=== PATIENT | female | born 1965 | race African-American/Black ===

== ENCOUNTER → 2022-10-17 10:11 | Outpatient (BNVA) | payer OTHER, SELFPAY | PROVIDERS: Visit Provider Physician Assistant Surgical ==

== ENCOUNTER 2022-11-15 08:10 | Outpatient (AMB) | payer OTHER, SELFPAY ==
--- NOTE | 2022-11-15 08:14 | A.OFFVIS_ITS ---
Intake VS Expanded 11/15/22 08:29 Height 5 ft 6 in Weight 223 lb 6.4 oz BMI 36.1 BP 192/81 H Blood Pressure Location Lt radial Blood Pressure Position Sitting Pulse 68 Pulse Source Pulse Oximeter Temp 96.3 F L Temperature Source Tympanic Pulse Oximetry 99 Oxygen Delivery Method Room Air Body Fat 93.6 Body Fat Percentage 42.0 Free Fat Mass 129.6 Muscle Mass 123.0 Visceral Mass 12.0 Water Mass 92.2 BMR 1,791 Intake Visit Reasons: (ov) SWL County Agent Required: No Allergies No Known Allergies Allergy (Verified 11/15/22 08:22) Medication List - Last Reconciled 11/15/22 by YOVANNY Cox amlodipine 5 mg PO DAILY insulin detemir U-100 (Levemir FlexPen) units subcut levothyroxine 88 mcg PO DAILY [propanolol 20 mg PO BID] HPI HPI Comments History of Present Illness Details Pt is here to start the [facility] Weight Management surgical weight loss program. She heard about our program from her PCP. Her goal is to lose weight and achieve a healthy lifestyle as well as to improve, if not resolve, obesity related medical conditions, including DM, ERNIE, HTN. She reports first being concerned about her weight about 5 years ago, highest weight to date was 270. Current weight is 223.4 pounds with a BMI of 36.1. She has tried multiple methods of weight loss including previous LSG without permanent results. She lives with her son. She does not work. She has a history of LSG by Dr Montoya at [facility] in 2020. No required weight loss prior to surgery and lost a total of 42 pounds since surgery from 268 pounds to 224 pounds. She is dissatisfied with her current weight and is concerned may need a revision She wakes at:?530 am, and goes to bed at?930pm. Dinner is at 6 pm. Breakfast: skip AM snack: breakfast bar or slimfast bar Lunch: sandwich, lunchable PM snack: fruit Dinner: meat, veg, potato After dinner: skip or cookies, crackers Other snacks: chips Liquids: 32 oz water, 4 coke zero/gingerale zero daily, no juice Alcohol/marijuana/tobacco intake: none Exercise: gym, Esporta 3 x per week, cardio, bike/treadmill, 300-330 calories per session GERD score: 0 LATRELL score: 0 ESS score: 6 QOL score: 84 Review of Systems Const All systems reviewed & are unremarkable except as noted in HPI and below Physical Exam Vital Signs: Last Vital Signs Temp 96.3 F L 11/15/22 08:29 Pulse 68 11/15/22 08:29 BP 192/81 H 11/15/22 08:29 Pulse Ox 99 11/15/22 08:29 Oxygen Delivery Method Room Air 11/15/22 08:29 BMI result Body Mass Index 36.1 Const General: cooperative, healthy appearing and no acute distress Orientation/consciousness: patient oriented x3 HEENT Head: Yes normal to inspection Ears: hearing grossly normal bilaterally General nose exam: Normal external nose present Face and sinus: Yes normal facial exam Eyes Other: opacified left pupil, blind left decr vis acuity right Resp Effort & Inspection: normal respiratory effort Auscultation: clear to auscultation bilaterally Cardio Rate: regular rate Rhythm: regular rhythm Heart sounds: S1 normal heart sound present and S2 normal heart sound present GI Inspection: Yes normal to inspection, No distended, Yes incision (midline laparotomy incision, mult laparoscopy scars) and Yes obesity Palpation (GI): Soft to palpation, nontender and no guarding Auscultation: normal bowel sounds Skin General skin exam: no rashes or lesions noted Neuro General: patient oriented x3 Extrem General: No edema Psych Appearance: grossly normal Mental Status: mental status grossly normal Speech and movement: Normal speech and movement present Affect: normal affect Attitude: cooperative Assessment & Plan Assessment & Plan (1) Obesity (BMI 30-39.9): Code(s): E66.9 - Obesity, unspecified Plan: This is a?57 yo female who will start our SWL program to prepare for bariatric surgery.? Blood work, h pylori , CXR, ECG, Abd US and UGI have been ordered. She is being scheduled for RD and BH initial consultations. She will start SWL classes and watch the first three videos before her next appointment. ? Adequate sleep of 7-8 hours per night discussed, awakening at 530 am and going to bed at 930 pm ? Purchase body composition analyzer scale (Iban garcía or Madan recommended) and check weight weekly. The best time to do this is first thing in the morning after going to the bathroom. 1. Nutritional counseling: Be sure to careful read the number of scoops per shake Start with 3 Orgain shakes ([employer], [employer], [facility]), First shake, (1 and 1/2 scoop in 8 oz low fat unsweetened almond milk or water) at 630am-830am, Second shake ( 1 scoop in 8 oz unsweetened almond milk or water) at 1030am- 1230pm 1 protein bar (Fit crunch bars at [employer], [facility], or [employer]) at 230pm-430pm. Dinner at 6pm (8 forks of protein and 8 forks of salad/vegetables). Meal to include lean meat (beef, fish, pork, turkey, chicken), cooked vegetables or a salad with olive oil and/or fruits (berries, pears, apples, kiwi). Avoid salt, breads, potatoes, rice, pasta, desserts. Another shake with 1 scoop in 8 oz unsweetened almond milk at 730pm-930pm. Try to drink 64 oz of water daily and avoid soda and juices. ?2. Each shake would be drunk slowly, like coffee in a period of 2 hours. ?3. Cut each bar in 4 pieces and eat each piece in 30 min ?to make each bar last 2 hours. ?4. I emphasized the importance of measuring accurately the food portion and measure it carefully when serving the food on the plate ?5. The meal portions include 8 full-size forks of meat and 8 full-size forks of salad. You always eat the meat portion but you can replace up to half of the forks of salad/vegetables with rice, potatoes or pasta, or a fruit ?if you like. The less you do it the better weight loss will be. ?6. One full-size fork is what can be scooped on the fork without falling aside and not what can be bit with the fork. Use regular forks like those you find in a typical restaurant. ?7.? Please send me weight measurements as soon as possible and then once a week. Always include your diet and exercise plan. Alternatively come weekly at the office for weight checks and send me the measurements. ?8. Exercise counseling: Begin by watching a stretching for beginners video. Start slowly and begin to stretch your muscles. You should do this before and after each exercise session to prevent injury. Please continue to go to [facility] near your home. Ask the research laboratory manager or one of the trainers how to use the machines if you are unfamiliar with them. Start elliptical with a resistance of 2. Increase resistance by 1 every 3 min to your most comfortable resistance with a max resistance of 8. Reduce the resistance by 1 every 3 minutes back down to 2 and repeat cycles for 300 calories. Alternatively, start treadmill with a speed of 3.0 and incline of 0, increasing incline by 1 every 3 minutes to the highest comfortable level (max 6 for now) then decrease in the same fashion. Repeat process to a goal of 300 calories. Goal of 2000 calories burned or more weekly. You may also consider use of the stationary bike. The easiest would be to chose the fat-burn or interval training program on the machine and do this until you reach the 300 calorie goal. Alternatively, you can manually adjust the resistance in a similar fashion as mentioned above, (resistance of 2-8 with a goal speed of 12 mph). Tracking calories is essential. 9. Alternatively start walking outside daily, tracking calories with a goal of 300 calories per day, daily. You can download the ana [employer] which can track your time, distance and calories while walking outside. You press start in the ana when you start and then stop when you are finished. 10.? It is important to communicate by text with me weekly 11. Please get labs, EKG and chest X-Ray within 1 week. 12. Discussed and answered all questions regarding?obtained consent to participate in the [facility]?Registry. 13. Please follow the diet plan exactly, without any change. If you do not like something about the plan or you feel hungry, you need to communicate with me so I can help you revise the plan. You should not change the plan yourself. Text me at [phone] 14. Goal is to lose at least 12 pounds in the first month 15. Goal is to lose 10% of your weight before surgery, which is about 22 lbs. Ultimate weight goal: 201 lbs before surgery Patient is morbidly obese and is not considered stable at this time.?I spent a total of 70 minutes reviewing/updating records, examining the patient and counseling the patient on weight management as detailed above. Orders: Orders Vitamin B12 and Folate Today E11.9 - Type 2 diabetes mellitus without complications, E66.9 - Obesity, unspecified, I10 - Essential (primary) hyperten julien Comprehensive Met. Panel Today E11.9 - Type 2 diabetes mellitus without complications, E66.9 - Obesity, unspecified, I10 - Essential (primary) hypertension C Reactive Protein Today E11.9 - Type 2 diabetes mellitus without complications, E66.9 - Obesity, unspecified, I10 - Essential (primary) hypertension Ferritin Today E11.9 - Type 2 diabetes mellitus without complications, E66.9 - Obesity, unspecified, I10 - Essential (primary) hypertension Hemoglobin A1c Today E11.9 - Type 2 diabetes mellitus without complications, E66.9 - Obesity, unspecified, I10 - Essential (primary) hypertension Insulin Today E11.9 - Type 2 diabetes mellitus without complications, E66.9 - Obesity, unspecified, I10 - Essential (primary) hypertension IRON PROFILE Today E11.9 - Type 2 diabetes mellitus without complications, E66.9 - Obesity, unspecified, I10 - Essential (primary) hypertension Lipid Panel Today E11.9 - Type 2 diabetes mellitus without complications, E66.9 - Obesity, unspecified, I10 - Essential (primary) hypertension PTHI Today E11.9 - Type 2 diabetes mellitus without complications, E66.9 - Obesity, unspecified, I10 - Essential (primary) hypertension TSH reflex Free T4 Today E11.9 - Type 2 diabetes mellitus without complications, E66.9 - Obesity, unspecified, I10 - Essential (primary) hypertension Vitamin A Today E11.9 - Type 2 diabetes mellitus without complications, E66.9 - Obesity, unspecified, I10 - Essential (primary) hypertension Vitamin B1 Today E11.9 - Type 2 diabetes mellitus without complications, E66.9 - Obesity, unspecified, I10 - Essential (primary) hypertension Vitamin D 25-OH Total Today E11.9 - Type 2 diabetes mellitus without complications, E66.9 - Obesity, unspecified, I10 - Essential (primary) hypertension Zinc Today E11.9 - Type 2 diabetes mellitus without complications, E66.9 - Obesity, unspecified, I10 - Essential (primary) hypertension ECG 12 lead EKG Today E11.9 - Type 2 diabetes mellitus without complications, E66.9 - Obesity, unspecified, I10 - Essential (primary) hypertension FL upper GI w air Today E11.9 - Type 2 diabetes mellitus without complications, E66.9 - Obesity, unspecified, I10 - Essential (primary) hypertension Complete Blood Count Auto Diff Today E11.9 - Type 2 diabetes mellitus without complications, E66.9 - Obesity, unspecified, I10 - Essential (primary) hypertension H Pylori Breath Test Today E11.9 - Type 2 diabetes mellitus without complications, E66.9 - Obesity, unspecified, I10 - Essential (primary) hypertension US abdomen comp w elastography Today E11.9 - Type 2 diabetes mellitus without complications, E66.9 - Obesity, unspecified, I10 - Essential (primary) hypertension XR chest 2V Today E11.9 - Type 2 diabetes mellitus without complications, E66.9 - Obesity, unspecified, I10 - Essential (primary) hypertension Referrals Behavioral Health Referral E11.9 - Type 2 diabetes mellitus without complications, E66.9 - Obesity, unspecified, I10 - Essential (primary) hypertension Nutrition/Dietitian Referral E11.9 - Type 2 diabetes mellitus without complications, E66.9 - Obesity, unspecified, I10 - Essential (primary) hypertension Coding Level of Care Code New Pt Level 5 (86456) Diagnoses Obesity (BMI 30-39.9) E66.9 Time Spent (min) 70
[2022-11-15 08:29] VITALS: BP 192/81; PULSE 68; TEMP 35.7; O2SAT 99; BMI 36.1
[2022-12-14 14:27] LABS: H Pylori Breath Test Negative (Negative)
== END 2022-11-15 09:33 | disposition home or self-care (01) ==
PROVIDERS: Visit Provider Physician Assistant Surgical
DX: E66.9 Obesity, unspecified (principal); Z68.36 Body mass index [BMI] 36.0-36.9, adult
CPT/HCPCS: 99205

== ENCOUNTER → 2022-11-15 08:10 | Outpatient (BNVA) | payer OTHER, SELFPAY | PROVIDERS: Visit Provider Physician Assistant Surgical | DX: E66.9 Obesity, unspecified (principal); Z68.36 Body mass index [BMI] 36.0-36.9, adult | CPT/HCPCS: 83013; 99202 ==

== ENCOUNTER 2022-11-20 09:19 | Outpatient (REF) | payer OTHER, SELFPAY ==
--- NOTE | ~2022-11-20 | XR_ITS ---
EXAMINATION: XR CHEST CLINICAL INFORMATION: Obesity COMPARISON: None available. TECHNIQUE: 2 views of the chest were obtained. FINDINGS: No significant abnormality is noted involving the heart, lungs, mediastinum, bony thorax or soft tissues. XR/XR chest 2V IMPRESSION: Unremarkable chest examination.
--- NOTE | 2022-11-20 09:36 | ECG_ITS ---
Test Reason : e66.9 Blood Pressure : / mmHG Vent. Rate : 068 BPM Atrial Rate : 068 BPM P-R Int : 144 ms QRS Dur : 082 ms QT Int : 404 ms P-R-T Axes : 016 004 000 degrees QTc Int : 429 ms Normal sinus rhythm Normal ECG No previous ECGs available Referred By: Aakash Esposito Electronically Signed By:TIAN RODRIGUEZ
[2022-11-20 09:43] LABS: MANUAL DIFF FLAG NO
[2022-11-20 10:07] LABS: Basophils Percent Auto 0.4 % (0-2); Eosinophils Absolute Auto 0.1 X10*3/uL (0.0-0.4); Hematocrit 36.9 % (37.0-47.0); Hemoglobin 12.1 g/dl (12.0-16.0); Imm Gran Abs Auto 0.03 X10*3/uL (0.00-0.03); Imm Gran Pct Auto 0.4 % (0.0-0.4); Lymphocytes Absolute Auto 1.9 X10*3/uL (1.2-4.9); Lymphocytes Percent Auto 23.9 % (20-40); Mean Corpuscular HGB Conc 32.8 g/dl (31.0-35.0); Mean Corpuscular Hemoglobin 27.8 pg (27.0-33.0); Mean Corpuscular Volume 84.6 fL (80.0-98.0); Monocytes Absolute Auto 0.5 X10*3/uL (0.1-1.2); Monocytes Percent Auto 5.8 % (2-11); Neutrophils Absolute Auto 5.4 x10*3/uL (2.0-8.3); Neutrophils Percent Auto 68.5 % (45-73); Platelet Count 245 X10*3/uL (160-400); Red Blood Count 4.36 X10*6/uL (4.20-5.50); Red Cell Distribution Width 14.3 % (11.0-16.0); White Blood Count 7.9 X10*3/uL (4.8-10.8)
[2022-11-20 10:44] LABS: Estimated Average Glucose 163 mg/dL; Hemoglobin A1c % 7.3 % (<6.0)
[2022-11-20 10:46] LABS: Alanine Aminotransferase 14 U/L (0-31); Albumin Level 4.1 g/dL (3.5-5.0); Alkaline Phosphatase 84 U/L (39-117); Anion Gap 14 (12-20); Aspartate Amino Transferase 19 U/L (5-31); Bilirubin Total 0.3 mg/dL (0.0-1.0); Blood Urea Nitrogen 35 mg/dL (9-16); C Reactive Protein 0.98 mg/dL (< or = 0.50); Calcium 10.1 mg/dL (8.4-10.2); Carbon Dioxide 23 mmol/L (22-29); Chloride 108 mmol/L (96-108); Cholesterol 257 mg/dL (<200); Estimated Glomerular Filt Rate 23; Glucose Random 175 mg/dL (60-115); HDL Cholesterol 59 mg/dL (>40); Iron 71 mcg/dL (30-160); LDL Cholesterol Calculated 175 mg/dL (<100); Percent Iron Saturation 31 % (15-50); Potassium 3.7 mmol/L (3.3-5.1); Sodium 141 mmol/L (135-145); Total Iron Binding Capacity 228 mcg/dL (228-428); Total Protein 7.6 g/dL (6.5-8.0); Triglycerides 119 mg/dL (<150); Unsaturated Iron Binding 157 ug/dL
[2022-11-20 11:10] LABS: Ferritin 208 ng/mL (10-250); Insulin 16 uU/mL (2-29); TSH reflex Free T4 2.67 uIU/mL (0.32-4.0); Vitamin D 25-OH Total 60.2 ng/mL (>30)
[2022-11-20 11:17] LABS: Folate > 20.0 ng/mL (> or = 4.0); Vitamin B12 > 2000 pg/mL (200-900)
[2022-11-22 15:54] LABS: Calcium (PTHI) 9.4 mg/dL (8.6-10.4); PTHI 40 pg/mL (16-77)
[2022-11-23 15:27] LABS: Zinc 83 mcg/dL (60-130)
[2022-11-25 16:33] LABS: Vitamin A 102 mcg/dL (38-98)
[2022-11-26 00:28] LABS: Vitamin B1 75 nmol/L (8-30)
== END 2022-11-20 09:20 | disposition home or self-care (01) ==
LOC: HO.XRAY 09:19
PROVIDERS: Visit Provider Physician Assistant Surgical
DX: E11.9 Type 2 diabetes mellitus without complications (principal); E66.9 Obesity, unspecified; I10 Essential (primary) hypertension
CPT/HCPCS: 36415; 71046; 80053; 80061; 82306; 82607; 82728; 82746; 83036; 83525; 83540; 83970; 84425; 84443; 84590; 84630; 85025; 86140; 93005

== ENCOUNTER 2022-12-05 07:59 | Outpatient (AMB) | payer OTHER, SELFPAY ==
--- NOTE | 2022-12-05 08:21 | A.OFFVIS_ITS ---
Intake Intake Visit Reasons: (OV) Initial Nutrition SWL Allergies No Known Allergies Allergy (Verified 11/15/22 08:22) HPI Nutrition Presentation Details Pt is legally blind [employer] weight 224# current weight 220# Reason for consult elevated BMI Diet Assmnt Details wakes up at 4-5:30am - wants to move her first protein shake to before the gym 6:30am first shake 7am likes to go to the gym 10:30am-12:30pm She has a talking food scale and she weighs all her food herself. her brother does the cooking and shopping , she makes her own shakes She likes to go to the gym SWL online classes: is taking them on her computer , she has a program that allows her to recieve written information via audio . Also has a program that translates written papers into audio for her. Previous weight loss methods attempted She has a history of LSG by Dr Montoya at [facility] in 2019. No required weight loss prior to surgery and lost a total of 42 pounds since surgery from 268 pounds to 224 pounds. She is dissatisfied with her current weight and is concerned may need a revision. she feels that she didn't have enough support Dietary counseling reduction Lifestyle Family support Yes Exercise Yes Diagnosis Nutrition problem #1 overweight/obesity As related to (etiology) #1 excess energy intake and physical inactivity As evidenced by (sign/symptom) #1 high BMI Monitoring/Goals Nutrition problem monitoring total energy intake, level of knowledge/skill, total PRO intake, total CHO intake and weight Outcome progress progressing Learning/Education Readiness to learn excellent Stages of change action Educational materials provided Yes Most Recent Diabetes Results: Cholesterol 257 mg/dL (<200) H 11/20/22 HDL Cholesterol 59 mg/dL (>40) 11/20/22 Triglycerides 119 mg/dL (<150) 11/20/22 Creatinine 2.23 mg/dL (0.5-1.4) H 11/20/22 Blood Urea Nitrogen 35 mg/dL (9-16) H 11/20/22 Sodium 141 mmol/L (135-145) 11/20/22 Potassium 3.7 mmol/L (3.3-5.1) 11/20/22 Chloride 108 mmol/L (96-108) 11/20/22 Carbon Dioxide 23 mmol/L (22-29) 11/20/22 Calcium 10.1 mg/dL (8.4-10.2) 11/20/22 AST 19 U/L (5-31) 11/20/22 ALT 14 U/L (0-31) 11/20/22 Total Protein 7.6 g/dL (6.5-8.0) 11/20/22 Albumin 4.1 g/dL (3.5-5.0) 11/20/22 Assessment & Plan Assessment & Plan (1) Obesity (BMI 30-39.9): Code(s): E66.9 - Obesity, unspecified Patient Instructions: Patient is cleared from a nutrition standpoint for bariatric surgery. She would like another follow-up appointment however for additional support and guidance as needed. Will follow-up 01/09 at 9am via telephone Coding Level of Care Code Nutr Indiv Intake (20977) Diagnoses Obesity (BMI 30-39.9) E66.9 Time Spent (min) 45
== END 2022-12-05 09:33 | disposition home or self-care (01) ==
PROVIDERS: Visit Provider Dietitian, Registered
DX: E66.9 Obesity, unspecified (principal)

== ENCOUNTER → 2022-12-05 07:59 | Outpatient (BNVA) | payer OTHER, SELFPAY | PROVIDERS: Visit Provider Dietitian, Registered | DX: E66.9 Obesity, unspecified (principal); Z71.3 Dietary counseling and surveillance | CPT/HCPCS: 97802 ==

== ENCOUNTER 2022-12-12 08:32 | Outpatient (AMB) | payer OTHER, SELFPAY ==
[2022-12-12 08:35] VITALS: BP 136/82; PULSE 102; TEMP 35.8; O2SAT 98; BMI 35.0
--- NOTE | 2022-12-12 08:35 | MHC.OFFVISWM ---
Intake VS Expanded 12/12/22 08:35 Height 5 ft 6 in Weight 216 lb 9.6 oz BMI 35.0 BP 136/82 Blood Pressure Location Rt brachial Blood Pressure Position Sitting Pulse 102 H Pulse Source Pulse Oximeter Temp 96.4 F L Temperature Source Tympanic Pulse Oximetry 98 Oxygen Delivery Method Room Air Body Fat 94.0 Body Fat Percentage 43.4 Free Fat Mass 122.6 Muscle Mass 116.4 Visceral Mass 12.0 Water Mass 87.0 BMR 1,702 Intake Visit Reasons: (OV) F/U SWL + H.Pylori Assembler 1St Shift Required: No Allergies No Known Allergies Allergy (Verified 11/15/22 08:22) Medication List - Last Reconciled 12/12/22 by YOVANNY Cox amlodipine 5 mg PO DAILY blood-glucose transmitter (Dexcom G6 Transmitter device) As directed levothyroxine 88 mcg PO DAILY [propanolol 20 mg PO BID] HPI HPI Comments History of Present Illness Details The patient is a pleasant 57 year old female who returns to the clinic for pre-operative surgical weight loss management. They were last seen in the office on 11/15/22, recorded weight at that time was 223.4 pounds, with a BMI of 36.1. Today's weight is 216.6 pounds and BMI is 35. There has been a weight loss of 6.8 pounds since initiating the surgical weight loss program on 11/15/22 with a total body weight loss of 3 %. Pre op work up completed as follows: SWL classes:? 10/22 BH appts: 12/26/22 ? ? RD appts: cleared-12/05/22 Labs: 11/20/22-SCr 2.23, A1c:7.3 H. pylori: 12/12/22 CXR: 11/20/22-nad EK11/20/22-normal ABD U/S: 12/13/22 UGI: 01/09/23 The patient reports she is doing well overall, she thinks we are great. She states she does not need the third shake. she also has stopped insulin, also would prefer a cambodian yogurt in the morning Current meal plan includes: 3 Orgain shakes ([employer], [employer], [facility]), First shake, (1 and 1/2 scoop in 8 oz low fat unsweetened almond milk or water) at 630am-830am, Second shake ( 1 scoop in 8 oz unsweetened almond milk or water) at 1030am-1230pm 1 protein bar (Fit crunch bars at [employer], [facility], or [employer]) at 230pm-430pm. Dinner at 6pm (8 forks of protein and 8 forks of salad/vegetables). Another shake with 1 scoop in 8 oz unsweetened almond milk at 730pm-930pm. Drinking 64 oz of water Current exercise plan includes: esporta, elliptical, treadmill, bike, 4 days per week, about 400-500 calories per day Physical Exam Const General: healthy appearing and no acute distress Resp Effort & Inspection: normal respiratory effort Auscultation: clear to auscultation bilaterally Cardio Rate: regular rate Rhythm: regular rhythm GI Auscultation: normal bowel sounds Extrem General: Yes normal to inspection Assessment & Plan Assessment & Plan (1) Obesity (BMI 30-39.9): Code(s): E66.9 - Obesity, unspecified Plan: change meal plan to: cambodian yogurt 6 am Orgain shake 2 scoops [id number] fit crunch bar 230-430 meal 6 pm 8 forks/8 forks reminded of upcoming appts rtc 3-4 weeks Coding Level of Care Code Est Pt Level 3 (72271) Diagnoses Obesity (BMI 30-39.9) E66.9
== END 2022-12-12 09:18 | disposition home or self-care (01) ==
PROVIDERS: Visit Provider Physician Assistant Surgical
DX: E66.9 Obesity, unspecified (principal)
CPT/HCPCS: 99213

== ENCOUNTER → 2022-12-12 08:32 | Outpatient (BNVA) | payer OTHER, SELFPAY | PROVIDERS: Visit Provider Physician Assistant Surgical | DX: E66.9 Obesity, unspecified (principal); Z68.35 Body mass index [BMI] 35.0-35.9, adult; Z11.0 Encounter for screening for intestinal infectious diseases | CPT/HCPCS: 99211; 99212 ==

== ENCOUNTER → 2022-12-26 09:42 | Outpatient (BNVA) | payer OTHER, SELFPAY | PROVIDERS: Visit Provider Counselor Mental Health ==

== ENCOUNTER 2023-01-06 11:05 | Outpatient (REF) | payer OTHER, SELFPAY ==
--- NOTE | ~2023-01-06 | US_ITS ---
EXAMINATION: US COMPLETE ABDOMEN WITH LIVER ELASTOGRAPHY CLINICAL INFORMATION: Obesity COMPARISON: None available. TECHNIQUE: Real-time imaging of the abdominal viscera. Noninvasive ultrasound liver fibrosis assessment is performed using Jr ElastPQ point quantification shear wave elastography (2D-SWE) with a C5-2 MHz transducer. Multiple elastography samples are obtained. FINDINGS: PANCREAS: Limited. The visualized pancreatic head and body are normal in appearance. The remainder of the pancreas is obscured from visualization by the overlying bowel gas. ABDOMINAL AORTA: The proximal, middle, and distal aortic segments are normal in caliber. Evaluation of the proximal segment is limited by overlapping bowel gas. INFERIOR VENA CAVA: Visualized portions are normal. LIVER: The liver demonstrates normal size, contour and increased echogenicity. No intrahepatic biliary duct dilatation. Within the right hepatic lobe, a 1.9 x 2.4 x 1.8 cm hyperechoic, circumscribed mass is seen. The right lobe measures 16.0 cm in length. The left lobe measures 7.0 cm in length. Portal flow is towards the liver (hepatopetal). Shear wave liver elastography median stiffness is 1.62 m/s (reference: normal median stiffness is 1.3 m/s or less). IQR/median stiffness to assess sampling precision is 0.14 (reference: good quality data set is IQR/median stiffness of 0.15 or less). GALLBLADDER: Surgically absent. COMMON BILE DUCT: Normal in caliber measuring 0.3 cm in diameter. RIGHT KIDNEY: There is pelviectasis, without jose elias hydronephrosis. No renal calculi or focal parenchymal lesions. The kidney measures 10.6 cm in maximum dimension. LEFT KIDNEY: Normal. No hydronephrosis. No renal calculi or focal parenchymal lesions. The kidney measures 9.2 cm in maximum dimension. SPLEEN: Normal. The spleen measures 7.5 cm in maximum dimension. FREE FLUID: None. US/US abdomen comp w elastography IMPRESSION: 1. There is generalized increase in hepatic echotexture, consistent with fatty infiltration or hepatocellular disease. Please correlate clinically. No biliary dilatation is seen. 2. Within the right hepatic lobe, a 2.4 cm hyperechoic, circumscribed mass is seen, with ultrasound features characteristic for a benign hemangioma. This is of doubtful clinical significance. If of clinical concern (i.e., history of hepatocellular disease or known malignancy), this can be further evaluated with ultrasound or MRI. 3. Liver elastography: In the absence of other known clinical signs, measurements rule out compensated advanced chronic liver disease. If there are known clinical signs, further testing may be needed for confirmation. 4. The gallbladder is surgically absent. 5. Technically limited ultrasound examination of the pancreatic tail and abdominal great vessels. REFERENCE: Society of Radiologists in Ultrasound Liver Stiffness Thresholds (2020): LIVER STIFFNESS THRESHOLDS: *Liver Stiffness equal or less than 1.3 m/s: High probability of being normal. *Liver Stiffness less than 1.7 m/s: In the absence of other known clinical signs, rules out compensated advanced chronic liver disease. *Liver Stiffness 1.7-2.1 m/s: Suggestive of compensated advanced chronic liver disease but need further test for confirmation. *Liver Stiffness over 2.1 m/s: Rules in compensated advanced chronic liver disease. *Liver Stiffness over 2.4 m/s: Suggestive of clinically significant portal hypertension. QUALITY OF DATA SET: *IQR/Median value equal or less than 0.15 implies a quality data set. *IQR/Median value over 0.15 implies a poor quality data set. SIGNIFICANT CHANGE FROM PRIOR EXAM: Significant change if liver stiffness measurement is 10% or greater from prior exam. OTHER CONSIDERATIONS: The stage of liver fibrosis may be overestimated in the setting of acute hepatitis, liver inflammation, elevated liver function tests, hepatic vascular congestion, obstructive cholestasis, non-fasting state, and infiltrative diseases such as amyloidosis and lymphoma. In some patients with NAFLD, the liver stiffness thresholds for compensated advanced chronic liver disease may be lower. In causes other than viral hepatitis and NAFLD, liver stiffness thresholds are not well established.
== END 2023-01-06 11:06 | disposition home or self-care (01) ==
LOC: HO.US 11:05
PROVIDERS: Visit Provider Physician Assistant Surgical
DX: E66.9 Obesity, unspecified (principal); E11.9 Type 2 diabetes mellitus without complications; I10 Essential (primary) hypertension
CPT/HCPCS: 76705; 76981

== ENCOUNTER 2023-01-08 12:44 | Outpatient (AMB) | payer OTHER, SELFPAY ==
--- NOTE | 2023-01-08 10:40 | MHC.OFFVISWM ---
Intake VS Expanded 01/08/23 10:41 Height 5 ft 6 in Weight 213 lb 12.8 oz BMI 34.5 Intake Visit Reasons: (tv) F/U SWL Conveyor Maintenance Mechanic Required: No Allergies No Known Allergies Allergy (Verified 11/15/22 08:22) Medication List - Last Reconciled 01/08/23 by YOVANNY Cox amlodipine 5 mg PO DAILY blood-glucose transmitter (Dexcom G6 Transmitter device) As directed levothyroxine 88 mcg PO DAILY [propanolol 20 mg PO BID] HPI HPI Comments History of Present Illness Details The patient is a pleasant 57 year old female who returns to the clinic for pre-operative surgical weight loss management. They were last seen in the office on 12/12/22, recorded weight at that time was 216.6 pounds, with a BMI of 35. Today's weight is 213.8 pounds and BMI is 34.5. There has been a weight loss of 9.6 pounds since initiating the surgical weight loss program on 11/15/22 with a total body weight loss of 4.2 %. Pre op work up completed as follows: SWL classes:? 10/22 BH appts: cleared-12/26/22 ? f/u 01/27/23? RD appts: cleared-12/05/22 Labs: 11/20/22-SCr 2.23, A1c:7.3, Sees nephrology-Dr Tompkins H. pylori: 12/12/22-neg CXR: 11/20/22-nad EK11/20/22-normal ABD U/S: 01/06/23-fatty liver w 2.4 cm right hepatic lobe mass suggestive of hemangioma UGI: 01/09/23 The patient reports she is doing well overall, she is doing well with the plans. she also has stopped insulin, and she is not having any low BS. BS running 113-1140. Also prefered a lithuanian yogurt in the morning Current meal plan includes: lithuanian yogurt 6 am Orgain shake 2 scoops 4426-0527 fit crunch bar 230-430 meal 6 pm 8 forks/8 forks Drinking 64 oz of water Current exercise plan includes: She hurt her knee using stationary bike 2 weeks ago and has been doing only 2 days a week at the gym since. 400 calories per session previously esporta, elliptical, treadmill, 4 days per week, about 400-500 calories per day [facility] Surgical History (Updated 01/08/23 @ 11:36 by YOVANNY Cox) S/P laparoscopic sleeve gastrectomy Assessment & Plan Assessment & Plan (1) Obesity (BMI 30-39.9): Code(s): E66.9 - Obesity, unspecified Plan: change meal plan back to one meal Orgain shake 1 scoop 7a-9a Orgain shake 2 scoops 11a-1p fit crunch bar 230p-430p meal 6 p 8 forks/8 forks resume gym as able with goal of 5 days per week rtc in person prior to thanksgiving planned travel and she will bring in operative report from previous sleeve gastrectomy performed in Jan [address] Montoya at [facility] Telehealth Telehealth Location of provider rendering services: practice address Location of patient: address on file Patient Identification confirmed using: Name, : Yes Telehealth method: voice only Patient verbally consented to treatment: Yes Patient verbally consented to billing insurance company: Yes Patient informed of any privacy concerns related to visit: Yes Minutes spent on Phone/Video with Pt.: 15 Coding Level of Care Code Tele Est Pt Level 3 (95797) Diagnoses Obesity (BMI 30-39.9) E66.9 Time Spent (min) 20
[2023-01-08 10:41] VITALS: BMI 34.5
== END 2023-01-08 12:55 | disposition home or self-care (01) ==
LOC: HO.HBS 12:44
PROVIDERS: Visit Provider Physician Assistant Surgical
DX: E66.9 Obesity, unspecified (principal); Z68.34 Body mass index [BMI] 34.0-34.9, adult
CPT/HCPCS: 99442

== ENCOUNTER → 2023-01-08 12:44 | Outpatient (BNVA) | payer OTHER, SELFPAY | PROVIDERS: Visit Provider Physician Assistant Surgical ==

== ENCOUNTER 2023-01-09 | Outpatient (REF) | payer OTHER, SELFPAY | END 2023-01-09 00:01 | disposition home or self-care (01) | LOC: CF | PROVIDERS: Visit Provider Dietitian, Registered | DX: E66.9 Obesity, unspecified (principal); E11.9 Type 2 diabetes mellitus without complications; I10 Essential (primary) hypertension; H54.8 Legal blindness, as defined in USA; Z71.3 Dietary counseling and surveillance; Z98.84 Bariatric surgery status | CPT/HCPCS: 97803 ==

== ENCOUNTER 2023-01-09 09:29 | Outpatient (AMB) | payer OTHER, SELFPAY ==
--- NOTE | 2023-01-09 09:23 | A.OFFVIS_ITS ---
Intake Intake Visit Reasons: (TV) F/U SWL Allergies No Known Allergies Allergy (Verified 11/15/22 08:22) HPI Nutrition Presentation Details Pt is legally blind [employer] weight 224# current weight 213# Reason for consult elevated BMI Diet Assmnt Details Patient reports she is following her nutrition plan but is getting bored with eating just protein and vegetable. She is asking for recipe resources. I provided her the recipe book last appointment. Also gave her some ideas today. her brother does the cooking and shopping , she makes her own shakes She likes to go to the gym SWL online classes: completed is taking them on her computer , she has a program that allows her to recieve written information via audio . Also has a program that translates written papers into audio for her. Previous weight loss methods attempted She has a history of LSG by Dr Montoya at [facility] in 2019. No required weight loss prior to surgery and lost a total of 42 pounds since surgery from 268 pounds to 224 pounds. She is dissatisfied with her current weight and is concerned may need a revision. she feels that she didn't have enough support Dietary counseling reduction Lifestyle Family support Yes Exercise Yes Diagnosis Nutrition problem #1 overweight/obesity As related to (etiology) #1 excess energy intake and physical inactivity As evidenced by (sign/symptom) #1 high BMI Monitoring/Goals Nutrition problem monitoring total energy intake, level of knowledge/skill, total PRO intake, total CHO intake and weight Outcome progress progressing Learning/Education Readiness to learn excellent Stages of change action Educational materials provided Yes Most Recent Diabetes Results: Cholesterol 257 mg/dL (<200) H 11/20/22 HDL Cholesterol 59 mg/dL (>40) 11/20/22 Triglycerides 119 mg/dL (<150) 11/20/22 Creatinine 2.23 mg/dL (0.5-1.4) H 11/20/22 Blood Urea Nitrogen 35 mg/dL (9-16) H 11/20/22 Sodium 141 mmol/L (135-145) 11/20/22 Potassium 3.7 mmol/L (3.3-5.1) 11/20/22 Chloride 108 mmol/L (96-108) 11/20/22 Carbon Dioxide 23 mmol/L (22-29) 11/20/22 Calcium 10.1 mg/dL (8.4-10.2) 11/20/22 AST 19 U/L (5-31) 11/20/22 ALT 14 U/L (0-31) 11/20/22 Total Protein 7.6 g/dL (6.5-8.0) 11/20/22 Albumin 4.1 g/dL (3.5-5.0) 11/20/22 [facility] Surgical History (Updated 01/08/23 @ 11:36 by YOVANNY Cox) S/P laparoscopic sleeve gastrectomy Assessment & Plan Assessment & Plan (1) Obesity (BMI 30-39.9): Code(s): E66.9 - Obesity, unspecified Patient Instructions: Patient is cleared from a nutrition standpoint for bariatric surgery. Educational requirements have been completed. Encouraged communication with office as needed Telehealth Telehealth Location of provider rendering services: practice address Location of patient: other ([facility] ) Patient Identification confirmed using: Name, : Yes Telehealth method: voice only Patient verbally consented to treatment: Yes Patient verbally consented to billing insurance company: Yes Patient informed of any privacy concerns related to visit: Yes Minutes spent on Phone/Video with Pt.: 10 Coding Level of Care Code Nutr Indiv Subseq (13806) Diagnoses Obesity (BMI 30-39.9) E66.9 Time Spent (min) 10
== END 2023-01-09 09:31 | disposition home or self-care (01) ==
LOC: HO.HBS 09:29
PROVIDERS: Visit Provider Dietitian, Registered
DX: E66.9 Obesity, unspecified (principal)

== ENCOUNTER 2023-01-23 13:30 | Outpatient (AMB) | payer OTHER, SELFPAY ==
--- NOTE | 2023-01-23 13:39 | A.OFFWM_ITS ---
Intake Intake Visit Reasons: VIDEO BH F/U Allergies No Known Allergies Allergy (Verified 11/15/22 08:22) [facility] Surgical History (Updated 01/29/23 @ 08:48 by YOVANNY Cox) S/P laparoscopic sleeve gastrectomy Behavioral Health Assessment Weight Management Therapy Therapy Notes Details Pt presents for a follow up for support. INTERVENTIONS: Discussed fucntioning. Processed progress made and strengths showed that benefits her weight-loss journey. Provided strategies for possible challenges she might face. RESPONSE: active, engaged. MSE within normal limits. Assessment & Plan Assessment & Plan (1) Bipolar 2 disorder, major depressive episode: Code(s): F31.81 - Bipolar II disorder (2) Grief: Code(s): F43.21 - Adjustment disorder with depressed mood Plan No follow up required before surgery but patient is aware she can request one if ever need. Advised to f/up post-surgery for support. Clinician has advised client about available resources if ever in need to access additional support and has encourage client to participate in post-op groups, workshops and facebook community. Telehealth Telehealth Location of provider rendering services: other Location of patient: address on file Patient Identification confirmed using: Name, : Yes Telehealth method: video Patient verbally consented to treatment: Yes Patient verbally consented to billing insurance company: Yes Patient informed of any privacy concerns related to visit: No Minutes spent on Phone/Video with Pt.: 45 Coding Level of Care Code Established Pt Tele Psytx 45 mins (25128) Patient Type Established Diagnoses Bipolar 2 disorder, major depressive episode F31.81 Grief F43.21 Time Spent (min) 45
== END 2023-01-23 14:15 | disposition home or self-care (01) ==
LOC: HO.HBST 13:43
PROVIDERS: Visit Provider Counselor Mental Health
DX: F31.81 Bipolar II disorder (principal); F43.21 Adjustment disorder with depressed mood
CPT/HCPCS: 90834

== ENCOUNTER → 2023-01-23 13:30 | Outpatient (BNVA) | payer OTHER, SELFPAY | PROVIDERS: Visit Provider Counselor Mental Health ==

== ENCOUNTER 2023-01-29 08:13 | Outpatient (AMB) | payer OTHER, SELFPAY ==
--- NOTE | 2023-01-29 08:15 | A.OFFVIS_ITS ---
Intake VS Expanded 01/29/23 08:25 BP 128/94 H Blood Pressure Location Rt brachial Blood Pressure Position Sitting Pulse 96 Pulse Source Pulse Oximeter Temp 96.0 F L Temperature Source Tympanic Pulse Oximetry 99 Oxygen Delivery Method Room Air Height 5 ft 6 in Weight 209 lb 3.2 oz BMI 33.8 Body Fat % 43.8 Body Fat Mass 91.4 Fat Free Mass 117.6 Visceral Fat Rating 11.0 Body Water % 40.0 Body Water Mass 83.6 Muscle Mass/Score 111.6 Basal Metabolic Rate/Score 1,635 Intake Visit Reasons: (ov) F/U SWL Allergies No Known Allergies Allergy (Verified 11/15/22 08:22) Medication List - Last Reconciled 01/29/23 by YOVANNY Cox amlodipine 5 mg PO DAILY blood-glucose transmitter (Dexcom G6 Transmitter device) As directed levothyroxine 88 mcg PO DAILY [propanolol 20 mg PO BID] HPI HPI Comments History of Present Illness Details The patient is a pleasant 57 year old female who returns to the clinic for pre-operative surgical weight loss management. They were last seen in the office on 01/08/2023, recorded weight at that time was 213.8 pounds, with a BMI of 34.5. Today's weight is 209.2 pounds and BMI is 33.7. There has been a weight loss of 14.2 pounds since initiating the surgical weight loss program on 11/15/2022 with a total body weight loss of 6.35 %. Hx LSG w HH repair Dr Montoya-01/2020 Pre op work up completed as follows: SWL classes:? 10/22 BH appts: cleared-12/26/[address] ? [address] appts: cleared-12/05/22 Labs: 11/20/22-SCr 2.23, A1c:7.3, Sees nephrology-Dr Tompkins H. pylori: 12/12/22-neg CXR: 11/20/22-nad EK11/20/22-normal ABD U/S: 01/06/23-fatty liver w 2.4 cm right hepatic lobe mass suggestive of hemangioma UGI: 01/09/23 The patient reports she is doing well overall, she had her upper GI scheduled although on the day of her appointment, it was canceled by Radiology due to problems with the room. Her blood pressure was noted to be elevated this morning at 128/94, however she forgot to take her medication this morning. She denies any headache or chest pain. Of note, her blood sugars remain under excellent control off of all medications. Blood sugars running 90-120. Current meal plan includes: Orgain shake 1 scoop 7a-9a Orgain shake 2 scoops 11a-1p fit crunch bar 230p-430p meal 6 p 8 forks/8 forks Drinking 64 oz of water Current exercise plan includes: esporta, elliptical, treadmill, 4 days per week, about 400 calories per day [facility] Surgical History (Updated 01/29/23 @ 08:48 by YOVANNY Cox) S/P laparoscopic sleeve gastrectomy Review of Systems Const All systems reviewed & are unremarkable except as noted in HPI and below Physical Exam Const General: healthy appearing and no acute distress Resp Effort & Inspection: normal respiratory effort Auscultation: clear to auscultation bilaterally Cardio Rate: regular rate Rhythm: regular rhythm GI Auscultation: normal bowel sounds Extrem General: Yes normal to inspection Assessment & Plan Assessment & Plan (1) Obesity (BMI 30-39.9): Code(s): E66.9 - Obesity, unspecified Plan: Overall doing well. making slow but steady progress. We will continue her current meal plan. She was encouraged to increase days at the gym by 1 and or increase calories burned to 500. Return to clinic 3 weeks. She will need a rescheduling of her upper GI given the fact that it was canceled by Radiology. Encouraged to continue to text weekly. Coding Level of Care Code Est Pt Level 3 (45048) Diagnoses Obesity (BMI 30-39.9) E66.9
[2023-01-29 08:25] VITALS: BP 128/94; PULSE 96; TEMP 35.6; O2SAT 99; BMI 33.8
== END 2023-01-29 08:53 | disposition home or self-care (01) ==
PROVIDERS: Visit Provider Physician Assistant Surgical
DX: E66.9 Obesity, unspecified (principal)
CPT/HCPCS: 99213

== ENCOUNTER → 2023-01-29 08:13 | Outpatient (BNVA) | payer OTHER, SELFPAY | PROVIDERS: Visit Provider Physician Assistant Surgical | DX: E66.9 Obesity, unspecified (principal); Z68.33 Body mass index [BMI] 33.0-33.9, adult | CPT/HCPCS: 99212 ==

== ENCOUNTER 2023-02-19 13:51 | Outpatient (AMB) | payer OTHER, SELFPAY ==
--- NOTE | 2023-02-19 12:43 | MHC.OFFVISWM ---
Intake VS Expanded 02/19/23 12:45 Height 5 ft 6 in Weight 208 lb 6 oz BMI 33.6 Intake Visit Reasons: (tv) F/U SWL Technology Assistant Required: No Allergies No Known Allergies Allergy (Verified 11/15/22 08:22) Medication List - Last Reconciled 02/19/23 by YOVANNY Cox amlodipine 5 mg PO DAILY blood-glucose transmitter (Dexcom G6 Transmitter device) As directed levothyroxine 88 mcg PO DAILY [propanolol 20 mg PO BID] HPI HPI Comments History of Present Illness Details The patient is a pleasant 57 year old female who returns to the clinic for pre-operative surgical weight loss management. They were last seen in the office on 01/29/2023, recorded weight at that time was 209.2 pounds, with a BMI of 33.7. Today's weight is 208.6 pounds and BMI is 33.6. There has been a weight loss of 14.8 pounds since initiating the surgical weight loss program on 11/15/2022 with a total body weight loss of 6.6 %. Hx LSG w HH repair Dr Montoya-01/2020 Pre op work up completed as follows: SWL classes:? 10/22 BH appts: cleared-12/26/22 ? [address] appts: cleared-12/05/22 Labs: 11/20/22-SCr 2.23, A1c:7.3, Sees nephrology-Dr Tompkins H. pylori: 12/12/22-neg CXR: 11/20/22-nad EK11/20/22-normal ABD U/S: 01/06/23-fatty liver w 2.4 cm right hepatic lobe mass suggestive of hemangioma UGI: 03/04/23 The patient reports she is doing well overall, she is following the meal plan and was able to recount it exactly. Of note, her blood sugars remain under excellent control off of all medications. Blood sugars running 90-120. She saw her in flight technician yesterday and was told of stable kidneys with no plans for HD. Current meal plan includes: Orgain shake 1 scoop 7a-9a Orgain shake 2 scoops 11a-1p fit crunch bar 230p-430p meal 6 p 8 forks/8 forks Drinking 64 oz of water Current exercise plan includes: esporta, elliptical, treadmill, 3-5 days per week, about 400 calories per day [facility] Surgical History Status post ventriculo-peritoneal shunt placement S/P cholecystectomy S/P laparoscopic sleeve gastrectomy Assessment & Plan Assessment & Plan (1) Obesity (BMI 30-39.9): Code(s): E66.9 - Obesity, unspecified Plan: Patient was encouraged to increase days at the gym to 5 consistently and possibly 6 as she does not go to the gym or do exercises on Friday. She has been encouraged to maintain consistency with her meal plan which she has been able to do. She was reminded of her upcoming upper GI appointment on 03/04/2023. She will return to the office in 1 month. She was encouraged to text with any questions or concerns as well as sending her weight weekly. Telehealth Telehealth Location of provider rendering services: practice address Location of patient: address on file Patient Identification confirmed using: Name, : Yes Telehealth method: voice only Patient verbally consented to treatment: Yes Patient verbally consented to billing insurance company: Yes Patient informed of any privacy concerns related to visit: Yes Minutes spent on Phone/Video with Pt.: 15 Coding Level of Care Code Tele Est Pt Level 3 (91697) Diagnoses Obesity (BMI 30-39.9) E66.9 Time Spent (min) 20
[2023-02-19 12:45] VITALS: BMI 33.6
== END 2023-02-19 13:55 | disposition home or self-care (01) ==
LOC: HO.HBS 13:51
PROVIDERS: Visit Provider Physician Assistant Surgical
DX: E66.9 Obesity, unspecified (principal); Z68.33 Body mass index [BMI] 33.0-33.9, adult
CPT/HCPCS: 99442

== ENCOUNTER → 2023-02-19 13:51 | Outpatient (BNVA) | payer OTHER, SELFPAY | PROVIDERS: Visit Provider Physician Assistant Surgical | DX: E66.9 Obesity, unspecified (principal) ==

== ENCOUNTER 2023-03-04 07:43 | Outpatient (REF) | payer OTHER, SELFPAY ==
--- NOTE | ~2023-03-04 | FL_ITS ---
EXAMINATION: XR FLUOROSCOPY UPPER GI WITH AIR CLINICAL INFORMATION: History of sleeve gastrectomy. Preop evaluation prior to sleeve revision COMPARISON: None TECHNIQUE: Fluoroscopic air contrast upper GI examination was performed utilizing standard techniques with thin and thick barium and effervescent granules. Numerous spot images were obtained. FINDINGS: Dual and single contrast images of the esophagus demonstrate a patulous esophagus. No evidence of stricture, mass, or ulcerations identified. Nonpropulsive tertiary contractions are noted throughout the esophagus, consistent with esophageal dysmotility. A small type I hiatal hernia is present. Gastroesophageal reflux is seen up to the thoracic inlet. Dual contrast and single contrast images of the stomach demonstrated a contour consistent with prior history of a sleeve gastrectomy. Mucosal pattern is normal, without evidence of mass, ulceration, or other abnormality. Contrast freely passed into the gastric antrum and duodenal bulb without delay. Single and air-contrast images of the duodenal bulb demonstrate no abnormality. The duodenal sweep has a normal appearance, course, and mucosal fold appearance. The imaged proximal jejunum has a normal fold pattern and caliber. FLUOROSCOPY TIME: 4 minutes 49 seconds Number of Spot Images: 13 Number of Cine: 9 DOSE AREA PRODUCT: 2787 uGy-m2 (microgray-meter squared) FL/FL upper GI w air IMPRESSION: 1. Presbyesophagus 2. Small type I hiatal hernia 3. Significant gastroesophageal reflux 4. Status post gastric sleeve procedure without complication seen. This procedure was performed by Brennan Chavira PA-C, and supervised by Dr. Talbot
== END 2023-03-04 07:44 | disposition home or self-care (01) ==
LOC: HO.XRAY 07:43
PROVIDERS: Visit Provider Physician Assistant Surgical
DX: E66.9 Obesity, unspecified (principal); E11.9 Type 2 diabetes mellitus without complications; I10 Essential (primary) hypertension
CPT/HCPCS: 74246

== ENCOUNTER → 2023-03-04 07:45 | Outpatient (BNV) | payer OTHER, SELFPAY | PROVIDERS: Visit Provider Radiology Diagnostic Radiology | DX: Z01.818 Encounter for other preprocedural examination (principal) | CPT/HCPCS: 74246 ==

== ENCOUNTER 2023-03-31 13:20 | Outpatient (AMB) | payer OTHER, SELFPAY ==
[2023-03-31 09:35] VITALS: BMI 32.8
--- NOTE | 2023-03-31 09:35 | A.OFFVIS_ITS ---
Intake VS Expanded 03/31/23 09:35 Height 5 ft 6 in Weight 203 lb 6.4 oz BMI 32.8 Body Fat % 41.3 Intake Visit Reasons: (tv) F/U SWL Certified Nursing Attendant Required: No Allergies No Known Allergies Allergy (Verified 11/15/22 08:22) Medication List - Last Reconciled 03/31/23 by YOVANNY Cox amlodipine 5 mg PO DAILY blood-glucose transmitter (Dexcom G6 Transmitter device) As directed levothyroxine 88 mcg PO DAILY [propanolol 20 mg PO BID] HPI HPI Comments History of Present Illness Details The patient is a pleasant 57 year old female who returns to the clinic for pre-operative surgical weight loss management. They were last seen in the office on 02/19/2023, recorded weight at that time was 208.6 pounds, with a BMI of 33.6. Today's weight is 203.4 pounds and BMI is 32.8. There has been a weight loss of 20 pounds since initiating the surgical weight loss program on 11/15/2022 with a total body weight loss of 8.9 %. Hx LSG w HH repair Dr Montoya-01/2020 Pre op work up completed as follows: SWL classes:? 10/22 BH appts: cleared-12/26/[address] ? [address] appts: cleared-12/05/22 Labs: 11/20/22-SCr 2.23, A1c:7.3, Sees nephrology-Dr Leda Farris. pylori: 12/12/22-neg CXR: 11/20/22-nad EK11/20/22-normal ABD U/S: 01/06/23-fatty liver w 2.4 cm right hepatic lobe mass suggestive of hemangioma UGI: 03/04/23- HH The patient reports she is doing well overall, she is following the meal plan and was able to recount it exactly. Of note, her blood sugars remain under excellent control off of all medications. Blood sugars running 90-120. She saw her aeronautical research engineer and was told of stable kidneys with no plans for HD. Current meal plan includes: Orgain shake 1 scoop 7a-9a Orgain shake 2 scoops 11a-1p fit crunch bar 230p-430p meal 6 pm 8 forks/8 forks Drinking 48-64 oz of water Current exercise plan includes: with the snowy weather and her decreased vision she has decreased her days at the gym to 2-3 d per week. When she does not go to the gym she walks her stairs at home (up/down =1) and she does that 10 times and does that 3 x per day esporta, elliptical, treadmill, 2-3 days per week, about 500 calories per day [facility] Surgical History Status post ventriculo-peritoneal shunt placement S/P cholecystectomy S/P laparoscopic sleeve gastrectomy Assessment & Plan Assessment & Plan (1) Obesity (BMI 30-39.9): Code(s): E66.9 - Obesity, unspecified Plan: No longer requiring insulin. She is making excellent progress and will transfer her care to Dr. Pack for continued preoperative care. Change meal plan: Orgain shake 1 scoop 7a-9a Orgain shake 2 scoops 11a-1p fit crunch bar 230p-430p meal 6 pm 7 forks/7 forks She states that due to her visual impairment she is very nervous to go to the gym when the weather is snowy as she can not clearly see black ice. She states that when she does not go to the gym she goes up and down her stairs 10 times, 3 times per day. She will begin to take the stairs 2 at a time if she is able. On the days that she does go to the gym she zelaya 500 calories. She will do her stair routine the days she does not go to the gym to equal activity 7 days per week. Refer to Dr. Pack for continued care. Telehealth Telehealth Location of provider rendering services: practice address Location of patient: address on file Patient Identification confirmed using: Name, : Yes Telehealth method: voice only Patient verbally consented to treatment: Yes Patient verbally consented to billing insurance company: Yes Patient informed of any privacy concerns related to visit: Yes Minutes spent on Phone/Video with Pt.: 20 Coding Level of Care Code Tele Est Pt Level 3 (79267) Diagnoses Obesity (BMI 30-39.9) E66.9 Time Spent (min) 25
== END 2023-03-31 13:28 | disposition home or self-care (01) ==
LOC: HO.HBS 13:20
PROVIDERS: Visit Provider Physician Assistant Surgical
DX: E66.9 Obesity, unspecified (principal); Z68.32 Body mass index [BMI] 32.0-32.9, adult
CPT/HCPCS: 99442

== ENCOUNTER → 2023-03-31 13:20 | Outpatient (BNVA) | payer OTHER, SELFPAY | PROVIDERS: Visit Provider Physician Assistant Surgical | DX: E66.9 Obesity, unspecified (principal) ==

== ENCOUNTER 2023-04-21 08:09 | Outpatient (AMB) | payer OTHER, SELFPAY ==
--- OUTSIDE RECORDS SUMMARY | 2023-04-21 08:11 | XMS_ITS | Continuity of Care Document ---
Author Name Unknown Organization [facility] Address [address] [place] [address]- Care Team Providers Care Electric Installer Name Role Phone Bonifacio Pacheco MD Primary Care Physician [phone] [place] [facility] [place]/21 [facility] [address] [place] [id number]- Allergies, Adverse Reactions, Alerts No Known Medication Allergies Immunizations Given and Recorded Vaccine Date Status Refusal Reason influenza virus vaccine, inactivated 01/26/21 Give n influenza virus vaccine, inactivated 03/25/19 Give n SARS-CoV-2 (COVID-19) mRNA BNT-162b2 vac 01/16/21 Given SARS-CoV-2 (COVID-19) mRNA BNT-162b2 vac 07/12/20 Recorded SARS-CoV-2 (COVID-19) mRNA BNT-162b2 vac 06/20/20 Recorded tetanus/diphtheria/pertussis, acel(Tdap) 10/10/20 Given pneumococcal 23-valent vaccine 10/10/20 Given Medications amLODIPine 5 mg oral tablet 5 mg, 1, tablet, By Mouth, Daily, # 90 tablet, Refills 3, Tot. Refills 3, Maintenance, 03/23/20 13:59:00 EST, Route to Pharmacy Electronically, [facility]-, Partial fill upon patient request if the prescription is for a schedul... Start Date: 03/23/20 Status: Ordered atorvastatin 80 mg oral tablet 1 tablet = 80 mg, By Mouth, Daily, # 90 tablet, 1 Refills, Maintenance, 08/10/20 16:44:00 EDT, Tablet, [facility], 168, cm, 07/25/20 8:40:00 EDT, Height, 120, kg, 11/03/19 7:16:00 EDT, Dry Weight Start Date: 08/10/20 Status: Ordered betamethasone topical dipropionate 0.05% cream 1 application, Topically, 2 times a day, to affected area, # 50 Gm, 0 Refills, Maintenance, 04/05/20 8:25:00 EST, Cream, [facility], 1 application Topically 2 times a day,Instr:to affected area, 168, cm, 12/21/19 8:36:00 EDT,... Start Date: 04/05/20 Status: Ordered diclofenac 1% topical gel 1 application, Topically, 4 times a day, not to exceed 32 grams/day, # 100 Gm, 1 Refills, Maintenance, 01/26/21 8:25:00 EST, [id number], Partial fill upon patient request if theprescription is for a schedule II opioid drug., 168... Start Date: 01/26/21 Status: Ordered Ensure max protein 11 oz bottle, packages, due to gastric sleeve Ensure max protein 11 oz bottle, packages, due to gastric sleeve, See Instructions, # 99 each, Refills 0, Tot. Refills 0, Maintenance, Ensure max protein 11 oz bottle, packages, due to gastric sleeve, 04/11/20 17:22:00 EST, Supply Start Date: 04/11/20 Status: Ordered Flovent Diskus 100 mcg/inh inhalation powder 1 puffs, Inhalation, 2 times a day, use daily for the season, when using albuterol as needed 2-3 times/week; rinse mouth and throat after use, # 60 each, 11 Refills, Maintenance, 10/10/20 10:00:00 EDT, Powder, [facility] #[id number], Partial fill... Start Date: 10/10/20 Stop Date: 10/05/21 Status: Ordered freestyle LibreTest Strips freestyle LibreTest Strips, See Instructions, # 30 each, Refills 11, Tot. Refills 11, Maintenance, DX DM, ICD E11.9, On QID insulin and BS monitoring, 06/22/19 10:04:00 EDT, Compound, 168, cm, 05/19/19 11:05:00 EST, Height, 108.9, kg, 01/13/19 14:10:... Start Date: 06/22/19 Status: Ordered Freestyle Ravinder 2 14 Day Sensor Freestyle Ravinder 2 14 Day Sensor, See Instructions, # 2 each, Refills 11, Tot. Refills 11, Maintenance, Use to monitor blood glucose continously, E11.9, 12/27/20 15:53:00 EDT, duplicate script from 05/11/20. Original sent to wrong pharmacy., Compound Start Date: 12/27/20 Status: Ordered Freestyle Ravinder 2 Monitor Freestyle Ravinder 2 Monitor, See Instructions, # 1 each, Refills 0, Tot. Refills 0, Maintenance, Use to monitor blood glucose continuously, E11.9, 12/27/20 15:53:00 EDT, Compound Start Date: 12/27/20 Status: Ordered Glucose Gel, Insta Glucose 40% See Instructions, # 6 each, Refills 2, Tot. Refills 2, Maintenance, use as directed for Type 1 Diabetes Mellitus, 04/11/20 17:24:00 EST, Supply, 168, cm, 12/21/19 8:36:00 EDT, Height, 120, kg, 11/03/19 7:16:00 EDT, Dry Weight Start Date: 04/11/20 Stop Date: 01/06/21 Status: Ordered lamotrigine 50 mg oral tablet, disintegrating 1 tablet = 50 mg, By Mouth, Daily at bedtime, # 90 tablet, 3 Refills, Maintenance, 06/10/19 16:08:00 EDT, DIS Tablet, [facility]- [id number], 168, cm, 05/19/19 11:05:00 EST, Height, 108.9, kg, 01/13/19 14:10:00 EDT, Dry Weight Start Date: 06/10/19 Stop Date: 06/04/20 Status: Ordered left toe off AFO left toe off AFO, See Instructions, # 1 each, Refills 0, Tot. Refills 0, Maintenance, Left toe off AFO DX left foot drop ICD M21.372, 07/15/19 11:39:00 EDT, Supply Start Date: 07/15/19 Status: Ordered Levemir FlexTouch 100 units/mL subcutaneous solution = 12 units, Subcutaneous Infusion, 2 times a day, # 15 mL, 3 Refills, Maintenance, 12/19/20 7:29:00EDT, [facility], 168, cm, 10/10/20 9:30:00 EDT, Height, 120, kg, 11/03/19 7:16:00 EDT, Dry Weight Start Date: 12/19/20 Status: Ordered levothyroxine 0.088 mg oral tablet 1 tablet = 88 mcg, By Mouth, Daily, dose increased, # 30 tablet, 5 Refills, Maintenance, 12/15/20 15:34:00 EDT, Tablet, [facility], Partial fill upon patient request if the prescription is for a schedule II opioid drug., 168,... Start Date: 12/15/20 Status: Ordered lidocaine 5% topical ointment 1 application, Topically, 3 times a day, prn pain, wash hands thoroughly after application, # 50 Gm, 2 Refills, Maintenance, 06/28/20 12:45:00 EDT, Ointment, [facility], Partial fill upon patient request if the prescription... Start Date: 06/28/20 Status: Ordered losartan 100 mg oral tablet 1 tablet = 100 mg, By Mouth, Daily, # 90 tablet, 0 Refills, Maintenance, 11/03/20 10:42:00 EDT, Tablet, [facility], 168, cm, 10/10/20 9:30:00 EDT, Height, 120, kg, 11/03/19 7:16:00 EDT, Dry Weight Start Date: 11/03/20 Status: Ordered Multiple Vitamins with Iron, Minerals and Docusate oral capsule 1 capsule, By Mouth, Daily, # 30 capsule, 0 Refills, Maintenance, 04/11/20 17:23:00 EST, Capsule, [facility], Partial fill upon patient request if the prescription is for a schedule II opioid drug., 1 capsule By Mouth Daily, 1... Start Date: 04/11/20 Status: Ordered NovoLOG FlexPen 100 units/mL injectable solution See Instructions, INJECT 4 UNITS SUBCUTANEOUSLY THREE TIMES A DAY BEFORE MEALS, # 15 mL, 0 Refills,Maintenance, [id number], 168, cm, 08/29/20 10:15:00 EDT, Height, 120, kg, 11/03/19 7:16:00 EDT, Dry Weight Start Date: 09/07/20 Status: Ordered NuLYTELY with Flavor Packs oral powder for reconstitution 240 mL, By Mouth, Every 10 minutes, Split prep method CAN SUBSTITUTE WITH ANY PEG 3350 SOLUTION AVAILABLE, # 1 each, 0 Refills, Acute 04/18/21 5:30:00 EST, 04/17/21 17:00:00 EST, REC Powder, [facility] #[id number], test date 04/18/21, 240 mL By Mo... Start Date: 04/17/21 Stop Date: 04/18/21 Status: Ordered Pen [place], 31 G x 5 mm BD Ultra Fine III See Instructions, # 200 each, Refills 3, Tot. Refills 3, Maintenance, use bid with insulin dx E11.9, 10/28/19 11:10:00 EDT, Compound, 168, cm, 10/14/19 9:08:00 EDT, Height, 108.9, kg, 01/13/19 14:10:00 EDT, Dry Weight Start Date: 10/28/19 Status: Ordered TENS unit TENS unit, See Instructions, # 1 each, Refills 0, Tot. Refills 0, Maintenance, Use daily as needed for pain secondary to chronic neck pain M54.2 M79.18 Duration: lifetime, 12/21/20 16:52:00 EDT, Supply Start Date: 12/21/20 Status: Ordered to check blood pressure once daily to check blood pressure once daily, See Instructions, # 1 each, Refills 0, Tot. Refills 0, Maintenance, automatic arm blood pressure cuff I10, 12/30/19 12:23:00 EDT, Supply Start Date: 12/30/19 Status: Ordered Ventolin HFA 108 mcg/inh inhalation aerosol with adapter 2 puffs, Inhalation, Every 4 hours, PRN NEEDED FOR WHEEZING, SHORTNESS OF BREATH, # 18 Gm, 5 Refills, Maintenance, 10/24/20 5:02:00 EDT, [facility] #[id number], 168, cm, 10/10/20 9:30:00 EDT,Height, 120, kg, 11/03/19 7:16:00 EDT, Dry Weight Start Date: 10/24/20 Status: Ordered Problem List Condition Effective Dates Status Health Status Inform ant Pseudotumor cerebri; s/p POLICY WRITER TYPIST shunt(Confirmed) Active Bipolar disorder(Confirmed) Active Cerebral palsy(Confirmed) Active CKD (chronic kidney disease)(Confirmed) Active Depression(Confirmed) Active Oxygen desaturation during sleep(Confirmed) 1 Active Diabetic neuropathy(Confirmed) Active Diabetic retinopathy(Confirmed) Active GERD (gastroesophageal reflu x disease)(Confirmed) Active Bariatric surgery status(Confirmed) Active HLD (hyperlipidemia)(Confirmed) Active HTN (hypertension)(Confirmed) Active Hypothyroidism(Confirmed) Active Asthma, mild(Confirmed) Active Obese class I(Confirmed) Active Obesity(Confirmed) Active Obstructive sleep apnea(Confirmed) Active [facility]/[id number] [id number]-[phone]/Health halfway, active care coordination(Confirmed) Active Diabetes mellitus type 2 in obese(Confirmed) Active 1to 75% in Social History Social History Type Response Smoking Status Never (less than 100 in lifetime); Tobacco user in household: No entered on: 10/28/19 Sex Female
--- OUTSIDE RECORDS SUMMARY | 2023-04-21 08:11 | XMS_ITS | Continuity of Care Document ---
Author Name Unknown Organization [facility] Address [address] [place] [address]- Care Team Providers Care Personalized Living Manager Name Role Phone Valarie CHÁVEZ, Levar Farris Primary Care Physician ( [phone] [place] [facility] [id number] Date(s): 12/22/19 - 06/07/[address] [address]- Attending Physician: Pop Juan MD Admitting Physician: Pop Juan MD Referring Physician: Laila Guardado NP Allergies, Adverse Reactions, Alerts No Known Medication Allergies Immunizations Given and Recorded Vaccine Date Status Refusal Reason influenza virus vaccine, inactivated 03/25/19 Give n Medications Admelog SoloStar 100 units/mL injectable solution = 4 units, Subcutaneous Infusion, 3 times a day before meals, to replace Humalog, # 3 mL, 5 Refills, Maintenance, 06/22/19 9:59:00 EDT, [facility], 168, cm, 05/19/19 11:05:00EST, Height, 108.9, kg, 01/13/19 14:10:00 EDT, Dry... Start Date: 06/22/19 Status: Ordered albuterol CFC free 90 mcg/inh inhalation aerosol 2, puffs, Inhalation, Every 4 hours, PRN, # 1 each, Refills 2, Tot. Refills 2, Maintenance, 04/04/20 17:08:00 EST, Route to Pharmacy Electronically, [facility]- [id number], [facility], 168, cm, 12/21/19 8:36:00 EDT, Height, 120, kg,... Start Date: 04/04/20 Status: Ordered amLODIPine 5 mg oral tablet 5 mg, 1, tablet, By Mouth, Daily, # 90 tablet, Refills 3, Tot. Refills 3, Maintenance, 03/23/20 13:59:00 EST, Route to Pharmacy Electronically, [facility]-, Partial fill upon patient request if the prescription is for a schedul... Start Date: 03/23/20 Status: Ordered atorvastatin 80 mg oral tablet 1 tablet = 80 mg, By Mouth, Daily, # 90 tablet, 1 Refills, Maintenance, 02/22/20 15:57:00 EST, Tablet, [facility]-, 168, cm, 12/21/19 8:36:00 EDT, Height, 120, kg, 11/03/19 7:16:00 EDT, Dry Weight Start Date: 02/22/20 Status: Ordered betamethasone topical dipropionate 0.05% cream 1 application, Topically, 2 times a day, to affected area, # 50 Gm, 0 Refills, Maintenance, 04/05/20 8:25:00 EST, Cream, [facility]-, 1 application Topically 2 times a day,Instr:to affected area, 168, cm, 12/21/19 8:36:00 EDT,... Start Date: 04/05/20 Status: Ordered Ensure max protein 11 oz bottle, packages, due to gastric sleeve Ensure max protein 11 oz bottle, packages, due to gastric sleeve, See Instructions, # 99 each, Refills 0, Tot. Refills 0, Maintenance, Ensure max protein 11 oz bottle, packages, due to gastric sleeve, 04/11/20 17:22:00 EST, Supply Start Date: 04/11/20 Status: Ordered freestyle LibreTest Strips freestyle LibreTest Strips, See Instructions, # 30 each, Refills 11, Tot. Refills 11, Maintenance, DX DM, ICD E11.9, On QID insulin and BS monitoring, 06/22/19 10:04:00 EDT, Compound, 168, cm, 05/19/19 11:05:00 EST, Height, 108.9, kg, 01/13/19 14:10:... Start Date: 06/22/19 Status: Ordered Freestyle Ravinder 14 Day Sensor Freestyle Ravinder 14 Day Sensor, See Instructions, # 2 each, Refills 11, Tot. Refills 11, Maintenance, Use to scan for BG at least 4 times daily. E11.65, 05/11/20 9:31:00 EST, Compound, 168, cm, 12/21/19 8:36:00 EDT, Height, 120, kg, 11/03/19 7:16:00 ED... Start Date: 05/11/20 Status: Ordered Freestyle Ravinder Monitor Freestyle Ravinder Monitor, See Instructions, # 1 each, Refills 0, Tot. Refills 0, Maintenance, DX DM,ICD E11.9, On QID insulin and BS monitoring, 05/31/19 11:48:00 EDT, Compound, 168, cm, 05/19/19 11:05:00 EST, Height, 108.9, kg, 01/13/19 14:10:00 EDT,... Start Date: 05/31/19 Status: Ordered Glucose Gel, Insta Glucose 40% [...] Refills, Maintenance, 06/10/19 16:08:00 EDT, DIS Tablet, [facility]- [id number], 168, cm, 05/19/19 11:05:00 EST, Height, 108.9, [...] 2 times a day, # 15 mL, 4 Refills, Maintenance, 03/23/20 13:54:00 EST, [facility]-, 168, cm, 12/21/19 8:36:00 EDT, Height, 120, kg, 207:16:00 EDT, Dry Weight Start Date: 03/23/20 Stop Date: 06/16/21 Status: Ordered losartan 100 mg oral tablet 1 tablet = 100 mg, By Mouth, Daily, # 90 tablet, 1 Refills, Maintenance, 05/15/20 15:41:00 EST, Tablet, [facility]-, 168, cm, 12/21/19 8:36:00 EDT, Height, 120, kg, 11/03/19 7:16:00 EDT, Dry Weight Start Date: 05/15/20 Status: Ordered Multiple Vitamins with Iron, Minerals and Docusate oral capsule 1 capsule, By Mouth, Daily, # 30 capsule, 0 Refills, Maintenance, 04/11/20 17:23:00 EST, Capsule, [facility]-, Partial fill upon patient request if the prescription is for a schedule II opioid drug., 1 capsule By Mouth Daily, 1... Start Date: 04/11/20 Status: Ordered OneTouch Verio Glucose Meter See Instructions, # 1 each, Maintenance, use to check bs three times daily dx E11.9, 02/22/19 17:58:26 EST, Compound, 168, cm, 02/08/19 22:06:30 EST, Height, 108.9, kg, 01/13/19 14:10:14 EDT, Dry Weight Start Date: 02/22/19 Status: Ordered OneTouch Verio Lancets See Instructions, # 270 each, Refills 4, Tot. Refills 4, Maintenance, use to check bs tid dx e11.9,02/22/19 17:59:42 EST, Compound, 168, cm, 02/08/19 22:06:30 EST, Height, 108.9, kg, 01/13/19 14:10:14 EDT, Dry Weight Start Date: 02/22/19 Status: Ordered OneTouch Verio Test Strips See Instructions, # 270 each, Refills 4, Tot. Refills 4, Maintenance, use to check bs tid dx E11.9,02/22/19 17:59:13 EST, Compound, 168, cm, 02/08/19 22:06:30 EST, Height, 108.9, kg, 01/13/19 14:10:14 EDT, Dry Weight Start Date: 02/22/19 Status: Ordered Pen [place], 31 G x 5 mm BD Ultra Fine III See Instructions, # 200 each, Refills 3, Tot. Refills 3, Maintenance, use bid with insulin dx E11.9, 10/28/19 11:10:00 EDT, Compound, 168, cm, 10/14/19 9:08:00 EDT, Height, 108.9, kg, 01/13/19 14:10:00 EDT, Dry Weight Start Date: 10/28/19 Status: Ordered to check blood pressure once daily to check blood pressure once daily, See Instructions, # 1 each, Refills 0, Tot. Refills 0, Maintenance, automatic arm blood pressure cuff I10, 12/30/19 12:23:00 EDT, Supply Start Date: 12/30/19 Status: Ordered Problem List Condition Effective Dates Status Health Status Inform ant Pseudotumor cerebri; s/p [employer] shunt(Confirmed) Active Bipolar disorder(Confirmed) Active Cerebral palsy(Confirmed) Active CKD (chronic kidney disease)(Confirmed) Active Depression(Confirmed) Active Diabetic neuropathy(Confirmed) Active Diabetic retinopathy(Confirmed) Active GERD (gastroesophageal reflu x disease)(Confirmed) Active Bariatric surgery status(Confirmed) Active HLD (hyperlipidemia)(Confirmed) Active HTN (hypertension)(Confirmed) Active Hypothyroidism(Confirmed) Active [facility]/[id number] Avery-[phone]/Health custodial, active care coordination(Confirmed) Active Diabetes mellitus type 2 in obese(Confirmed) Active Social History Social History Type Response Smoking Status Never (less than 100 in lifetime); Tobacco user in household: No entered on: 10/28/19 Sex Female
--- OUTSIDE RECORDS SUMMARY | 2023-04-21 08:11 | XMS_ITS | Continuity of Care Document ---
Author Name Unknown Organization [facility] Address [address] [place] [id number]- Care Team Providers Care Health Counselor Name Role Phone Valarie CHÁVEZ, Levar Farris Primary Care Physician ( [phone] Encounter [facility] Date(s): 02/04/20 - 03/05/20 [facility] [address] [place] [id number] Allergies, Adverse Reactions, Alerts No Known Medication Allergies Immunizations Given and Recorded Vaccine Date Status Refusal Reason influenza virus vaccine, inactivated 03/25/19 Give n Medications Admelog SoloStar 100 units/mL injectable solution = 4 units, Subcutaneous Infusion, 3 times a day before meals, to replace Humalog, # 3 mL, 5 Refills, Maintenance, 06/22/19 9:59:00 EDT, [facility]-, 168, cm, 05/19/19 11:05:00EST, Height, 108.9, kg, 01/13/19 14:10:00 EDT, Dry... Start Date: 06/22/19 Status: Ordered albuterol CFC free 90 mcg/inh inhalation aerosol 2, puffs, Inhalation, Every 4 hours, PRN, # 1 each, Refills 2, Tot. Refills 2, Maintenance, 10/28/19 11:06:00 EDT, Route to Pharmacy Electronically, NCPDP_ID- [id number], [facility]-, 168, cm, 10/14/19 9:08:00 EDT, Height, 108.9, k... Start Date: 10/28/19 Status: Ordered amLODIPine 10 mg oral tablet 10 mg, 1, tablet, By Mouth, Daily, for HTN, dose increased, # 90 tablet, Refills 4, Tot. Refills 4,Maintenance, 11/16/19 13:22:00 EDT, Route to Pharmacy Electronically, [facility], 168, cm, 11/16/19 13:19:00 EDT, Height, 120,... Start Date: 11/16/19 Status: Ordered atorvastatin 80 mg oral tablet 1 tablet = 80 mg, By Mouth, Daily, # 90 tablet, 1 Refills, Maintenance, 02/22/20 15:57:00 EST, Tablet, [facility], 168, cm, 12/21/19 8:36:00 EDT, Height, 120, kg, 11/03/19 7:16:00 EDT, Dry Weight Start Date: 02/22/20 Status: Ordered betamethasone topical dipropionate 0.05% cream 1 application, Topically, 2 times a day, to affected area, # 50 Gm, 0 Refills, Maintenance, 10/14/19 9:16:00 EDT, Cream, [facility], 1 application Topically 2 times a day,Instr:to affected area, 168, cm, 10/14/19 9:08:00 EDT,... Start Date: 10/14/19 Status: Ordered dulaglutide 1.5 mg/0.5 mL subcutaneous solution = 1.5 mg, Subcutaneous Injection, Every Friday, # 15 mL, 4 Refills, Maintenance, 10/28/19 11:08:00 EDT, Solution, [facility], 168, cm, 10/14/19 9:08:00 EDT, Height, 108.9, kg, 01/13/19 14:10:00 EDT, Dry Weight Start Date: 10/28/19 Stop Date: 01/20/21 Status: Ordered freestyle LibreTest Strips freestyle LibreTest [...] 05/19/19 11:05:00 EST, Height, 108.9, kg, 01/13/19 14:10... Start Date: 06/22/19 Status: Ordered Freestyle Ravinder Monitor Freestyle Ravinder Monitor, See Instructions, # 1 each, Refills 0, Tot. Refills 0, Maintenance, DX DM,ICD E11.9, On QID insulin and BS monitoring, 05/31/19 11:48:00 EDT, Compound, 168, cm, 05/19/19 11:05:00 EST, Height, 108.9, kg, 01/13/19 14:10:00 EDT,... Start Date: 05/31/19 Status: Ordered gabapentin 300 mg oral capsule 300 mg, 1, capsule, By Mouth, Daily, for 90 days, to total 700 mg QD, # 90 capsule, Refills 3, Tot.Refills 3, Hard Stop 06/16/20 10:03:00 EDT, 06/22/19 10:03:00 EDT, Route to Pharmacy Electronically, [facility]- [id number], 168, cm, 03/0... Start Date: 06/22/19 Stop Date: 06/16/20 Status: Ordered lamotrigine 50 mg oral tablet, disintegrating 1 tablet = 50 mg, By Mouth, Daily at bedtime, # 90 tablet, 3 Refills, Maintenance, 06/10/19 16:08:00 EDT, DIS Tablet, [facility]- , 168, cm, 05/19/19 11:05:00 EST, Height, 108.9, [...] Levemir FlexTouch 100 units/mL subcutaneous solution = 25 units, Subcutaneous Infusion, 2 times a day, # 15 mL, 4 Refills, Maintenance, 10/28/19 11:09:00 EDT, [facility]-[id number], 168, cm, 10/14/19 9:08:00 EDT, Height, 108.9, kg, 01/13/19 14:10:00 EDT, Dry Weight Start Date: 10/28/19 Stop Date: 01/20/21 Status: Ordered losartan 100 mg oral tablet 1 tablet = 100 mg, By Mouth, Daily, # 90 tablet, 0 Refills, Maintenance, 02/22/20 15:57:00 EST, Tablet, [facility]-, 168, cm, 12/21/19 8:36:00 EDT, Height, 120, kg, 11/03/19 7:16:00 EDT, Dry Weight Start Date: 02/22/20 Status: Ordered OneTouch Verio Glucose Meter See [...] Weight Start Date: 02/22/19 Status: Ordered Pen [place], 31 G x 5 mm BD Ultra [...] EDT, Supply Start Date: 12/30/19 Status: Ordered traZODone 50 mg oral tablet 50 mg, 1, tablet, By Mouth, Daily at bedtime, # 90 tablet, Refills 1, Tot. Refills 1, Maintenance, 11/29/19 14:06:00 EDT, Route to Pharmacy Electronically, [id number], 168, cm, 11/16/19 13:19:00 EDT, Height, 120, kg, 11/03/19... 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; s/p WATER TAXI BOAT MATE shunt(Confirmed) Active Bipolar disorder(Confirmed) Active Cerebral palsy(Confirmed) Active CKD (chronic kidney disease)(Confirmed) Active Depression(Confirmed) Active Diabetic neuropathy(Confirmed) Active Diabetic retinopathy(Confirmed) Active GERD (gastroesophageal reflu x disease)(Confirmed) Active HLD (hyperlipidemia)(Confirmed) Active HTN (hypertension)(Confirmed) Active Hypothyroidism(Confirmed) Active [facility]/[id number] Avery-[phone]/Health snf, active care coordination(Confirmed) Active Diabetes mellitus type 2 in obese(Confirmed) Active Social History Social History Type Response Smoking Status Never (less than 100 in lifetime); Tobacco user in household: No entered on: 10/28/19 Sex Female
--- OUTSIDE RECORDS SUMMARY | 2023-04-21 08:11 | XMS_ITS | Continuity of Care Document ---
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 Role Phone Valarie CHÁVEZ, Levar Farris Primary Care Physician Encounter [facility] Date(s): 12/20/19 - 01/19/20 [facility] [address] [place] [address]- [facility] Allergies, Adverse Reactions, Alerts No Known Medication Allergies Immunizations Given and Recorded Vaccine Date Status Refusal Reason influenza virus vaccine, inactivated 03/25/19 Give n Medications Admelog SoloStar 100 units/mL injectable solution = 4 units, Subcutaneous Infusion, 3 times a day before meals, to replace Humalog, # 3 mL, 5 Refills, Maintenance, 06/22/19 9:59:00 EDT, [facility]-, 168, cm, 05/19/19 11:05:00EST, Height, 108.9, kg, 01/13/19 14:10:00 EDT, Dry... Start Date: 06/22/19 Status: Ordered albuterol CFC free 90 mcg/inh inhalation aerosol 2, puffs, Inhalation, Every 4 hours, PRN, # 1 each, Refills 2, Tot. Refills 2, Maintenance, 10/28/19 11:06:00 EDT, Route to Pharmacy Electronically, NCPDP_ID- [id number], [facility]-, 168, cm, 10/14/19 9:08:00 EDT, Height, 108.9, k... Start Date: 10/28/19 Status: Ordered amLODIPine 10 mg oral tablet 10 mg, 1, tablet, By Mouth, Daily, for HTN, dose increased, # 90 tablet, Refills 4, Tot. Refills 4,Maintenance, 11/16/19 13:22:00 EDT, Route to Pharmacy Electronically, [facility]-, 168, cm, 11/16/19 13:19:00 EDT, Height, 120,... Start Date: 11/16/19 Status: Ordered atorvastatin 80 mg oral tablet 1 tablet = 80 mg, By Mouth, Daily, # 90 tablet, 3 Refills, Maintenance, 03/25/19 15:39:00 EST, Tablet, [facility] #[id number], 168, cm, 03/25/19 14:33:00 EST, Height, 108.9, kg, 01/13/19 14:10:00 EDT, Dry Weight Start Date: 03/25/19 Status: Ordered betamethasone topical dipropionate 0.05% cream 1 application, Topically, 2 times a day, to affected area, # 50 Gm, 0 Refills, Maintenance, 10/14/19 9:16:00 EDT, Cream, [facility], 1 application Topically 2 times a day,Instr:to affected area, 168, cm, 10/14/19 9:08:00 EDT,... Start Date: 10/14/19 Status: Ordered dulaglutide 1.5 mg/0.5 mL subcutaneous solution = 1.5 mg, Subcutaneous Injection, Every Friday, # 15 mL, 4 Refills, Maintenance, 10/28/19 11:08:00 EDT, Solution, [facility]-, 168, cm, 10/14/19 9:08:00 EDT, Height, 108.9, [...] 300 mg, 1, capsule, By Mouth, Daily, to total 700 mg QD, # 90 capsule, Refills 3, Tot. Refills 3, Maintenance, 06/22/19 10:03:00 EDT, Route to Pharmacy Electronically, [facility]-[id number], 168, cm, 05/19/19 11:05:00 EST, Height, 108.9,... Start Date: 06/22/19 Stop Date: 06/16/20 Status: Ordered gabapentin 400 mg oral capsule 400 mg, 1, capsule, By Mouth, Daily, # 90 capsule, Refills 3, Tot. Refills 3, Maintenance, 02/08/1914:35:49 EST, Route to Pharmacy Electronically, [id number], [facility] #[id number] Start Date: 02/08/19 Stop Date: 02/03/20 Status: Ordered lamotrigine 50 mg oral tablet, disintegrating 1 tablet = 50 mg, By Mouth, Daily at bedtime, # 90 tablet, 3 Refills, Maintenance, 06/10/19 16:08:00 EDT, DIS Tablet, [facility]- , 168, cm, 05/19/19 11:05:00 EST, Height, [...] mL, 4 Refills, Maintenance, 10/28/19 11:09:00 EDT, [facility]-[id number], 168, cm, 10/14/19 9:08:00 EDT, Height, 108.9, kg, 01/13/19 14:10:00 EDT, Dry Weight Start Date: 10/28/19 Stop Date: 01/20/21 Status: Ordered levothyroxine 75 mcg (0.075 mg) oral tablet 1 tablet = 75 mcg, By Mouth, Daily, # 90 tablet, 1 Refills, Maintenance, 07/23/19 14:11:00 EDT, Tablet, [facility]-, 168, cm, 05/19/19 11:05:00 EST, Height, 108.9, kg, 01/13/19 14:10:00 EDT, Dry Weight Start Date: 07/23/19 Status: Ordered losartan 100 mg oral tablet 1 tablet = 100 mg, By Mouth, Daily, # 90 tablet, 3 Refills, Maintenance, 03/25/19 16:12:00 EST, Tablet, [facility] #[id number], 168, cm, 03/25/19 14:33:00 EST, Height, 108.9, kg, 01/13/19 14:10:00 EDT, Dry Weight Start Date: 03/25/19 Status: Ordered omeprazole 40 mg oral enteric coated capsule 1 capsule = 40 mg, By Mouth, Daily, # 90 capsule, 3 Refills, Maintenance, 02/08/19 14:42:28 EST, Suspension Start Date: 02/08/19 Stop Date: 02/03/20 Status: Ordered OneTouch Verio Glucose Meter See [...] Weight Start Date: 02/22/19 Status: Ordered Pen [place], 31 G x 5 mm BD Ultra [...] 11/29/19 14:06:00 EDT, Route to Pharmacy Electronically, [facility], 168, cm, 11/16/19 13:19:00 EDT, Height, 120, kg, 11/03/19... 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; s/p SENIOR ACTUARIAL ANALYST shunt(Confirmed) Active Bipolar disorder(Confirmed) Active Cerebral palsy(Confirmed) Active CKD (chronic kidney disease)(Confirmed) Active Depression(Confirmed) Active Diabetic neuropathy(Confirmed) Active Diabetic retinopathy(Confirmed) Active GERD (gastroesophageal reflu x disease)(Confirmed) Active HLD (hyperlipidemia)(Confirmed) Active HTN (hypertension)(Confirmed) Active Hypothyroidism(Confirmed) Active [facility]/[id number]-[id number] Avery-[phone]/Health long term, active care coordination(Confirmed) Active Diabetes mellitus type 2 in obese(Confirmed) Active Social History Social History Type Response Smoking Status Never (less than 100 in lifetime); Tobacco user in household: No entered on: 10/28/19 Sex Female
--- OUTSIDE RECORDS SUMMARY | 2023-04-21 08:11 | XMS_ITS | Continuity of Care Document ---
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 Name Role Phone Bonifacio Pacheco MD Primary Care Physician [phone] Encounter [facility] [place] Date(s): 02/07/21 - 03/16/21 [facility] Diabetes [address] [place] [id number]- Attending Physician: Sonya Mejía MD Admitting Physician: Sonya Mejía MD Allergies, Adverse Reactions, Alerts No Known Medication [...] Given Medications amLODIPine 5 mg oral tablet 1 tablet, By Mouth, Daily, # 30 tablet, 5 Refills, Maintenance, 02/24/21 16:01:00 EST, [facility]-, 168, cm, 01/26/21 7:47:00 EST, Height, 120, kg, 11/03/19 7:16:00 EDT, Dry Weight Start Date: 02/24/21 Status: Ordered atorvastatin 80 mg oral tablet 1 tablet, By Mouth, Daily, # 28 tablet, 5 Refills, Maintenance, 02/02/21 8:31:00 EST, [facility]-, 168, cm, 01/26/21 7:47:00 EST, Height, 120, kg, 11/03/19 7:16:00 EDT, Dry Weight Start Date: 02/02/21 Status: Ordered betamethasone topical dipropionate 0.05% cream 1 application, Topically, 2 times a day, to affected area, # 50 Gm, 0 Refills, Maintenance, 04/05/20 8:25:00 EST, Cream, [facility]-, 1 application Topically 2 times a day,Instr:to affected area, 168, cm, 12/21/19 8:36:00 EDT,... Start Date: 04/05/20 Status: Ordered diclofenac 1% topical gel 1 application, Topically, 4 times a day, not to exceed 32 grams/day, # 100 Gm, 1 Refills, Maintenance, 01/26/21 8:25:00 EST, [facility] #[id number], Partial fill upon patient request if theprescription [...] 11 Refills, Maintenance, 10/10/20 10:00:00 EDT, Powder, [facility] #[id number], Partial fill... Start Date: 10/10/20 Stop Date: [...] duplicate script from 05/11/20. Original sent to [facility] pharmacy., Compound Start Date: 12/27/20 Status: Ordered [...] Refills, Maintenance, 06/10/19 16:08:00 EDT, DIS Tablet, [facility]- 132[facility], 168, cm, 05/19/19 11:05:00 EST, Height, 108.9, [...] 15 mL, 3 Refills, Maintenance, 12/19/20 7:29:00EDT, [facility]-, 168, cm, 10/10/20 9:30:00 EDT, Height, 120, kg, 11/03/19 7:16:00 EDT, Dry Weight Start Date: 12/19/20 Status: Ordered levothyroxine 0.088 mg oral tablet 1 tablet = 88 mcg, By Mouth, Daily, dose increased, # 30 tablet, 5 Refills, Maintenance, 12/15/20 15:34:00 EDT, Tablet, [facility], Partial fill upon patient request if the prescription is for a schedule II opioid drug., 168,... Start Date: 12/15/20 Status: Ordered lidocaine 5% topical ointment 1 application, Topically, 3 times a day, prn pain, wash hands thoroughly after application, # 50 Gm, 2 Refills, Maintenance, 06/28/20 12:45:00 EDT, Ointment, [facility]-, Partial fill upon patient request if the prescription... Start Date: 06/28/20 Status: Ordered losartan 100 mg oral tablet 1 tablet, By Mouth, Daily, # 28 tablet, 0 Refills, [facility], 168, cm, 01/26/21 7:47:00 EST, Height, 120, kg, 11/03/19 7:16:00 EDT, Dry Weight Start Date: 02/05/21 Status: Ordered Multiple Vitamins with Iron, Minerals and Docusate oral capsule 1 capsule, By Mouth, Daily, # 30 capsule, 0 Refills, Maintenance, 04/11/20 17:23:00 EST, Capsule, [facility], Partial fill upon patient request if the prescription is for a schedule II opioid drug., 1 capsule By Mouth Daily, 1... Start Date: 04/11/20 Status: Ordered NovoLOG FlexPen 100 units/mL injectable solution See Instructions, Please follow sliding scale TID with meals between 2-8 units. max daily dose: 24 units E11.9, # 15 mL, 11 Refills, 03/06/21 9:51:00 EST, [facility] #[id number], 168, cm, 03/06/21 9:27:00 EST, Height, 120, kg, 11/03/19 7:16:0... Start Date: 03/06/21 Status: Ordered NuLYTELY with Flavor Packs oral powder for reconstitution 240 mL, By Mouth, Every 10 minutes, Split prep method CAN SUBSTITUTE WITH ANY PEG 3350 SOLUTION AVAILABLE, # 1 each, 0 Refills, Acute 04/18/21 5:30:00 EST, 04/17/21 17:00:00 EST, REC Powder, [facility] #[id number], test date 04/18/21, 240 mL By Mo... 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 shunt(Confirmed) Active Bipolar disorder(Confirmed) Active Cerebral palsy(Confirmed) Active CKD (chronic kidney disease)(Confirmed) Active Depression(Confirmed) Active Oxygen desaturation during sleep(Confirmed) 1 Active Diabetic neuropathy(Confirmed) Active Diabetic retinopathy(Confirmed) Active GERD (gastroesophageal reflu x disease)(Confirmed) Active Bariatric surgery status(Confirmed) Active HLD (hyperlipidemia)(Confirmed) Active HTN (hypertension)(Confirmed) Active Hypothyroidism(Confirmed) Active Asthma, mild(Confirmed) Active Obese class I(Confirmed) Active Obesity(Confirmed) Active Obstructive sleep apnea(Confirmed) Active [facility]/[id number]-[id number] Avery-[phone]/Health [facility], active care coordination(Confirmed) Active Diabetes mellitus type 2 in obese(Confirmed) Active 1to 75% in Social History Social History Type Response Smoking Status Never (less than 100 in lifetime); Tobacco user in household: No entered on: 10/28/19 Sex Female
--- OUTSIDE RECORDS SUMMARY | 2023-04-21 08:11 | XMS_ITS | Continuity of Care Document ---
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 Role Phone Valarie CHÁVEZ, Levar Farris Primary Care Physician ( [phone] Encounter [facility] Date(s): 10/20/19 - 11/19/19 [facility] [address] [place] [address]- [facility] Allergies, Adverse Reactions, Alerts No Known Medication Allergies Immunizations Given and Recorded Vaccine Date Status Refusal Reason influenza virus vaccine, inactivated 03/25/19 Give n Medications Admelog SoloStar 100 units/mL injectable solution = 4 units, Subcutaneous Infusion, 3 times a day before meals, to replace Humalog, # 3 mL, 5 Refills, Maintenance, 06/22/19 9:59:00 EDT, [facility]-, 168, cm, 05/19/19 11:05:00EST, Height, 108.9, kg, 01/13/19 14:10:00 EDT, Dry... Start Date: 06/22/19 Status: Ordered albuterol CFC free 90 mcg/inh inhalation aerosol 2, puffs, Inhalation, Every 4 hours, PRN, # 1 each, Refills 2, Tot. Refills 2, Maintenance, 10/28/19 11:06:00 EDT, Route to Pharmacy Electronically, NCPDP_ID- [id number], [facility]-, 168, cm, 10/14/19 9:08:00 EDT, Height, 108.9, k... Start Date: 10/28/19 Status: Ordered amLODIPine 10 mg oral tablet 10 mg, 1, tablet, By Mouth, Daily, for HTN, dose increased, # 90 tablet, Refills 4, Tot. Refills 4,Maintenance, 11/16/19 13:22:00 EDT, Route to Pharmacy Electronically, [facility]-, 168, cm, 11/16/19 13:19:00 EDT, Height, 120,... Start Date: 11/16/19 Status: Ordered atorvastatin 80 mg oral tablet 1 tablet = 80 mg, By Mouth, Daily, # 90 tablet, 3 Refills, Maintenance, 03/25/19 15:39:00 EST, Tablet, [facility] #[id number], 168, cm, 03/25/19 14:33:00 EST, Height, 108.9, kg, 01/13/19 14:10:00 EDT, Dry Weight Start Date: 03/25/19 Status: Ordered betamethasone topical dipropionate 0.05% cream 1 application, Topically, 2 times a day, to affected area, # 50 Gm, 0 Refills, Maintenance, 10/14/19 9:16:00 EDT, Cream, [facility], 1 application Topically 2 times a day,Instr:to affected area, 168, cm, 10/14/19 9:08:00 EDT,... Start Date: 10/14/19 Status: Ordered dulaglutide 1.5 mg/0.5 mL subcutaneous solution = 1.5 mg, Subcutaneous Injection, Every Friday, # 15 mL, 4 Refills, Maintenance, 10/28/19 11:08:00 EDT, Solution, [facility]-, 168, cm, 10/14/19 9:08:00 EDT, Height, [...] 06/22/19 10:03:00 EDT, Route to Pharmacy Electronically, [facility]-[id number], 168, cm, 05/19/19 11:05:00 EST, Height, 108.9,... Start Date: 06/22/19 Stop Date: 06/16/20 Status: Ordered gabapentin 400 mg oral capsule 400 mg, 1, capsule, By Mouth, Daily, # 90 capsule, Refills 3, Tot. Refills 3, Maintenance, 02/08/1914:35:49 EST, Route to Pharmacy Electronically, [id number], [facility] #[id number] Start Date: 02/08/19 Stop Date: 02/03/20 Status: Ordered lamotrigine 50 mg oral tablet, disintegrating 1 tablet = 50 mg, By Mouth, Daily at bedtime, # 90 tablet, 3 Refills, Maintenance, 06/10/19 16:08:00 EDT, DIS Tablet, [facility]- , 168, cm, 05/19/19 11:05:00 EST, [...] mL, 4 Refills, Maintenance, 10/28/19 11:09:00 EDT, [facility]-[id number], 168, cm, 10/14/19 9:08:00 EDT, Height, 108.9, kg, 01/13/19 14:10:00 EDT, Dry Weight Start Date: 10/28/19 Stop Date: 01/20/21 Status: Ordered levothyroxine 75 mcg (0.075 mg) oral tablet 1 tablet = 75 mcg, By Mouth, Daily, # 90 tablet, 1 Refills, Maintenance, 07/23/19 14:11:00 EDT, Tablet, [facility]-, 168, cm, 05/19/19 11:05:00 EST, Height, 108.9, kg, 01/13/19 14:10:00 EDT, Dry Weight Start Date: 07/23/19 Status: Ordered losartan 100 mg oral tablet 1 tablet = 100 mg, By Mouth, Daily, # 90 tablet, 3 Refills, Maintenance, 03/25/19 16:12:00 EST, Tablet, [facility] #[id number], 168, cm, 03/25/19 14:33:00 EST, Height, 108.9, [...] Weight Start Date: 02/22/19 Status: Ordered Pen [place], 31 G x 5 mm BD Ultra Fine III See Instructions, # 200 each, Refills 3, Tot. Refills 3, Maintenance, use bid with insulin dx E11.9, 10/28/19 11:10:00 EDT, Compound, 168, cm, 10/14/19 9:08:00 EDT, Height, 108.9, kg, 01/13/19 14:10:00 EDT, Dry Weight Start Date: 10/28/19 Status: Ordered traZODone 50 mg oral tablet 50 mg, 1, tablet, By Mouth, Daily at bedtime, # 30 tablet, Refills 0, Tot. Refills 0, Maintenance, 10/28/19 11:20:00 EDT, Route to Pharmacy Electronically, [facility], 168, cm, 10/14/19 9:08:00 EDT, Height, 108.9, kg, 01/13/19... 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 Bipolar disorder(Confirmed) Active Cerebral palsy(Confirmed) Active CKD (chronic kidney disease)(Confirmed) Active Depression(Confirmed) Active Diabetic neuropathy(Confirmed) Active Diabetic retinopathy(Confirmed) Active GERD (gastroesophageal reflu x disease)(Confirmed) Active HLD (hyperlipidemia)(Confirmed) Active HTN (hypertension)(Confirmed) Active Hypothyroidism(Confirmed) Active [facility]/[id number] Avery-[phone]/Health nursing home, active care coordination(Confirmed) Active Diabetes mellitus type 2 in obese(Confirmed) Active Social History Social History Type Response Smoking Status Never (less than 100 in lifetime); Tobacco user in household: No entered on: 10/28/19 Sex Female
--- OUTSIDE RECORDS SUMMARY | 2023-04-21 08:11 | XMS_ITS | Continuity of Care Document ---
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 Start Date: 03/23/20 Status: Ordered atorvastatin 80 mg oral tablet 1 tablet = 80 mg, By Mouth, Daily, # 90 tablet, 1 Refills, Maintenance, 08/10/20 16:44:00 EDT, Tablet, [facility]-, 168, cm, 07/25/20 8:40:00 EDT, Height, 120, kg, 11/03/19 7:16:00 EDT, Dry Weight Start Date: 08/10/20 Status: Ordered betamethasone topical dipropionate 0.05% cream 1 application, Topically, 2 times a day, to affected area, # 50 Gm, 0 Refills, Maintenance, 04/05/20 8:25:00 EST, Cream, [facility]-[id number], 1 application Topically 2 times a day,Instr:to affected area, 168, cm, 12/21/19 8:36:00 EDT,... Start Date: 04/05/20 Status: Ordered diclofenac 1% topical gel 1 application, Topically, 4 times a day, not to exceed 32 grams/day, # 100 Gm, 1 Refills, Maintenance, 01/26/21 8:25:00 EST, [facility] #[id number], Partial fill upon patient request if theprescription [...] 11 Refills, Maintenance, 10/10/20 10:00:00 EDT, Powder, [facility] #[id number], Partial fill... Start Date: 10/10/20 Stop Date: [...] duplicate script from 05/11/20. Original sent to [facility]., Compound Start Date: 12/27/20 Status: Ordered [...] Refills, Maintenance, 06/10/19 16:08:00 EDT, DIS Tablet, [facility] [address], 168, cm, 05/19/19 11:05:00 EST, Height, 108.9, [...] 15 mL, 3 Refills, Maintenance, 12/19/20 7:29:00EDT, [facility], 168, cm, 10/10/20 9:30:00 EDT, Height, 120, kg, 11/03/19 7:16:00 EDT, Dry Weight Start Date: 12/19/20 Status: Ordered levothyroxine 0.088 mg oral tablet 1 tablet = 88 mcg, By Mouth, Daily, dose increased, # 30 tablet, 5 Refills, Maintenance, 12/15/20 15:34:00 EDT, Tablet, [facility], Partial fill upon patient request if the prescription is for a schedule II opioid drug., 168,... Start Date: 12/15/20 Status: Ordered lidocaine 5% topical ointment 1 application, Topically, 3 times a day, prn pain, wash hands thoroughly after application, # 50 Gm, 2 Refills, Maintenance, 06/28/20 12:45:00 EDT, Ointment, [facility], Partial fill upon patient request if the prescription... Start Date: 06/28/20 Status: Ordered losartan 100 mg oral tablet 1 tablet = 100 mg, By Mouth, Daily, # 90 tablet, 0 Refills, Maintenance, 11/03/20 10:42:00 EDT, Tablet, [facility], 168, cm, 10/10/20 9:30:00 EDT, Height, 120, kg, 11/03/19 7:16:00 EDT, Dry Weight Start Date: 11/03/20 Status: Ordered Multiple Vitamins with Iron, Minerals and Docusate oral capsule 1 capsule, By Mouth, Daily, # 30 capsule, 0 Refills, Maintenance, 04/11/20 17:23:00 EST, Capsule, [facility], Partial fill upon patient request if the prescription is for a schedule II opioid drug., 1 capsule By Mouth Daily, 1... Start Date: 04/11/20 Status: Ordered NovoLOG FlexPen 100 units/mL injectable solution See Instructions, INJECT 4 UNITS SUBCUTANEOUSLY THREE TIMES A DAY BEFORE MEALS, # 15 mL, 0 Refills,Maintenance, [facility]-[id number], 168, cm, 08/29/20 10:15:00 EDT, Height, 120, kg, 11/03/19 7:16:00 EDT, Dry Weight Start Date: 09/07/20 Status: Ordered NuLYTELY with Flavor Packs oral powder for reconstitution 240 mL, By Mouth, Every 10 minutes, Split prep method CAN SUBSTITUTE WITH ANY PEG 3350 SOLUTION AVAILABLE, # 1 each, 0 Refills, Acute 04/18/21 5:30:00 EST, 04/17/21 17:00:00 EST, REC Powder, [facility] #[id number], test date 04/18/21, 240 mL By Mo... 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) Active Bipolar disorder(Confirmed) Active Cerebral palsy(Confirmed) Active CKD (chronic kidney disease)(Confirmed) Active Depression(Confirmed) Active Oxygen desaturation during sleep(Confirmed) 1 Active Diabetic neuropathy(Confirmed) Active Diabetic retinopathy(Confirmed) Active GERD (gastroesophageal reflu x disease)(Confirmed) Active Bariatric surgery status(Confirmed) Active HLD (hyperlipidemia)(Confirmed) Active HTN (hypertension)(Confirmed) Active Hypothyroidism(Confirmed) Active Asthma, mild(Confirmed) Active Obese class I(Confirmed) Active Obesity(Confirmed) Active Obstructive sleep apnea(Confirmed) Active [facility]/LKD-PL-AgqeiuwBea Avery-[phone]/Health retirement, active care coordination(Confirmed) Active Diabetes mellitus type 2 in obese(Confirmed) Active 1to 75% in Social History Social History Type Response Smoking Status Never (less than 100 in lifetime); Tobacco user in household: No entered on: 10/28/19 Sex Female
--- OUTSIDE RECORDS SUMMARY | 2023-04-21 08:11 | XMS_ITS | Continuity of Care Document ---
Author Name Unknown Organization [facility] Address [address] [place] [address]- Care Team Providers Care Laboratory Director Name Role Phone Bonifacio Pacheco MD Primary Care Physician Encounter [facility] [place] Date(s): 02/21/21 - 03/23/21 [facility] [address] [place] [id number]- Allergies, Adverse Reactions, Alerts No Known Medication [...] tablet, 5 Refills, Maintenance, 02/24/21 16:01:00 EST, [facility]-, 168, cm, 01/26/21 7:47:00 EST, Height, 120, kg, 11/03/19 7:16:00 EDT, Dry Weight Start Date: 02/24/21 Status: Ordered atorvastatin 80 mg oral tablet 1 tablet, By Mouth, Daily, # 28 tablet, 5 Refills, Maintenance, 02/02/21 8:31:00 EST, [facility]-, 168, cm, 01/26/21 7:47:00 EST, Height, 120, kg, 11/03/19 7:16:00 EDT, Dry Weight Start Date: 02/02/21 Status: Ordered betamethasone topical dipropionate 0.05% cream 1 application, Topically, 2 times a day, to affected area, # 50 Gm, 0 Refills, Maintenance, 04/05/20 8:25:00 EST, Cream, [facility]-, 1 application Topically 2 times a day,Instr:to affected area, 168, cm, 12/21/19 8:36:00 EDT,... Start Date: 04/05/20 Status: Ordered diclofenac 1% topical gel 1 application, Topically, 4 times a day, not to exceed 32 grams/day, # 100 Gm, 1 Refills, Maintenance, 01/26/21 8:25:00 EST, [facility] #[id number], Partial fill upon patient request if theprescription [...] 11 Refills, Maintenance, 10/10/20 10:00:00 EDT, Powder, [facility] #[id number], Partial fill... Start Date: 10/10/20 Stop Date: [...] Refills, Maintenance, 06/10/19 16:08:00 EDT, DIS Tablet, [facility]- [id number], 168, cm, 05/19/19 11:05:00 EST, Height, 108.9, [...] 15 mL, 3 Refills, Maintenance, 12/19/20 7:29:00EDT, [facility], 168, cm, 10/10/20 9:30:00 EDT, Height, 120, kg, 11/03/19 7:16:00 EDT, Dry Weight Start Date: 12/19/20 Status: Ordered levothyroxine 0.088 mg oral tablet 1 tablet = 88 mcg, By Mouth, Daily, dose increased, # 30 tablet, 5 Refills, Maintenance, 12/15/20 15:34:00 EDT, Tablet, [facility], Partial fill upon patient request if the prescription is for a schedule II opioid drug., 168,... Start Date: 12/15/20 Status: Ordered lidocaine 5% topical ointment 1 application, Topically, 3 times a day, prn pain, wash hands thoroughly after application, # 50 Gm, 2 Refills, Maintenance, 06/28/20 12:45:00 EDT, Ointment, [facility], Partial fill upon patient request if the prescription... Start Date: 06/28/20 Status: Ordered losartan 100 mg oral tablet 1 tablet, By Mouth, Daily, # 28 tablet, 0 Refills, [facility], 168, cm, 01/26/21 7:47:00 EST, Height, 120, kg, 11/03/19 7:16:00 EDT, Dry Weight Start Date: 02/05/21 Status: Ordered Multiple Vitamins with Iron, Minerals and Docusate oral capsule 1 capsule, By Mouth, Daily, # 30 capsule, 0 Refills, Maintenance, 04/11/20 17:23:00 EST, Capsule, [facility], Partial fill upon patient request if the prescription is for a schedule II opioid drug., 1 capsule By Mouth Daily, 1... Start Date: 04/11/20 Status: Ordered NovoLOG FlexPen 100 units/mL injectable solution See Instructions, Please follow sliding scale TID with meals between 2-8 units. max daily dose: 24 units E11.9, # 15 mL, 11 Refills, 03/06/21 9:51:00 EST, [facility] #[id number], 168, cm, 03/06/21 9:27:00 EST, Height, 120, kg, 11/03/19 7:16:0... Start Date: 03/06/21 Status: Ordered NuLYTELY with Flavor Packs oral powder for reconstitution 240 mL, By Mouth, Every 10 minutes, Split prep method CAN SUBSTITUTE WITH ANY PEG 3350 SOLUTION AVAILABLE, # 1 each, 0 Refills, Acute 04/18/21 5:30:00 EST, 04/17/21 17:00:00 EST, REC Powder, [facility] #[id number], test date 04/18/21, 240 mL By Mo... Start Date: 04/17/21 Stop Date: 04/18/21 Status: Ordered Pen [place], 31 G x 5 mm BD Ultra [...] Gm, 5 Refills, Maintenance, 10/24/20 5:02:00 EDT, [facility] #[id number], 168, cm, 10/10/20 9:30:00 EDT,Height, 120, kg, 11/03/19 7:16:00 EDT, Dry Weight Start Date: 10/24/20 Status: Ordered Problem List Condition Effective Dates Status Health Status Inform ant Pseudotumor cerebri; s/p AGRICULTURAL ECONOMICS PROFESSOR shunt(Confirmed) Active Bipolar disorder(Confirmed) Active Cerebral palsy(Confirmed) Active CKD (chronic kidney disease)(Confirmed) Active Depression(Confirmed) Active Oxygen desaturation during sleep(Confirmed) 1 Active Diabetic neuropathy(Confirmed) Active Diabetic retinopathy(Confirmed) Active GERD (gastroesophageal reflu x disease)(Confirmed) Active Bariatric surgery status(Confirmed) Active HLD (hyperlipidemia)(Confirmed) Active HTN (hypertension)(Confirmed) Active Hypothyroidism(Confirmed) Active Asthma, mild(Confirmed) Active Obese class I(Confirmed) Active Obesity(Confirmed) Active Obstructive sleep apnea(Confirmed) Active [facility]-OqphnvgBea Avery-[phone]/Health senior living, active care coordination(Confirmed) Active Diabetes mellitus type 2 in obese(Confirmed) Active 1to 75% in Social History Social History Type Response Smoking Status Never (less than 100 in lifetime); Tobacco user in household: No entered on: 10/28/19 Sex Female
--- OUTSIDE RECORDS SUMMARY | 2023-04-21 08:11 | XMS_ITS | Continuity of Care Document ---
Author Name Unknown Organization [facility] Address [address] [place] [address]- Care Team Providers Care Program Arranger Name Role Phone Valarie CHÁVEZ, Levar Farris Primary Care Physician En[place] [facility] Date(s): 01/15/19 - 02/27/19 [facility] [address] [place] [address]- [facility] Attending Physician: Terry Jimenez MD Admitting Physician: Terry Jimenez MD Allergies, Adverse Reactions, Alerts No Known Medication Allergies Medications atorvastatin 40 mg oral tablet 1 tablet = 40 mg, By Mouth, Daily at bedtime, # 90 tablet, 3 Refills, Maintenance, 02/08/19 14:42:52 EST, Tablet Start Date: 02/08/19 Stop Date: 02/03/20 Status: Ordered dulaglutide 1.5 mg/0.5 mL subcutaneous solution 0.5 mL = 1.5 mg, Subcutaneous Injection, Every Friday, # 2 mL, 11 Refills, Maintenance, 02/08/19 14:35:25 EST, Solution Start Date: 02/08/19 Stop Date: 01/10/20 Status: Ordered gabapentin 300 mg oral capsule 300 mg, 1, capsule, By Mouth, Daily, # 90 capsule, Refills 3, Tot. Refills 3, Maintenance, 02/08/1914:36:39 EST, Route to Pharmacy Electronically, [id number], [facility] #[id number] Start Date: 02/08/19 Stop Date: 02/03/20 Status: Ordered gabapentin 400 mg oral capsule 400 mg, 1, capsule, By Mouth, Daily, # 90 capsule, Refills 3, Tot. Refills 3, Maintenance, 02/08/1914:35:49 EST, Route to Pharmacy Electronically, [id number], [facility] #[id number] Start Date: 02/08/19 Stop Date: 02/03/20 Status: Ordered glipiZIDE 10 mg oral tablet 1 tablet = 10 mg, By Mouth, 2 times a day, # 180 tablet, 3 Refills, Maintenance, 02/08/19 14:37:03 EST, Tablet Start Date: 02/08/19 Stop Date: 02/03/20 Status: Ordered lamotrigine 50 mg oral tablet, disintegrating 1 tablet = 50 mg, By Mouth, Daily at bedtime, # 90 tablet, 3 Refills, Maintenance, 02/08/19 14:39:40 EST, DIS Tablet Start Date: 02/08/19 Stop Date: 02/03/20 Status: Ordered Levemir 100 units/mL subcutaneous solution = 30 units, Subcutaneous Injection, 2 times a day, # 60 mL, 3 Refills, Maintenance, 02/08/19 14:37:21 EST, Injection Start Date: 02/08/19 Stop Date: 02/03/20 Status: Ordered levothyroxine 0.05 mg oral tablet 1 tablet = 50 mcg, By Mouth, Daily, # 90 tablet, 3 Refills, Maintenance, 02/08/19 14:42:12 EST, Tablet Start Date: 02/08/19 Stop Date: 02/03/20 Status: Ordered losartan 50 mg oral tablet 1 tablet = 50 mg, By Mouth, Daily, # 90 tablet, 3 Refills, Maintenance, 02/23/19 14:40:09 EST, Tablet, 168, cm, 02/08/19 22:06:30 EST, Height, 108.9, kg, 01/13/19 14:10:14 EDT, Dry Weight Start Date: 02/23/19 Status: Ordered NuLYTELY with Flavor Packs oral powder for reconstitution 240 mL, By Mouth, Every 10 minutes, # 1 each, 0 Refills, Maintenance, 02/15/19 11:22:11 EST, REC Powder, test date 06/15/19, 240 mL By Mouth Every 10 minutes Start Date: 02/15/19 Status: Ordered omeprazole 40 mg oral enteric [...] Dry Weight Start Date: 02/22/19 Status: Ordered Problem List Condition Effective Dates Status Health Status Inform ant Pseudotumor cerebri; 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
--- OUTSIDE RECORDS SUMMARY | 2023-04-21 08:11 | XMS_ITS | Continuity of Care Document ---
Author Name Unknown Organization [facility] Address [address] [place] [address]- Care Team Providers Care Strap Machine Operator Automatic Name Role Phone Valarie CHÁVEZ, Levar Farris Primary Care Physician Encounter [facility] Date(s): 11/29/19 - 12/29/19 [facility] [address] [place] [address]- [facility] Allergies, Adverse Reactions, Alerts No Known Medication Allergies Immunizations Given and Recorded Vaccine Date Status Refusal Reason influenza virus vaccine, inactivated 03/25/19 Give n Medications Admelog SoloStar 100 units/mL injectable solution = 4 units, Subcutaneous Infusion, 3 times a day before meals, to replace Humalog, # 3 mL, 5 Refills, Maintenance, 06/22/19 9:59:00 EDT, [facility]-, 168, cm, 05/19/19 11:05:00EST, Height, 108.9, kg, 01/13/19 14:10:00 EDT, Dry... Start Date: 06/22/19 Status: Ordered albuterol CFC free 90 mcg/inh inhalation aerosol 2, puffs, Inhalation, Every 4 hours, PRN, # 1 each, Refills 2, Tot. Refills 2, Maintenance, 10/28/19 11:06:00 EDT, Route to Pharmacy Electronically, NCPDP_ID- [id number], [facility]-, 168, cm, 10/14/19 9:08:00 EDT, Height, 108.9, k... Start Date: 10/28/19 Status: Ordered amLODIPine 10 mg oral tablet 10 mg, 1, tablet, By Mouth, Daily, for HTN, dose increased, # 90 tablet, Refills 4, Tot. Refills 4,Maintenance, 11/16/19 13:22:00 EDT, Route to Pharmacy Electronically, [facility]-, 168, cm, 11/16/19 13:19:00 EDT, Height, 120,... Start Date: 11/16/19 Status: Ordered atorvastatin 80 mg oral tablet 1 tablet = 80 mg, By Mouth, Daily, # 90 tablet, 3 Refills, Maintenance, 03/25/19 15:39:00 EST, Tablet, [facility] #[id number], 168, cm, 03/25/19 14:33:00 EST, Height, 108.9, kg, 01/13/19 14:10:00 EDT, Dry Weight Start Date: 03/25/19 Status: Ordered betamethasone topical dipropionate 0.05% cream 1 application, Topically, 2 times a day, to affected area, # 50 Gm, 0 Refills, Maintenance, 10/14/19 9:16:00 EDT, Cream, [facility], 1 application Topically 2 times a day,Instr:to affected area, 168, cm, 10/14/19 9:08:00 EDT,... Start Date: 10/14/19 Status: Ordered dulaglutide 1.5 mg/0.5 mL subcutaneous solution = 1.5 mg, Subcutaneous Injection, Every Friday, # 15 mL, 4 Refills, Maintenance, 10/28/19 11:08:00 EDT, Solution, [facility], 168, cm, 10/14/19 9:08:00 EDT, Height, 108.9, [...] 06/22/19 10:03:00 EDT, Route to Pharmacy Electronically, [facility], 168, cm, 05/19/19 11:05:00 EST, Height, 108.9,... Start Date: 06/22/19 Stop Date: 06/16/20 Status: Ordered gabapentin 400 mg oral capsule 400 mg, 1, capsule, By Mouth, Daily, # 90 capsule, Refills 3, Tot. Refills 3, Maintenance, 02/08/1914:35:49 EST, Route to Pharmacy Electronically, [id number], [id number] Start Date: 02/08/19 Stop Date: 02/03/20 Status: Ordered lamotrigine 50 mg oral tablet, disintegrating 1 tablet = 50 mg, By Mouth, Daily at bedtime, # 90 tablet, 3 Refills, Maintenance, 06/10/19 16:08:00 EDT, DIS Tablet, [facility]- , 168, cm, 05/19/19 11:05:00 EST, [...] mL, 4 Refills, Maintenance, 10/28/19 11:09:00 EDT, [facility]-, 168, cm, 10/14/19 9:08:00 EDT, Height, 108.9, kg, 01/13/19 14:10:00 EDT, Dry Weight Start Date: 10/28/19 Stop Date: 01/20/21 Status: Ordered levothyroxine 75 mcg (0.075 mg) oral tablet 1 tablet = 75 mcg, By Mouth, Daily, # 90 tablet, 1 Refills, Maintenance, 07/23/19 14:11:00 EDT, Tablet, [id number], 168, cm, 05/19/19 11:05:00 EST, Height, 108.9, kg, 01/13/19 14:10:00 EDT, Dry Weight Start Date: 07/23/19 Status: Ordered losartan 100 mg oral tablet 1 tablet = 100 mg, By Mouth, Daily, # 90 tablet, 3 Refills, Maintenance, 03/25/19 16:12:00 EST, Tablet, [facility] #[id number], 168, cm, 03/25/19 14:33:00 EST, Height, 108.9, [...] Weight Start Date: 02/22/19 Status: Ordered Pen [place], 31 G x 5 mm BD Ultra [...] 11/29/19 14:06:00 EDT, Route to Pharmacy Electronically, [facility]-, 168, cm, 11/16/19 13:19:00 EDT, Height, 120, kg, 11/03/19... 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; s/p HEAD CHARRER shunt(Confirmed) Active Bipolar disorder(Confirmed) Active Cerebral palsy(Confirmed) Active CKD (chronic kidney disease)(Confirmed) Active Depression(Confirmed) Active Diabetic neuropathy(Confirmed) Active Diabetic retinopathy(Confirmed) Active GERD (gastroesophageal reflu x disease)(Confirmed) Active HLD (hyperlipidemia)(Confirmed) Active HTN (hypertension)(Confirmed) Active Hypothyroidism(Confirmed) Active [facility]-FryqvyhChristi Avery-[phone]/Health assisted, active care coordination(Confirmed) Active Diabetes mellitus type 2 in obese(Confirmed) Active Social History Social History Type Response Smoking Status Never (less than 100 in lifetime); Tobacco user in household: No entered on: 10/28/19 Sex Female
--- OUTSIDE RECORDS SUMMARY | 2023-04-21 08:11 | XMS_ITS | Continuity of Care Document ---
Author Name Unknown Organization [facility] Address [address] [place] [address]- Care Team Providers Care Loader Helper Sorting Yard Name Role Phone Bonifacio Pacheco MD Primary Care Physician Encounter [facility] [place] Date(s): 01/04/21 - 02/10/21 [facility] [address] [place] [address]- Attending Physician: Not on Staff, Attending MD Allergies, Adverse Reactions, Alerts No Known [...] 03/23/20 13:59:00 EST, Route to Pharmacy Electronically, [facility]-, Partial fill upon patient request if the prescription is for a schedul... Start Date: 03/23/20 Status: Ordered atorvastatin 80 mg oral tablet 1 tablet, By Mouth, Daily, # 28 tablet, 5 Refills, Maintenance, 02/02/21 8:31:00 EST, [facility]-, 168, cm, 01/26/21 7:47:00 EST, Height, 120, kg, 11/03/19 7:16:00 EDT, Dry Weight Start Date: 02/02/21 Status: Ordered betamethasone topical dipropionate 0.05% cream 1 application, Topically, 2 times a day, to affected area, # 50 Gm, 0 Refills, Maintenance, 04/05/20 8:25:00 EST, Cream, [facility]-[id number], 1 application Topically 2 times a day,Instr:to affected area, 168, cm, 12/21/19 8:36:00 EDT,... Start Date: 04/05/20 Status: Ordered diclofenac 1% topical gel 1 application, Topically, 4 times a day, not to exceed 32 grams/day, # 100 Gm, 1 Refills, Maintenance, 01/26/21 8:25:00 EST, Gel, [facility] #[id number], Partial fill upon patient request if theprescription [...] 11 Refills, Maintenance, 10/10/20 10:00:00 EDT, Powder, [facility] #[id number], Partial fill... Start Date: 10/10/20 Stop Date: [...] from 05/11/20. Original sent to [facility]., Compound Start Date: 12/27/20 Status: [...] Refills, Maintenance, 06/10/19 16:08:00 EDT, DIS Tablet, [facility] [id number], 168, cm, 05/19/19 11:05:00 EST, Height, 108.9, [...] 15 mL, 3 Refills, Maintenance, 12/19/20 7:29:00EDT, [facility], 168, cm, 10/10/20 9:30:00 EDT, Height, 120, kg, 11/03/19 7:16:00 EDT, Dry Weight Start Date: 12/19/20 Status: Ordered levothyroxine 0.088 mg oral tablet 1 tablet = 88 mcg, By Mouth, Daily, dose increased, # 30 tablet, 5 Refills, Maintenance, 12/15/20 15:34:00 EDT, Tablet, [facility], Partial fill upon patient request if the prescription is for a schedule II opioid drug., 168,... Start Date: 12/15/20 Status: Ordered lidocaine 5% topical ointment 1 application, Topically, 3 times a day, prn pain, wash hands thoroughly after application, # 50 Gm, 2 Refills, Maintenance, 06/28/20 12:45:00 EDT, Ointment, [facility], Partial fill upon patient request if the prescription... Start Date: 06/28/20 Status: Ordered losartan 100 mg oral tablet 1 tablet, By Mouth, Daily, # 28 tablet, 0 Refills, [facility], 168, cm, 01/26/21 7:47:00 EST, Height, 120, kg, 11/03/19 7:16:00 EDT, Dry Weight Start Date: 02/05/21 Status: Ordered Multiple Vitamins with Iron, Minerals and Docusate oral capsule 1 capsule, By Mouth, Daily, # 30 capsule, 0 Refills, Maintenance, 04/11/20 17:23:00 EST, Capsule, [facility], Partial fill upon patient request if the prescription is for a schedule II opioid drug., 1 capsule By Mouth Daily, 1... Start Date: 04/11/20 Status: Ordered NovoLOG FlexPen 100 units/mL injectable solution See Instructions, INJECT 4 UNITS SUBCUTANEOUSLY THREE TIMES A DAY BEFORE MEALS, # 15 mL, 0 Refills,Maintenance, [facility], 168, cm, 08/29/20 10:15:00 EDT, Height, 120, kg, 11/03/19 7:16:00 EDT, Dry Weight Start Date: 09/07/20 Status: Ordered NuLYTELY with Flavor Packs oral powder for reconstitution 240 mL, By Mouth, Every 10 minutes, Split prep method CAN SUBSTITUTE WITH ANY PEG 3350 SOLUTION AVAILABLE, # 1 each, 0 Refills, Acute 04/18/21 5:30:00 EST, 04/17/21 17:00:00 EST, REC Powder, [facility] #[id number], test date 04/18/21, 240 mL By Mo... Start Date: 04/17/21 Stop Date: 04/18/21 Status: Ordered Pen [place], 31 G x 5 mm BD Ultra [...] Gm, 5 Refills, Maintenance, 10/24/20 5:02:00 EDT, [facility] #[id number], 168, cm, 10/10/20 9:30:00 EDT,Height, 120, kg, 11/03/19 7:16:00 EDT, Dry Weight Start Date: 10/24/20 Status: Ordered Problem List Condition Effective Dates Status Health Status Inform ant Pseudotumor cerebri; s/p WEIGHER PACKING shunt(Confirmed) Active Bipolar disorder(Confirmed) Active Cerebral palsy(Confirmed) Active CKD (chronic kidney disease)(Confirmed) Active Depression(Confirmed) Active Oxygen desaturation during sleep(Confirmed) 1 Active Diabetic neuropathy(Confirmed) Active Diabetic retinopathy(Confirmed) Active GERD (gastroesophageal reflu x disease)(Confirmed) Active Bariatric surgery status(Confirmed) Active HLD (hyperlipidemia)(Confirmed) Active HTN (hypertension)(Confirmed) Active Hypothyroidism(Confirmed) Active Asthma, mild(Confirmed) Active Obese class I(Confirmed) Active Obesity(Confirmed) Active Obstructive sleep apnea(Confirmed) Active [facility]-NvjqhevSilvia Avery-[phone]/Health long term, active care coordination(Confirmed) Active Diabetes mellitus type 2 in obese(Confirmed) Active 1to 75% in Social History Social History Type Response Smoking Status Never (less than 100 in lifetime); Tobacco user in household: No entered on: 10/28/19 Sex Female
--- OUTSIDE RECORDS SUMMARY | 2023-04-21 08:11 | XMS_ITS | Continuity of Care Document ---
Author Name Unknown Organization [facility] Address [address] [place] [address]- Care Team Providers Care Assistant District Attorney Name Role Phone Bonifacio Pacheco MD Primary Care Physician [phone] Encounter [facility] Date(s): 10/11/20 - 11/17/20 [facility] [address] [place] [id number]- Attending Physician: Not on Staff, Attending MD Allergies, Adverse Reactions, Alerts No Known Medication Allergies Immunizations Given and Recorded Vaccine Date Status Refusal Reason tetanus/diphtheria/pertussis, acel(Tdap) 10/10/20 Given pneumococcal 23-valent vaccine 10/10/20 Given SARS-CoV-2 (COVID-19) mRNA BNT-162b2 vac 07/12/20 Recorded SARS-CoV-2 (COVID-19) mRNA BNT-162b2 vac 06/20/20 Recorded influenza virus vaccine, inactivated 03/25/19 Give n Medications amLODIPine 5 mg oral tablet 5 mg, 1, tablet, By Mouth, Daily, # 90 tablet, Refills 3, Tot. Refills 3, Maintenance, 03/23/20 13:59:00 EST, Route to Pharmacy Electronically, [facility]-, Partial fill upon patient request if the prescription is for a schedul... Start Date: 03/23/20 Status: Ordered atorvastatin 80 mg oral tablet 1 tablet = 80 mg, By Mouth, Daily, # 90 tablet, 1 Refills, Maintenance, 08/10/20 16:44:00 EDT, Tablet, [facility]-, 168, cm, 07/25/20 8:40:00 EDT, Height, 120, kg, 11/03/19 7:16:00 EDT, Dry Weight Start Date: 08/10/20 Status: Ordered betamethasone topical dipropionate 0.05% cream 1 application, Topically, 2 times a day, to affected area, # 50 Gm, 0 Refills, Maintenance, 04/05/20 8:25:00 EST, Cream, [facility]-[id number], 1 application Topically 2 times a day,Instr:to [...] 11 Refills, Maintenance, 10/10/20 10:00:00 EDT, Powder, [facility] #[id number], Partial fill... Start Date: 10/10/20 Stop Date: [...] BG at least 4 times daily. E11.65, 07/17/20 14:20:00 EDT, duplicate script from 05/11/20. Original sent to wrong pharmacy., Compound, 1... Start Date: 07/17/20 Status: Ordered Freestyle Ravinder Monitor Freestyle Ravinder [...] Refills, Maintenance, 06/10/19 16:08:00 EDT, DIS Tablet, [facility]- 22222, 168, cm, 05/19/19 11:05:00 EST, Height, 108.9, [...] mL, 4 Refills, Maintenance, 03/23/20 13:54:00 EST, [facility]-[id number], 168, cm, 12/21/19 8:36:00 EDT, Height, 120, kg, :16:00 EDT, Dry Weight Start Date: 03/23/20 Stop Date: 06/16/21 Status: Ordered levothyroxine 0.088 mg oral tablet 1 tablet = 88 mcg, By Mouth, Daily, dose increased, # 30 tablet, 5 Refills, Maintenance, 06/15/20 9:09:00 EDT, Tablet, [facility], Partial fill upon patient request if the prescription is for a schedule II opioid drug., 168, c... Start Date: 06/15/20 Status: Ordered lidocaine 5% topical ointment 1 application, Topically, 3 times a day, prn pain, wash hands thoroughly after application, # 50 Gm, 2 Refills, Maintenance, 06/28/20 12:45:00 EDT, Ointment, [facility], Partial fill upon patient request if the prescription... Start Date: 06/28/20 Status: Ordered losartan 100 mg oral tablet 1 tablet = 100 mg, By Mouth, Daily, # 90 tablet, 0 Refills, Maintenance, 11/03/20 10:42:00 EDT, Tablet, [facility], 168, cm, 10/10/20 9:30:00 EDT, Height, 120, kg, 11/03/19 7:16:00 EDT, Dry Weight Start Date: 11/03/20 Status: Ordered Multiple Vitamins with Iron, Minerals and Docusate oral capsule 1 capsule, By Mouth, Daily, # 30 capsule, 0 Refills, Maintenance, 04/11/20 17:23:00 EST, Capsule, [facility], Partial fill upon patient request if the prescription is for a schedule II opioid drug., 1 capsule By Mouth Daily, 1... Start Date: 04/11/20 Status: Ordered NovoLOG FlexPen 100 units/mL injectable solution See Instructions, INJECT 4 UNITS SUBCUTANEOUSLY THREE TIMES A DAY BEFORE MEALS, # 15 mL, 0 Refills,Maintenance, [facility], 168, cm, 08/29/20 10:15:00 EDT, Height, 120, kg, 11/03/19 7:16:00 EDT, Dry Weight Start Date: 09/07/20 Status: Ordered Pen [place], 31 G x 5 mm BD Ultra [...] Gm, 5 Refills, Maintenance, 10/24/20 5:02:00 EDT, [facility] #[id number], 168, cm, 10/10/20 9:30:00 EDT,Height, 120, kg, 11/03/19 7:16:00 EDT, Dry Weight Start Date: 10/24/20 Status: Ordered Problem List Condition Effective Dates Status Health Status Inform ant Pseudotumor cerebri; s/p ASSISTANT TO THE PRESIDENT shunt(Confirmed) Active Bipolar disorder(Confirmed) Active Cerebral palsy(Confirmed) Active CKD (chronic kidney disease)(Confirmed) Active Depression(Confirmed) Active Diabetic neuropathy(Confirmed) Active Diabetic retinopathy(Confirmed) Active GERD (gastroesophageal reflu x disease)(Confirmed) Active Bariatric surgery status(Confirmed) Active HLD (hyperlipidemia)(Confirmed) Active HTN (hypertension)(Confirmed) Active Hypothyroidism(Confirmed) Active Asthma, mild(Confirmed) Active [facility]/ECN-IV-SfpmwpcChristi Avery-[phone]/Health long term, active care coordination(Confirmed) Active Diabetes mellitus type 2 in obese(Confirmed) Active Social History Social History Type Response Smoking Status Never (less than 100 in lifetime); Tobacco user in household: No entered on: 10/28/19 Sex Female
--- OUTSIDE RECORDS SUMMARY | 2023-04-21 08:11 | XMS_ITS | Continuity of Care Document ---
Author Name Unknown Organization [facility] Address [address] [place] [address]- Care Team Providers Care Fruit Grader Name Role Phone Valarie CHÁVEZ, Levar Farris Primary Care Physician ( [phone] [place] [facility] [place] 11/18/19 - 12/18/19 [facility] [address] [place] [address]- [facility] Allergies, Adverse Reactions, Alerts No Known Medication Allergies Immunizations Given and Recorded Vaccine Date Status Refusal Reason influenza virus vaccine, inactivated 03/25/19 Give n Medications Admelog SoloStar 100 units/mL injectable solution = 4 units, Subcutaneous Infusion, 3 times a day before meals, to replace Humalog, # 3 mL, 5 Refills, Maintenance, 06/22/19 9:59:00 EDT, [facility]-, 168, cm, 05/19/19 11:05:00EST, Height, 108.9, kg, 01/13/19 14:10:00 EDT, Dry... Start Date: 06/22/19 Status: Ordered albuterol CFC free 90 mcg/inh inhalation aerosol 2, puffs, Inhalation, Every 4 hours, PRN, # 1 each, Refills 2, Tot. Refills 2, Maintenance, 10/28/19 11:06:00 EDT, Route to Pharmacy Electronically, NCPDP_ID- [id number], [facility]-, 168, cm, 10/14/19 9:08:00 EDT, Height, 108.9, k... Start Date: 10/28/19 Status: Ordered amLODIPine 10 mg oral tablet 10 mg, 1, tablet, By Mouth, Daily, for HTN, dose increased, # 90 tablet, Refills 4, Tot. Refills 4,Maintenance, 11/16/19 13:22:00 EDT, Route to Pharmacy Electronically, [facility]-, 168, cm, 11/16/19 13:19:00 EDT, Height, 120,... Start Date: 11/16/19 Status: Ordered atorvastatin 80 mg oral tablet 1 tablet = 80 mg, By Mouth, Daily, # 90 tablet, 3 Refills, Maintenance, 03/25/19 15:39:00 EST, Tablet, [facility] #[id number], 168, cm, 03/25/19 14:33:00 EST, Height, 108.9, kg, 01/13/19 14:10:00 EDT, Dry Weight Start Date: 03/25/19 Status: Ordered betamethasone topical dipropionate 0.05% cream 1 application, Topically, 2 times a day, to affected area, # 50 Gm, 0 Refills, Maintenance, 10/14/19 9:16:00 EDT, Cream, [facility], 1 application Topically 2 times a day,Instr:to affected area, 168, cm, 10/14/19 9:08:00 EDT,... Start Date: 10/14/19 Status: Ordered dulaglutide 1.5 mg/0.5 mL subcutaneous solution = 1.5 mg, Subcutaneous Injection, Every Friday, # 15 mL, 4 Refills, Maintenance, 10/28/19 11:08:00 EDT, Solution, [facility]-, 168, cm, 10/14/19 9:08:00 EDT, Height, [...] 06/22/19 10:03:00 EDT, Route to Pharmacy Electronically, [facility]-[id number], 168, cm, 05/19/19 11:05:00 EST, Height, 108.9,... Start Date: 06/22/19 Stop Date: 06/16/20 Status: Ordered gabapentin 400 mg oral capsule 400 mg, 1, capsule, By Mouth, Daily, # 90 capsule, Refills 3, Tot. Refills 3, Maintenance, 02/08/1914:35:49 EST, Route to Pharmacy Electronically, [id number], [facility] #[id number] Start Date: 02/08/19 Stop Date: 02/03/20 Status: Ordered lamotrigine 50 mg oral tablet, disintegrating 1 tablet = 50 mg, By Mouth, Daily at bedtime, # 90 tablet, 3 Refills, Maintenance, 06/10/19 16:08:00 EDT, DIS Tablet, [facility]- , 168, cm, 05/19/19 11:05:00 EST, [...] mL, 4 Refills, Maintenance, 10/28/19 11:09:00 EDT, [facility]-[id number], 168, cm, 10/14/19 9:08:00 EDT, Height, 108.9, kg, 01/13/19 14:10:00 EDT, Dry Weight Start Date: 10/28/19 Stop Date: 01/20/21 Status: Ordered levothyroxine 75 mcg (0.075 mg) oral tablet 1 tablet = 75 mcg, By Mouth, Daily, # 90 tablet, 1 Refills, Maintenance, 07/23/19 14:11:00 EDT, Tablet, [facility]-, 168, cm, 05/19/19 11:05:00 EST, Height, 108.9, kg, 01/13/19 14:10:00 EDT, Dry Weight Start Date: 07/23/19 Status: Ordered losartan 100 mg oral tablet 1 tablet = 100 mg, By Mouth, Daily, # 90 tablet, 3 Refills, Maintenance, 03/25/19 16:12:00 EST, Tablet, [facility] #[id number], 168, cm, 03/25/19 14:33:00 EST, Height, 108.9, [...] Weight Start Date: 02/22/19 Status: Ordered Pen [place], 31 G x 5 mm BD Ultra [...] 11/29/19 14:06:00 EDT, Route to Pharmacy Electronically, [facility], 168, cm, 11/16/19 13:19:00 EDT, Height, 120, kg, 11/03/19... 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) Active Bipolar disorder(Confirmed) Active Cerebral palsy(Confirmed) Active CKD (chronic kidney disease)(Confirmed) Active Depression(Confirmed) Active Diabetic neuropathy(Confirmed) Active Diabetic retinopathy(Confirmed) Active GERD (gastroesophageal reflu x disease)(Confirmed) Active HLD (hyperlipidemia)(Confirmed) Active HTN (hypertension)(Confirmed) Active Hypothyroidism(Confirmed) Active [facility]/SCG-UW-NajrqzkBea Avery-[phone]/Health [place] [facility], active care coordination(Confirmed) Active Diabetes mellitus type 2 in obese(Confirmed) Active Social History Social History Type Response Smoking Status Never (less than 100 in lifetime); Tobacco user in household: No entered on: 10/28/19 Sex Female
--- OUTSIDE RECORDS SUMMARY | 2023-04-21 08:11 | XMS_ITS | Continuity of Care Document ---
Author Name Unknown Organization [facility] Address [address] [place] [address]- Care Team Providers Care Millwright Helper Name Role Phone Valarie CHÁVEZ, Levar Farris Primary Care Physician ( [phone] [place] [facility] [place] 12/08[place]19 - 01/07/20 [facility] [address] [place] [address]- [facility] Allergies, Adverse Reactions, Alerts No Known Medication Allergies Immunizations Given and Recorded Vaccine Date Status Refusal Reason influenza virus vaccine, inactivated 03/25/19 Give n Medications Admelog SoloStar 100 units/mL injectable solution = 4 units, Subcutaneous Infusion, 3 times a day before meals, to replace Humalog, # 3 mL, 5 Refills, Maintenance, 06/22/19 9:59:00 EDT, [facility]-, 168, cm, 05/19/19 11:05:00EST, Height, 108.9, kg, 01/13/19 14:10:00 EDT, Dry... Start Date: 06/22/19 Status: Ordered albuterol CFC free 90 mcg/inh inhalation aerosol 2, puffs, Inhalation, Every 4 hours, PRN, # 1 each, Refills 2, Tot. Refills 2, Maintenance, 10/28/19 11:06:00 EDT, Route to Pharmacy Electronically, NCPDP_ID- [id number], [facility]-, 168, cm, 10/14/19 9:08:00 EDT, Height, 108.9, k... Start Date: 10/28/19 Status: Ordered amLODIPine 10 mg oral tablet 10 mg, 1, tablet, By Mouth, Daily, for HTN, dose increased, # 90 tablet, Refills 4, Tot. Refills 4,Maintenance, 11/16/19 13:22:00 EDT, Route to Pharmacy Electronically, [facility]-, 168, cm, 11/16/19 13:19:00 EDT, Height, 120,... Start Date: 11/16/19 Status: Ordered atorvastatin 80 mg oral tablet 1 tablet = 80 mg, By Mouth, Daily, # 90 tablet, 3 Refills, Maintenance, 03/25/19 15:39:00 EST, Tablet, [facility] #[id number], 168, cm, 03/25/19 14:33:00 EST, Height, 108.9, kg, 01/13/19 14:10:00 EDT, Dry Weight Start Date: 03/25/19 Status: Ordered betamethasone topical dipropionate 0.05% cream 1 application, Topically, 2 times a day, to affected area, # 50 Gm, 0 Refills, Maintenance, 10/14/19 9:16:00 EDT, Cream, [facility], 1 application Topically 2 times a day,Instr:to affected area, 168, cm, 10/14/19 9:08:00 EDT,... Start Date: 10/14/19 Status: Ordered dulaglutide 1.5 mg/0.5 mL subcutaneous solution = 1.5 mg, Subcutaneous Injection, Every Friday, # 15 mL, 4 Refills, Maintenance, 10/28/19 11:08:00 EDT, Solution, [facility]-, 168, cm, 10/14/19 9:08:00 EDT, Height, 108.9, [...] 06/22/19 10:03:00 EDT, Route to Pharmacy Electronically, [facility]-[id number], 168, cm, 05/19/19 11:05:00 EST, Height, 108.9,... Start Date: 06/22/19 Stop Date: 06/16/20 Status: Ordered gabapentin 400 mg oral capsule 400 mg, 1, capsule, By Mouth, Daily, # 90 capsule, Refills 3, Tot. Refills 3, Maintenance, 02/08/1914:35:49 EST, Route to Pharmacy Electronically, [id number], [facility] #[id number] Start Date: 02/08/19 Stop Date: 02/03/20 Status: Ordered lamotrigine 50 mg oral tablet, disintegrating 1 tablet = 50 mg, By Mouth, Daily at bedtime, # 90 tablet, 3 Refills, Maintenance, 06/10/19 16:08:00 EDT, DIS Tablet, [facility]- , 168, cm, 05/19/19 11:05:00 EST, Height, [...] mL, 4 Refills, Maintenance, 10/28/19 11:09:00 EDT, [facility]-22756, 168, cm, 10/14/19 9:08:00 EDT, Height, 108.9, kg, 01/13/19 14:10:00 EDT, Dry Weight Start Date: 10/28/19 Stop Date: 01/20/21 Status: Ordered levothyroxine 75 mcg (0.075 mg) oral tablet 1 tablet = 75 mcg, By Mouth, Daily, # 90 tablet, 1 Refills, Maintenance, 07/23/19 14:11:00 EDT, Tablet, [facility]-, 168, cm, 05/19/19 11:05:00 EST, Height, 108.9, kg, 01/13/19 14:10:00 EDT, Dry Weight Start Date: 07/23/19 Status: Ordered losartan 100 mg oral tablet 1 tablet = 100 mg, By Mouth, Daily, # 90 tablet, 3 Refills, Maintenance, 03/25/19 16:12:00 EST, Tablet, [facility] #[id number], 168, cm, 03/25/19 14:33:00 EST, Height, 108.9, [...] Weight Start Date: 02/22/19 Status: Ordered Pen [place], 31 G x 5 mm BD Ultra [...] 11/29/19 14:06:00 EDT, Route to Pharmacy Electronically, [facility]87[facility], 168, cm, 11/16/19 13:19:00 EDT, Height, 120, kg, 11/03/19... 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) Active Bipolar disorder(Confirmed) Active Cerebral palsy(Confirmed) Active CKD (chronic kidney disease)(Confirmed) Active Depression(Confirmed) Active Diabetic neuropathy(Confirmed) Active Diabetic retinopathy(Confirmed) Active GERD (gastroesophageal reflu x disease)(Confirmed) Active HLD (hyperlipidemia)(Confirmed) Active HTN (hypertension)(Confirmed) Active Hypothyroidism(Confirmed) Active [facility]/EXZ-YC-XkzjpnhBea Avery-[phone]/Health [facility], active care coordination(Confirmed) Active Diabetes mellitus type 2 in obese(Confirmed) Active Social History Social History Type Response Smoking Status Never (less than 100 in lifetime); Tobacco user in household: No entered on: 10/28/19 Sex Female
--- OUTSIDE RECORDS SUMMARY | 2023-04-21 08:11 | XMS_ITS | Continuity of Care Document ---
Author Name Unknown Organization [facility] Address [address] [place] [address]- Care Team Providers Care Gate Manager Name Role Phone Valarie CHÁVEZ, Levar Farris Primary Care Physician Encounter [facility] Date(s): 11/16/19 - 12/16/19 [facility] [address] [place] [address]- [facility] Attending Physician: Homero Stanton Admitting Physician: AdmtrHomero Referring Physician: Admtr, Ar8 Allergies, Adverse Reactions, Alerts No Known Medication Allergies Immunizations Given and Recorded Vaccine Date Status Refusal Reason influenza virus vaccine, inactivated 03/25/19 Give n Medications Admelog SoloStar 100 units/mL injectable solution = 4 units, Subcutaneous Infusion, 3 times a day before meals, to replace Humalog, # 3 mL, 5 Refills, Maintenance, 06/22/19 9:59:00 EDT, [facility]-, 168, cm, 05/19/19 11:05:00EST, Height, 108.9, kg, 01/13/19 14:10:00 EDT, Dry... Start Date: 06/22/19 Status: Ordered albuterol CFC free 90 mcg/inh inhalation aerosol 2, puffs, Inhalation, Every 4 hours, PRN, # 1 each, Refills 2, Tot. Refills 2, Maintenance, 10/28/19 11:06:00 EDT, Route to Pharmacy Electronically, NCPDP_ID- [id number], [facility]-, 168, cm, 10/14/19 9:08:00 EDT, Height, 108.9, k... Start Date: 10/28/19 Status: Ordered amLODIPine 10 mg oral tablet 10 mg, 1, tablet, By Mouth, Daily, for HTN, dose increased, # 90 tablet, Refills 4, Tot. Refills 4,Maintenance, 11/16/19 13:22:00 EDT, Route to Pharmacy Electronically, [facility]-, 168, cm, 11/16/19 13:19:00 EDT, Height, 120,... Start Date: 11/16/19 Status: Ordered atorvastatin 80 mg oral tablet 1 tablet = 80 mg, By Mouth, Daily, # 90 tablet, 3 Refills, Maintenance, 03/25/19 15:39:00 EST, Tablet, [facility] #[id number], 168, cm, 03/25/19 14:33:00 EST, Height, 108.9, kg, 01/13/19 14:10:00 EDT, Dry Weight Start Date: 03/25/19 Status: Ordered betamethasone topical dipropionate 0.05% cream 1 application, Topically, 2 times a day, to affected area, # 50 Gm, 0 Refills, Maintenance, 10/14/19 9:16:00 EDT, Cream, [facility]-, 1 application Topically 2 times a day,Instr:to affected area, 168, cm, 10/14/19 9:08:00 EDT,... Start Date: 10/14/19 Status: Ordered dulaglutide 1.5 mg/0.5 mL subcutaneous solution = 1.5 mg, Subcutaneous Injection, Every Friday, # 15 mL, 4 Refills, Maintenance, 10/28/19 11:08:00 EDT, Solution, [facility]-, 168, cm, 10/14/19 9:08:00 EDT, Height, 108.9, [...] 06/22/19 10:03:00 EDT, Route to Pharmacy Electronically, [facility], 168, cm, 05/19/19 11:05:00 EST, Height, 108.9,... Start Date: 06/22/19 Stop Date: 06/16/20 Status: Ordered gabapentin 400 mg oral capsule 400 mg, 1, capsule, By Mouth, Daily, # 90 capsule, Refills 3, Tot. Refills 3, Maintenance, 02/08/1914:35:49 EST, Route to Pharmacy Electronically, [id number], [id number] Start Date: 02/08/19 Stop Date: 02/03/20 Status: Ordered lamotrigine 50 mg oral tablet, disintegrating 1 tablet = 50 mg, By Mouth, Daily at bedtime, # 90 tablet, 3 Refills, Maintenance, 06/10/19 16:08:00 EDT, DIS Tablet, [facility]- 61270, 168, cm, 05/19/19 11:05:00 EST, Height, 108.9, [...] mL, 4 Refills, Maintenance, 10/28/19 11:09:00 EDT, [facility]-04766, 168, cm, 10/14/19 9:08:00 EDT, Height, 108.9, kg, 01/13/19 14:10:00 EDT, Dry Weight Start Date: 10/28/19 Stop Date: 01/20/21 Status: Ordered levothyroxine 75 mcg (0.075 mg) oral tablet 1 tablet = 75 mcg, By Mouth, Daily, # 90 tablet, 1 Refills, Maintenance, 07/23/19 14:11:00 EDT, Tablet, [facility]-56127, 168, cm, 05/19/19 11:05:00 EST, Height, 108.9, kg, 01/13/19 14:10:00 EDT, Dry Weight Start Date: 07/23/19 Status: Ordered losartan 100 mg oral tablet 1 tablet = 100 mg, By Mouth, Daily, # 90 tablet, 3 Refills, Maintenance, 03/25/19 16:12:00 EST, [id number], 168, cm, 03/25/19 14:33:00 EST, Height, 108.9, [...] Weight Start Date: 02/22/19 Status: Ordered Pen [place], 31 G x 5 mm BD Ultra [...] 14:06:00 EDT, Route to Pharmacy Electronically, [facility]63[facility], 168, cm, 11/16/19 13:19:00 EDT, Height, 120, kg, 11/03/19... 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) Active Bipolar disorder(Confirmed) Active Cerebral palsy(Confirmed) Active CKD (chronic kidney disease)(Confirmed) Active Depression(Confirmed) Active Diabetic neuropathy(Confirmed) Active Diabetic retinopathy(Confirmed) Active GERD (gastroesophageal reflu x disease)(Confirmed) Active HLD (hyperlipidemia)(Confirmed) Active HTN (hypertension)(Confirmed) Active Hypothyroidism(Confirmed) Active [facility]/FMN-LQ-DyecymoBea Avery-[phone]/Health shelter, active care coordination(Confirmed) Active Diabetes mellitus type 2 in obese(Confirmed) Active Social History Social History Type Response Smoking Status Never (less than 100 in lifetime); Tobacco user in household: No entered on: 10/28/19 Sex Female
--- OUTSIDE RECORDS SUMMARY | 2023-04-21 08:11 | XMS_ITS | Continuity of Care Document ---
Author Name Unknown Organization [facility] Address [address] [place] [id number]- Care Team Providers Care Cell Tower Climber Name Role Phone Bonifacio Pacheco MD Primary Care Physician Encounter [facility] [id number] Date(s): 05/08/20 - 10/04/[address] [address]- Discharge Disposition: A-D/C Home Attending Physician: Not on Staff, Attending MD Admitting Physician: Not on Staff, Admitting MD Referring Physician: Valarie CHÁVEZ [facility] Allergies, Adverse Reactions, Alerts No Known Medication Allergies Immunizations Given and Recorded Vaccine Date Status Refusal Reason SARS-CoV-2 (COVID-19) mRNA BNT-162b2 vac 07/12/20 Recorded SARS-CoV-2 (COVID-19) mRNA BNT-162b2 vac 06/20/20 Recorded influenza virus vaccine, inactivated 03/25/19 Give n Medications albuterol CFC free 90 mcg/inh inhalation aerosol 2, puffs, Inhalation, Every 4 hours, PRN, # 1 each, Refills 2, Tot. Refills 2, Maintenance, 04/04/20 17:08:00 EST, Route to Pharmacy Electronically, NCPDP_ID- [id number], [facility]-, 168, cm, 12/21/19 8:36:00 EDT, Height, 120, kg,... Start Date: 04/04/20 Status: Ordered amLODIPine 5 mg oral tablet 5 mg, 1, tablet, By Mouth, Daily, # 90 tablet, Refills 3, Tot. Refills 3, Maintenance, 03/23/20 13:59:00 EST, Route to Pharmacy Electronically, [facility], Partial fill upon patient request if the prescription is for a schedul... Start Date: 03/23/20 Status: Ordered atorvastatin 80 mg oral tablet 1 tablet = 80 mg, By Mouth, Daily, # 90 tablet, 1 Refills, Maintenance, 08/10/20 16:44:00 EDT, Tablet, [facility]-[id number], 168, cm, 07/25/20 8:40:00 EDT, Height, 120, kg, 11/03/19 7:16:00 EDT, Dry Weight Start Date: 08/10/20 Status: Ordered betamethasone topical dipropionate 0.05% cream 1 application, Topically, 2 times a day, to affected area, # 50 Gm, 0 Refills, Maintenance, 04/05/20 8:25:00 EST, Cream, [facility]-, 1 application Topically 2 times a day,Instr:to [...] Refills, Maintenance, 06/10/19 16:08:00 EDT, DIS Tablet, [facility]- 12736, 168, cm, 05/19/19 11:05:00 EST, Height, 108.9, [...] mL, 4 Refills, Maintenance, 03/23/20 13:54:00 EST, [facility]-, 168, cm, 12/21/19 8:36:00 EDT, Height, 120, kg, 207:16:00 EDT, Dry Weight Start Date: 03/23/20 Stop Date: 06/16/21 Status: Ordered levothyroxine 0.088 mg oral tablet 1 tablet = 88 mcg, By Mouth, Daily, dose increased, # 30 tablet, 5 Refills, Maintenance, 06/15/20 9:09:00 EDT, Tablet, [facility], Partial fill upon patient request if the prescription is for a schedule II opioid drug., 168, c... Start Date: 06/15/20 Status: Ordered lidocaine 5% topical ointment 1 application, Topically, 3 times a day, prn pain, wash hands thoroughly after application, # 50 Gm, 2 Refills, Maintenance, 06/28/20 12:45:00 EDT, Ointment, [facility], Partial fill upon patient request if the prescription... Start Date: 06/28/20 Status: Ordered losartan 100 mg oral tablet 1 tablet = 100 mg, By Mouth, Daily, # 90 tablet, 1 Refills, Maintenance, 05/15/20 15:41:00 EST, Tablet, [facility], 168, cm, 12/21/19 8:36:00 EDT, Height, 120, kg, 11/03/19 7:16:00 EDT, Dry Weight Start Date: 05/15/20 Status: Ordered Multiple Vitamins with Iron, Minerals and Docusate oral capsule 1 capsule, By Mouth, Daily, # 30 capsule, 0 Refills, Maintenance, 04/11/20 17:23:00 EST, Capsule, [facility], Partial fill upon patient request if the prescription is for a schedule II opioid drug., 1 capsule By Mouth Daily, 1... Start Date: 04/11/20 Status: Ordered NovoLOG FlexPen 100 units/mL injectable solution See Instructions, INJECT 4 UNITS SUBCUTANEOUSLY THREE TIMES A DAY BEFORE MEALS, # 15 mL, 0 Refills,Maintenance, [facility], 168, cm, 08/29/20 10:15:00 EDT, Height, 120, kg, 11/03/19 7:16:00 EDT, Dry Weight Start Date: 09/07/20 Status: Ordered OneTouch Verio Glucose Meter See Instructions, # 1 each, Maintenance, Use to check blood sugar 4 times daily. E11.65, 02/22/19 17:58:26 EST, Compound, 168, cm, 02/08/19 22:06:30 EST, Height, 108.9, kg, 01/13/19 14:10:14 EDT, DryWeight Start Date: 02/22/19 Status: Ordered OneTouch Verio Lancets See Instructions, # 400 each, Refills 4, Tot. Refills 4, Maintenance, Use to check blood sugar 4 times daily. E1165, 02/22/19 17:59:42 EST, Compound, 168, cm, 02/08/19 22:06:30 EST, Height, 108.9, kg, 01/13/19 14:10:14 EDT, Dry Weight Start Date: 02/22/19 Status: Ordered OneTouch Verio Test Strips See Instructions, # 400 each, Refills 4, Tot. Refills 4, Maintenance, Use to check blood sugar 4 times daily. E11. 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 Bipolar disorder(Confirmed) Active Cerebral palsy(Confirmed) Active CKD (chronic kidney disease)(Confirmed) Active Depression(Confirmed) Active Diabetic neuropathy(Confirmed) Active Diabetic retinopathy(Confirmed) Active GERD (gastroesophageal reflu x disease)(Confirmed) Active Bariatric surgery status(Confirmed) Active HLD (hyperlipidemia)(Confirmed) Active HTN (hypertension)(Confirmed) Active Hypothyroidism(Confirmed) Active [facility]/VKP-EV-ZoijnkxBea Avery-[phone]/Health long-term, active care coordination(Confirmed) Active Diabetes mellitus type 2 in obese(Confirmed) Active Social History Social History Type Response Smoking Status Never (less than 100 in lifetime); Tobacco user in household: No entered on: 10/28/19 Sex Female
--- OUTSIDE RECORDS SUMMARY | 2023-04-21 08:11 | XMS_ITS | Continuity of Care Document ---
Author Name Unknown Organization [facility] Address [address] [place] [id number]- Care Team Providers Care Clinical Reviewer Name Role Phone Bonifacio Pacheco MD Primary Care Physician [phone] Encounter [facility] [place] Date(s): 09/04/20 - 10/04/20 [facility] [address] [place] [address]- Allergies, Adverse Reactions, Alerts No Known Medication [...] 17:08:00 EST, Route to Pharmacy Electronically, NCPDP_ID- [id number], [facility]-, 168, cm, 12/21/19 8:36:00 EDT, Height, 120, kg,... Start Date: 04/04/20 Status: Ordered amLODIPine 5 mg oral tablet 5 mg, 1, tablet, By Mouth, Daily, # 90 tablet, Refills 3, Tot. Refills 3, Maintenance, 03/23/20 13:59:00 EST, Route to Pharmacy Electronically, [facility]-, Partial fill upon patient request if the prescription is for a schedul... Start Date: 03/23/20 Status: Ordered atorvastatin 80 mg oral tablet 1 tablet = 80 mg, By Mouth, Daily, # 90 tablet, 1 Refills, Maintenance, 08/10/20 16:44:00 EDT, Tablet, [facility]-, 168, cm, 07/25/20 8:40:00 EDT, Height, 120, kg, 11/03/19 7:16:00 EDT, Dry Weight Start Date: 08/10/20 Status: Ordered betamethasone topical dipropionate 0.05% cream 1 application, Topically, 2 times a day, to affected area, # 50 Gm, 0 Refills, Maintenance, 04/05/20 8:25:00 EST, Cream, [facility]-, 1 application Topically 2 times a [...] Refills, Maintenance, 06/10/19 16:08:00 EDT, DIS Tablet, [facility]- 28131, 168, cm, 05/19/19 11:05:00 EST, Height, 108.9, [...] mL, 4 Refills, Maintenance, 03/23/20 13:54:00 EST, [facility]-[id number], 168, cm, 12/21/19 8:36:00 EDT, Height, 120, kg, 207:16:00 EDT, Dry Weight Start Date: 03/23/20 Stop Date: 06/16/21 Status: Ordered levothyroxine 0.088 mg oral tablet 1 tablet = 88 mcg, By Mouth, Daily, dose increased, # 30 tablet, 5 Refills, Maintenance, 06/15/20 9:09:00 EDT, Tablet, [facility], Partial fill upon patient request if the prescription is for a schedule II opioid drug., 168, c... Start Date: 06/15/20 Status: Ordered lidocaine 5% topical ointment 1 application, Topically, 3 times a day, prn pain, wash hands thoroughly after application, # 50 Gm, 2 Refills, Maintenance, 06/28/20 12:45:00 EDT, Ointment, [facility], Partial fill upon patient request if the prescription... Start Date: 06/28/20 Status: Ordered losartan 100 mg oral tablet 1 tablet = 100 mg, By Mouth, Daily, # 90 tablet, 1 Refills, Maintenance, 05/15/20 15:41:00 EST, Tablet, [facility], 168, cm, 12/21/19 8:36:00 EDT, Height, 120, kg, 11/03/19 7:16:00 EDT, Dry Weight Start Date: 05/15/20 Status: Ordered Multiple Vitamins with Iron, Minerals and Docusate oral capsule 1 capsule, By Mouth, Daily, # 30 capsule, 0 Refills, Maintenance, 04/11/20 17:23:00 EST, Capsule, [facility], Partial fill upon patient request if the prescription is for a schedule II opioid drug., 1 capsule By Mouth Daily, 1... Start Date: 04/11/20 Status: Ordered NovoLOG FlexPen 100 units/mL injectable solution See Instructions, INJECT 4 UNITS SUBCUTANEOUSLY THREE TIMES A DAY BEFORE MEALS, # 15 mL, 0 Refills,Maintenance, [facility], 168, cm, 08/29/20 10:15:00 EDT, Height, 120, kg, 11/03/19 7:16:00 EDT, Dry Weight Start Date: 09/07/20 Status: Ordered OneStylectuch Verio Glucose Meter See Instructions, # 1 each, Maintenance, Use to check blood sugar 4 times daily. E11.65, 02/22/19 17:58:26 EST, Compound, 168, cm, 02/08/19 22:06:30 EST, Height, 108.9, kg, 01/13/19 14:10:14 EDT, DryWeight Start Date: 02/22/19 Status: Ordered OneTouch Verio Lancets See Instructions, # 400 each, Refills 4, Tot. Refills 4, Maintenance, Use to check blood sugar 4 times daily. E11.65, 02/22/19 17:59:42 EST, Compound, 168, cm, 02/08/19 22:06:30 EST, Height, 108.9, kg, 01/13/19 14:10:14 EDT, Dry Weight Start Date: 02/22/19 Status: Ordered OneTouch Verio Test Strips See Instructions, # 400 each, Refills 4, Tot. Refills 4, Maintenance, Use to check blood sugar 4 times daily. E11.65. 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) Active Bipolar disorder(Confirmed) Active Cerebral palsy(Confirmed) Active CKD (chronic kidney disease)(Confirmed) Active Depression(Confirmed) Active Diabetic neuropathy(Confirmed) Active Diabetic retinopathy(Confirmed) Active GERD (gastroesophageal reflu x disease)(Confirmed) Active Bariatric surgery status(Confirmed) Active HLD (hyperlipidemia)(Confirmed) Active HTN (hypertension)(Confirmed) Active Hypothyroidism(Confirmed) Active [facility]-F[facility]-DcjbiamBea Avery-[phone]/Health nursing home, active care coordination(Confirmed) Active Diabetes mellitus type 2 in obese(Confirmed) Active Social History Social History Type Response Smoking Status Never (less than 100 in lifetime); Tobacco user in household: No entered on: 10/28/19 Sex Female
--- OUTSIDE RECORDS SUMMARY | 2023-04-21 08:11 | XMS_ITS | Continuity of Care Document ---
Author Name Unknown Organization [facility] Address [address] [place] [id number]- Care Team Providers Care Boat Garnisher Name Role Phone Valarie CHÁVEZ, Levar F[place] Primary Care Physician Encounter [facility] [place] Date(s): 05/11/19 - 10/13/19 [place] [address]- [facility] Discharge Disposition: A-D/C Home Attending Physician: Juan José Kelley MD Admitting Physician: Juan José Kelley MD Referring Physician: Laila Guardado NP Allergies, Adverse Reactions, Alerts No Known Medication Allergies Immunizations Given and Recorded Vaccine Date Status Refusal Reason influenza virus vaccine, inactivated 03/25/19 Give n Medications Admelog SoloStar 100 units/mL injectable solution = 4 units, Subcutaneous Infusion, 3 times a day before meals, to replace Humalog, # 3 mL, 5 Refills, Maintenance, 06/22/19 9:59:00 EDT, [facility]-[id number], 168, cm, 05/19/19 11:05:00EST, Height, 108.9, kg, 01/13/19 14:10:00 EDT, Dry... Start Date: 06/22/19 Status: Ordered albuterol CFC free 90 mcg/inh inhalation aerosol 2, puffs, Inhalation, Every 6 hours, PRN, # 1 each, Refills 2, Tot. Refills 2, Maintenance, 04/20/19 10:07:00 EST, Route to Pharmacy Electronically, [id number], [facility] #[id number], 168, cm, 04/20/19 9:42:00 EST, Heig... Start Date: 04/20/19 Status: Ordered amLODIPine 5 mg oral tablet 5 mg, 1, tablet, By Mouth, Daily, take daily for bllod pressure, # 30 tablet, Refills 5, Tot. Refills 5, Maintenance, 05/19/19 11:16:00 EST, Route to Pharmacy Electronically, [facility] #[id number], 168, cm, 05/19/19 11:05:00 EST, Height, 108.9,... Start Date: 05/19/19 Status: Ordered atorvastatin 80 mg oral tablet 1 tablet = 80 mg, By Mouth, Daily, # 90 tablet, 3 Refills, Maintenance, 03/25/19 15:39:00 EST, Tablet, [facility] #[id number], 168, cm, 03/25/19 14:33:00 EST, Height, 108.9, kg, 01/13/19 14:10:00 EDT, Dry Weight Start Date: 03/25/19 Status: Ordered betamethasone topical dipropionate 0.05% cream 1 application, Topically, 2 times a day, # 50 Gm, 0 Refills, Maintenance, 03/25/19 16:16:00 EST, Cream, [facility] #[id number], 1 application Topically 2 times a day, 168, cm, 03/25/19 14:33:00 EST, Height, 108.9, kg, 01/13/19 14:10:00 EDT, Dry W... Start Date: 03/25/19 Status: Ordered CeraVe topical cream 1 application, Topically, 2 times a day, PRN for dry skin, # 360 Gm, 0 Refills, Maintenance, 03/25/19 16:14:00 EST, Cream, [facility] #[id number], 1 application Topically 2 times a day,PRN:for dry skin, 168, cm, 03/25/19 14:33:00 EST, Height, 108... Start Date: 03/25/19 Status: Ordered dulaglutide 1.5 mg/0.5 mL subcutaneous solution = 1.5 mg, Subcutaneous Injection, Every Friday, # 15 mL, 4 Refills, Maintenance, 07/15/19 10:40:00 EDT, Solution, [facility], 168, cm, 05/19/19 11:05:00 EST, Height, 108.9, kg, 01/13/19 14:10:00 EDT, Dry Weight Start Date: 07/15/19 Stop Date: 10/07/20 Status: Ordered Eucerin Unscented topical lotion See Instructions, prn dry skin, disp 1 bottle, # 1 each, 1 Refills, Maintenance, 04/20/19 10:06:00 EST, [facility] #[id number], prn dry skin, disp 1 bottle, 168, cm, 04/20/19 9:42:00 EST, Height, 108.9, kg, 01/13/19 14:10:00 EDT, Dry Weight Start Date: 04/20/19 Status: Ordered freestyle LibreTest Strips freestyle LibreTest [...] 06/22/19 10:03:00 EDT, Route to Pharmacy Electronically, [facility]-85904, 168, cm, 05/19/19 11:05:00 EST, Height, 108.9,... Start Date: 06/22/19 Stop Date: 06/16/20 Status: Ordered gabapentin 400 mg oral capsule 400 mg, 1, capsule, By Mouth, Daily, # 90 capsule, Refills 3, Tot. Refills 3, Maintenance, 02/08/1914:35:49 EST, Route to Pharmacy Electronically, [id number], [facility] #[id number] Start Date: 02/08/19 Stop Date: 02/03/20 Status: Ordered lamotrigine 50 mg oral tablet, disintegrating 1 tablet = 50 mg, By Mouth, Daily at bedtime, # 90 tablet, 3 Refills, Maintenance, 06/10/19 16:08:00 EDT, DIS Tablet, [facility]- , 168, cm, 05/19/19 11:05:00 EST, Height, 108.9, kg, 01/13/19 14:10:00 EDT, Dry Weight Start Date: 06/10/19 Stop Date: 06/04/20 Status: Ordered left toe off AFO left toe off AFO, See Instructions, # 1 each, Refills 0, Tot. Refills 0, Maintenance, Left toe off AFO DX left foot drop ICD M21.372, 07/15/19 11:39:00 EDT, Supply Start Date: 07/15/19 Status: Ordered Levemir 100 units/mL subcutaneous solution = 30 units, Subcutaneous Injection, 2 times a day, # 60 mL, 3 Refills, Maintenance, 02/08/19 14:37:21 EST, Injection Start Date: 02/08/19 Stop Date: 02/03/20 Status: Ordered Levemir FlexTouch 100 units/mL subcutaneous solution = 30 units, Subcutaneous Infusion, 2 times a day, # 15 mL, 4 Refills, Maintenance, 07/15/19 10:42:00 EDT, [facility]-17505, 168, cm, 05/19/19 11:05:00 EST, Height, 108.9, kg, 01/13/19 14:10:00 EDT, Dry Weight Start Date: 07/15/19 Stop Date: 10/07/20 Status: Ordered levothyroxine 75 mcg (0.075 mg) oral tablet 1 tablet = 75 mcg, By Mouth, Daily, # 90 tablet, 1 Refills, Maintenance, 07/23/19 14:11:00 EDT, Tablet, [facility]-[id number], 168, cm, 05/19/19 11:05:00 EST, Height, 108.9, kg, 01/13/19 14:10:00 EDT, Dry Weight Start Date: 07/23/19 Status: Ordered losartan 100 mg oral tablet 1 tablet = 100 mg, By Mouth, Daily, # 90 tablet, 3 Refills, Maintenance, 03/25/19 16:12:00 EST, Tablet, [facility] #[id number], 168, cm, 03/25/19 14:33:00 EST, Height, 108.9, kg, 01/13/19 14:10:00 EDT, Dry Weight Start Date: 03/25/19 Status: Ordered NuLYTELY with Flavor Packs oral [...] Weight Start Date: 02/22/19 Status: Ordered Pen [place], 31 G x 5 mm BD Ultra Fine III See Instructions, # 200 each, Refills 3, Tot. 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) Active Bipolar disorder(Confirmed) Active Cerebral palsy(Confirmed) Active CKD (chronic kidney disease)(Confirmed) Active Depression(Confirmed) Active Diabetic neuropathy(Confirmed) Active Diabetic retinopathy(Confirmed) Active GERD (gastroesophageal reflu x disease)(Confirmed) Active HLD (hyperlipidemia)(Confirmed) Active HTN (hypertension)(Confirmed) Active Hypothyroidism(Confirmed) Active [facility]/DRT-PD-HvwsnufChristi Avery-[phone]/Health senior care, active care coordination(Confirmed) Active Diabetes mellitus type 2 in obese(Confirmed) Active Social History Social History Type Response Smoking Status Never (less than 100 in lifetime) entered on: 02/08/19 Sex Female
--- OUTSIDE RECORDS SUMMARY | 2023-04-21 08:11 | XMS_ITS | Continuity of Care Document ---
Author Name Unknown Organization [facility]3] Adult Medicine Address [address] [place] [address]- Care Team Providers Care Gum Dipper Name Role Phone Valarie CHÁVEZ, Levar Farris Primary Care Physician Encounter [facility] Date(s): 11/02/19 - 12/02/19 [facility] Adult Medicine [address] [place] [address]- [facility] Allergies, Adverse Reactions, Alerts No Known Medication Allergies Immunizations Given and Recorded Vaccine Date Status Refusal Reason influenza virus vaccine, inactivated 03/25/19 Give n Medications Admelog SoloStar 100 units/mL injectable solution = 4 units, Subcutaneous Infusion, 3 times a day before meals, to replace Humalog, # 3 mL, 5 Refills, Maintenance, 06/22/19 9:59:00 EDT, [facility]-, 168, cm, 05/19/19 11:05:00EST, Height, 108.9, kg, 01/13/19 14:10:00 EDT, Dry... Start Date: 06/22/19 Status: Ordered albuterol CFC free 90 mcg/inh inhalation aerosol 2, puffs, Inhalation, Every 4 hours, PRN, # 1 each, Refills 2, Tot. Refills 2, Maintenance, 10/28/19 11:06:00 EDT, Route to Pharmacy Electronically, NCPDP_ID- [id number], [facility]-, 168, cm, 10/14/19 9:08:00 EDT, Height, 108.9, k... Start Date: 10/28/19 Status: Ordered amLODIPine 10 mg oral tablet 10 mg, 1, tablet, By Mouth, Daily, for HTN, dose increased, # 90 tablet, Refills 4, Tot. Refills 4,Maintenance, 11/16/19 13:22:00 EDT, Route to Pharmacy Electronically, [facility]-, 168, cm, 11/16/19 13:19:00 EDT, Height, 120,... Start Date: 11/16/19 Status: Ordered atorvastatin 80 mg oral tablet 1 tablet = 80 mg, By Mouth, Daily, # 90 tablet, 3 Refills, Maintenance, 03/25/19 15:39:00 EST, Tablet, [facility] #[id number], 168, cm, 03/25/19 14:33:00 EST, Height, 108.9, kg, 01/13/19 14:10:00 EDT, Dry Weight Start Date: 03/25/19 Status: Ordered betamethasone topical dipropionate 0.05% cream 1 application, Topically, 2 times a day, to affected area, # 50 Gm, 0 Refills, Maintenance, 10/14/19 9:16:00 EDT, Cream, [facility], 1 application Topically 2 times a day,Instr:to affected area, 168, cm, 10/14/19 9:08:00 EDT,... Start Date: 10/14/19 Status: Ordered dulaglutide 1.5 mg/0.5 mL subcutaneous solution = 1.5 mg, Subcutaneous Injection, Every Friday, # 15 mL, 4 Refills, Maintenance, 10/28/19 11:08:00 EDT, Solution, [facility]-, 168, cm, 10/14/19 9:08:00 EDT, Height, [...] 06/22/19 10:03:00 EDT, Route to Pharmacy Electronically, [facility]-53152, 168, cm, 05/19/19 11:05:00 EST, Height, 108.9,... Start Date: 06/22/19 Stop Date: 06/16/20 Status: Ordered gabapentin 400 mg oral capsule 400 mg, 1, capsule, By Mouth, Daily, # 90 capsule, Refills 3, Tot. Refills 3, Maintenance, 02/08/1914:35:49 EST, Route to Pharmacy Electronically, [id number], [facility] #[id number] Start Date: 02/08/19 Stop Date: 02/03/20 Status: Ordered lamotrigine 50 mg oral tablet, disintegrating 1 tablet = 50 mg, By Mouth, Daily at bedtime, # 90 tablet, 3 Refills, Maintenance, 06/10/19 16:08:00 EDT, DIS Tablet, [facility]- , 168, cm, 05/19/19 11:05:00 EST, [...] mL, 4 Refills, Maintenance, 10/28/19 11:09:00 EDT, [facility]-71056, 168, cm, 10/14/19 9:08:00 EDT, Height, 108.9, kg, 01/13/19 14:10:00 EDT, Dry Weight Start Date: 10/28/19 Stop Date: 01/20/21 Status: Ordered levothyroxine 75 mcg (0.075 mg) oral tablet 1 tablet = 75 mcg, By Mouth, Daily, # 90 tablet, 1 Refills, Maintenance, 07/23/19 14:11:00 EDT, Tablet, [facility]-, 168, cm, 05/19/19 11:05:00 EST, Height, 108.9, kg, 01/13/19 14:10:00 EDT, Dry Weight Start Date: 07/23/19 Status: Ordered losartan 100 mg oral tablet 1 tablet = 100 mg, By Mouth, Daily, # 90 tablet, 3 Refills, Maintenance, 03/25/19 16:12:00 EST, Tablet, [facility] #[id number], 168, cm, 03/25/19 14:33:00 EST, Height, 108.9, [...] Weight Start Date: 02/22/19 Status: Ordered Pen [place], 31 G x 5 mm BD Ultra [...] 11/29/19 14:06:00 EDT, Route to Pharmacy Electronically, [facility]24[facility], 168, cm, 11/16/19 13:19:00 EDT, Height, 120, kg, 11/03/19... 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) Active Bipolar disorder(Confirmed) Active Cerebral palsy(Confirmed) Active CKD (chronic kidney disease)(Confirmed) Active Depression(Confirmed) Active Diabetic neuropathy(Confirmed) Active Diabetic retinopathy(Confirmed) Active GERD (gastroesophageal reflu x disease)(Confirmed) Active HLD (hyperlipidemia)(Confirmed) Active HTN (hypertension)(Confirmed) Active Hypothyroidism(Confirmed) Active [facility]-CS-FwmbzceBea Avery-[phone]/Health usp, active care coordination(Confirmed) Active Diabetes mellitus type 2 in obese(Confirmed) Active Social History Social History Type Response Smoking Status Never (less than 100 in lifetime); Tobacco user in household: No entered on: 10/28/19 Sex Female
--- OUTSIDE RECORDS SUMMARY | 2023-04-21 08:12 | XMS_ITS | Continuity of Care Document ---
Author Name Unknown Organization [facility] Address [address] [place] [address]- Care Team Providers Care District Sales Coordinator Name Role Phone Valarie CHÁVEZ, Levar Farris Primary Care Physician [facility]counter [facility] Date(s): 06/07/20 - 07/07/20 [facility] [address] [place] [address]- Allergies, Adverse Reactions, Alerts No Known Medication Allergies Immunizations Given and Recorded Vaccine Date Status Refusal Reason influenza virus vaccine, inactivated 03/25/19 Give n Medications Admelog SoloStar 100 units/mL injectable solution = 4 units, Subcutaneous Infusion, 3 times a day before meals, to replace Humalog, # 3 mL, 5 Refills, Maintenance, 06/22/19 9:59:00 EDT, [facility]-, 168, cm, 05/19/19 11:05:00EST, Height, 108.9, kg, 01/13/19 14:10:00 EDT, Dry... Start Date: 06/22/19 Status: Ordered albuterol CFC free 90 mcg/inh inhalation aerosol 2, puffs, Inhalation, Every 4 hours, PRN, # 1 each, Refills 2, Tot. Refills 2, Maintenance, 04/04/20 17:08:00 EST, Route to Pharmacy Electronically, NCPDP_ID- [id number], [facility]-, 168, cm, 12/21/19 8:36:00 EDT, Height, 120, kg,... Start Date: 04/04/20 Status: Ordered amLODIPine 5 mg oral tablet 5 mg, 1, tablet, By Mouth, Daily, # 90 tablet, Refills 3, Tot. Refills 3, Maintenance, 03/23/20 13:59:00 EST, Route to Pharmacy Electronically, [facility], Partial fill upon patient request if the prescription is for a schedul... Start Date: 03/23/20 Status: Ordered atorvastatin 80 mg oral tablet 1 tablet = 80 mg, By Mouth, Daily, # 90 tablet, 1 Refills, Maintenance, 02/22/20 15:57:00 EST, Tablet, [facility]-, 168, cm, 12/21/19 8:36:00 EDT, Height, 120, kg, 11/03/19 7:16:00 EDT, Dry Weight Start Date: 02/22/20 Status: Ordered betamethasone topical dipropionate 0.05% cream 1 application, Topically, 2 times a day, to affected area, # 50 Gm, 0 Refills, Maintenance, 04/05/20 8:25:00 EST, Cream, [facility], 1 application Topically 2 times a [...] BG at least 4 times daily. E11.65, 06/15/20 8:40:00 EDT, duplicate script from 05/11/20. Original sent to [facility]., Compound Start Date: 06/15/20 Status: Ordered Freestyle Ravinder Monitor Freestyle Ravinder [...] Refills, Maintenance, 06/10/19 16:08:00 EDT, DIS Tablet, [facility] [id number], 168, cm, 05/19/19 11:05:00 EST, Height, 108.9, [...] Refills, Maintenance, 03/23/20 13:54:00 EST, [facility], 168, cm, 12/21/19 8:36:00 EDT, Height, 120, kg, 207:16:00 EDT, Dry Weight Start Date: 03/23/20 Stop Date: 06/16/21 Status: Ordered levothyroxine 0.088 mg oral tablet 1 tablet = 88 mcg, By Mouth, Daily, dose increased, # 30 tablet, 5 Refills, Maintenance, 06/15/20 9:09:00 EDT, Tablet, [facility], Partial fill upon patient request if the prescription is for a schedule II opioid drug., 168, c... Start Date: 06/15/20 Status: Ordered lidocaine 5% topical ointment 1 application, Topically, 3 times a day, prn pain, wash hands thoroughly after application, # 50 Gm, 2 Refills, Maintenance, 06/28/20 12:45:00 EDT, Ointment, [facility], Partial fill upon patient request if the prescription... Start Date: 06/28/20 Status: Ordered losartan 100 mg oral tablet 1 tablet = 100 mg, By Mouth, Daily, # 90 tablet, 1 Refills, Maintenance, 05/15/20 15:41:00 EST, Tablet, [facility], 168, cm, 12/21/19 8:36:00 EDT, Height, 120, kg, 11/03/19 7:16:00 EDT, Dry Weight Start Date: 05/15/20 Status: Ordered Multiple Vitamins with Iron, Minerals and Docusate oral capsule 1 capsule, By Mouth, Daily, # 30 capsule, 0 Refills, Maintenance, 04/11/20 17:23:00 EST, Capsule, [facility], Partial fill upon patient request if [...] Weight Start Date: 02/22/19 Status: Ordered Pen [place], 31 G x 5 mm BD Ultra [...] Health Status Inform ant Pseudotumor cerebri; s/p RUG SAMPLE BEVELER shunt(Confirmed) Active Bipolar disorder(Confirmed) Active Cerebral palsy(Confirmed) Active CKD (chronic kidney disease)(Confirmed) Active Depression(Confirmed) Active Diabetic neuropathy(Confirmed) Active Diabetic retinopathy(Confirmed) Active GERD (gastroesophageal reflu x disease)(Confirmed) Active Bariatric surgery status(Confirmed) Active HLD (hyperlipidemia)(Confirmed) Active HTN (hypertension)(Confirmed) Active Hypothyroidism(Confirmed) Active [facility]/UVI-JP-CxkuohwBea Avery-[phone]/Health [facility], active care coordination(Confirmed) Active Diabetes mellitus type 2 in obese(Confirmed) Active Social History Social History Type Response Smoking Status Never (less than 100 in lifetime); Tobacco user in household: No entered on: 10/28/19 Sex Female
--- OUTSIDE RECORDS SUMMARY | 2023-04-21 08:12 | XMS_ITS | Continuity of Care Document ---
Author Name Unknown Organization [facility] ter Address [address] [place] [address]- Care Team Providers Care Bond Underwriter Name Role Phone Bonifacio Pacheco MD Primary Care Physician [place] [facility]18/[place] - 05/10/[address] [address]- Attending Physician: Marcin Mckeon MD Admitting Physician: Marcin Mckeon MD Allergies, Adverse Reactions, Alerts No Known [...] tablet, 5 Refills, Maintenance, 02/24/21 16:01:00 EST, [facility]-, 168, cm, 01/26/21 7:47:00 EST, Height, 120, kg, 11/03/19 7:16:00 EDT, Dry Weight Start Date: 02/24/21 Status: Ordered atorvastatin 80 mg oral tablet 1 tablet, By Mouth, Daily, # 28 tablet, 5 Refills, Maintenance, 02/02/21 8:31:00 EST, [facility], 168, cm, 01/26/21 7:47:00 EST, Height, 120, kg, 11/03/19 7:16:00 EDT, Dry Weight Start Date: 02/02/21 Status: Ordered betamethasone topical dipropionate 0.05% cream 1 application, Topically, 2 times a day, to affected area, # 50 Gm, 0 Refills, Maintenance, 04/05/20 8:25:00 EST, Cream, [facility]-, 1 application Topically 2 times a day,Instr:to affected area, 168, cm, 12/21/19 8:36:00 EDT,... Start Date: 04/05/20 Status: Ordered diclofenac 1% topical gel 1 application, Topically, 4 times a day, not to exceed 32 grams/day, # 100 Gm, 1 Refills, Maintenance, 01/26/21 8:25:00 EST, [facility] #[id number], Partial fill upon patient request if theprescription [...] 11 Refills, Maintenance, 10/10/20 10:00:00 EDT, Powder, [facility] #[id number], Partial fill... Start Date: 10/10/20 Stop Date: [...] 04/11/20 Stop Date: 01/06/21 Status: Ordered lamotrigine 150 mg oral tablet TAKE 1 TABLET BY MOUTH EVERY DAY Start Date: 04/03/21 Status: Ordered left toe off AFO left toe off AFO, See Instructions, # 1 each, Refills 0, Tot. Refills 0, Maintenance, Left toe off AFO DX left foot drop ICD M21.372, 07/15/19 11:39:00 EDT, Supply Start Date: 07/15/19 Status: Ordered Levemir FlexTouch 100 units/mL subcutaneous solution = 12 units, Subcutaneous Infusion, 2 times a day, # 15 mL, 3 Refills, Maintenance, 12/19/20 7:29:00EDT, [facility], 168, cm, 10/10/20 9:30:00 EDT, Height, 120, kg, 11/03/19 7:16:00 EDT, Dry Weight Start Date: 12/19/20 Status: Ordered levothyroxine 0.088 mg oral tablet 1 tablet = 88 mcg, By Mouth, Daily, dose increased, # 30 tablet, 5 Refills, Maintenance, 12/15/20 15:34:00 EDT, Tablet, [facility]-, Partial fill upon patient request if the prescription is for a schedule II opioid drug., 168,... Start Date: 12/15/20 Status: Ordered lidocaine 5% topical ointment 1 application, Topically, 3 times a day, prn pain, wash hands thoroughly after application, # 50 Gm, 2 Refills, Maintenance, 06/28/20 12:45:00 EDT, Ointment, [facility]-, Partial fill upon patient request if the prescription... Start Date: 06/28/20 Status: Ordered lidocaine 5% topical ointment 1 application, Topically, 3 times a day, wash hands thoroughly after application, prn pain, # 50 Gm, 2 Refills, Maintenance, 04/03/21 8:36:00 EST, Ointment, [facility] #[id number], Partial fill upon patient request if the prescription is for a sc... Start Date: 04/03/21 Status: Ordered Lidoderm 5% film 3 patch, Topically, Daily, remove patches after 12 hours, # 30 patch, 5 Refills, Maintenance, 04/12/21 11:04:00 EST, [facility] #[id number], Partial fill upon patient request if the prescriptionis for a schedule II opioid drug., 3 patch Topicall... Start Date: 04/12/21 Status: Ordered LORazepam 1 mg oral tablet 0 Refills, Maintenance, 04/03/21 13:12:00 EST, Partial fill upon patient request if the prescription is for a schedule II opioid drug. Start Date: 04/03/21 Status: Ordered losartan 100 mg oral tablet 1 tablet, By Mouth, Daily, # 28 tablet, 5 Refills, 04/23/21 11:41:00 EST, [facility] #[id number], 168, cm, 04/03/21 8:33:00 EST, Height, 120, kg, 11/03/19 7:16:00 EDT, Dry Weight Start Date: 04/23/21 Status: Ordered Multiple Vitamins with Iron, Minerals and Docusate oral capsule 1 capsule, By Mouth, Daily, # 30 capsule, 0 Refills, Maintenance, 04/11/20 17:23:00 EST, Capsule, [facility]-, Partial fill upon patient request if the prescription is for a schedule II opioid drug., 1 capsule By Mouth Daily, 1... Start Date: 04/11/20 Status: Ordered NovoLOG FlexPen 100 units/mL injectable solution See Instructions, Please follow sliding scale TID with meals between 2-8 units. max daily dose: 24 units E11.9, # 15 mL, 11 Refills, 03/06/21 9:51:00 EST, [facility] #[id number], 168, cm, 03/06/21 9:27:00 EST, Height, 120, kg, 11/03/19 7:16:0... 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) Active Bipolar disorder(Confirmed) Active Cerebral palsy(Confirmed) Active CKD (chronic kidney disease)(Confirmed) Active Depression(Confirmed) Active Oxygen desaturation during sleep(Confirmed) 1 Active Diabetic neuropathy(Confirmed) Active Diabetic retinopathy(Confirmed) Active GERD (gastroesophageal reflu x disease)(Confirmed) Active Bariatric surgery status(Confirmed) Active HLD (hyperlipidemia)(Confirmed) Active HTN (hypertension)(Confirmed) Active Hypothyroidism(Confirmed) Active Asthma, mild(Confirmed) Active Obese class I(Confirmed) Active Obesity(Confirmed) Active Obstructive sleep apnea(Confirmed) Active [facility]/JOL-IU-AsbzdjtChristi Avery-[phone]/Health [facility], active care coordination(Confirmed) Active Diabetes mellitus type 2 in obese(Confirmed) Active 1to 75% in Social History Social History Type Response Smoking Status Never (less than 100 in lifetime); Tobacco user in household: No entered on: 10/28/19 Sex Female
--- OUTSIDE RECORDS SUMMARY | 2023-04-21 08:12 | XMS_ITS | Continuity of Care Document ---
Author Name Unknown Organization [facility] Address [address] [place] [address]- Care Team Providers Care Sock Folder Name Role Phone Bonifacio Pacheco MD Primary Care Physician [place] [facility] [place]13[place] 10[place]13/20 [facility] [address] [place] [id number]- Allergies, Adverse Reactions, Alerts No Known Medication [...] 4 hours, PRN, # 1 each, Refills 0, Tot. Refills 0, Maintenance, 10/10/20 9:58:00 EDT, Route to Pharmacy Electronically, [id number], [id number], 419, cm, 10/10/20 9:30:00 EDT, [place] Start Date: 10/10/20 Status: Ordered amLODIPine 5 mg oral tablet 5 mg, 1, tablet, By Mouth, Daily, # 90 tablet, Refills 3, Tot. Refills 3, Maintenance, 03/23/20 13:59:00 EST, Route to Pharmacy Electronically, [facility]-[id number], Partial fill upon patient request if the prescription is for a schedul... Start Date: 03/23/20 Status: Ordered atorvastatin 80 mg oral tablet 1 tablet = 80 mg, By Mouth, Daily, # 90 tablet, 1 Refills, Maintenance, 08/10/20 16:44:00 EDT, Tablet, [facility]-, 168, cm, 07/25/20 8:40:00 EDT, Height, 120, kg, 11/03/19 7:16:00 EDT, Dry Weight Start Date: 08/10/20 Status: Ordered betamethasone topical dipropionate 0.05% cream 1 application, Topically, 2 times a day, to affected area, # 50 Gm, 0 Refills, Maintenance, 04/05/20 8:25:00 EST, Cream, [facility]-, 1 application Topically 2 times a [...] 11 Refills, Maintenance, 10/10/20 10:00:00 EDT, Powder, [facility] #[id number], Partial fill... Start Date: 10/10/20 Stop Date: [...] duplicate script from 05/11/20. Original sent to [facility]., Compound, 1... Start Date: 07/17/20 Status: [...] Refills, Maintenance, 06/10/19 16:08:00 EDT, DIS Tablet, [facility]- [id number], 168, cm, 05/19/19 11:05:00 EST, Height, 108.9, [...] mL, 4 Refills, Maintenance, 03/23/20 13:54:00 EST, [facility]-, 168, cm, 12/21/19 8:36:00 EDT, Height, 120, kg, :16:00 EDT, Dry Weight Start Date: 03/23/20 Stop Date: 06/16/21 Status: Ordered levothyroxine 0.088 mg oral tablet 1 tablet = 88 mcg, By Mouth, Daily, dose increased, # 30 tablet, 5 Refills, Maintenance, 06/15/20 9:09:00 EDT, Tablet, [facility], Partial fill upon patient request if the prescription is for a schedule II opioid drug., 168, c... Start Date: 06/15/20 Status: Ordered lidocaine 5% topical ointment 1 application, Topically, 3 times a day, prn pain, wash hands thoroughly after application, # 50 Gm, 2 Refills, Maintenance, 06/28/20 12:45:00 EDT, Ointment, [facility], Partial fill upon patient request if the prescription... Start Date: 06/28/20 Status: Ordered losartan 100 mg oral tablet 1 tablet = 100 mg, By Mouth, Daily, # 90 tablet, 1 Refills, Maintenance, 05/15/20 15:41:00 EST, Tablet, [facility], 168, cm, 12/21/19 8:36:00 EDT, Height, 120, kg, 11/03/19 7:16:00 EDT, Dry Weight Start Date: 05/15/20 Status: Ordered Multiple Vitamins with Iron, Minerals and Docusate oral capsule 1 capsule, By Mouth, Daily, # 30 capsule, 0 Refills, Maintenance, 04/11/20 17:23:00 EST, Capsule, [facility], Partial fill upon patient request if the prescription is for a schedule II opioid drug., 1 capsule By Mouth Daily, 1... Start Date: 04/11/20 Status: Ordered NovoLOG FlexPen 100 units/mL injectable solution See Instructions, INJECT 4 UNITS SUBCUTANEOUSLY THREE TIMES A DAY BEFORE MEALS, # 15 mL, 0 Refills,Maintenance, [facility]-[id number], 168, cm, 08/29/20 10:15:00 EDT, Height, 120, kg, 11/03/19 7:16:00 EDT, Dry Weight Start Date: 09/07/20 Status: Ordered Pen [place], 31 G x 5 mm BD Ultra [...] Health Status Inform ant Pseudotumor cerebri; s/p SUBSORTER shunt(Confirmed) Active Bipolar disorder(Confirmed) Active Cerebral palsy(Confirmed) Active CKD (chronic kidney disease)(Confirmed) Active Depression(Confirmed) Active Diabetic neuropathy(Confirmed) Active Diabetic retinopathy(Confirmed) Active GERD (gastroesophageal reflu x disease)(Confirmed) Active Bariatric surgery status(Confirmed) Active HLD (hyperlipidemia)(Confirmed) Active HTN (hypertension)(Confirmed) Active Hypothyroidism(Confirmed) Active Asthma, mild(Confirmed) Active [facility]/UKQ-JS-ThgjomsBea Avery-[phone]/Health correction, active care coordination(Confirmed) Active Diabetes mellitus type 2 in obese(Confirmed) Active Social History Social History Type Response Smoking Status Never (less than 100 in lifetime); Tobacco user in household: No entered on: 10/28/19 Sex Female
--- OUTSIDE RECORDS SUMMARY | 2023-04-21 08:12 | XMS_ITS | Continuity of Care Document ---
Author Name Unknown Organization [facility] ter Address [address] [place] [id number]- Care Team Providers Care Client Solutions Specialist Name Role Phone Valarie CHÁVEZ, Levar Farris Primary Care Physician [place] [facility] [place] 02/08/19 - 05/07/[address] [address]- [facility] Attending Physician: Tyron Ospina MD Admitting Physician: Tyron Ospina MD Referring Physician: Tyron Ospina MD Allergies, Adverse Reactions, Alerts No Known Medication Allergies Immunizations Given and Recorded Vaccine Date Status Refusal Reason influenza virus vaccine, inactivated 03/25/19 Give n Medications albuterol CFC free 90 mcg/inh inhalation aerosol 2, puffs, Inhalation, Every 6 hours, PRN, # 1 each, Refills 2, Tot. Refills 2, Maintenance, 04/20/19 10:07:00 EST, Route to Pharmacy Electronically, [id number], [facility] #[id number], 168, cm, 04/20/19 9:42:00 EST, [place]... Start Date: 04/20/19 Status: Ordered atorvastatin 80 mg oral tablet 1 tablet = 80 mg, By Mouth, Daily, # 90 tablet, 3 Refills, Maintenance, 03/25/19 15:39:00 EST, Tablet, [facility] #[id number], 168, cm, 03/25/19 14:33:00 EST, Height, 108.9, kg, 01/13/19 14:10:00 EDT, Dry Weight Start Date: 03/25/19 Status: Ordered betamethasone topical dipropionate 0.05% cream 1 application, Topically, 2 times a day, # 50 Gm, 0 Refills, Maintenance, 03/25/19 16:16:00 EST, Cream, [facility] #[id number], 1 application Topically 2 times a day, 168, cm, 03/25/19 14:33:00 EST, Height, 108.9, kg, 01/13/19 14:10:00 EDT, Dry W... Start Date: 03/25/19 Status: Ordered CeraVe topical cream 1 application, Topically, 2 times a day, PRN for dry skin, # 360 Gm, 0 Refills, Maintenance, 03/25/19 16:14:00 EST, Cream, [facility] #[id number], 1 application Topically 2 times a day,PRN:for dry skin, 168, cm, 03/25/19 14:33:00 EST, Height, 108... Start Date: 03/25/19 Status: Ordered dulaglutide 1.5 mg/0.5 mL subcutaneous solution 0.5 mL = 1.5 mg, Subcutaneous Injection, Every Friday, # 2 mL, 11 Refills, Maintenance, 02/08/19 14:35:25 EST, Solution Start Date: 02/08/19 Stop Date: 01/10/20 Status: Ordered Eucerin Unscented topical lotion See Instructions, prn dry skin, disp 1 bottle, # 1 each, 1 Refills, Maintenance, 04/20/19 10:06:00 EST, [facility] #[id number], prn dry skin, disp 1 bottle, 168, cm, 04/20/19 9:42:00 EST, Height, 108.9, kg, 01/13/19 14:10:00 EDT, Dry Weight Start Date: 04/20/19 Status: Ordered Freestyle Ravinder 14 Day Sensor Freestyle Ravinder 14 Day Sensor, See Instructions, # 2 each, Refills 11, Tot. Refills 11, Maintenance, DX DM, ICD E11.9, On QID insulin and BS monitoring, 04/20/19 10:10:00 EST, Compound Start Date: 04/20/19 Status: Ordered Freestyle Ravinder Monitor Freestyle Ravinder Monitor, See Instructions, # 1 each, Refills 0, Tot. Refills 0, Maintenance, DX DM,ICD E11.9, On QID insulin and BS monitoring, 04/20/19 10:10:00 EST, Compound Start Date: 04/20/19 Status: Ordered Freestyle Ravinder Test Strips Freestyle Ravinder Test Strips, See Instructions, # 150 each, Refills 11, Tot. Refills 11, Maintenance, DX DM, ICD E11.9, On QID insulin and BS monitoring, 04/20/19 10:10:00 EST, Compound Start Date: 04/20/19 Status: Ordered gabapentin 300 mg oral capsule 300 mg, 1, capsule, By Mouth, Daily, # 90 capsule, Refills 3, Tot. Refills 3, Maintenance, 02/08/1914:36:39 EST, Route to Pharmacy Electronically, [id number], [facility] #[id number] Start Date: 02/08/19 Stop Date: 02/03/20 Status: Ordered gabapentin 400 mg oral capsule 400 mg, 1, capsule, By Mouth, Daily, # 90 capsule, Refills 3, Tot. Refills 3, Maintenance, 02/08/1914:35:49 EST, Route to Pharmacy Electronically, [id number], [facility] #[id number] Start Date: 02/08/19 Stop Date: 02/03/20 Status: [...] 02/08/19 Stop Date: 02/03/20 Status: Ordered losartan 100 mg oral tablet 1 tablet = 100 mg, By Mouth, Daily, # 90 tablet, 3 Refills, Maintenance, 03/25/19 16:12:00 EST, Tablet, [facility] #[id number], 168, cm, 03/25/19 14:33:00 EST, Height, 108.9, [...] Weight Start Date: 02/22/19 Status: Ordered Pen [place], 31 G x 5 mm BD Ultra Fine III See Instructions, # 200 each, Refills 3, Tot. Refills 3, Maintenance, use bid with insulin dx E11.9, 04/09/19 10:52:00 EST, Compound, 168, cm, 03/25/19 16:19:00 EST, Height, 108.9, kg, 01/13/19 14:10:00 EDT, Dry Weight Start Date: 04/09/19 Status: Ordered Problem List Condition Effective Dates Status Health Status Inform ant Pseudotumor cerebri; s/p ROLL WRAPPER shunt(Confirmed) Active Bipolar disorder(Confirmed) Active Cerebral palsy(Confirmed) Active CKD (chronic kidney disease)(Confirmed) Active Depression(Confirmed) Active Diabetic neuropathy(Confirmed) Active Diabetic retinopathy(Confirmed) Active GERD (gastroesophageal reflu x disease)(Confirmed) Active HLD (hyperlipidemia)(Confirmed) Active HTN (hypertension)(Confirmed) Active Hypothyroidism(Confirmed) Active Diabetes mellitus type 2 in obese(Confirmed) Active Social History Social History Type Response Smoking Status Never (less than 100 in lifetime) entered on: 02/08/19 Sex Female
--- OUTSIDE RECORDS SUMMARY | 2023-04-21 08:12 | XMS_ITS | Continuity of Care Document ---
Author Name Unknown Organization [facility] Address [address] [place] [id number]- Care Team Providers Care Movie Actor Name Role Phone Tara CHÁVEZ, Bonifacio Primary Care Physician [phone] [facility]counter [facility] Date(s): 11/21/20 - 12/21/20 [facility] [address] [place] [address]- [place] Allergies, Adverse Reactions, Alerts No Known Medication [...] 03/23/20 13:59:00 EST, Route to Pharmacy Electronically, [facility]-, Partial fill upon patient request if the prescription is for a schedul... Start Date: 03/23/20 Status: Ordered atorvastatin 80 mg oral tablet 1 tablet = 80 mg, By Mouth, Daily, # 90 tablet, 1 Refills, Maintenance, 08/10/20 16:44:00 EDT, Tablet, [facility]-, 168, cm, 07/25/20 8:40:00 EDT, Height, 120, kg, 11/03/19 7:16:00 EDT, Dry Weight Start Date: 08/10/20 Status: Ordered Bath mat Bath mat, See Instructions, # 2 each, Refills 0, Tot. Refills 0, Maintenance, dx cerebral palsy High fall risk, 11/21/20 8:52:00 EDT, Supply, 168, cm, 10/10/20 9:30:00 EDT, Height, 120, kg, 11/03/19 7:16:00 EDT, Dry Weight Start Date: 11/21/20 Status: Ordered betamethasone topical dipropionate 0.05% cream 1 application, Topically, 2 times a day, to affected area, # 50 Gm, 0 Refills, Maintenance, 04/05/20 8:25:00 EST, Cream, [facility]-, 1 application Topically 2 times a [...] 11 Refills, Maintenance, 10/10/20 10:00:00 EDT, Powder, [email or web address] #[id number], Partial fill... Start Date: 10/10/20 Stop Date: [...] BG at least 4 times daily. E11.65, 12/21/20 15:29:00 EDT, duplicate script from 05/11/20. Original sent to wrong pharmacy., Compound, 1... Start Date: 12/21/20 Status: Ordered Freestyle Ravinder Monitor Freestyle Ravinder [...] Refills, Maintenance, 06/10/19 16:08:00 EDT, DIS Tablet, [facility]- [address], 168, cm, 05/19/19 11:05:00 EST, Height, 108.9, [...] 15 mL, 3 Refills, Maintenance, 12/19/20 7:29:00EDT, [facility], 168, cm, 10/10/20 9:30:00 EDT, Height, 120, kg, 11/03/19 7:16:00 EDT, Dry Weight Start Date: 12/19/20 Status: Ordered levothyroxine 0.088 mg oral tablet 1 tablet = 88 mcg, By Mouth, Daily, dose increased, # 30 tablet, 5 Refills, Maintenance, 12/15/20 15:34:00 EDT, Tablet, [facility], Partial fill upon patient request if the prescription is for a schedule II opioid drug., 168,... Start Date: 12/15/20 Status: Ordered lidocaine 5% topical ointment 1 application, Topically, 3 times a day, prn pain, wash hands thoroughly after application, # 50 Gm, 2 Refills, Maintenance, 06/28/20 12:45:00 EDT, Ointment, [facility], Partial fill upon patient request if the prescription... Start Date: 06/28/20 Status: Ordered losartan 100 mg oral tablet 1 tablet = 100 mg, By Mouth, Daily, # 90 tablet, 0 Refills, Maintenance, 11/03/20 10:42:00 EDT, Tablet, [facility], 168, cm, 10/10/20 9:30:00 EDT, Height, 120, kg, 11/03/19 7:16:00 EDT, Dry Weight Start Date: 11/03/20 Status: Ordered Multiple Vitamins with Iron, Minerals and Docusate oral capsule 1 capsule, By Mouth, Daily, # 30 capsule, 0 Refills, Maintenance, 04/11/20 17:23:00 EST, Capsule, [facility], Partial fill upon patient request if the prescription is for a schedule II opioid drug., 1 capsule By Mouth Daily, 1... Start Date: 04/11/20 Status: Ordered NovoLOG FlexPen 100 units/mL injectable solution See Instructions, INJECT 4 UNITS SUBCUTANEOUSLY THREE TIMES A DAY BEFORE MEALS, # 15 mL, 0 Refills,Maintenance, [facility]-[id number], 168, cm, 08/29/20 10:15:00 EDT, Height, 120, kg, 11/03/19 7:16:00 EDT, Dry Weight Start Date: 09/07/20 Status: Ordered NuLYTELY with Flavor Packs oral powder for reconstitution 240 mL, By Mouth, Every 10 minutes, Split prep method CAN SUBSTITUTE WITH ANY PEG 3350 SOLUTION AVAILABLE, # 1 each, 0 Refills, Acute 04/18/21 5:30:00 EST, 04/17/21 17:00:00 EST, REC Powder, [facility] #[id number], test date 04/18/21, 240 mL By Mo... Start Date: 04/17/21 Stop Date: 04/18/21 Status: Ordered Pen [place], 31 G x 5 mm BD Ultra [...] Gm, 5 Refills, Maintenance, 10/24/20 5:02:00 EDT, [facility] #[id number], 168, cm, 10/10/20 9:30:00 EDT,Height, 120, kg, 11/03/19 7:16:00 EDT, Dry Weight Start Date: 10/24/20 Status: Ordered Problem List Condition Effective Dates Status Health Status Inform ant Pseudotumor cerebri; s/p SUBSTATION OPERATOR AUTOMATIC shunt(Confirmed) Active Bipolar disorder(Confirmed) Active Cerebral palsy(Confirmed) Active CKD (chronic kidney disease)(Confirmed) Active Depression(Confirmed) Active Diabetic neuropathy(Confirmed) Active Diabetic retinopathy(Confirmed) Active GERD (gastroesophageal reflu x disease)(Confirmed) Active Bariatric surgery status(Confirmed) Active HLD (hyperlipidemia)(Confirmed) Active HTN (hypertension)(Confirmed) Active Hypothyroidism(Confirmed) Active Asthma, mild(Confirmed) Active [facility]/[id number] Avery-[phone]/Health assisted, active care coordination(Confirmed) Active Diabetes mellitus type 2 in obese(Confirmed) Active Social History Social History Type Response Smoking Status Never (less than 100 in lifetime); Tobacco user in household: No entered on: 10/28/19 Sex Female
--- OUTSIDE RECORDS SUMMARY | 2023-04-21 08:12 | XMS_ITS | Continuity of Care Document ---
Author Name Unknown Organization [facility] Address [address] [place] [address]- Care Team Providers Care Sfdc Consultant Name Role Phone Valarie CHÁVEZ, Levar Farris Primary Care Physician [facility] Date[facility]s): 07/14/20 - 08/13/20 [facility] [address] [place] [phone]- Allergies, Adverse Reactions, Alerts No Known Medication Allergies Immunizations Given and Recorded Vaccine Date Status Refusal Reason influenza virus vaccine, inactivated 03/25/19 Give n Medications albuterol CFC free 90 mcg/inh inhalation aerosol 2, puffs, Inhalation, Every 4 hours, PRN, # 1 each, Refills 2, Tot. Refills 2, Maintenance, 04/04/20 17:08:00 EST, Route to Pharmacy Electronically, [facility]- [id number], [facility]-, 168, cm, 12/21/19 8:36:00 EDT, Height, 120, kg,... Start Date: 04/04/20 Status: Ordered amLODIPine 5 mg oral tablet 5 mg, 1, tablet, By Mouth, Daily, # 90 tablet, Refills 3, Tot. Refills 3, Maintenance, 03/23/20 13:59:00 EST, Route to Pharmacy Electronically, [facility]-, Partial fill upon patient request if the prescription is for a schedul... Start Date: 03/23/20 Status: Ordered atorvastatin 80 mg oral tablet 1 tablet = 80 mg, By Mouth, Daily, # 90 tablet, 1 Refills, Maintenance, 08/10/20 16:44:00 EDT, Tablet, [facility]-, 168, cm, 07/25/20 8:40:00 EDT, Height, 120, kg, 11/03/19 7:16:00 EDT, Dry Weight Start Date: 08/10/20 Status: Ordered betamethasone topical dipropionate 0.05% cream 1 application, Topically, 2 times a day, to affected area, # 50 Gm, 0 Refills, Maintenance, 04/05/20 8:25:00 EST, Cream, [facility]-94216, 1 application Topically 2 times a day,Instr:to [...] duplicate script from 05/11/20. Original sent to [facility]., Compound, 1... Start Date: 07/17/20 Status: [...] Refills, Maintenance, 06/10/19 16:08:00 EDT, DIS Tablet, [facility]- 30646, 168, cm, 05/19/19 11:05:00 EST, Height, 108.9, [...] mL, 4 Refills, Maintenance, 03/23/20 13:54:00 EST, [facility]-41982, 168, cm, 12/21/19 8:36:00 EDT, Height, 120, kg, :16:00 EDT, Dry Weight Start Date: 03/23/20 Stop Date: 06/16/21 Status: Ordered levothyroxine 0.088 mg oral tablet 1 tablet = 88 mcg, By Mouth, Daily, dose increased, # 30 tablet, 5 Refills, Maintenance, 06/15/20 9:09:00 EDT, Tablet, [facility]-, Partial fill upon patient request if the prescription is for a schedule II opioid drug., 168, c... Start Date: 06/15/20 Status: Ordered lidocaine 5% topical ointment 1 application, Topically, 3 times a day, prn pain, wash hands thoroughly after application, # 50 Gm, 2 Refills, Maintenance, 06/28/20 12:45:00 EDT, Ointment, [facility]-, Partial fill upon patient request if the prescription... Start Date: 06/28/20 Status: Ordered losartan 100 mg oral tablet 1 tablet = 100 mg, By Mouth, Daily, # 90 tablet, 1 Refills, Maintenance, 05/15/20 15:41:00 EST, Tablet, [facility], 168, cm, 12/21/19 8:36:00 EDT, Height, 120, kg, 11/03/19 7:16:00 EDT, Dry Weight Start Date: 05/15/20 Status: Ordered Multiple Vitamins with Iron, Minerals and Docusate oral capsule 1 capsule, By Mouth, Daily, # 30 capsule, 0 Refills, Maintenance, 04/11/20 17:23:00 EST, Capsule, [facility], Partial fill upon patient request if the prescription is for a schedule II opioid drug., 1 capsule By Mouth Daily, 1... Start Date: 04/11/20 Status: Ordered NovoLOG FlexPen 100 units/mL subcutaneous solution See Instructions, Max daily dose 30 units. E11.65., # 15 mL, 3 Refills, Maintenance, 08/11/20 20:40:00 EDT, Solution, [id number], Partial fill upon patient request if the prescription is for a schedule II opioid drug., 168, cm, ... Start Date: 08/11/20 Status: Ordered OneTouch Verio Glucose Meter See [...] Weight Start Date: 02/22/19 Status: Ordered Pen [place], 31 G x 5 mm BD Ultra [...] Health Status Inform ant Pseudotumor cerebri; s/p WIND UP WORKER shunt(Confirmed) Active Bipolar disorder(Confirmed) Active Cerebral palsy(Confirmed) Active CKD (chronic kidney disease)(Confirmed) Active Depression(Confirmed) Active Diabetic neuropathy(Confirmed) Active Diabetic retinopathy(Confirmed) Active GERD (gastroesophageal reflu x disease)(Confirmed) Active Bariatric surgery status(Confirmed) Active HLD (hyperlipidemia)(Confirmed) Active HTN (hypertension)(Confirmed) Active Hypothyroidism(Confirmed) Active [facility]/[id number] Avery-[phone]/Health fci, active care coordination(Confirmed) Active Diabetes mellitus type 2 in obese(Confirmed) Active Social History Social History Type Response Smoking Status Never (less than 100 in lifetime); Tobacco user in household: No entered on: 10/28/19 Sex Female
--- OUTSIDE RECORDS SUMMARY | 2023-04-21 08:12 | XMS_ITS | Continuity of Care Document ---
Author Name Unknown Organization [facility] Address [address] [place] [address]- Care Team Providers Care Manager Grant Name Role Phone Bonifacio Pacheco MD Primary Care Physician [facility] Date[facility]s): 05/24[facility]21 - 06/23/21 [facility] [address] [place] [address]- Attending Physician: AdmHomero sultana Admitting Physician: AdmtrHomero Referring Physician: Admtr, [id number] [...] tablet, 5 Refills, Maintenance, 02/24/21 16:01:00 EST, [facility]-[id number], 168, cm, 01/26/21 7:47:00 EST, Height, 120, kg, 11/03/19 7:16:00 EDT, Dry Weight Start Date: 02/24/21 Status: Ordered atorvastatin 80 mg oral tablet 1 tablet, By Mouth, Daily, # 28 tablet, 5 Refills, Maintenance, 02/02/21 8:31:00 EST, [facility]-, 168, cm, 01/26/21 7:47:00 EST, Height, 120, kg, 11/03/19 7:16:00 EDT, Dry Weight Start Date: 02/02/21 Status: Ordered betamethasone topical dipropionate 0.05% cream 1 application, Topically, 2 times a day, to affected area, # 50 Gm, 0 Refills, Maintenance, 04/05/20 8:25:00 EST, Cream, [facility]-, 1 application Topically 2 times a day,Instr:to affected area, 168, cm, 12/21/19 8:36:00 EDT,... Start Date: 04/05/20 Status: Ordered diclofenac 1% topical gel 1 application, Topically, 4 times a day, not to exceed 32 grams/day, # 100 Gm, 1 Refills, Maintenance, 01/26/21 8:25:00 EST, [facility] #[id number], Partial fill upon patient request if theprescription [...] each, 11 Refills, Maintenance, 10/10/20 10:00:00 EDT, [facility][id number], Partial fill... Start Date: 10/10/20 Stop Date: [...] 15 mL, 3 Refills, Maintenance, 12/19/20 7:29:00EDT, [facility]-47745, 168, cm, 10/10/20 9:30:00 EDT, Height, 120, kg, 11/03/19 7:16:00 EDT, Dry Weight Start Date: 12/19/20 Status: Ordered levothyroxine 0.088 mg oral tablet 1 tablet, By Mouth, Daily, # 28 tablet, 0 Refills, [facility], 168, cm, 05/24/21 13:15:00 EST, Height, 120, kg, 11/03/19 7:16:00 EDT, Dry Weight Start Date: 06/19/21 Status: Ordered lidocaine 5% topical ointment 1 application, Topically, 3 times a day, prn pain, wash hands thoroughly after application, # 50 Gm, 2 Refills, Maintenance, 06/28/20 12:45:00 EDT, Ointment, [facility]-, Partial fill upon patient request if the prescription... Start Date: 06/28/20 Status: Ordered lidocaine 5% topical ointment 1 application, Topically, 3 times a day, wash hands thoroughly after application, prn pain, # 50 Gm, 2 Refills, Maintenance, 04/03/21 8:36:00 EST, Ointment, [facility] #[id number], Partial fill upon patient request if the prescription is for a sc... Start Date: 04/03/21 Status: Ordered Lidoderm 5% film 3 patch, Topically, Daily, remove patches after 12 hours, # 30 patch, 5 Refills, Maintenance, 04/12/21 11:04:00 EST, [facility] #[id number], Partial fill upon patient request if the [...] 28 tablet, 5 Refills, 04/23/21 11:41:00 EST, [facility] #[id number], 168, cm, 04/03/21 8:33:00 EST, Height, 120, kg, 11/03/19 7:16:00 EDT, Dry Weight Start Date: 04/23/21 Status: Ordered Multiple Vitamins with Iron, Minerals and Docusate oral capsule 1 capsule, By Mouth, Daily, # 30 capsule, 0 Refills, Maintenance, 04/11/20 17:23:00 EST, Capsule, [facility]-, Partial fill upon patient request if the prescription is for a schedule II opioid drug., 1 capsule By Mouth Daily, 1... Start Date: 04/11/20 Status: Ordered NovoLOG FlexPen 100 units/mL injectable solution See Instructions, Please follow sliding scale TID with meals between 2-8 units. max daily dose: 24 units E11.9, # 15 mL, 11 Refills, 03/06/21 9:51:00 EST, [facility] #[id number], 168, cm, 03/06/21 9:27:00 EST, Height, 120, kg, 11/03/19 7:16:0... Start Date: 03/06/21 Status: Ordered Pen [place], 31 G x 5 mm BD Ultra Fine III See Instructions, # 200 each, Refills 3, Tot. Refills 3, Maintenance, use bid with insulin dx E11.9, 10/28/19 11:10:00 EDT, Compound, 168, cm, 10/14/19 9:08:00 EDT, Height, 108.9, kg, 01/13/19 14:10:00 EDT, Dry Weight Start Date: 10/28/19 Status: Ordered Shower Chair See Instructions, # 1 each, Maintenance, to use to enable safety in the shower d/t gait instabilityr/t cerebral palsy Lifetime need, 06/13/21 14:16:00 EDT, Supply Start Date: 06/13/21 Status: Ordered TENS unit TENS unit, See [...] Gm, 5 Refills, Maintenance, 10/24/20 5:02:00 EDT, [facility] #[id number], 168, cm, 10/10/20 9:30:00 EDT,Height, 120, kg, 11/03/19 7:16:00 EDT, Dry Weight Start Date: 10/24/20 Status: Ordered Problem List Condition Effective Dates Status Health Status Inform ant Pseudotumor cerebri; s/p SAS ANALYST shunt(Confirmed) Active Bipolar disorder(Confirmed) Active Cerebral palsy(Confirmed) Active CKD (chronic kidney disease)(Confirmed) Active Depression(Confirmed) Active Oxygen desaturation during sleep(Confirmed) 1 Active Diabetic neuropathy(Confirmed) Active Diabetic retinopathy(Confirmed) Active GERD (gastroesophageal reflu x disease)(Confirmed) Active Bariatric surgery status(Confirmed) Active HLD (hyperlipidemia)(Confirmed) Active HTN (hypertension)(Confirmed) Active Hypothyroidism(Confirmed) Active Asthma, mild(Confirmed) Active Obese class I(Confirmed) Active Obesity(Confirmed) Active Obstructive sleep apnea(Confirmed) Active [facility]/FND-AO-LrygutaBea Avery-[phone]/Health fci, active care coordination(Confirmed) Active Diabetes mellitus type 2 in obese(Confirmed) Active 1to 75% in Social History Social History Type Response Smoking Status Never (less than 100 in lifetime); Tobacco user in household: No entered on: 10/28/19 Sex Female
--- OUTSIDE RECORDS SUMMARY | 2023-04-21 08:12 | XMS_ITS | Continuity of Care Document ---
Author Name Unknown Organization [facility] Address [address] [place] [address]- Care Team Providers Care Sane Rn Name Role Phone Bonifacio Pacheco MD Primary Care Physician [facility]): 01[facility]21 - 02/25/21 [facility] [address] [place] [phone]- Attending Physician: AdmHomero sultana Admitting Physician: AdmtrHomero [...] tablet, 5 Refills, Maintenance, 02/24/21 16:01:00 EST, [facility]-58449, 168, cm, 01/26/21 7:47:00 EST, Height, 120, kg, 11/03/19 7:16:00 EDT, Dry Weight Start Date: 02/24/21 Status: Ordered atorvastatin 80 mg oral tablet 1 tablet, By Mouth, Daily, # 28 tablet, 5 Refills, Maintenance, 02/02/21 8:31:00 EST, [facility]-, 168, cm, 01/26/21 7:47:00 EST, Height, 120, kg, 11/03/19 7:16:00 EDT, Dry Weight Start Date: 02/02/21 Status: Ordered betamethasone topical dipropionate 0.05% cream 1 application, Topically, 2 times a day, to affected area, # 50 Gm, 0 Refills, Maintenance, 04/05/20 8:25:00 EST, Cream, [facility]-, 1 application Topically 2 times a day,Instr:to affected area, 168, cm, 12/21/19 8:36:00 EDT,... Start Date: 04/05/20 Status: Ordered diclofenac 1% topical gel 1 application, Topically, 4 times a day, not to exceed 32 grams/day, # 100 Gm, 1 Refills, Maintenance, 01/26/21 8:25:00 EST, [facility] #[id number], Partial fill upon patient request if theprescription [...] each, 11 Refills, Maintenance, 10/10/20 10:00:00 EDT, [facility] #[id number], Partial fill... Start Date: 10/10/20 Stop Date: [...] Maintenance, 06/10/19 16:08:00 EDT, DIS Tablet, [facility] [address], 168, cm, 05/19/19 11:05:00 EST, Height, 108.9, [...] 15 mL, 3 Refills, Maintenance, 12/19/20 7:29:00EDT, [facility]-, 168, cm, 10/10/20 9:30:00 EDT, Height, 120, kg, 11/03/19 7:16:00 EDT, Dry Weight Start Date: 12/19/20 Status: Ordered levothyroxine 0.088 mg oral tablet 1 tablet = 88 mcg, By Mouth, Daily, dose increased, # 30 tablet, 5 Refills, Maintenance, 12/15/20 15:34:00 EDT, Tablet, [facility], Partial fill upon patient request if the prescription is for a schedule II opioid drug., 168,... Start Date: 12/15/20 Status: Ordered lidocaine 5% topical ointment 1 application, Topically, 3 times a day, prn pain, wash hands thoroughly after application, # 50 Gm, 2 Refills, Maintenance, 06/28/20 12:45:00 EDT, Ointment, [facility], Partial fill upon patient request if the prescription... Start Date: 06/28/20 Status: Ordered losartan 100 mg oral tablet 1 tablet, By Mouth, Daily, # 28 tablet, 0 Refills, [facility], 168, cm, 01/26/21 7:47:00 EST, Height, 120, kg, 11/03/19 7:16:00 EDT, Dry Weight Start Date: 02/05/21 Status: Ordered Multiple Vitamins with Iron, Minerals and Docusate oral capsule 1 capsule, By Mouth, Daily, # 30 capsule, 0 Refills, Maintenance, 04/11/20 17:23:00 EST, Capsule, [facility], Partial fill upon patient request if the prescription is for a schedule II opioid drug., 1 capsule By Mouth Daily, 1... Start Date: 04/11/20 Status: Ordered NovoLOG FlexPen 100 units/mL injectable solution See Instructions, INJECT 4 UNITS SUBCUTANEOUSLY THREE TIMES A DAY BEFORE MEALS, # 15 mL, 0 Refills,Maintenance, [facility]-[id number], 168, cm, 08/29/20 10:15:00 EDT, Height, 120, kg, 11/03/19 7:16:00 EDT, Dry Weight Start Date: 09/07/20 Status: Ordered NuLYTELY with Flavor Packs oral powder for reconstitution 240 mL, By Mouth, Every 10 minutes, Split prep method CAN SUBSTITUTE WITH ANY PEG 3350 SOLUTION AVAILABLE, # 1 each, 0 Refills, Acute 04/18/21 5:30:00 EST, 04/17/21 17:00:00 EST, REC Powder, [facility] #[id number], test date 04/18/21, 240 mL By Mo... Start Date: 04/17/21 Stop Date: 04/18/21 Status: Ordered Pen [place], 31 G x 5 mm BD Ultra [...] Gm, 5 Refills, Maintenance, 10/24/20 5:02:00 EDT, [facility] #[id number], 168, cm, 10/10/20 9:30:00 EDT,Height, 120, kg, 11/03/19 7:16:00 EDT, Dry Weight Start Date: 10/24/20 Status: Ordered Problem List Condition Effective Dates Status Health Status Inform ant Pseudotumor cerebri; s/p NURSE SANE shunt(Confirmed) Active Bipolar disorder(Confirmed) Active Cerebral palsy(Confirmed) Active CKD (chronic kidney disease)(Confirmed) Active Depression(Confirmed) Active Oxygen desaturation during sleep(Confirmed) 1 Active Diabetic neuropathy(Confirmed) Active Diabetic retinopathy(Confirmed) Active GERD (gastroesophageal reflu x disease)(Confirmed) Active Bariatric surgery status(Confirmed) Active HLD (hyperlipidemia)(Confirmed) Active HTN (hypertension)(Confirmed) Active Hypothyroidism(Confirmed) Active Asthma, mild(Confirmed) Active Obese class I(Confirmed) Active Obesity(Confirmed) Active Obstructive sleep apnea(Confirmed) Active [facility]/IKQ-PQ-UfkvkicBea Avery-[phone]/Health longterm, active care coordination(Confirmed) Active Diabetes mellitus type 2 in obese(Confirmed) Active 1to 75% in Social History Social History Type Response Smoking Status Never (less than 100 in lifetime); Tobacco user in household: No entered on: 10/28/19 Sex Female
--- OUTSIDE RECORDS SUMMARY | 2023-04-21 08:12 | XMS_ITS | Continuity of Care Document ---
Author Name Unknown Organization [facility] Address [address] [place] [address]- Care Team Providers Care Drapery Operator Name Role Phone Valarie CHÁVEZ, Levar Farris Primary Care Physician Encounter [facility] Date(s): 02/22/20 - 03/23/20 [facility] [address] [place] [address]- Allergies, Adverse Reactions, Alerts No Known Medication Allergies Immunizations Given and Recorded Vaccine Date Status Refusal Reason influenza virus vaccine, inactivated 03/25/19 Give n Medications Admelog SoloStar 100 units/mL injectable solution = 4 units, Subcutaneous Infusion, 3 times a day before meals, to replace Humalog, # 3 mL, 5 Refills, Maintenance, 06/22/19 9:59:00 EDT, [facility]-, 168, cm, 05/19/19 11:05:00EST, Height, 108.9, kg, 01/13/19 14:10:00 EDT, Dry... Start Date: 06/22/19 Status: Ordered albuterol CFC free 90 mcg/inh inhalation aerosol 2, puffs, Inhalation, Every 4 hours, PRN, # 1 each, Refills 2, Tot. Refills 2, Maintenance, 10/28/19 11:06:00 EDT, Route to Pharmacy Electronically, NCPDP_ID- [id number], [facility]-, 168, cm, 10/14/19 9:08:00 EDT, Height, 108.9, k... Start Date: 10/28/19 Status: Ordered amLODIPine 5 mg oral tablet 5 mg, 1, tablet, By Mouth, Daily, # 90 tablet, Refills 3, Tot. Refills 3, Maintenance, 03/23/20 13:59:00 EST, Route to Pharmacy Electronically, [facility]-, Partial fill upon patient request if the prescription is for a schedul... Start Date: 03/23/20 Status: Ordered atorvastatin 80 mg oral tablet 1 tablet = 80 mg, By Mouth, Daily, # 90 tablet, 1 Refills, Maintenance, 02/22/20 15:57:00 EST, Tablet, [facility], 168, cm, 12/21/19 8:36:00 EDT, Height, 120, kg, 11/03/19 7:16:00 EDT, Dry Weight Start Date: 02/22/20 Status: Ordered betamethasone topical dipropionate 0.05% cream 1 application, Topically, 2 times a day, to affected area, # 50 Gm, 0 Refills, Maintenance, 10/14/19 9:16:00 EDT, Cream, [facility], 1 application Topically 2 times a day,Instr:to affected area, 168, cm, 10/14/19 9:08:00 EDT,... Start Date: 10/14/19 Status: Ordered freestyle LibreTest Strips freestyle LibreTest [...] 06/22/19 10:03:00 EDT, Route to Pharmacy Electronically, [facility]- [id number], 168, cm, 03/0... Start Date: 06/22/19 Stop Date: 06/16/20 Status: Ordered lamotrigine 50 mg oral tablet, disintegrating 1 tablet = 50 mg, By Mouth, Daily at bedtime, # 90 tablet, 3 Refills, Maintenance, 06/10/19 16:08:00 EDT, DIS Tablet, [facility]- , 168, cm, 05/19/19 11:05:00 EST, [...] mL, 4 Refills, Maintenance, 03/23/20 13:54:00 EST, [facility]-23171, 168, cm, 12/21/19 8:36:00 EDT, Height, 120, kg, 08/19/207:16:00 EDT, Dry Weight Start Date: 03/23/20 Stop Date: 06/16/21 Status: Ordered losartan 100 mg oral tablet 1 tablet = 100 mg, By Mouth, Daily, # 90 tablet, 0 Refills, Maintenance, 02/22/20 15:57:00 EST, Tablet, [facility]-11229, 168, cm, 12/21/19 8:36:00 EDT, Height, 120, [...] Weight Start Date: 02/22/19 Status: Ordered Pen [place], 31 G x 5 mm BD Ultra [...] 11/29/19 14:06:00 EDT, Route to Pharmacy Electronically, [facility]75[facility], 168, cm, 11/16/19 13:19:00 EDT, Height, 120, kg, 11/03/19... 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; s/p COMMERCIAL LEASING AGENT shunt(Confirmed) Active Bipolar disorder(Confirmed) Active Cerebral palsy(Confirmed) Active CKD (chronic kidney disease)(Confirmed) Active Depression(Confirmed) Active Diabetic neuropathy(Confirmed) Active Diabetic retinopathy(Confirmed) Active GERD (gastroesophageal reflu x disease)(Confirmed) Active Bariatric surgery status(Confirmed) Active HLD (hyperlipidemia)(Confirmed) Active HTN (hypertension)(Confirmed) Active Hypothyroidism(Confirmed) Active [facility]/OUM-[id number] Avery-[phone]/Health long-term, active care coordination(Confirmed) Active Diabetes mellitus type 2 in obese(Confirmed) Active Social History Social History Type Response Smoking Status Never (less than 100 in lifetime); Tobacco user in household: No entered on: 10/28/19 Sex Female
--- OUTSIDE RECORDS SUMMARY | 2023-04-21 08:12 | XMS_ITS | Continuity of Care Document ---
Author Name Unknown Organization [facility] Address [address] [place] [address]- Care Team Providers Care Cement Rubber Name Role Phone Valarie CHÁVEZ, Levar Farris Primary Care Physician Encounter [facility] Date(s): 08/10/20 - 09/09/20 [facility] [address] [place] [id number]- Allergies, Adverse Reactions, Alerts No Known Medication [...] 17:08:00 EST, Route to Pharmacy Electronically, NCPDP_ID- [id number], [facility]-, 168, cm, 12/21/19 8:36:00 EDT, Height, 120, kg,... Start Date: 04/04/20 Status: Ordered amLODIPine 5 mg oral tablet 5 mg, 1, tablet, By Mouth, Daily, # 90 tablet, Refills 3, Tot. Refills 3, Maintenance, 03/23/20 13:59:00 EST, Route to Pharmacy Electronically, [facility]-, Partial fill upon patient request if the prescription is for a schedul... Start Date: 03/23/20 Status: Ordered atorvastatin 80 mg oral tablet 1 tablet = 80 mg, By Mouth, Daily, # 90 tablet, 1 Refills, Maintenance, 08/10/20 16:44:00 EDT, Tablet, [facility]-, 168, cm, 07/25/20 8:40:00 EDT, Height, 120, kg, 11/03/19 7:16:00 EDT, Dry Weight Start Date: 08/10/20 Status: Ordered betamethasone topical dipropionate 0.05% cream 1 application, Topically, 2 times a day, to affected area, # 50 Gm, 0 Refills, Maintenance, 04/05/20 8:25:00 EST, Cream, [facility]-, 1 application Topically 2 times a [...] duplicate script from 05/11/20. Original sent to [facility]., Compound, 1... Start Date: 07/17/20 Status: [...] 06/10/19 16:08:00 EDT, DIS Tablet, [facility]- [address], 168, cm, 05/19/19 11:05:00 EST, Height, 108.9, [...] mL, 4 Refills, Maintenance, 03/23/20 13:54:00 EST, [facility]-[id number], 168, cm, 12/21/19 8:36:00 EDT, Height, 120, kg, 08/19/207:16:00 EDT, Dry Weight Start Date: 03/23/20 Stop Date: 06/16/21 Status: Ordered levothyroxine 0.088 mg oral tablet 1 tablet = 88 mcg, By Mouth, Daily, dose increased, # 30 tablet, 5 Refills, Maintenance, 06/15/20 9:09:00 EDT, Tablet, [facility], Partial fill upon patient request if the prescription is for a schedule II opioid drug., 168, c... Start Date: 06/15/20 Status: Ordered lidocaine 5% topical ointment 1 application, Topically, 3 times a day, prn pain, wash hands thoroughly after application, # 50 Gm, 2 Refills, Maintenance, 06/28/20 12:45:00 EDT, Ointment, [facility], Partial fill upon patient request if the prescription... Start Date: 06/28/20 Status: Ordered losartan 100 mg oral tablet 1 tablet = 100 mg, By Mouth, Daily, # 90 tablet, 1 Refills, Maintenance, 05/15/20 15:41:00 EST, Tablet, [facility], 168, cm, 12/21/19 8:36:00 EDT, Height, 120, kg, 11/03/19 7:16:00 EDT, Dry Weight Start Date: 05/15/20 Status: Ordered Multiple Vitamins with Iron, Minerals and Docusate oral capsule 1 capsule, By Mouth, Daily, # 30 capsule, 0 Refills, Maintenance, 04/11/20 17:23:00 EST, Capsule, [facility], Partial fill upon patient request if the prescription is for a schedule II opioid drug., 1 capsule By Mouth Daily, 1... Start Date: 04/11/20 Status: Ordered NovoLOG FlexPen 100 units/mL injectable solution See Instructions, INJECT 4 UNITS SUBCUTANEOUSLY THREE TIMES A DAY BEFORE MEALS, # 15 mL, 0 Refills,Maintenance, [facility], 168, cm, 08/29/20 10:15:00 EDT, Height, 120, kg, 11/03/19 7:16:00 EDT, Dry Weight Start Date: 09/07/20 Status: Ordered BlueStacks Verio Glucose Meter See Instructions, # 1 [...] Weight Start Date: 02/22/19 Status: Ordered Pen [place], 31 G x 5 mm BD Ultra Fine III See Instructions, # 200 each, Refills 3, Tot. Refills 3, Maintenance, use bid with insulin dx E11., 10/28/19 11:10:00 EDT, Compound, 168, cm, 10/14/19 [...] Health Status Inform ant Pseudotumor cerebri; s/p PRINTER TECHNICIAN shunt(Confirmed) Active Bipolar disorder(Confirmed) Active Cerebral palsy(Confirmed) Active CKD (chronic kidney disease)(Confirmed) Active Depression(Confirmed) Active Diabetic neuropathy(Confirmed) Active Diabetic retinopathy(Confirmed) Active GERD (gastroesophageal reflu x disease)(Confirmed) Active Bariatric surgery status(Confirmed) Active HLD (hyperlipidemia)(Confirmed) Active HTN (hypertension)(Confirmed) Active Hypothyroidism(Confirmed) Active [facility]/[id number] Avery-[phone]/Health intermediate, active care coordination(Confirmed) Active Diabetes mellitus type 2 in obese(Confirmed) Active Social History Social History Type Response Smoking Status Never (less than 100 in lifetime); Tobacco user in household: No entered on: 10/28/19 Sex Female
--- OUTSIDE RECORDS SUMMARY | 2023-04-21 08:12 | XMS_ITS | Continuity of Care Document ---
Author Name Unknown Organization [facility] Address [address] [place] [address]- Care Team Providers Care Bird Tender Name Role Phone Valarie CHÁVEZ, Levar Farris Primary Care Physician Encounter [facility] Date(s): 02/23/19 - 04/29/19 [facility] [address] [place] [address]- Attending Physician: Slade Tompkins MD Admitting Physician: Slade Tompkins MD Allergies, Adverse Reactions, Alerts No Known Medication Allergies Immunizations Given and Recorded Vaccine Date Status Refusal Reason influenza virus vaccine, inactivated 03/25/19 Give n Medications albuterol CFC free 90 mcg/inh inhalation aerosol 2, puffs, Inhalation, Every 6 hours, PRN, # 1 each, Refills 2, Tot. Refills 2, Maintenance, 04/20/19 10:07:00 EST, Route to Pharmacy Electronically, [id number], [facility] #[id number], 168, cm, 04/20/19 9:42:00 EST, [place]... Start Date: 04/20/19 Status: Ordered atorvastatin 80 mg oral tablet 1 tablet = 80 mg, By Mouth, Daily, # 90 tablet, 3 Refills, Maintenance, 03/25/19 15:39:00 EST, Tablet, [facility] #[id number], 168, cm, 03/25/19 14:33:00 EST, Height, 108.9, kg, 01/13/19 14:10:00 EDT, Dry Weight Start Date: 03/25/19 Status: Ordered betamethasone topical dipropionate 0.05% cream 1 application, Topically, 2 times a day, # 50 Gm, 0 Refills, Maintenance, 03/25/19 16:16:00 EST, Cream, [facility][id number], 1 application Topically 2 times a day, 168, cm, 03/25/19 14:33:00 EST, Height, 108.9, kg, 01/13/19 14:10:00 EDT, Dry W... Start Date: 03/25/19 Status: Ordered CeraVe topical cream 1 application, Topically, 2 times a day, PRN for dry skin, # 360 Gm, 0 Refills, Maintenance, 03/25/19 16:14:00 EST, Cream, [facility] #[id number], 1 application Topically 2 times a day,PRN:for [...] each, 1 Refills, Maintenance, 04/20/19 10:06:00 EST, [facility] #[id number], prn dry skin, disp 1 bottle, 168, [...] Maintenance, 02/08/1914:36:39 EST, Route to Pharmacy Electronically, [id number], [facility] #[id number] Start Date: 02/08/19 Stop Date: 02/03/20 Status: Ordered gabapentin 400 mg oral capsule 400 mg, 1, capsule, By Mouth, Daily, # 90 capsule, Refills 3, Tot. Refills 3, Maintenance, 02/08/1914:35:49 EST, Route to Pharmacy Electronically, [id number], [facility] #[id number] Start Date: 02/08/19 Stop Date: 02/03/20 Status: [...] 3 Refills, Maintenance, 03/25/19 16:12:00 EST, Tablet, [email or web address] #[id number], 168, cm, 03/25/19 14:33:00 EST, Height, 108.9, [...] Weight Start Date: 02/22/19 Status: Ordered Pen [place], 31 G x 5 mm BD Ultra Fine III See Instructions, # 200 each, Refills 3, Tot. Refills 3, Maintenance, use bid with insulin dx E11.9, 04/09/19 10:52:00 EST, Compound, 168, cm, 03/25/19 16:19:00 EST, Height, 108.9, kg, 01/13/19 14:10:00 EDT, Dry Weight Start Date: 04/09/19 Status: Ordered Problem List Condition Effective Dates Status Health Status Inform ant Pseudotumor cerebri; s/p SIGNAL PERSON shunt(Confirmed) Active Bipolar disorder(Confirmed) Active Cerebral palsy(Confirmed) [...]
--- OUTSIDE RECORDS SUMMARY | 2023-04-21 08:12 | XMS_ITS | Continuity of Care Document ---
Author Name Unknown Organization [facility] Address [address] [place] [address]- Care Team Providers Care Svp Operations Name Role Phone Bonifacio Pacheco MD Primary Care Physician Encounter [facility] [id number] Date(s): 01/11/21 - 02/15/21 [facility] [address] [place] [address]- Attending Physician: Not on Staff, Attending MD Referring Physician: Bonifacio Pacheco MD Allergies, Adverse Reactions, Alerts No Known [...] 03/23/20 13:59:00 EST, Route to Pharmacy Electronically, [facility]-, Partial fill upon patient request if the prescription is for a schedul... Start Date: 03/23/20 Status: Ordered atorvastatin 80 mg oral tablet 1 tablet, By Mouth, Daily, # 28 tablet, 5 Refills, Maintenance, 02/02/21 8:31:00 EST, [facility]-, 168, cm, 01/26/21 7:47:00 EST, Height, 120, kg, 11/03/19 7:16:00 EDT, Dry Weight Start Date: 02/02/21 Status: Ordered betamethasone topical dipropionate 0.05% cream 1 application, Topically, 2 times a day, to affected area, # 50 Gm, 0 Refills, Maintenance, 04/05/20 8:25:00 EST, Cream, [facility]-, 1 application Topically 2 times a day,Instr:to affected area, 168, cm, 12/21/19 8:36:00 EDT,... Start Date: 04/05/20 Status: Ordered diclofenac 1% topical gel 1 application, Topically, 4 times a day, not to exceed 32 grams/day, # 100 Gm, 1 Refills, Maintenance, 01/26/21 8:25:00 EST, [facility] #[id number], Partial fill upon patient request if theprescription [...] each, 11 Refills, Maintenance, 10/10/20 10:00:00 EDT, [facility] #[id number], Partial fill... Start Date: 10/10/20 Stop Date: [...] Refills, Maintenance, 06/10/19 16:08:00 EDT, DIS Tablet, [facility] [address], 168, cm, 05/19/19 11:05:00 EST, Height, 108.9, [...] 15 mL, 3 Refills, Maintenance, 12/19/20 7:29:00EDT, [facility]-, 168, cm, 10/10/20 9:30:00 EDT, Height, 120, kg, 11/03/19 7:16:00 EDT, Dry Weight Start Date: 12/19/20 Status: Ordered levothyroxine 0.088 mg oral tablet 1 tablet = 88 mcg, By Mouth, Daily, dose increased, # 30 tablet, 5 Refills, Maintenance, 12/15/20 15:34:00 EDT, Tablet, [facility], Partial fill upon patient request if the prescription is for a schedule II opioid drug., 168,... Start Date: 12/15/20 Status: Ordered lidocaine 5% topical ointment 1 application, Topically, 3 times a day, prn pain, wash hands thoroughly after application, # 50 Gm, 2 Refills, Maintenance, 06/28/20 12:45:00 EDT, Ointment, [facility], Partial fill upon patient request if the prescription... Start Date: 06/28/20 Status: Ordered losartan 100 mg oral tablet 1 tablet, By Mouth, Daily, # 28 tablet, 0 Refills, [facility], 168, cm, 01/26/21 7:47:00 EST, Height, 120, kg, 11/03/19 7:16:00 EDT, Dry Weight Start Date: 02/05/21 Status: Ordered Multiple Vitamins with Iron, Minerals and Docusate oral capsule 1 capsule, By Mouth, Daily, # 30 capsule, 0 Refills, Maintenance, 04/11/20 17:23:00 EST, Capsule, [facility], Partial fill upon patient request if the prescription is for a schedule II opioid drug., 1 capsule By Mouth Daily, 1... Start Date: 04/11/20 Status: Ordered NovoLOG FlexPen 100 units/mL injectable solution See Instructions, INJECT 4 UNITS SUBCUTANEOUSLY THREE TIMES A DAY BEFORE MEALS, # 15 mL, 0 Refills,Maintenance, [facility]-[id number], 168, cm, 08/29/20 10:15:00 EDT, Height, 120, kg, 11/03/19 7:16:00 EDT, Dry Weight Start Date: 09/07/20 Status: Ordered NuLYTELY with Flavor Packs oral powder for reconstitution 240 mL, By Mouth, Every 10 minutes, Split prep method CAN SUBSTITUTE WITH ANY PEG 3350 SOLUTION AVAILABLE, # 1 each, 0 Refills, Acute 04/18/21 5:30:00 EST, 04/17/21 17:00:00 EST, REC Powder, [facility] #[id number], test date 04/18/21, 240 mL By Mo... Start Date: 04/17/21 Stop Date: 04/18/21 Status: Ordered Pen [place], 31 G x 5 mm BD Ultra [...] Gm, 5 Refills, Maintenance, 10/24/20 5:02:00 EDT, [facility] #[id number], 168, cm, 10/10/20 9:30:00 EDT,Height, 120, kg, 11/03/19 7:16:00 EDT, Dry Weight Start Date: 10/24/20 Status: Ordered Problem List Condition Effective Dates Status Health Status Inform ant Pseudotumor cerebri; s/p MASTER BARBER shunt(Confirmed) Active Bipolar disorder(Confirmed) Active Cerebral palsy(Confirmed) Active CKD (chronic kidney disease)(Confirmed) Active Depression(Confirmed) Active Oxygen desaturation during sleep(Confirmed) 1 Active Diabetic neuropathy(Confirmed) Active Diabetic retinopathy(Confirmed) Active GERD (gastroesophageal reflu x disease)(Confirmed) Active Bariatric surgery status(Confirmed) Active HLD (hyperlipidemia)(Confirmed) Active HTN (hypertension)(Confirmed) Active Hypothyroidism(Confirmed) Active Asthma, mild(Confirmed) Active Obese class I(Confirmed) Active Obesity(Confirmed) Active Obstructive sleep apnea(Confirmed) Active [facility]/ODN-MM-GdfiqrpBea Avery-[phone]/Health shelter, active care coordination(Confirmed) Active Diabetes mellitus type 2 in obese(Confirmed) Active 1to 75% in Social History Social History Type Response Smoking Status Never (less than 100 in lifetime); Tobacco user in household: No entered on: 10/28/19 Sex Female
--- OUTSIDE RECORDS SUMMARY | 2023-04-21 08:12 | XMS_ITS | Continuity of Care Document ---
Author Name Unknown Organization [facility] Address [address] [place] [address]- Care Team Providers Care Destination Sign Repairer Name Role Phone Valarie CHÁVEZ, Levar Farris Primary Care Physician Encounter [facility] Date(s): 07/14/20 - 08/13/20 [facility] [address] [place] [id number]- Allergies, Adverse Reactions, Alerts No Known Medication Allergies Immunizations Given and Recorded Vaccine Date Status Refusal Reason influenza virus vaccine, inactivated 03/25/19 Give n Medications albuterol CFC free 90 mcg/inh inhalation aerosol 2, puffs, Inhalation, Every 4 hours, PRN, # 1 each, Refills 2, Tot. Refills 2, Maintenance, 04/04/20 17:08:00 EST, Route to Pharmacy Electronically, NCPDP_ID- [id number], [facility]-, 168, cm, 12/21/19 8:36:00 EDT, Height, 120, kg,... Start Date: 04/04/20 Status: Ordered amLODIPine 5 mg oral tablet 5 mg, 1, tablet, By Mouth, Daily, # 90 tablet, Refills 3, Tot. Refills 3, Maintenance, 03/23/20 13:59:00 EST, Route to Pharmacy Electronically, [facility]-, Partial fill upon patient request if the prescription is for a schedul... Start Date: 03/23/20 Status: Ordered atorvastatin 80 mg oral tablet 1 tablet = 80 mg, By Mouth, Daily, # 90 tablet, 1 Refills, Maintenance, 08/10/20 16:44:00 EDT, Tablet, [facility]-, 168, cm, 07/25/20 8:40:00 EDT, Height, 120, kg, 11/03/19 7:16:00 EDT, Dry Weight Start Date: 08/10/20 Status: Ordered betamethasone topical dipropionate 0.05% cream 1 application, Topically, 2 times a day, to affected area, # 50 Gm, 0 Refills, Maintenance, 04/05/20 8:25:00 EST, Cream, [facility]-[id number], 1 application Topically 2 times a day,Instr:to [...] duplicate script from 05/11/20. Original sent to [facility]., Compound, 1... Start Date: 07/17/20 Status: [...] Refills, Maintenance, 06/10/19 16:08:00 EDT, DIS Tablet, [facility]- [address], 168, cm, 05/19/19 11:05:00 EST, Height, 108.9, [...] mL, 4 Refills, Maintenance, 03/23/20 13:54:00 EST, [facility]-[id number], 168, cm, 12/21/19 8:36:00 EDT, Height, 120, kg, :16:00 EDT, Dry Weight Start Date: 03/23/20 Stop Date: 06/16/21 Status: Ordered levothyroxine 0.088 mg oral tablet 1 tablet = 88 mcg, By Mouth, Daily, dose increased, # 30 tablet, 5 Refills, Maintenance, 06/15/20 9:09:00 EDT, Tablet, [facility]-, Partial fill upon patient request if the prescription is for a schedule II opioid drug., 168, c... Start Date: 06/15/20 Status: Ordered lidocaine 5% topical ointment 1 application, Topically, 3 times a day, prn pain, wash hands thoroughly after application, # 50 Gm, 2 Refills, Maintenance, 06/28/20 12:45:00 EDT, Ointment, [facility]-, Partial fill upon patient request if the prescription... Start Date: 06/28/20 Status: Ordered losartan 100 mg oral tablet 1 tablet = 100 mg, By Mouth, Daily, # 90 tablet, 1 Refills, Maintenance, 05/15/20 15:41:00 EST, Tablet, [facility], 168, cm, 12/21/19 8:36:00 EDT, Height, 120, kg, 11/03/19 7:16:00 EDT, Dry Weight Start Date: 05/15/20 Status: Ordered Multiple Vitamins with Iron, Minerals and Docusate oral capsule 1 capsule, By Mouth, Daily, # 30 capsule, 0 Refills, Maintenance, 04/11/20 17:23:00 EST, Capsule, [facility], Partial fill upon patient request if the prescription is for a schedule II opioid drug., 1 capsule By Mouth Daily, 1... Start Date: 04/11/20 Status: Ordered NovoLOG FlexPen 100 units/mL subcutaneous solution See Instructions, Max daily dose 30 units. E11.65., # 15 mL, 3 Refills, Maintenance, 08/11/20 20:40:00 EDT, Solution, [id number], Partial fill upon patient request if the [...] Weight Start Date: 02/22/19 Status: Ordered Pen [place], 31 G x 5 mm BD Ultra [...] Health Status Inform ant Pseudotumor cerebri; s/p OUTSIDE SALES ENGINEER shunt(Confirmed) Active Bipolar disorder(Confirmed) Active Cerebral palsy(Confirmed) Active CKD (chronic kidney disease)(Confirmed) Active Depression(Confirmed) Active Diabetic neuropathy(Confirmed) Active Diabetic retinopathy(Confirmed) Active GERD (gastroesophageal reflu x disease)(Confirmed) Active Bariatric surgery status(Confirmed) Active HLD (hyperlipidemia)(Confirmed) Active HTN (hypertension)(Confirmed) Active Hypothyroidism(Confirmed) Active [facility]/OTV-JR-DvfydpuBea Avery-[phone]/Health longterm, active care coordination(Confirmed) Active Diabetes mellitus type 2 in obese(Confirmed) Active Social History Social History Type Response Smoking Status Never (less than 100 in lifetime); Tobacco user in household: No entered on: 10/28/19 Sex Female
--- OUTSIDE RECORDS SUMMARY | 2023-04-21 08:12 | XMS_ITS | Continuity of Care Document ---
Author Name Unknown Organization [facility] Address [address] [place] [address]- Care Team Providers Care Survey Research Analyst Name Role Phone Bonifacio Pacheco MD Primary Care Physician [facility]counter [facility] Date(s): 05/11/21 - 06/10/21 [facility] [address] [place] [id number]- Allergies, Adverse Reactions, Alerts No Known Medication [...] tablet, 5 Refills, Maintenance, 02/24/21 16:01:00 EST, [facility]-, 168, cm, 01/26/21 7:47:00 EST, Height, 120, kg, 11/03/19 7:16:00 EDT, Dry Weight Start Date: 02/24/21 Status: Ordered atorvastatin 80 mg oral tablet 1 tablet, By Mouth, Daily, # 28 tablet, 5 Refills, Maintenance, 02/02/21 8:31:00 EST, [facility]-, 168, cm, 01/26/21 7:47:00 EST, Height, 120, kg, 11/03/19 7:16:00 EDT, Dry Weight Start Date: 02/02/21 Status: Ordered betamethasone topical dipropionate 0.05% cream 1 application, Topically, 2 times a day, to affected area, # 50 Gm, 0 Refills, Maintenance, 04/05/20 8:25:00 EST, Cream, [facility]-[id number], 1 application Topically 2 times a day,Instr:to affected area, 168, cm, 12/21/19 8:36:00 EDT,... Start Date: 04/05/20 Status: Ordered diclofenac 1% topical gel 1 application, Topically, 4 times a day, not to exceed 32 grams/day, # 100 Gm, 1 Refills, Maintenance, 01/26/21 8:25:00 EST, Gel, [facility] #[id number], Partial fill upon patient request if theprescription [...] 11 Refills, Maintenance, 10/10/20 10:00:00 EDT, Powder, [facility] #[id number], Partial fill... Start Date: 10/10/20 Stop Date: [...] duplicate script from 05/11/20. Original sent to [facility]., Compound Start Date: 12/27/20 Status: Ordered [...] 15 mL, 3 Refills, Maintenance, 12/19/20 7:29:00EDT, [facility]-[id number], 168, cm, 10/10/20 9:30:00 EDT, Height, 120, kg, 11/03/19 7:16:00 EDT, Dry Weight Start Date: 12/19/20 Status: Ordered levothyroxine 0.088 mg oral tablet 1 tablet, By Mouth, Daily, # 28 tablet, 0 Refills, [id number], 168, cm, 04/03/21 8:33:00 EST, Height, 120, kg, 11/03/19 7:16:00 EDT, Dry Weight Start Date: 05/21/21 Status: Ordered lidocaine 5% topical ointment 1 application, Topically, 3 times a day, prn pain, wash hands thoroughly after application, # 50 Gm, 2 Refills, Maintenance, 06/28/20 12:45:00 EDT, Ointment, [facility]-, Partial fill upon patient request if the prescription... Start Date: 06/28/20 Status: Ordered lidocaine 5% topical ointment 1 application, Topically, 3 times a day, wash hands thoroughly after application, prn pain, # 50 Gm, 2 Refills, Maintenance, 04/03/21 8:36:00 EST, Ointment, [facility] #[id number], Partial fill upon patient request if the prescription is for a sc... Start Date: 04/03/21 Status: Ordered Lidoderm 5% film 3 patch, Topically, Daily, remove patches after 12 hours, # 30 patch, 5 Refills, Maintenance, 04/12/21 11:04:00 EST, [facility] #[id number], Partial fill upon patient request if the [...] 28 tablet, 5 Refills, 04/23/21 11:41:00 EST, [facility] #[id number], 168, cm, 04/03/21 8:33:00 EST, Height, 120, kg, 11/03/19 7:16:00 EDT, Dry Weight Start Date: 04/23/21 Status: Ordered Multiple Vitamins with Iron, Minerals and Docusate oral capsule 1 capsule, By Mouth, Daily, # 30 capsule, 0 Refills, Maintenance, 04/11/20 17:23:00 EST, Capsule, [facility]-, Partial fill upon patient request if the prescription is for a schedule II opioid drug., 1 capsule By Mouth Daily, 1... Start Date: 04/11/20 Status: Ordered NovoLOG FlexPen 100 units/mL injectable solution See Instructions, Please follow sliding scale TID with meals between 2-8 units. max daily dose: 24 units E11.9, # 15 mL, 11 Refills, 03/06/21 9:51:00 EST, [facility] #[id number], 168, cm, 03/06/21 9:27:00 EST, Height, 120, kg, 11/03/19 7:16:0... Start Date: 03/06/21 Status: Ordered Pen [place], 31 G x 5 mm BD Ultra [...] Gm, 5 Refills, Maintenance, 10/24/20 5:02:00 EDT, [facility] #[id number], 168, cm, 10/10/20 9:30:00 EDT,Height, 120, kg, 11/03/19 7:16:00 EDT, Dry Weight Start Date: 10/24/20 Status: Ordered Problem List Condition Effective Dates Status Health Status Inform ant Pseudotumor cerebri; s/p SUPERVISOR FORMING AND TEMPERING shunt(Confirmed) Active Bipolar disorder(Confirmed) Active Cerebral palsy(Confirmed) Active CKD (chronic kidney disease)(Confirmed) Active Depression(Confirmed) Active Oxygen desaturation during sleep(Confirmed) 1 Active Diabetic neuropathy(Confirmed) Active Diabetic retinopathy(Confirmed) Active GERD (gastroesophageal reflu x disease)(Confirmed) Active Bariatric surgery status(Confirmed) Active HLD (hyperlipidemia)(Confirmed) Active HTN (hypertension)(Confirmed) Active Hypothyroidism(Confirmed) Active Asthma, mild(Confirmed) Active Obese class I(Confirmed) Active Obesity(Confirmed) Active Obstructive sleep apnea(Confirmed) Active [facility]/SBN-FJ-JsiyyqoBea Avery-[phone]/Health correction, active care coordination(Confirmed) Active Diabetes mellitus type 2 in obese(Confirmed) Active 1to 75% in Social History Social History Type Response Smoking Status Never (less than 100 in lifetime); Tobacco user in household: No entered on: 10/28/19 Sex Female
--- OUTSIDE RECORDS SUMMARY | 2023-04-21 08:12 | XMS_ITS | Continuity of Care Document ---
Author Name Unknown Organization [facility] Address [address] [place] [id number]- Care Team Providers Care Well Drill Operator Rotary Drill Name Role Phone Valarie CHÁVEZ, Levar Farris Primary Care Physician Encounter [facility] Date(s): 06/14/20 - 07/14/20 [facility] [address] [place] [id number]- Allergies, Adverse Reactions, Alerts No Known Medication Allergies Immunizations Given and Recorded Vaccine Date Status Refusal Reason influenza virus vaccine, inactivated 03/25/19 Give n Medications Admelog SoloStar 100 units/mL injectable solution = 4 units, Subcutaneous Infusion, 3 times a day before meals, to replace Humalog, # 3 mL, 5 Refills, Maintenance, 06/22/19 9:59:00 EDT, [facility]-, 168, cm, 05/19/19 11:05:00EST, Height, 108.9, kg, 01/13/19 14:10:00 EDT, Dry... Start Date: 06/22/19 Status: Ordered albuterol CFC free 90 mcg/inh inhalation aerosol 2, puffs, Inhalation, Every 4 hours, PRN, # 1 each, Refills 2, Tot. Refills 2, Maintenance, 04/04/20 17:08:00 EST, Route to Pharmacy Electronically, NCPDP_ID- [id number], [facility]-, 168, cm, 12/21/19 8:36:00 EDT, Height, 120, kg,... Start Date: 04/04/20 Status: Ordered amLODIPine 5 mg oral tablet 5 mg, 1, tablet, By Mouth, Daily, # 90 tablet, Refills 3, Tot. Refills 3, Maintenance, 03/23/20 13:59:00 EST, Route to Pharmacy Electronically, [facility]-, Partial fill upon patient request if the prescription is for a schedul... Start Date: 03/23/20 Status: Ordered atorvastatin 80 mg oral tablet 1 tablet = 80 mg, By Mouth, Daily, # 90 tablet, 1 Refills, Maintenance, 02/22/20 15:57:00 EST, Tablet, [facility]-, 168, cm, 12/21/19 8:36:00 EDT, Height, 120, kg, 11/03/19 7:16:00 EDT, Dry Weight Start Date: 02/22/20 Status: Ordered betamethasone topical dipropionate 0.05% cream 1 application, Topically, 2 times a day, to affected area, # 50 Gm, 0 Refills, Maintenance, 04/05/20 8:25:00 EST, Cream, [facility], 1 application Topically 2 times [...] duplicate script from 05/11/20. Original sent to [facility]., Compound Start Date: 06/15/20 Status: [...] Refills, Maintenance, 06/10/19 16:08:00 EDT, DIS Tablet, [place] [id number], 168, cm, 05/19/19 11:05:00 EST, Height, 108.9, [...] mL, 4 Refills, Maintenance, 03/23/20 13:54:00 EST, [facility], 168, cm, 12/21/19 8:36:00 EDT, Height, 120, kg, 207:16:00 EDT, Dry Weight Start Date: 03/23/20 Stop Date: 06/16/21 Status: Ordered levothyroxine 0.088 mg oral tablet 1 tablet = 88 mcg, By Mouth, Daily, dose increased, # 30 tablet, 5 Refills, Maintenance, 06/15/20 9:09:00 EDT, Tablet, [facility], Partial fill upon patient request if the prescription is for a schedule II opioid drug., 168, c... Start Date: 06/15/20 Status: Ordered lidocaine 5% topical ointment 1 application, Topically, 3 times a day, prn pain, wash hands thoroughly after application, # 50 Gm, 2 Refills, Maintenance, 06/28/20 12:45:00 EDT, Ointment, [facility], Partial fill upon patient request if the prescription... Start Date: 06/28/20 Status: Ordered losartan 100 mg oral tablet 1 tablet = 100 mg, By Mouth, Daily, # 90 tablet, 1 Refills, Maintenance, 05/15/20 15:41:00 EST, Tablet, [facility], 168, cm, 12/21/19 8:36:00 EDT, Height, 120, kg, 11/03/19 7:16:00 EDT, Dry Weight Start Date: 05/15/20 Status: Ordered Multiple Vitamins with Iron, Minerals and Docusate oral capsule 1 capsule, By Mouth, Daily, # 30 capsule, 0 Refills, Maintenance, 04/11/20 17:23:00 EST, Capsule, [facility], Partial fill upon patient request [...] Weight Start Date: 02/22/19 Status: Ordered Pen [place], 31 G x 5 mm BD Ultra [...] Health Status Inform ant Pseudotumor cerebri; s/p ACCOUNTING SUPPORT SPECIALIST shunt(Confirmed) Active Bipolar disorder(Confirmed) Active Cerebral palsy(Confirmed) Active CKD (chronic kidney disease)(Confirmed) Active Depression(Confirmed) Active Diabetic neuropathy(Confirmed) Active Diabetic retinopathy(Confirmed) Active GERD (gastroesophageal reflu x disease)(Confirmed) Active Bariatric surgery status(Confirmed) Active HLD (hyperlipidemia)(Confirmed) Active HTN (hypertension)(Confirmed) Active Hypothyroidism(Confirmed) Active [facility]/GIZ-FD-NrvzztsChristi Avery-[phone]/Health snf, active care coordination(Confirmed) Active Diabetes mellitus type 2 in obese(Confirmed) Active Social History Social History Type Response Smoking Status Never (less than 100 in lifetime); Tobacco user in household: No entered on: 10/28/19 Sex Female
--- OUTSIDE RECORDS SUMMARY | 2023-04-21 08:12 | XMS_ITS | Continuity of Care Document ---
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 Start Date: 03/23/20 Status: Ordered atorvastatin 80 mg oral tablet 1 tablet = 80 mg, By Mouth, Daily, # 90 tablet, 1 Refills, Maintenance, 08/10/20 16:44:00 EDT, Tablet, [facility]-71475, 168, cm, 07/25/20 8:40:00 EDT, Height, 120, kg, 11/03/19 7:16:00 EDT, Dry Weight Start Date: 08/10/20 Status: Ordered betamethasone topical dipropionate 0.05% cream 1 application, Topically, 2 times a day, to affected area, # 50 Gm, 0 Refills, Maintenance, 04/05/20 8:25:00 EST, Cream, [facility]-, 1 application Topically 2 times a day,Instr:to [...] 11 Refills, Maintenance, 10/10/20 10:00:00 EDT, Powder, [facility] #[id number], Partial fill... Start Date: 10/10/20 Stop Date: [...] duplicate script from 05/11/20. Original sent [facility]., Compound, 1... Start Date: [...] Refills, Maintenance, 06/10/19 16:08:00 EDT, DIS Tablet, [facility] [address], 168, cm, 05/19/19 11:05:00 EST, Height, 108.9, [...] mL, 4 Refills, Maintenance, 03/23/20 13:54:00 EST, [facility], 168, cm, 12/21/19 8:36:00 EDT, Height, 120, kg, 207:16:00 EDT, Dry Weight Start Date: 03/23/20 Stop Date: 06/16/21 Status: Ordered levothyroxine 0.088 mg oral tablet 1 tablet = 88 mcg, By Mouth, Daily, dose increased, # 30 tablet, 5 Refills, Maintenance, 06/15/20 9:09:00 EDT, Tablet, [facility], Partial fill upon patient request if the prescription is for a schedule II opioid drug., 168, c... Start Date: 06/15/20 Status: Ordered lidocaine 5% topical ointment 1 application, Topically, 3 times a day, prn pain, wash hands thoroughly after application, # 50 Gm, 2 Refills, Maintenance, 06/28/20 12:45:00 EDT, Ointment, [facility], Partial fill upon patient request if the prescription... Start Date: 06/28/20 Status: Ordered losartan 100 mg oral tablet 1 tablet = 100 mg, By Mouth, Daily, # 90 tablet, 0 Refills, Maintenance, 11/03/20 10:42:00 EDT, Tablet, [facility], 168, cm, 10/10/20 9:30:00 EDT, Height, 120, kg, 11/03/19 7:16:00 EDT, Dry Weight Start Date: 11/03/20 Status: Ordered Multiple Vitamins with Iron, Minerals and Docusate oral capsule 1 capsule, By Mouth, Daily, # 30 capsule, 0 Refills, Maintenance, 04/11/20 17:23:00 EST, Capsule, [facility], Partial fill upon patient request if the prescription is for a schedule II opioid drug., 1 capsule By Mouth Daily, 1... Start Date: 04/11/20 Status: Ordered NovoLOG FlexPen 100 units/mL injectable solution See Instructions, INJECT 4 UNITS SUBCUTANEOUSLY THREE TIMES A DAY BEFORE MEALS, # 15 mL, 0 Refills,Maintenance, [facility], 168, cm, 08/29/20 10:15:00 EDT, Height, 120, kg, 11/03/19 7:16:00 EDT, Dry Weight Start Date: 09/07/20 Status: Ordered Pen [place], 31 G x 5 mm BD Ultra [...] Gm, 5 Refills, Maintenance, 10/24/20 5:02:00 EDT, [facility] #[id number], 168, cm, 10/10/20 9:30:00 EDT,Height, 120, kg, 11/03/19 7:16:00 EDT, Dry Weight Start Date: 10/24/20 Status: Ordered Problem List Condition Effective Dates Status Health Status Inform ant Pseudotumor cerebri; s/p TAXICAB DISPATCHER shunt(Confirmed) Active Bipolar disorder(Confirmed) Active Cerebral palsy(Confirmed) Active CKD (chronic kidney disease)(Confirmed) Active Depression(Confirmed) Active Diabetic neuropathy(Confirmed) Active Diabetic retinopathy(Confirmed) Active GERD (gastroesophageal reflu x disease)(Confirmed) Active Bariatric surgery status(Confirmed) Active HLD (hyperlipidemia)(Confirmed) Active HTN (hypertension)(Confirmed) Active Hypothyroidism(Confirmed) Active Asthma, mild(Confirmed) Active [facility]/AIE-SU-CwtgbhfBea Avery-[phone]/Health fci, active care coordination(Confirmed) Active Diabetes mellitus type 2 in obese(Confirmed) Active Social History Social History Type Response Smoking Status Never (less than 100 in lifetime); Tobacco user in household: No entered on: 10/28/19 Sex Female
--- OUTSIDE RECORDS SUMMARY | 2023-04-21 08:12 | XMS_ITS | Continuity of Care Document ---
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 Name Role Phone Valarie CHÁVEZ, Levar Farris Primary Care Physician ( [phone] Encounter [facility] [place] Date(s): 07/11/20 - 08/10/20 [facility] [address] [place] [address]- Allergies, Adverse Reactions, Alerts No Known Medication Allergies Immunizations Given and Recorded Vaccine Date Status Refusal Reason influenza virus vaccine, inactivated 03/25/19 Give n Medications Admelog SoloStar 100 units/mL injectable solution = 4 units, Subcutaneous Infusion, 3 times a day before meals, to replace Humalog, # 3 mL, 5 Refills, Maintenance, 06/22/19 9:59:00 EDT, [facility]-, 168, cm, 05/19/19 11:05:00EST, Height, 108.9, kg, 01/13/19 14:10:00 EDT, Dry... Start Date: 06/22/19 Status: Ordered albuterol CFC free 90 mcg/inh inhalation aerosol 2, puffs, Inhalation, Every 4 hours, PRN, # 1 each, Refills 2, Tot. Refills 2, Maintenance, 04/04/20 17:08:00 EST, Route to Pharmacy Electronically, NCPDP_ID- [id number], [facility]-, 168, cm, 12/21/19 8:36:00 EDT, Height, 120, kg,... Start Date: 04/04/20 Status: Ordered amLODIPine 5 mg oral tablet 5 mg, 1, tablet, By Mouth, Daily, # 90 tablet, Refills 3, Tot. Refills 3, Maintenance, 03/23/20 13:59:00 EST, Route to Pharmacy Electronically, [facility], Partial fill upon patient request if the prescription is for a schedul... Start Date: 03/23/20 Status: Ordered atorvastatin 80 mg oral tablet 1 tablet = 80 mg, By Mouth, Daily, # 90 tablet, 1 Refills, Maintenance, 08/10/20 16:44:00 EDT, Tablet, [facility]-, 168, cm, 07/25/20 8:40:00 EDT, Height, 120, kg, 11/03/19 7:16:00 EDT, Dry Weight Start Date: 08/10/20 Status: Ordered betamethasone topical dipropionate 0.05% cream 1 application, Topically, 2 times a day, to affected area, # 50 Gm, 0 Refills, Maintenance, 04/05/20 8:25:00 EST, Cream, [facility], 1 application Topically 2 times a [...] duplicate script from 05/11/20. Original sent to [facility]., Compound, 1... Start Date: 07/17/20 [...] 06/10/19 16:08:00 EDT, DIS Tablet, [facility] [address], 168, cm, 05/19/19 11:05:00 EST, Height, 108.9, [...] Refills, Maintenance, 03/23/20 13:54:00 EST, [facility], 168, cm, 12/21/19 8:36:00 EDT, Height, 120, kg, 207:16:00 EDT, Dry Weight Start Date: 03/23/20 Stop Date: 06/16/21 Status: Ordered levothyroxine 0.088 mg oral tablet 1 tablet = 88 mcg, By Mouth, Daily, dose increased, # 30 tablet, 5 Refills, Maintenance, 06/15/20 9:09:00 EDT, Tablet, [facility], Partial fill upon patient request if the prescription is for a schedule II opioid drug., 168, c... Start Date: 06/15/20 Status: Ordered lidocaine 5% topical ointment 1 application, Topically, 3 times a day, prn pain, wash hands thoroughly after application, # 50 Gm, 2 Refills, Maintenance, 06/28/20 12:45:00 EDT, Ointment, [facility], Partial fill upon patient request if the prescription... Start Date: 06/28/20 Status: Ordered losartan 100 mg oral tablet 1 tablet = 100 mg, By Mouth, Daily, # 90 tablet, 1 Refills, Maintenance, 05/15/20 15:41:00 EST, Tablet, [facility], 168, cm, 12/21/19 8:36:00 EDT, Height, 120, kg, 11/03/19 7:16:00 EDT, Dry Weight Start Date: 05/15/20 Status: Ordered Multiple Vitamins with Iron, Minerals and Docusate oral capsule 1 capsule, By Mouth, Daily, # 30 capsule, 0 Refills, Maintenance, 04/11/20 17:23:00 EST, Capsule, [facility], Partial fill upon patient request if [...] Weight Start Date: 02/22/19 Status: Ordered Pen [place], 31 G x 5 mm BD Ultra [...] Health Status Inform ant Pseudotumor cerebri; s/p BLUEPRINT DUPLICATOR shunt(Confirmed) Active Bipolar disorder(Confirmed) Active Cerebral palsy(Confirmed) Active CKD (chronic kidney disease)(Confirmed) Active Depression(Confirmed) Active Diabetic neuropathy(Confirmed) Active Diabetic retinopathy(Confirmed) Active GERD (gastroesophageal reflu x disease)(Confirmed) Active Bariatric surgery status(Confirmed) Active HLD (hyperlipidemia)(Confirmed) Active HTN (hypertension)(Confirmed) Active Hypothyroidism(Confirmed) Active [facility]/EJM-TG-RhlzlsaChristi Avery-[phone]/Health skilled nursing, active care coordination(Confirmed) Active Diabetes mellitus type 2 in obese(Confirmed) Active Social History Social History Type Response Smoking Status Never (less than 100 in lifetime); Tobacco user in household: No entered on: 10/28/19 Sex Female
--- OUTSIDE RECORDS SUMMARY | 2023-04-21 08:12 | XMS_ITS | Continuity of Care Document ---
Author Name Unknown Organization [facility] Address [address] [place] [id number]- Care Team Providers Care Testing And Regulating Technician Name Role Phone Bonifacio Pacheco MD Primary Care Physician [phone] [facility] Date(s): 10/12/20 - 11/16/20 [facility] [address] [place] [address]- Attending Physician: Not on Staff, Attending MD [...] 03/23/20 13:59:00 EST, Route to Pharmacy Electronically, [facility]-, Partial fill upon patient request if the prescription is for a schedul... Start Date: 03/23/20 Status: Ordered atorvastatin 80 mg oral tablet 1 tablet = 80 mg, By Mouth, Daily, # 90 tablet, 1 Refills, Maintenance, 08/10/20 16:44:00 EDT, Tablet, [facility]-, 168, cm, 07/25/20 8:40:00 EDT, Height, 120, kg, 11/03/19 7:16:00 EDT, Dry Weight Start Date: 08/10/20 Status: Ordered betamethasone topical dipropionate 0.05% cream 1 application, Topically, 2 times a day, to affected area, # 50 Gm, 0 Refills, Maintenance, 04/05/20 8:25:00 EST, Cream, [facility]-[address]40, 1 application Topically 2 times a day,Instr:to [...] 11 Refills, Maintenance, 10/10/20 10:00:00 EDT, Powder, [facility] #[id number], Partial fill... Start Date: 10/10/20 Stop Date: [...] EDT, DIS Tablet, [facility]- [address], 168, cm, 05/19/19 11:05:00 EST, Height, 108.9, [...] mL, 4 Refills, Maintenance, 03/23/20 13:54:00 EST, [facility]-79985, 168, cm, 12/21/19 8:36:00 EDT, Height, 120, kg, :16:00 EDT, Dry Weight Start Date: 03/23/20 Stop Date: 06/16/21 Status: Ordered levothyroxine 0.088 mg oral tablet 1 tablet = 88 mcg, By Mouth, Daily, dose increased, # 30 tablet, 5 Refills, Maintenance, 06/15/20 9:09:00 EDT, Tablet, [facility], Partial [...] 0 Refills, Maintenance, 11/03/20 10:42:00 EDT, Tablet, [facility], 168, cm, 10/10/20 [...] BEFORE MEALS, # 15 mL, 0 Refills,Maintenance, [facility], 168, cm, 08/29/20 10:15:00 EDT, Height, 120, kg, 11/03/19 7:16:00 EDT, Dry Weight Start Date: 09/07/20 Status: Ordered Pen [place], 31 G x 5 mm BD Ultra [...] Gm, 5 Refills, Maintenance, 10/24/20 5:02:00 EDT, [facility] #[id number], 168, cm, 10/10/20 9:30:00 EDT,Height, 120, kg, 11/03/19 7:16:00 EDT, Dry Weight Start Date: 10/24/20 Status: Ordered Problem List Condition Effective Dates Status Health Status Inform ant Pseudotumor cerebri; s/p BOARDING SPECIALIST shunt(Confirmed) Active Bipolar disorder(Confirmed) Active Cerebral palsy(Confirmed) Active CKD (chronic kidney disease)(Confirmed) Active Depression(Confirmed) Active Diabetic neuropathy(Confirmed) Active Diabetic retinopathy(Confirmed) Active GERD (gastroesophageal reflu x disease)(Confirmed) Active Bariatric surgery status(Confirmed) Active HLD (hyperlipidemia)(Confirmed) Active HTN (hypertension)(Confirmed) Active Hypothyroidism(Confirmed) Active Asthma, mild(Confirmed) Active [facility]/QAC-AS-OzgfvbjChristi Avery-[phone]/Health half-way, active care coordination(Confirmed) Active Diabetes mellitus type 2 in obese(Confirmed) Active Social History Social History Type Response Smoking Status Never (less than 100 in lifetime); Tobacco user in household: No entered on: 10/28/19 Sex Female
--- OUTSIDE RECORDS SUMMARY | 2023-04-21 08:12 | XMS_ITS | Continuity of Care Document ---
Author Name Unknown Organization [facility] Address [address] [place] [address]- Care Team Providers Care Credentials Specialist Name Role Phone Valarie CHÁVEZ, Levar Farris Primary Care Physician Encounter [facility] Date(s): 06/22/19 - 06/29/19 [facility] [address] [place] [address]- [facility] Attending Physician: Geo SIGN PAINTER, Laila Allergies, Adverse Reactions, Alerts No Known Medication Allergies Immunizations Given and Recorded Vaccine Date Status Refusal Reason influenza virus vaccine, inactivated 03/25/19 Give n Medications Admelog SoloStar 100 units/mL injectable solution = 4 units, Subcutaneous Infusion, 3 times a day before meals, to replace Humalog, # 3 mL, 5 Refills, Maintenance, 06/22/19 9:59:00 EDT, [facility]-[id number], 168, cm, 05/19/19 11:05:00EST, Height, 108.9, kg, 01/13/19 14:10:00 EDT, Dry... Start Date: 06/22/19 Status: Ordered albuterol CFC free 90 mcg/inh inhalation aerosol 2, puffs, Inhalation, Every 6 hours, PRN, # 1 each, Refills 2, Tot. Refills 2, Maintenance, 04/20/19 10:07:00 EST, Route to Pharmacy Electronically, [id number], [id number], 168, cm, 04/20/19 9:42:00 EST, [place]... Start Date: 04/20/19 Status: Ordered amLODIPine 5 mg oral tablet 5 mg, 1, tablet, By Mouth, Daily, take daily for bllod pressure, # 30 tablet, Refills 5, Tot. Refills 5, Maintenance, 05/19/19 11:16:00 EST, Route to Pharmacy Electronically, [facility] #[id number], 168, cm, 05/19/19 11:05:00 EST, Height, 108.9,... Start Date: 05/19/19 Status: Ordered atorvastatin 80 mg oral tablet 1 tablet = 80 mg, By Mouth, Daily, # 90 tablet, 3 Refills, Maintenance, 03/25/19 15:39:00 EST, Tablet, [facility] #[id number], 168, cm, 03/25/19 14:33:00 EST, Height, 108.9, kg, 01/13/19 14:10:00 EDT, Dry Weight Start Date: 03/25/19 Status: Ordered betamethasone topical dipropionate 0.05% cream 1 application, Topically, 2 times a day, # 50 Gm, 0 Refills, Maintenance, 03/25/19 16:16:00 EST, Cream, [facility] #[id number], 1 application Topically 2 times a day, 168, cm, 03/25/19 14:33:00 EST, Height, 108.9, kg, 01/13/19 14:10:00 EDT, Dry W... Start Date: 03/25/19 Status: Ordered CeraVe topical cream 1 application, Topically, 2 times a day, PRN for dry skin, # 360 Gm, 0 Refills, Maintenance, 03/25/19 16:14:00 EST, Cream, [facility] #[id number], 1 application Topically 2 times a day,PRN:for [...] each, 1 Refills, Maintenance, 04/20/19 10:06:00 EST, [facility] #[id number], prn dry skin, disp 1 bottle, 168, [...] 06/22/19 10:03:00 EDT, Route to Pharmacy Electronically, [facility]-[id number], 168, cm, 05/19/19 11:05:00 EST, Height, 108.9,... Start Date: 06/22/19 Stop Date: 06/16/20 Status: Ordered gabapentin 400 mg oral capsule 400 mg, 1, capsule, By Mouth, Daily, # 90 capsule, Refills 3, Tot. Refills 3, Maintenance, 02/08/1914:35:49 EST, Route to Pharmacy Electronically, [id number], [facility] #[id number] Start Date: 02/08/19 Stop Date: 02/03/20 Status: Ordered lamotrigine 50 mg oral tablet, disintegrating 1 tablet = 50 mg, By Mouth, Daily at bedtime, # 90 tablet, 3 Refills, Maintenance, 06/10/19 16:08:00 EDT, DIS Tablet, [facility]- , 168, cm, 05/19/19 11:05:00 EST, Height, 108.9, kg, 01/13/19 14:10:00 EDT, Dry Weight Start Date: 06/10/19 Stop Date: 06/04/20 Status: Ordered Levemir 100 units/mL subcutaneous solution = 30 units, Subcutaneous Injection, 2 times a day, # 60 mL, 3 Refills, Maintenance, 02/08/19 14:37:21 EST, Injection Start Date: 02/08/19 Stop Date: 02/03/20 Status: Ordered levothyroxine 75 mcg (0.075 mg) oral tablet 1 tablet = 75 mcg, By Mouth, Daily, # 90 tablet, 1 Refills, Maintenance, 05/19/19 11:10:00 EST, Tablet, [facility] #[id number], 168, cm, 05/19/19 11:05:00 EST, Height, 108.9, kg, 01/13/19 14:10:00 EDT, Dry Weight Start Date: 05/19/19 Status: Ordered losartan 100 mg oral tablet 1 tablet = 100 mg, By Mouth, Daily, # 90 tablet, 3 Refills, Maintenance, 03/25/19 16:12:00 EST, Tablet, [facility] #[id number], 168, cm, 03/25/19 14:33:00 EST, Height, 108.9, [...] Weight Start Date: 02/22/19 Status: Ordered Pen [place], 31 G x 5 mm BD Ultra Fine III See Instructions, # 200 each, Refills 3, Tot. Refills 3, Maintenance, use bid with insulin dx E11.9, 04/09/19 10:52:00 EST, Compound, 168, cm, 03/25/19 16:19:00 EST, Height, 108.9, kg, 01/13/19 14:10:00 EDT, Dry Weight Start Date: 04/09/19 Status: Ordered Problem List Condition Effective Dates Status Health Status Inform ant Pseudotumor cerebri; s/p COTTAGE SUPERVISOR shunt(Confirmed) Active Bipolar disorder(Confirmed) Active Cerebral palsy(Confirmed) Active CKD (chronic kidney disease)(Confirmed) Active Depression(Confirmed) Active Diabetic neuropathy(Confirmed) Active Diabetic retinopathy(Confirmed) Active GERD (gastroesophageal reflu x disease)(Confirmed) Active HLD (hyperlipidemia)(Confirmed) Active HTN (hypertension)(Confirmed) Active Hypothyroidism(Confirmed) Active [facility]/[id number]-DwrssylBea Avery-[phone]/Health longterm, active care coordination(Confirmed) Active Diabetes mellitus type 2 in obese(Confirmed) Active Social History Social History Type Response Smoking Status Never (less than 100 in lifetime) entered on: 02/08/19 Sex Female
--- OUTSIDE RECORDS SUMMARY | 2023-04-21 08:12 | XMS_ITS | Continuity of Care Document ---
Author Name Unknown Organization [facility] Address [address] [place] [address]- Care Team Providers Care Nurse Intern Name Role Phone Valarie CHÁVEZ, Levar Farris Primary Care Physician ( [phone] [place] [facility] [place] 04[place] [facility] [address] [place] [address]- Attending Physician: Terry Jimenez MD Admitting Physician: [...] mL, 5 Refills, Maintenance, 06/22/19 9:59:00 EDT, [facility]-, 168, cm, 05/19/19 11:05:00EST, Height, 108.9, kg, 01/13/19 14:10:00 EDT, Dry... Start Date: 06/22/19 Status: Ordered albuterol CFC free 90 mcg/inh inhalation aerosol 2, puffs, Inhalation, Every 4 hours, PRN, # 1 each, Refills 2, Tot. Refills 2, Maintenance, 04/04/20 17:08:00 EST, Route to Pharmacy Electronically, NCPDP_ID- [id number], [facility]-, 168, cm, 12/21/19 8:36:00 EDT, Height, 120, kg,... Start Date: 04/04/20 Status: Ordered amLODIPine 5 mg oral tablet 5 mg, 1, tablet, By Mouth, Daily, # 90 tablet, Refills 3, Tot. Refills 3, Maintenance, 03/23/20 13:59:00 EST, Route to Pharmacy Electronically, [facility], Partial fill upon patient request if the prescription is for a schedul... Start Date: 03/23/20 Status: Ordered atorvastatin 80 mg oral tablet 1 tablet = 80 mg, By Mouth, Daily, # 90 tablet, 1 Refills, Maintenance, 02/22/20 15:57:00 EST, Tablet, [facility]-, 168, cm, 12/21/19 8:36:00 EDT, Height, 120, kg, 11/03/19 7:16:00 EDT, Dry Weight Start Date: 02/22/20 Status: Ordered betamethasone topical dipropionate 0.05% cream 1 application, Topically, 2 times a day, to affected area, # 50 Gm, 0 Refills, Maintenance, 04/05/20 8:25:00 EST, Cream, [facility], 1 application Topically 2 times [...] 06/22/19 10:03:00 EDT, Route to Pharmacy Electronically, [facility]- , 168, cm, 03/0... Start Date: 06/22/19 Stop Date: 06/16/20 Status: Ordered Glucose Gel, Insta Glucose 40% [...] Refills, Maintenance, 06/10/19 16:08:00 EDT, DIS Tablet, [facility]- [id number], 168, cm, 05/19/19 11:05:00 EST, Height, 108.9, [...] mL, 4 Refills, Maintenance, 03/23/20 13:54:00 EST, [facility]-, 168, cm, 12/21/19 8:36:00 EDT, Height, 120, kg, :16:00 EDT, Dry Weight Start Date: 03/23/20 Stop Date: 06/16/21 Status: Ordered losartan 100 mg oral tablet 1 tablet = 100 mg, By Mouth, Daily, # 90 tablet, 0 Refills, Maintenance, 02/22/20 15:57:00 EST, Tablet, [facility]-, 168, cm, 12/21/19 8:36:00 EDT, Height, 120, kg, 11/03/19 7:16:00 EDT, Dry Weight Start Date: 02/22/20 Status: Ordered Multiple Vitamins with Iron, Minerals and Docusate oral capsule 1 capsule, By Mouth, Daily, # 30 capsule, 0 Refills, Maintenance, 04/11/20 17:23:00 EST, Capsule, [facility]-, Partial fill upon patient request [...] Weight Start Date: 02/22/19 Status: Ordered Pen [place], 31 G x 5 mm BD Ultra [...] 11/29/19 14:06:00 EDT, Route to Pharmacy Electronically, [facility]-[id number], 168, cm, 11/16/19 13:19:00 EDT, Height, 120, kg, 11/03/19... 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; s/p PRODUCT TECHNICIAN shunt(Confirmed) Active Bipolar disorder(Confirmed) Active Cerebral palsy(Confirmed) Active CKD (chronic kidney disease)(Confirmed) Active Depression(Confirmed) Active Diabetic neuropathy(Confirmed) Active Diabetic retinopathy(Confirmed) Active GERD (gastroesophageal reflu x disease)(Confirmed) Active Bariatric surgery status(Confirmed) Active HLD (hyperlipidemia)(Confirmed) Active HTN (hypertension)(Confirmed) Active Hypothyroidism(Confirmed) Active [facility]/SZW-CE-StuklfqChristi Avery-[phone]/Health long term, active care coordination(Confirmed) Active Diabetes mellitus type 2 in obese(Confirmed) Active Social History Social History Type Response Smoking Status Never (less than 100 in lifetime); Tobacco user in household: No entered on: 10/28/19 Sex Female
--- OUTSIDE RECORDS SUMMARY | 2023-04-21 08:12 | XMS_ITS | Continuity of Care Document ---
Author Name Unknown Organization [facility] Address [address] [place] [address]- Care Team Providers Care Igniter Assembler Name Role Phone Bonifacio Pacheco MD Primary Care Physician En[place] [id number] Date(s): 10/10/20 - 02/13/[address] [address]- Discharge Disposition: A-D/C Home Attending Physician: Not on Staff, Attending MD Admitting Physician: Not on Staff, Admitting MD Referring Physician: Laila Guardado NP Allergies, [...] EST, Route to Pharmacy Electronically, [facility]-, Partial fill upon patient request if the prescription is for a schedul... Start Date: 03/23/20 Status: Ordered atorvastatin 80 mg oral tablet 1 tablet, By Mouth, Daily, # 28 tablet, 5 Refills, Maintenance, 02/02/21 8:31:00 EST, [facility]-, 168, cm, 01/26/21 7:47:00 EST, Height, 120, kg, 11/03/19 7:16:00 EDT, Dry Weight Start Date: 02/02/21 Status: Ordered betamethasone topical dipropionate 0.05% cream 1 application, Topically, 2 times a day, to affected area, # 50 Gm, 0 Refills, Maintenance, 04/05/20 8:25:00 EST, Cream, [facility]-, 1 application Topically 2 times a day,Instr:to affected area, 168, cm, 12/21/19 8:36:00 EDT,... Start Date: 04/05/20 Status: Ordered diclofenac 1% topical gel 1 application, Topically, 4 times a day, not to exceed 32 grams/day, # 100 Gm, 1 Refills, Maintenance, 01/26/21 8:25:00 EST, [facility] #[id number], Partial fill upon patient request if theprescription [...] each, 11 Refills, Maintenance, 10/10/20 10:00:00 EDT, [facility][id number], Partial fill... Start Date: 10/10/20 Stop Date: [...] Refills, Maintenance, 06/10/19 16:08:00 EDT, DIS Tablet, [facility] [address], 168, cm, 05/19/19 11:05:00 EST, Height, 108.9, [...] 15 mL, 3 Refills, Maintenance, 12/19/20 7:29:00EDT, [facility]-, 168, cm, 10/10/20 9:30:00 EDT, Height, 120, kg, 11/03/19 7:16:00 EDT, Dry Weight Start Date: 12/19/20 Status: Ordered levothyroxine 0.088 mg oral tablet 1 tablet = 88 mcg, By Mouth, Daily, dose increased, # 30 tablet, 5 Refills, Maintenance, 12/15/20 15:34:00 EDT, Tablet, [facility], Partial fill upon patient request if the prescription is for a schedule II opioid drug., 168,... Start Date: 12/15/20 Status: Ordered lidocaine 5% topical ointment 1 application, Topically, 3 times a day, prn pain, wash hands thoroughly after application, # 50 Gm, 2 Refills, Maintenance, 06/28/20 12:45:00 EDT, Ointment, [facility], Partial fill upon patient request if the prescription... Start Date: 06/28/20 Status: Ordered losartan 100 mg oral tablet 1 tablet, By Mouth, Daily, # 28 tablet, 0 Refills, [facility], 168, cm, 01/26/21 7:47:00 EST, Height, 120, kg, 11/03/19 7:16:00 EDT, Dry Weight Start Date: 02/05/21 Status: Ordered Multiple Vitamins with Iron, Minerals and Docusate oral capsule 1 capsule, By Mouth, Daily, # 30 capsule, 0 Refills, Maintenance, 04/11/20 17:23:00 EST, Capsule, [facility], Partial fill upon patient request if the prescription is for a schedule II opioid drug., 1 capsule By Mouth Daily, 1... Start Date: 04/11/20 Status: Ordered NovoLOG FlexPen 100 units/mL injectable solution See Instructions, INJECT 4 UNITS SUBCUTANEOUSLY THREE TIMES A DAY BEFORE MEALS, # 15 mL, 0 Refills,Maintenance, [facility]-[id number], 168, cm, 08/29/20 10:15:00 EDT, Height, 120, kg, 11/03/19 7:16:00 EDT, Dry Weight Start Date: 09/07/20 Status: Ordered NuLYTELY with Flavor Packs oral powder for reconstitution 240 mL, By Mouth, Every 10 minutes, Split prep method CAN SUBSTITUTE WITH ANY PEG 3350 SOLUTION AVAILABLE, # 1 each, 0 Refills, Acute 04/18/21 5:30:00 EST, 04/17/21 17:00:00 EST, REC Powder, [facility] #[id number], test date 04/18/21, 240 mL By Mo... Start Date: 04/17/21 Stop Date: 04/18/21 Status: Ordered Pen [place], 31 G x 5 mm BD Ultra [...] Gm, 5 Refills, Maintenance, 10/24/20 5:02:00 EDT, [facility] #[id number], 168, cm, 10/10/20 9:30:00 EDT,Height, 120, kg, 11/03/19 7:16:00 EDT, Dry Weight Start Date: 10/24/20 Status: Ordered Problem List Condition Effective Dates Status Health Status Inform ant Pseudotumor cerebri; s/p TRIMMING CUTTER MACHINE shunt(Confirmed) Active Bipolar disorder(Confirmed) Active Cerebral palsy(Confirmed) Active CKD (chronic kidney disease)(Confirmed) Active Depression(Confirmed) Active Oxygen desaturation during sleep(Confirmed) 1 Active Diabetic neuropathy(Confirmed) Active Diabetic retinopathy(Confirmed) Active GERD (gastroesophageal reflu x disease)(Confirmed) Active Bariatric surgery status(Confirmed) Active HLD (hyperlipidemia)(Confirmed) Active HTN (hypertension)(Confirmed) Active Hypothyroidism(Confirmed) Active Asthma, mild(Confirmed) Active Obese class I(Confirmed) Active Obesity(Confirmed) Active Obstructive sleep apnea(Confirmed) Active [facility]/KNI-QN-OxyrpefBea Avery-[phone]/Health fpc, active care coordination(Confirmed) Active Diabetes mellitus type 2 in obese(Confirmed) Active 1to 75% in Social History Social History Type Response Smoking Status Never (less than 100 in lifetime); Tobacco user in household: No entered on: 10/28/19 Sex Female
--- OUTSIDE RECORDS SUMMARY | 2023-04-21 08:12 | XMS_ITS | Continuity of Care Document ---
Author Name Unknown Organization [facility] Address [address] [place] [address]- Care Team Providers Care Water Sponger Name Role Phone Valarie CHÁVEZ, Levar Farris Primary Care Physician ( [phone] [place] [facility] [place]11[place] 08/10[place]20 [facility] [address] [place] [address]- Allergies, Adverse Reactions, Alerts No Known Medication Allergies Immunizations Given and Recorded Vaccine Date Status Refusal Reason influenza virus vaccine, inactivated 03/25/19 Give n Medications Admelog SoloStar 100 units/mL injectable solution = 4 units, Subcutaneous Infusion, 3 times a day before meals, to replace Humalog, # 3 mL, 5 Refills, Maintenance, 06/22/19 9:59:00 EDT, [facility]-, 168, cm, 05/19/19 11:05:00EST, Height, 108.9, kg, 01/13/19 14:10:00 EDT, Dry... Start Date: 06/22/19 Status: Ordered albuterol CFC free 90 mcg/inh inhalation aerosol 2, puffs, Inhalation, Every 4 hours, PRN, # 1 each, Refills 2, Tot. Refills 2, Maintenance, 04/04/20 17:08:00 EST, Route to Pharmacy Electronically, NCPDP_ID- [id number], [facility]-, 168, cm, 12/21/19 8:36:00 EDT, Height, 120, kg,... Start Date: 04/04/20 Status: Ordered amLODIPine 5 mg oral tablet 5 mg, 1, tablet, By Mouth, Daily, # 90 tablet, Refills 3, Tot. Refills 3, Maintenance, 03/23/20 13:59:00 EST, Route to Pharmacy Electronically, [facility], Partial fill upon patient request if the prescription is for a schedul... Start Date: 03/23/20 Status: Ordered atorvastatin 80 mg oral tablet 1 tablet = 80 mg, By Mouth, Daily, # 90 tablet, 1 Refills, Maintenance, 08/10/20 16:44:00 EDT, Tablet, [facility]-, 168, cm, 07/25/20 8:40:00 EDT, Height, 120, kg, 11/03/19 7:16:00 EDT, Dry Weight Start Date: 08/10/20 Status: Ordered betamethasone topical dipropionate 0.05% cream 1 application, Topically, 2 times a day, to affected area, # 50 Gm, 0 Refills, Maintenance, 04/05/20 8:25:00 EST, Cream, [facility], 1 application Topically 2 times [...] script from 05/11/20. Original sent to [facility]., Compound, 1... Start Date: 07/17/20 [...] Refills, Maintenance, 06/10/19 16:08:00 EDT, DIS Tablet, [place] [address]240, 168, cm, 05/19/19 11:05:00 EST, Height, 108.9, [...] mL, 4 Refills, Maintenance, 03/23/20 13:54:00 EST, [facility], 168, cm, 12/21/19 8:36:00 EDT, Height, 120, kg, 207:16:00 EDT, Dry Weight Start Date: 03/23/20 Stop Date: 06/16/21 Status: Ordered levothyroxine 0.088 mg oral tablet 1 tablet = 88 mcg, By Mouth, Daily, dose increased, # 30 tablet, 5 Refills, Maintenance, 06/15/20 9:09:00 EDT, Tablet, [facility], Partial fill upon patient request if the prescription is for a schedule II opioid drug., 168, c... Start Date: 06/15/20 Status: Ordered lidocaine 5% topical ointment 1 application, Topically, 3 times a day, prn pain, wash hands thoroughly after application, # 50 Gm, 2 Refills, Maintenance, 06/28/20 12:45:00 EDT, Ointment, [facility], Partial fill upon patient request if the prescription... Start Date: 06/28/20 Status: Ordered losartan 100 mg oral tablet 1 tablet = 100 mg, By Mouth, Daily, # 90 tablet, 1 Refills, Maintenance, 05/15/20 15:41:00 EST, Tablet, [facility], 168, cm, 12/21/19 8:36:00 EDT, Height, 120, kg, 11/03/19 7:16:00 EDT, Dry Weight Start Date: 05/15/20 Status: Ordered Multiple Vitamins with Iron, Minerals and Docusate oral capsule 1 capsule, By Mouth, Daily, # 30 capsule, 0 Refills, Maintenance, 04/11/20 17:23:00 EST, Capsule, [facility], Partial fill upon patient request [...] Weight Start Date: 02/22/19 Status: Ordered Pen [place], 31 G x 5 mm BD Ultra [...] Health Status Inform ant Pseudotumor cerebri; s/p REVIEW TRAINER shunt(Confirmed) Active Bipolar disorder(Confirmed) Active Cerebral palsy(Confirmed) Active CKD (chronic kidney disease)(Confirmed) Active Depression(Confirmed) Active Diabetic neuropathy(Confirmed) Active Diabetic retinopathy(Confirmed) Active GERD (gastroesophageal reflu x disease)(Confirmed) Active Bariatric surgery status(Confirmed) Active HLD (hyperlipidemia)(Confirmed) Active HTN (hypertension)(Confirmed) Active Hypothyroidism(Confirmed) Active [facility]/XHV-IX-MlmtfhfBea Avery-[phone]/Health correction, active care coordination(Confirmed) Active Diabetes mellitus type 2 in obese(Confirmed) Active Social History Social History Type Response Smoking Status Never (less than 100 in lifetime); Tobacco user in household: No entered on: 10/28/19 Sex Female
--- OUTSIDE RECORDS SUMMARY | 2023-04-21 08:12 | XMS_ITS | Continuity of Care Document ---
Author Name Unknown Organization [facility] Address [address] [place] [address]- Care Team Providers Care Hyperbaric Nurse Name Role Phone Valarie CHÁVEZ, Levar Farris Primary Care Physician [place] [facility] [place](s): 06/22/20 - 07/22/20 [facility] [address] [place] [id number]- Allergies, Adverse Reactions, Alerts No Known Medication Allergies Immunizations Given and Recorded Vaccine Date Status Refusal Reason influenza virus vaccine, inactivated 03/25/19 Give n Medications Admelog SoloStar 100 units/mL injectable solution = 4 units, Subcutaneous Infusion, 3 times a day before meals, to replace Humalog, # 3 mL, 5 Refills, Maintenance, 06/22/19 9:59:00 EDT, [facility]-, 168, cm, 05/19/19 11:05:00EST, Height, 108.9, kg, 01/13/19 14:10:00 EDT, Dry... Start Date: 06/22/19 Status: Ordered albuterol CFC free 90 mcg/inh inhalation aerosol 2, puffs, Inhalation, Every 4 hours, PRN, # 1 each, Refills 2, Tot. Refills 2, Maintenance, 04/04/20 17:08:00 EST, Route to Pharmacy Electronically, NCPDP_ID- [id number], [facility]-, 168, cm, 12/21/19 8:36:00 EDT, Height, 120, kg,... Start Date: 04/04/20 Status: Ordered amLODIPine 5 mg oral tablet 5 mg, 1, tablet, By Mouth, Daily, # 90 tablet, Refills 3, Tot. Refills 3, Maintenance, 03/23/20 13:59:00 EST, Route to Pharmacy Electronically, [facility]-, Partial fill upon patient request if the prescription is for a schedul... Start Date: 03/23/20 Status: Ordered atorvastatin 80 mg oral tablet 1 tablet = 80 mg, By Mouth, Daily, # 90 tablet, 1 Refills, Maintenance, 02/22/20 15:57:00 EST, Tablet, [facility]-, 168, cm, 12/21/19 8:36:00 EDT, Height, 120, kg, 11/03/19 7:16:00 EDT, Dry Weight Start Date: 02/22/20 Status: Ordered betamethasone topical dipropionate 0.05% cream 1 application, Topically, 2 times a day, to affected area, # 50 Gm, 0 Refills, Maintenance, 04/05/20 8:25:00 EST, Cream, [facility], 1 application Topically 2 times [...] from 05/11/20. Original sent to [facility]., Compound, 1... Start Date: 07/17/20 Status: [...] 06/10/19 16:08:00 EDT, DIS Tablet, [facility] [address], 168, cm, 05/19/19 11:05:00 EST, Height, 108.9, [...] mL, 4 Refills, Maintenance, 03/23/20 13:54:00 EST, [facility], 168, cm, 12/21/19 8:36:00 EDT, Height, 120, kg, 207:16:00 EDT, Dry Weight Start Date: 03/23/20 Stop Date: 06/16/21 Status: Ordered levothyroxine 0.088 mg oral tablet 1 tablet = 88 mcg, By Mouth, Daily, dose increased, # 30 tablet, 5 Refills, Maintenance, 06/15/20 9:09:00 EDT, Tablet, [facility], Partial fill upon patient request if the prescription is for a schedule II opioid drug., 168, c... Start Date: 06/15/20 Status: Ordered lidocaine 5% topical ointment 1 application, Topically, 3 times a day, prn pain, wash hands thoroughly after application, # 50 Gm, 2 Refills, Maintenance, 06/28/20 12:45:00 EDT, Ointment, [facility], Partial fill upon patient request if the prescription... Start Date: 06/28/20 Status: Ordered losartan 100 mg oral tablet 1 tablet = 100 mg, By Mouth, Daily, # 90 tablet, 1 Refills, Maintenance, 05/15/20 15:41:00 EST, Tablet, [facility], 168, cm, 12/21/19 8:36:00 EDT, Height, 120, kg, 11/03/19 7:16:00 EDT, Dry Weight Start Date: 05/15/20 Status: Ordered Multiple Vitamins with Iron, Minerals and Docusate oral capsule 1 capsule, By Mouth, Daily, # 30 capsule, 0 Refills, Maintenance, 04/11/20 17:23:00 EST, Capsule, [facility], Partial fill upon patient request [...] Weight Start Date: 02/22/19 Status: Ordered Pen [place], 31 G x 5 mm BD Ultra [...] Health Status Inform ant Pseudotumor cerebri; s/p LINING CUTTER shunt(Confirmed) Active Bipolar disorder(Confirmed) Active Cerebral palsy(Confirmed) Active CKD (chronic kidney disease)(Confirmed) Active Depression(Confirmed) Active Diabetic neuropathy(Confirmed) Active Diabetic retinopathy(Confirmed) Active GERD (gastroesophageal reflu x disease)(Confirmed) Active Bariatric surgery status(Confirmed) Active HLD (hyperlipidemia)(Confirmed) Active HTN (hypertension)(Confirmed) Active Hypothyroidism(Confirmed) Active [facility]-[place]yc[facility]iplBea Avery-[phone]/Health long term, active care coordination(Confirmed) Active Diabetes mellitus type 2 in obese(Confirmed) Active Social History Social History Type Response Smoking Status Never (less than 100 in lifetime); Tobacco user in household: No entered on: 10/28/19 Sex Female
--- OUTSIDE RECORDS SUMMARY | 2023-04-21 08:13 | XMS_ITS | Continuity of Care Document ---
Author Name Unknown Organization [facility] Address [address] [place] [address]- Care Team Providers Care Pyrometer Operator Name Role Phone Valarie CHÁVEZ, Levar Farris Primary Care Physician ( [phone] Encounter [facility] [place] Date(s): 02/08/19 - 04/02/19 [facility] [address] [place] [address]- [facility] Attending Physician: Not on Staff, Attending MD Allergies, Adverse Reactions, Alerts No Known Medication Allergies Immunizations Given and Recorded Vaccine Date Status Refusal Reason influenza virus vaccine, inactivated 03/25/19 Give n Medications atorvastatin 80 mg oral tablet 1 tablet = 80 mg, By Mouth, Daily, # 90 tablet, 3 Refills, Maintenance, 03/25/19 15:39:00 EST, Tablet, [facility] #[id number], 168, cm, 03/25/19 14:33:00 EST, Height, 108.9, kg, 01/13/19 14:10:00 EDT, Dry Weight Start Date: 03/25/19 Status: Ordered betamethasone topical dipropionate 0.05% cream 1 application, Topically, 2 times a day, # 50 Gm, 0 Refills, Maintenance, 03/25/19 16:16:00 EST, Cream, [facility] #[id number], 1 application Topically 2 times a day, 168, cm, 03/25/19 14:33:00 EST, Height, 108.9, kg, 01/13/19 14:10:00 EDT, Dry W... Start Date: 03/25/19 Status: Ordered CeraVe topical cream 1 application, Topically, 2 times a day, PRN for dry skin, # 360 Gm, 0 Refills, Maintenance, 03/25/19 16:14:00 EST, Cream, [facility] #[id number], 1 application Topically 2 times a day,PRN:for [...] Maintenance, 02/08/1914:36:39 EST, Route to Pharmacy Electronically, [id number], [facility] #[id number] Start Date: 02/08/19 Stop Date: 02/03/20 Status: Ordered gabapentin 400 mg oral capsule 400 mg, 1, capsule, By Mouth, Daily, # 90 capsule, Refills 3, Tot. Refills 3, Maintenance, 02/08/1914:35:49 EST, Route to Pharmacy Electronically, [id number], [facility] #[id number] Start Date: 02/08/19 Stop Date: 02/03/20 Status: [...] 3 Refills, Maintenance, 03/25/19 16:12:00 EST, Tablet, [facility] #[id number], 168, cm, 03/25/19 14:33:00 EST, Height, 108.9, [...] Health Status Inform ant Pseudotumor cerebri; s/p ENGINEERING COORDINATOR 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
--- OUTSIDE RECORDS SUMMARY | 2023-04-21 08:13 | XMS_ITS | Continuity of Care Document ---
Author Name Unknown Organization [facility] Address [address] [place] [address]- Care Team Providers Care Director Of Strategic Partnerships Name Role Phone Valarie CHÁVEZ, Levar Farris Primary Care Physician [place] [facility] [place](s): 11/01/19 - 12/01/19 [facility] [address] [place] [address]- [facility] Allergies, Adverse Reactions, Alerts No Known Medication Allergies Immunizations Given and Recorded Vaccine Date Status Refusal Reason influenza virus vaccine, inactivated 03/25/19 Give n Medications Admelog SoloStar 100 units/mL injectable solution = 4 units, Subcutaneous Infusion, 3 times a day before meals, to replace Humalog, # 3 mL, 5 Refills, Maintenance, 06/22/19 9:59:00 EDT, [facility]-, 168, cm, 05/19/19 11:05:00EST, Height, 108.9, kg, 01/13/19 14:10:00 EDT, Dry... Start Date: 06/22/19 Status: Ordered albuterol CFC free 90 mcg/inh inhalation aerosol 2, puffs, Inhalation, Every 4 hours, PRN, # 1 each, Refills 2, Tot. Refills 2, Maintenance, 10/28/19 11:06:00 EDT, Route to Pharmacy Electronically, NCPDP_ID- [id number], [facility]-, 168, cm, 10/14/19 9:08:00 EDT, Height, 108.9, k... Start Date: 10/28/19 Status: Ordered amLODIPine 10 mg oral tablet 10 mg, 1, tablet, By Mouth, Daily, for HTN, dose increased, # 90 tablet, Refills 4, Tot. Refills 4,Maintenance, 11/16/19 13:22:00 EDT, Route to Pharmacy Electronically, [facility]-, 168, cm, 11/16/19 13:19:00 EDT, Height, 120,... Start Date: 11/16/19 Status: Ordered atorvastatin 80 mg oral tablet 1 tablet = 80 mg, By Mouth, Daily, # 90 tablet, 3 Refills, Maintenance, 03/25/19 15:39:00 EST, Tablet, [facility] #[id number], 168, cm, 03/25/19 14:33:00 EST, Height, 108.9, kg, 01/13/19 14:10:00 EDT, Dry Weight Start Date: 03/25/19 Status: Ordered betamethasone topical dipropionate 0.05% cream 1 application, Topically, 2 times a day, to affected area, # 50 Gm, 0 Refills, Maintenance, 10/14/19 9:16:00 EDT, Cream, [facility], 1 application Topically 2 times a day,Instr:to affected area, 168, cm, 10/14/19 9:08:00 EDT,... Start Date: 10/14/19 Status: Ordered dulaglutide 1.5 mg/0.5 mL subcutaneous solution = 1.5 mg, Subcutaneous Injection, Every Friday, # 15 mL, 4 Refills, Maintenance, 10/28/19 11:08:00 EDT, Solution, [facility]-, 168, cm, 10/14/19 9:08:00 EDT, Height, [...] 06/22/19 10:03:00 EDT, Route to Pharmacy Electronically, [facility]-07227, 168, cm, 05/19/19 11:05:00 EST, Height, 108.9,... Start Date: 06/22/19 Stop Date: 06/16/20 Status: Ordered gabapentin 400 mg oral capsule 400 mg, 1, capsule, By Mouth, Daily, # 90 capsule, Refills 3, Tot. Refills 3, Maintenance, 02/08/1914:35:49 EST, Route to Pharmacy Electronically, [id number], [facility] #[id number] Start Date: 02/08/19 Stop Date: 02/03/20 Status: Ordered lamotrigine 50 mg oral tablet, disintegrating 1 tablet = 50 mg, By Mouth, Daily at bedtime, # 90 tablet, 3 Refills, Maintenance, 06/10/19 16:08:00 EDT, DIS Tablet, [facility]- , 168, cm, 05/19/19 11:05:00 EST, [...] mL, 4 Refills, Maintenance, 10/28/19 11:09:00 EDT, [facility]-[id number], 168, cm, 10/14/19 9:08:00 EDT, Height, 108.9, kg, 01/13/19 14:10:00 EDT, Dry Weight Start Date: 10/28/19 Stop Date: 01/20/21 Status: Ordered levothyroxine 75 mcg (0.075 mg) oral tablet 1 tablet = 75 mcg, By Mouth, Daily, # 90 tablet, 1 Refills, Maintenance, 07/23/19 14:11:00 EDT, Tablet, [facility]-, 168, cm, 05/19/19 11:05:00 EST, Height, 108.9, kg, 01/13/19 14:10:00 EDT, Dry Weight Start Date: 07/23/19 Status: Ordered losartan 100 mg oral tablet 1 tablet = 100 mg, By Mouth, Daily, # 90 tablet, 3 Refills, Maintenance, 03/25/19 16:12:00 EST, Tablet, [facility] #[id number], 168, cm, 03/25/19 14:33:00 EST, Height, 108.9, [...] Weight Start Date: 02/22/19 Status: Ordered Pen [place], 31 G x 5 mm BD Ultra [...] 11/29/19 14:06:00 EDT, Route to Pharmacy Electronically, [facility], 168, cm, 11/16/19 13:19:00 EDT, Height, 120, kg, 11/03/19... 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; s/p PRODUCT MGR shunt(Confirmed) Active Bipolar disorder(Confirmed) Active Cerebral palsy(Confirmed) Active CKD (chronic kidney disease)(Confirmed) Active Depression(Confirmed) Active Diabetic neuropathy(Confirmed) Active Diabetic retinopathy(Confirmed) Active GERD (gastroesophageal reflu x disease)(Confirmed) Active HLD (hyperlipidemia)(Confirmed) Active HTN (hypertension)(Confirmed) Active Hypothyroidism(Confirmed) Active [facility]/QR[facility]-QI-[place]kjtoeuBea Avery-[phone]/Health half-way, active care coordination(Confirmed) Active Diabetes mellitus type 2 in obese(Confirmed) Active Social History Social History Type Response Smoking Status Never (less than 100 in lifetime); Tobacco user in household: No entered on: 10/28/19 Sex Female
--- OUTSIDE RECORDS SUMMARY | 2023-04-21 08:13 | XMS_ITS | Continuity of Care Document ---
Author Name Unknown Organization [facility] Address [address] [place] [address]- Care Team Providers Care Computer Support Analyst Name Role Phone Valarie CHÁVEZ, Levar Farris Primary Care Physician ( [phone] Encounter [facility] Date(s): 04/11/20 - 05/11/20 [facility] [address] [place] [id number]- Allergies, Adverse Reactions, Alerts No Known Medication Allergies Immunizations Given and Recorded Vaccine Date Status Refusal Reason influenza virus vaccine, inactivated 03/25/19 Give n Medications Admelog SoloStar 100 units/mL injectable solution = 4 units, Subcutaneous Infusion, 3 times a day before meals, to replace Humalog, # 3 mL, 5 Refills, Maintenance, 06/22/19 9:59:00 EDT, [facility]-, 168, cm, 05/19/19 11:05:00EST, Height, 108.9, kg, 01/13/19 14:10:00 EDT, Dry... Start Date: 06/22/19 Status: Ordered albuterol CFC free 90 mcg/inh inhalation aerosol 2, puffs, Inhalation, Every 4 hours, PRN, # 1 each, Refills 2, Tot. Refills 2, Maintenance, 04/04/20 17:08:00 EST, Route to Pharmacy Electronically, NCPDP_ID- [id number], [facility]-, 168, cm, 12/21/19 8:36:00 EDT, Height, 120, kg,... Start Date: 04/04/20 Status: Ordered amLODIPine 5 mg oral tablet 5 mg, 1, tablet, By Mouth, Daily, # 90 tablet, Refills 3, Tot. Refills 3, Maintenance, 03/23/20 13:59:00 EST, Route to Pharmacy Electronically, [facility], Partial fill upon patient request if the prescription is for a schedul... Start Date: 03/23/20 Status: Ordered atorvastatin 80 mg oral tablet 1 tablet = 80 mg, By Mouth, Daily, # 90 tablet, 1 Refills, Maintenance, 02/22/20 15:57:00 EST, Tablet, [facility], 168, cm, 12/21/19 8:36:00 EDT, Height, 120, kg, 11/03/19 7:16:00 EDT, Dry Weight Start Date: 02/22/20 Status: Ordered betamethasone topical dipropionate 0.05% cream 1 application, Topically, 2 times a day, to affected area, # 50 Gm, 0 Refills, Maintenance, 04/05/20 8:25:00 EST, Cream, [facility], 1 application Topically 2 times a [...] Refills, Maintenance, 06/10/19 16:08:00 EDT, DIS Tablet, [facility] [address], 168, cm, 05/19/19 11:05:00 EST, Height, 108.9, [...] mL, 4 Refills, Maintenance, 03/23/20 13:54:00 EST, [facility]-, 168, cm, 12/21/19 8:36:00 EDT, Height, 120, kg, 207:16:00 EDT, Dry Weight Start Date: 03/23/20 Stop Date: 06/16/21 Status: Ordered losartan 100 mg oral tablet 1 tablet = 100 mg, By Mouth, Daily, # 90 tablet, 0 Refills, Maintenance, 02/22/20 15:57:00 EST, Tablet, [facility], 168, cm, 12/21/19 8:36:00 EDT, Height, 120, kg, 11/03/19 7:16:00 EDT, Dry Weight Start Date: 02/22/20 Status: Ordered Multiple Vitamins with Iron, Minerals and Docusate oral capsule 1 capsule, By Mouth, Daily, # 30 capsule, 0 Refills, Maintenance, 04/11/20 17:23:00 EST, Capsule, [facility]-, Partial fill upon patient request if [...] Weight Start Date: 02/22/19 Status: Ordered Pen [place], 31 G x 5 mm BD Ultra [...] 11/29/19 14:06:00 EDT, Route to Pharmacy Electronically, [facility], 168, cm, 11/16/19 13:19:00 EDT, Height, 120, kg, 11/03/19... 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) Active Bipolar disorder(Confirmed) Active Cerebral palsy(Confirmed) Active CKD (chronic kidney disease)(Confirmed) Active Depression(Confirmed) Active Diabetic neuropathy(Confirmed) Active Diabetic retinopathy(Confirmed) Active GERD (gastroesophageal reflu x disease)(Confirmed) Active Bariatric surgery status(Confirmed) Active HLD (hyperlipidemia)(Confirmed) Active HTN (hypertension)(Confirmed) Active Hypothyroidism(Confirmed) Active [facility]/VYS-AL-EytnfyoBea Avery-[phone]/Health shelter, active care coordination(Confirmed) Active Diabetes mellitus type 2 in obese(Confirmed) Active Social History Social History Type Response Smoking Status Never (less than 100 in lifetime); Tobacco user in household: No entered on: 10/28/19 Sex Female
--- OUTSIDE RECORDS SUMMARY | 2023-04-21 08:13 | XMS_ITS | Continuity of Care Document ---
Author Name Unknown Organization [facility] Address [address] [place] [address]- Care Team Providers Care Sales Lead Generator Name Role Phone Levar Sheppard MD Primary Care Physician ( [phone] [facility] [place] Date(s): 08/30/19 - 08/31/[address] [address]- [facility] Discharge Disposition: A-D/C Home Attending Physician: Marquez CHÁVEZ, Liam Alfaro Admitting Physician: Levar Sheppard MD Referring Physician: Levar Sheppard MD Allergies, Adverse Reactions, Alerts No Known Medication Allergies Immunizations Given and Recorded Vaccine Date Status Refusal Reason influenza virus vaccine, inactivated 03/25/19 Give n Medications Admelog SoloStar 100 units/mL injectable solution = 4 units, Subcutaneous Infusion, 3 times a day before meals, to replace Humalog, # 3 mL, 5 Refills, Maintenance, 06/22/19 9:59:00 EDT, [facility]-00038, 168, cm, 05/19/19 11:05:00EST, Height, 108.9, kg, 01/13/19 14:10:00 EDT, Dry... Start Date: 06/22/19 Status: Ordered albuterol CFC free 90 mcg/inh inhalation aerosol 2, puffs, Inhalation, Every 6 hours, PRN, # 1 each, Refills 2, Tot. Refills 2, Maintenance, 04/20/19 10:07:00 EST, Route to Pharmacy Electronically, [id number], [facility] #[id number], 168, cm, 04/20/19 9:42:00 EST, He[place]... Start Date: 04/20/19 Status: Ordered amLODIPine 5 mg oral tablet 5 mg, 1, tablet, By Mouth, Daily, take daily for bllod pressure, # 30 tablet, Refills 5, Tot. Refills 5, Maintenance, 05/19/19 11:16:00 EST, Route to Pharmacy Electronically, [facility] #[id number], 168, cm, 05/19/19 11:05:00 EST, Height, 108.9,... Start Date: 05/19/19 Status: Ordered atorvastatin 80 mg oral tablet 1 tablet = 80 mg, By Mouth, Daily, # 90 tablet, 3 Refills, Maintenance, 03/25/19 15:39:00 EST, Tablet, [facility] #[id number], 168, cm, 03/25/19 14:33:00 EST, Height, 108.9, kg, 01/13/19 14:10:00 EDT, Dry Weight Start Date: 03/25/19 Status: Ordered betamethasone topical dipropionate 0.05% cream 1 application, Topically, 2 times a day, # 50 Gm, 0 Refills, Maintenance, 03/25/19 16:16:00 EST, Cream, [facility] #[id number], 1 application Topically 2 times a day, 168, cm, 03/25/19 14:33:00 EST, Height, 108.9, kg, 01/13/19 14:10:00 EDT, Dry W... Start Date: 03/25/19 Status: Ordered CeraVe topical cream 1 application, Topically, 2 times a day, PRN for dry skin, # 360 Gm, 0 Refills, Maintenance, 03/25/19 16:14:00 EST, Cream, [facility] #[id number], 1 application Topically 2 times a day,PRN:for dry skin, 168, cm, 03/25/19 14:33:00 EST, Height, 108... Start Date: 03/25/19 Status: Ordered dulaglutide 1.5 mg/0.5 mL subcutaneous solution = 1.5 mg, Subcutaneous Injection, Every Friday, # 15 mL, 4 Refills, Maintenance, 07/15/19 10:40:00 EDT, Solution, [facility], 168, cm, 05/19/19 11:05:00 EST, Height, 108.9, kg, 01/13/19 14:10:00 EDT, Dry Weight Start Date: 07/15/19 Stop Date: 10/07/20 Status: Ordered Eucerin Unscented topical lotion See Instructions, prn dry skin, disp 1 bottle, # 1 each, 1 Refills, Maintenance, 04/20/19 10:06:00 EST, [facility] #[id number], prn dry skin, disp 1 bottle, 168, [...] 06/22/19 10:03:00 EDT, Route to Pharmacy Electronically, [facility]-[id number], 168, cm, 05/19/19 11:05:00 EST, Height, 108.9,... Start Date: 06/22/19 Stop Date: 06/16/20 Status: Ordered gabapentin 400 mg oral capsule 400 mg, 1, capsule, By Mouth, Daily, # 90 capsule, Refills 3, Tot. Refills 3, Maintenance, 02/08/1914:35:49 EST, Route to Pharmacy Electronically, [id number], [facility] #[id number] Start Date: 02/08/19 Stop Date: 02/03/20 Status: Ordered lamotrigine 50 mg oral tablet, disintegrating 1 tablet = 50 mg, By Mouth, Daily at bedtime, # 90 tablet, 3 Refills, Maintenance, 06/10/19 16:08:00 EDT, DIS Tablet, [facility]- , 168, cm, 05/19/19 11:05:00 EST, Height, [...] mL, 4 Refills, Maintenance, 07/15/19 10:42:00 EDT, [facility]-48770, 168, cm, 05/19/19 11:05:00 EST, Height, 108.9, kg, 01/13/19 14:10:00 EDT, Dry Weight Start Date: 07/15/19 Stop Date: 10/07/20 Status: Ordered levothyroxine 75 mcg (0.075 mg) oral tablet 1 tablet = 75 mcg, By Mouth, Daily, # 90 tablet, 1 Refills, Maintenance, 07/23/19 14:11:00 EDT, Tablet, [facility]-64917, 168, cm, 05/19/19 11:05:00 EST, Height, 108.9, kg, 01/13/19 14:10:00 EDT, Dry Weight Start Date: 07/23/19 Status: Ordered losartan 100 mg oral tablet 1 tablet = 100 mg, By Mouth, Daily, # 90 tablet, 3 Refills, Maintenance, 03/25/19 16:12:00 EST, Tablet, [facility] #[id number], 168, cm, 03/25/19 14:33:00 EST, Height, 108.9, [...] Weight Start Date: 02/22/19 Status: Ordered Pen [place], 31 G x 5 mm BD Ultra Fine III See Instructions, # 200 each, Refills 3, Tot. Refills 3, Maintenance, use bid with insulin dx E11.9, 04/09/19 10:52:00 EST, Compound, 168, cm, 03/25/19 16:19:00 EST, Height, 108.9, kg, 01/13/19 14:10:00 EDT, Dry Weight Start Date: 04/09/19 Status: Ordered Problem List Condition Effective Dates Status Health Status Inform ant Pseudotumor cerebri; s/p ADMINISTRATIVE STAFF SUPERVISOR shunt(Confirmed) Active Bipolar disorder(Confirmed) Active Cerebral palsy(Confirmed) Active CKD (chronic kidney disease)(Confirmed) Active Depression(Confirmed) Active Diabetic neuropathy(Confirmed) Active Diabetic retinopathy(Confirmed) Active GERD (gastroesophageal reflu x disease)(Confirmed) Active HLD (hyperlipidemia)(Confirmed) Active HTN (hypertension)(Confirmed) Active Hypothyroidism(Confirmed) Active [facility]-[place] Avery-[phone]/Health half-way, active care coordination(Confirmed) Active Diabetes mellitus type 2 in obese(Confirmed) Active Social History Social History Type Response Smoking Status Never (less than 100 in lifetime) entered on: 02/08/19 Sex Female
--- OUTSIDE RECORDS SUMMARY | 2023-04-21 08:13 | XMS_ITS | Continuity of Care Document ---
Author Name Unknown Organization [facility] Address [address] [place] [address]- Care Team Providers Care Race And Sports Book Writer Name Role Phone Valarie CHÁVEZ, Levar Farris Primary Care Physician Encounter [facility] [place] Date(s): 11/01/19 - 12/01/19 [facility] [address] [place] [address]- [facility] Allergies, Adverse Reactions, Alerts No Known Medication Allergies Immunizations Given and Recorded Vaccine Date Status Refusal Reason influenza virus vaccine, inactivated 03/25/19 Give n Medications Admelog SoloStar 100 units/mL injectable solution = 4 units, Subcutaneous Infusion, 3 times a day before meals, to replace Humalog, # 3 mL, 5 Refills, Maintenance, 06/22/19 9:59:00 EDT, [facility]-, 168, cm, 05/19/19 11:05:00EST, Height, 108.9, kg, 01/13/19 14:10:00 EDT, Dry... Start Date: 06/22/19 Status: Ordered albuterol CFC free 90 mcg/inh inhalation aerosol 2, puffs, Inhalation, Every 4 hours, PRN, # 1 each, Refills 2, Tot. Refills 2, Maintenance, 10/28/19 11:06:00 EDT, Route to Pharmacy Electronically, NCPDP_ID- [id number], [facility]-, 168, cm, 10/14/19 9:08:00 EDT, Height, 108.9, k... Start Date: 10/28/19 Status: Ordered amLODIPine 10 mg oral tablet 10 mg, 1, tablet, By Mouth, Daily, for HTN, dose increased, # 90 tablet, Refills 4, Tot. Refills 4,Maintenance, 11/16/19 13:22:00 EDT, Route to Pharmacy Electronically, [facility]-, 168, cm, 11/16/19 13:19:00 EDT, Height, 120,... Start Date: 11/16/19 Status: Ordered atorvastatin 80 mg oral tablet 1 tablet = 80 mg, By Mouth, Daily, # 90 tablet, 3 Refills, Maintenance, 03/25/19 15:39:00 EST, Tablet, [facility] #[id number], 168, cm, 03/25/19 14:33:00 EST, Height, 108.9, kg, 01/13/19 14:10:00 EDT, Dry Weight Start Date: 03/25/19 Status: Ordered betamethasone topical dipropionate 0.05% cream 1 application, Topically, 2 times a day, to affected area, # 50 Gm, 0 Refills, Maintenance, 10/14/19 9:16:00 EDT, Cream, [facility], 1 application Topically 2 times a day,Instr:to affected area, 168, cm, 10/14/19 9:08:00 EDT,... Start Date: 10/14/19 Status: Ordered dulaglutide 1.5 mg/0.5 mL subcutaneous solution = 1.5 mg, Subcutaneous Injection, Every Friday, # 15 mL, 4 Refills, Maintenance, 10/28/19 11:08:00 EDT, Solution, [facility]-, 168, cm, 10/14/19 9:08:00 EDT, [...] 06/22/19 10:03:00 EDT, Route to Pharmacy Electronically, [facility]-[id number], 168, cm, 05/19/19 11:05:00 EST, Height, 108.9,... Start Date: 06/22/19 Stop Date: 06/16/20 Status: Ordered gabapentin 400 mg oral capsule 400 mg, 1, capsule, By Mouth, Daily, # 90 capsule, Refills 3, Tot. Refills 3, Maintenance, 02/08/1914:35:49 EST, Route to Pharmacy Electronically, [id number], [facility] #[id number] Start Date: 02/08/19 Stop Date: 02/03/20 Status: Ordered lamotrigine 50 mg oral tablet, disintegrating 1 tablet = 50 mg, By Mouth, Daily at bedtime, # 90 tablet, 3 Refills, Maintenance, 06/10/19 16:08:00 EDT, DIS Tablet, [facility]- , 168, cm, 05/19/19 11:05:00 [...] mL, 4 Refills, Maintenance, 10/28/19 11:09:00 EDT, [facility]-[id number], 168, cm, 10/14/19 9:08:00 EDT, Height, 108.9, kg, 01/13/19 14:10:00 EDT, Dry Weight Start Date: 10/28/19 Stop Date: 01/20/21 Status: Ordered levothyroxine 75 mcg (0.075 mg) oral tablet 1 tablet = 75 mcg, By Mouth, Daily, # 90 tablet, 1 Refills, Maintenance, 07/23/19 14:11:00 EDT, Tablet, [facility]-, 168, cm, 05/19/19 11:05:00 EST, Height, 108.9, kg, 01/13/19 14:10:00 EDT, Dry Weight Start Date: 07/23/19 Status: Ordered losartan 100 mg oral tablet 1 tablet = 100 mg, By Mouth, Daily, # 90 tablet, 3 Refills, Maintenance, 03/25/19 16:12:00 EST, Tablet, [facility] #[id number], 168, cm, 03/25/19 14:33:00 EST, Height, 108.9, [...] Weight Start Date: 02/22/19 Status: Ordered Pen [place], 31 G x 5 mm BD Ultra [...] 11/29/19 14:06:00 EDT, Route to Pharmacy Electronically, [facility]76[facility], 168, cm, 11/16/19 13:19:00 EDT, Height, 120, kg, 11/03/19... 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) Active Bipolar disorder(Confirmed) Active Cerebral palsy(Confirmed) Active CKD (chronic kidney disease)(Confirmed) Active Depression(Confirmed) Active Diabetic neuropathy(Confirmed) Active Diabetic retinopathy(Confirmed) Active GERD (gastroesophageal reflu x disease)(Confirmed) Active HLD (hyperlipidemia)(Confirmed) Active HTN (hypertension)(Confirmed) Active Hypothyroidism(Confirmed) Active [facility]-PM-BjiplueBea Avery-[phone]/Health residential, active care coordination(Confirmed) Active Diabetes mellitus type 2 in obese(Confirmed) Active Social History Social History Type Response Smoking Status Never (less than 100 in lifetime); Tobacco user in household: No entered on: 10/28/19 Sex Female
--- OUTSIDE RECORDS SUMMARY | 2023-04-21 08:13 | XMS_ITS | Continuity of Care Document ---
Author Name Unknown Organization [facility] Address [address] [place] [address]- Care Team Providers Care Pelt Grader Name Role Phone Valarie CHÁVEZ, Levar Farris Primary Care Physician Encounter [facility] [place] Date(s): 05/18/19 - 05/28/19 [facility] [address] [place] [address]- Attending Physician: Homero Stanton Admitting Physician: Admtr, Ar8 Referring Physician: Admtr, Ar8 Allergies, Adverse Reactions, Alerts No Known Medication Allergies Immunizations Given and Recorded Vaccine Date Status Refusal Reason influenza virus vaccine, inactivated 03/25/19 Give n Medications albuterol CFC free 90 mcg/inh inhalation aerosol 2, puffs, Inhalation, Every 6 hours, PRN, # 1 each, Refills 2, Tot. Refills 2, Maintenance, 04/20/19 10:07:00 EST, Route to Pharmacy Electronically, [id number], [facility] #[id number], 168, cm, 04/20/19 9:42:00 EST, Heig... Start Date: 04/20/19 Status: Ordered amLODIPine 5 mg oral tablet 5 mg, 1, tablet, By Mouth, Daily, take daily for bllod pressure, # 30 tablet, Refills 5, Tot. Refills 5, Maintenance, 05/19/19 11:16:00 EST, Route to Pharmacy Electronically, [facility] #[id number], 168, cm, 05/19/19 11:05:00 EST, Height, 108.9,... Start Date: 05/19/19 Status: Ordered atorvastatin 80 mg oral tablet 1 tablet = 80 mg, By Mouth, Daily, # 90 tablet, 3 Refills, Maintenance, 03/25/19 15:39:00 EST, Tablet, [facility] #[id number], 168, cm, 03/25/19 14:33:00 EST, Height, 108.9, kg, 01/13/19 14:10:00 EDT, Dry Weight Start Date: 03/25/19 Status: Ordered betamethasone topical dipropionate 0.05% cream 1 application, Topically, 2 times a day, # 50 Gm, 0 Refills, Maintenance, 03/25/19 16:16:00 EST, Cream, [facility] #[id number], 1 application Topically 2 times a day, 168, cm, 03/25/19 14:33:00 EST, Height, 108.9, kg, 01/13/19 14:10:00 EDT, Dry W... Start Date: 03/25/19 Status: Ordered CeraVe topical cream 1 application, Topically, 2 times a day, PRN for dry skin, # 360 Gm, 0 Refills, Maintenance, 03/25/19 16:14:00 EST, Cream, [facility] #[id number], 1 application Topically 2 times a day,PRN:for [...] each, 1 Refills, Maintenance, 04/20/19 10:06:00 EST, [facility] #[id number], prn dry skin, disp 1 bottle, 168, cm, 04/20/19 9:42:00 EST, Height, 108.9, kg, 01/13/19 14:10:00 EDT, Dry Weight Start Date: 04/20/19 Status: Ordered freestyle LibreTest Strips freestyle LibreTest Strips, See Instructions, # 30 each, Refills 11, Tot. Refills 11, Maintenance, DX DM, ICD E11.9, On QID insulin and BS monitoring, 05/25/19 13:16:00 EDT, Compound Start Date: 05/25/19 Status: Ordered Freestyle Ravinder 14 Day Sensor [...] E11.9, On QID insulin and BS monitoring, 05/25/19 13:16:00 EDT, Compound Start Date: 05/25/19 Status: Ordered gabapentin 300 mg oral capsule 300 mg, 1, capsule, By Mouth, Daily, # 90 capsule, Refills 3, Tot. Refills 3, Maintenance, 02/08/1914:36:39 EST, Route to Pharmacy Electronically, [id number], [facility] #[id number] Start Date: 02/08/19 Stop Date: 02/03/20 Status: Ordered gabapentin 400 mg oral capsule 400 mg, 1, capsule, By Mouth, Daily, # 90 capsule, Refills 3, Tot. Refills 3, Maintenance, 02/08/1914:35:49 EST, Route to Pharmacy Electronically, [id number], [facility] #[id number] Start Date: 02/08/19 Stop Date: 02/03/20 Status: Ordered Humalog Kwik Pen 100 units/mL subcutaneous injection = 4 units, Subcutaneous Infusion, 3 times a day before meals, # 15 mL, 11 Refills, Maintenance, 05/19/19 11:24:00 EST, [facility] #[id number], 168, cm, 05/19/19 11:05:00 EST, Height, 108.9, kg, 01/13/19 14:10:00 EDT, Dry Weight Start Date: 05/19/19 Stop Date: 05/13/20 Status: Ordered lamotrigine 50 mg oral tablet, [...] 1 Refills, Maintenance, 05/19/19 11:10:00 EST, Tablet, [facility] #[id number], 168, cm, 05/19/19 11:05:00 EST, Height, 108.9, kg, 01/13/19 14:10:00 EDT, Dry Weight Start Date: 05/19/19 Status: Ordered losartan 100 mg oral tablet 1 tablet = 100 mg, By Mouth, Daily, # 90 tablet, 3 Refills, Maintenance, 03/25/19 16:12:00 EST, Tablet, [facility] #[id number], 168, cm, 03/25/19 14:33:00 EST, Height, 108.9, [...] Weight Start Date: 02/22/19 Status: Ordered Pen [place], 31 G x 5 mm BD Ultra Fine III See Instructions, # 200 each, Refills 3, Tot. Refills 3, Maintenance, use bid with insulin dx E11.9, 04/09/19 10:52:00 EST, Compound, 168, cm, 03/25/19 16:19:00 EST, Height, 108.9, kg, 01/13/19 14:10:00 EDT, Dry Weight Start Date: 04/09/19 Status: Ordered Problem List Condition Effective Dates Status Health Status Inform ant Pseudotumor cerebri; s/p DAIRY EQUIPMENT SPECIALIST shunt(Confirmed) Active Bipolar disorder(Confirmed) Active Cerebral [...]
--- OUTSIDE RECORDS SUMMARY | 2023-04-21 08:13 | XMS_ITS | Continuity of Care Document ---
Author Name Unknown Organization [facility] Address [address] [place] [address]- Care Team Providers Care Manufacturing Assistant Name Role Phone Bonifacio Pacheco MD Primary Care Physician Encounter [facility] [place] Date(s): 12/08/20 - 01/07/21 [facility] [address] [address] Attending Physician: Homero Stanton Admitting Physician: Homero Stanton Referring Physician: Homero Stanton Allergies, Adverse Reactions, Alerts No Known Medication [...] 03/23/20 13:59:00 EST, Route to Pharmacy Electronically, [facility]-, Partial fill upon patient request if the prescription is for a schedul... Start Date: 03/23/20 Status: Ordered atorvastatin 80 mg oral tablet 1 tablet = 80 mg, By Mouth, Daily, # 90 tablet, 1 Refills, Maintenance, 08/10/20 16:44:00 EDT, Tablet, [facility], 168, cm, 07/25/20 8:40:00 EDT, Height, 120, kg, 11/03/19 7:16:00 EDT, Dry Weight Start Date: 08/10/20 Status: Ordered betamethasone topical dipropionate 0.05% cream 1 application, Topically, 2 times a day, to affected area, # 50 Gm, 0 Refills, Maintenance, 04/05/20 8:25:00 EST, Cream, [facility], 1 application Topically 2 times a [...] 11 Refills, Maintenance, 10/10/20 10:00:00 EDT, Powder, [facility] #[id number], Partial fill... Start Date: 10/10/20 Stop Date: [...] Refills, Maintenance, 06/10/19 16:08:00 EDT, DIS Tablet, [facility]- , 168, cm, 05/19/19 11:05:00 EST, [...] 15 mL, 3 Refills, Maintenance, 12/19/20 7:29:00EDT, [facility]-, 168, cm, 10/10/20 9:30:00 EDT, Height, 120, kg, 11/03/19 7:16:00 EDT, Dry Weight Start Date: 12/19/20 Status: Ordered levothyroxine 0.088 mg oral tablet 1 tablet = 88 mcg, By Mouth, Daily, dose increased, # 30 tablet, 5 Refills, Maintenance, 12/15/20 15:34:00 EDT, Tablet, [facility], Partial fill upon patient request if the prescription is for a schedule II opioid drug., 168,... Start Date: 12/15/20 Status: Ordered lidocaine 5% topical ointment 1 application, Topically, 3 times a day, prn pain, wash hands thoroughly after application, # 50 Gm, 2 Refills, Maintenance, 06/28/20 12:45:00 EDT, Ointment, [facility], Partial fill upon patient request if the prescription... Start Date: 06/28/20 Status: Ordered losartan 100 mg oral tablet 1 tablet = 100 mg, By Mouth, Daily, # 90 tablet, 0 Refills, Maintenance, 11/03/20 10:42:00 EDT, Tablet, [facility], 168, cm, 10/10/20 9:30:00 EDT, Height, 120, kg, 11/03/19 7:16:00 EDT, Dry Weight Start Date: 11/03/20 Status: Ordered Multiple Vitamins with Iron, Minerals and Docusate oral capsule 1 capsule, By Mouth, Daily, # 30 capsule, 0 Refills, Maintenance, 04/11/20 17:23:00 EST, Capsule, [facility], Partial fill upon patient request if the prescription is for a schedule II opioid drug., 1 capsule By Mouth Daily, 1... Start Date: 04/11/20 Status: Ordered NovoLOG FlexPen 100 units/mL injectable solution See Instructions, INJECT 4 UNITS SUBCUTANEOUSLY THREE TIMES A DAY BEFORE MEALS, # 15 mL, 0 Refills,Maintenance, [facility], 168, cm, 08/29/20 10:15:00 EDT, Height, 120, kg, 11/03/19 7:16:00 EDT, Dry Weight Start Date: 09/07/20 Status: Ordered NuLYTELY with Flavor Packs oral powder for reconstitution 240 mL, By Mouth, Every 10 minutes, Split prep method CAN SUBSTITUTE WITH ANY PEG 3350 SOLUTION AVAILABLE, # 1 each, 0 Refills, Acute 04/18/21 5:30:00 EST, 04/17/21 17:00:00 EST, REC Powder, [facility] #[id number], test date 04/18/21, 240 mL By Mo... Start Date: 04/17/21 Stop Date: 04/18/21 Status: Ordered Pen [place], 31 G x 5 mm BD Ultra [...] Gm, 5 Refills, Maintenance, 10/24/20 5:02:00 EDT, [facility] #[id number], 168, cm, 10/10/20 9:30:00 EDT,Height, 120, kg, 11/03/19 7:16:00 EDT, Dry Weight Start Date: 10/24/20 Status: Ordered Problem List Condition Effective Dates Status Health Status Inform ant Pseudotumor cerebri; s/p CLINICAL REVIEWER shunt(Confirmed) Active Bipolar disorder(Confirmed) Active Cerebral palsy(Confirmed) Active CKD (chronic kidney disease)(Confirmed) Active Depression(Confirmed) Active Oxygen desaturation during sleep(Confirmed) 1 Active Diabetic neuropathy(Confirmed) Active Diabetic retinopathy(Confirmed) Active GERD (gastroesophageal reflu x disease)(Confirmed) Active Bariatric surgery status(Confirmed) Active HLD (hyperlipidemia)(Confirmed) Active HTN (hypertension)(Confirmed) Active Hypothyroidism(Confirmed) Active Asthma, mild(Confirmed) Active Obesity(Confirmed) Active Obstructive sleep apnea(Confirmed) Active [facility]-AtlgtrtChristi Avery-[phone]/Health jail, active care coordination(Confirmed) Active Diabetes mellitus type 2 in obese(Confirmed) Active 1to 75% in Social History Social History Type Response Smoking Status Never (less than 100 in lifetime); Tobacco user in household: No entered on: 10/28/19 Sex Female
--- OUTSIDE RECORDS SUMMARY | 2023-04-21 08:13 | XMS_ITS | Continuity of Care Document ---
Author Name Unknown Organization [facility] Address [address] [place] [address]- Care Team Providers Care Plug Assembler Name Role Phone Bonifacio Pacheco MD Primary Care Physician Encounter [facility] [place] Date(s): 03/29/21 - 04/28/[address] [address] Attending Physician: Homero Stanton Admitting Physician: Admtr, [...] tablet, 5 Refills, Maintenance, 02/24/21 16:01:00 EST, [facility]-[id number], 168, cm, 01/26/21 7:47:00 EST, Height, 120, kg, 11/03/19 7:16:00 EDT, Dry Weight Start Date: 02/24/21 Status: Ordered atorvastatin 80 mg oral tablet 1 tablet, By Mouth, Daily, # 28 tablet, 5 Refills, Maintenance, 02/02/21 8:31:00 EST, [facility]-, 168, cm, 01/26/21 7:47:00 EST, Height, 120, kg, 11/03/19 7:16:00 EDT, Dry Weight Start Date: 02/02/21 Status: Ordered betamethasone topical dipropionate 0.05% cream 1 application, Topically, 2 times a day, to affected area, # 50 Gm, 0 Refills, Maintenance, 04/05/20 8:25:00 EST, Cream, [facility]-, 1 application Topically 2 times a day,Instr:to affected area, 168, cm, 12/21/19 8:36:00 EDT,... Start Date: 04/05/20 Status: Ordered diclofenac 1% topical gel 1 application, Topically, 4 times a day, not to exceed 32 grams/day, # 100 Gm, 1 Refills, Maintenance, 01/26/21 8:25:00 EST, [facility] #[id number], Partial fill upon patient request if theprescription [...] each, 11 Refills, Maintenance, 10/10/20 10:00:00 EDT, [id number], Partial fill... Start Date: 10/10/20 Stop Date: [...] 15 mL, 3 Refills, Maintenance, 12/19/20 7:29:00EDT, [facility], 168, cm, 10/10/20 9:30:00 EDT, Height, 120, kg, 11/03/19 7:16:00 EDT, Dry Weight Start Date: 12/19/20 Status: Ordered levothyroxine 0.088 mg oral tablet 1 tablet = 88 mcg, By Mouth, Daily, dose increased, # 30 tablet, 5 Refills, Maintenance, 12/15/20 15:34:00 EDT, Tablet, [facility]-, Partial fill upon patient request if the prescription is for a schedule II opioid drug., 168,... Start Date: 12/15/20 Status: Ordered lidocaine 5% topical ointment 1 application, Topically, 3 times a day, prn pain, wash hands thoroughly after application, # 50 Gm, 2 Refills, Maintenance, 06/28/20 12:45:00 EDT, Ointment, [facility]-, Partial fill upon patient request if the prescription... Start Date: 06/28/20 Status: Ordered lidocaine 5% topical ointment 1 application, Topically, 3 times a day, wash hands thoroughly after application, prn pain, # 50 Gm, 2 Refills, Maintenance, 04/03/21 8:36:00 EST, Ointment, [facility] #[id number], Partial fill upon patient request if the prescription is for a sc... Start Date: 04/03/21 Status: Ordered Lidoderm 5% film 3 patch, Topically, Daily, remove patches after 12 hours, # 30 patch, 5 Refills, Maintenance, 04/12/21 11:04:00 EST, [facility] #[id number], Partial fill upon patient request if the [...] 28 tablet, 5 Refills, 04/23/21 11:41:00 EST, [facility] #[id number], 168, cm, 04/03/21 8:33:00 EST, Height, 120, kg, 11/03/19 7:16:00 EDT, Dry Weight Start Date: 04/23/21 Status: Ordered Multiple Vitamins with Iron, Minerals and Docusate oral capsule 1 capsule, By Mouth, Daily, # 30 capsule, 0 Refills, Maintenance, 04/11/20 17:23:00 EST, Capsule, [facility]-, Partial fill upon patient request if the prescription is for a schedule II opioid drug., 1 capsule By Mouth Daily, 1... Start Date: 04/11/20 Status: Ordered NovoLOG FlexPen 100 units/mL injectable solution See Instructions, Please follow sliding scale TID with meals between 2-8 units. max daily dose: 24 units E11.9, # 15 mL, 11 Refills, 03/06/21 9:51:00 EST, [facility] #[id number], 168, cm, 03/06/21 9:27:00 EST, Height, 120, kg, 11/03/19 7:16:0... Start Date: 03/06/21 Status: Ordered Pen [place], 31 G x 5 mm BD Ultra [...] Gm, 5 Refills, Maintenance, 10/24/20 5:02:00 EDT, [facility] #[id number], 168, cm, 10/10/20 9:30:00 EDT,Height, 120, kg, 11/03/19 7:16:00 EDT, Dry Weight Start Date: 10/24/20 Status: Ordered Problem List Condition Effective Dates Status Health Status Inform ant Pseudotumor cerebri; s/p LOGGING SUPERINTENDENT shunt(Confirmed) Active Bipolar disorder(Confirmed) Active Cerebral palsy(Confirmed) Active CKD (chronic kidney disease)(Confirmed) Active Depression(Confirmed) Active Oxygen desaturation during sleep(Confirmed) 1 Active Diabetic neuropathy(Confirmed) Active Diabetic retinopathy(Confirmed) Active GERD (gastroesophageal reflu x disease)(Confirmed) Active Bariatric surgery status(Confirmed) Active HLD (hyperlipidemia)(Confirmed) Active HTN (hypertension)(Confirmed) Active Hypothyroidism(Confirmed) Active Asthma, mild(Confirmed) Active Obese class I(Confirmed) Active Obesity(Confirmed) Active Obstructive sleep apnea(Confirmed) Active [facility]-RdxqirnChristi Avery-[phone]/Health long-term, active care coordination(Confirmed) Active Diabetes mellitus type 2 in obese(Confirmed) Active 1to 75% in Social History Social History Type Response Smoking Status Never (less than 100 in lifetime); Tobacco user in household: No entered on: 10/28/19 Sex Female
--- OUTSIDE RECORDS SUMMARY | 2023-04-21 08:13 | XMS_ITS | Continuity of Care Document ---
Author Name Unknown Organization [facility] Address [address] [place] [address]- Care Team Providers Care Public Relations Consultant Name Role Phone Valarie CHÁVEZ, Levar Farris Primary Care Physician Encounter [facility] Date(s): 05/01/20 - 05/31/20 [facility] [address] [place] [id number]- Allergies, Adverse Reactions, Alerts No Known Medication Allergies Immunizations Given and Recorded Vaccine Date Status Refusal Reason influenza virus vaccine, inactivated 03/25/19 Give n Medications Admelog SoloStar 100 units/mL injectable solution = 4 units, Subcutaneous Infusion, 3 times a day before meals, to replace Humalog, # 3 mL, 5 Refills, Maintenance, 06/22/19 9:59:00 EDT, [facility]-, 168, cm, 05/19/19 11:05:00EST, Height, 108.9, kg, 01/13/19 14:10:00 EDT, Dry... Start Date: 06/22/19 Status: Ordered albuterol CFC free 90 mcg/inh inhalation aerosol 2, puffs, Inhalation, Every 4 hours, PRN, # 1 each, Refills 2, Tot. Refills 2, Maintenance, 04/04/20 17:08:00 EST, Route to Pharmacy Electronically, NCPDP_ID- [id number], [facility]-, 168, cm, 12/21/19 8:36:00 EDT, Height, 120, kg,... Start Date: 04/04/20 Status: Ordered amLODIPine 5 mg oral tablet 5 mg, 1, tablet, By Mouth, Daily, # 90 tablet, Refills 3, Tot. Refills 3, Maintenance, 03/23/20 13:59:00 EST, Route to Pharmacy Electronically, [facility]-, Partial fill upon patient request if the prescription is for a schedul... Start Date: 03/23/20 Status: Ordered atorvastatin 80 mg oral tablet 1 tablet = 80 mg, By Mouth, Daily, # 90 tablet, 1 Refills, Maintenance, 02/22/20 15:57:00 EST, Tablet, [facility]-, 168, cm, 12/21/19 8:36:00 EDT, Height, 120, kg, 11/03/19 7:16:00 EDT, Dry Weight Start Date: 02/22/20 Status: Ordered betamethasone topical dipropionate 0.05% cream 1 application, Topically, 2 times a day, to affected area, # 50 Gm, 0 Refills, Maintenance, 04/05/20 8:25:00 EST, Cream, [facility], 1 application Topically 2 times a [...] Maintenance, 06/10/19 16:08:00 EDT, DIS Tablet, [facility] [id number], 168, cm, 05/19/19 11:05:00 EST, Height, 108.9, [...] Refills, Maintenance, 03/23/20 13:54:00 EST, [facility]-, 168, cm, 12/21/19 8:36:00 EDT, Height, 120, kg, 207:16:00 EDT, Dry Weight Start Date: 03/23/20 Stop Date: 06/16/21 Status: Ordered losartan 100 mg oral tablet 1 tablet = 100 mg, By Mouth, Daily, # 90 tablet, 1 Refills, Maintenance, 05/15/20 15:41:00 EST, Tablet, [facility]-, 168, cm, 12/21/19 8:36:00 EDT, Height, 120, kg, 11/03/19 7:16:00 EDT, Dry Weight Start Date: 05/15/20 Status: Ordered Multiple Vitamins with Iron, Minerals and Docusate oral capsule 1 capsule, By Mouth, Daily, # 30 capsule, 0 Refills, Maintenance, 04/11/20 17:23:00 EST, Capsule, [facility]-, Partial fill upon patient request [...] Weight Start Date: 02/22/19 Status: Ordered Pen [place], 31 G x 5 mm BD Ultra [...] Health Status Inform ant Pseudotumor cerebri; s/p MACHINE STRIPPER CUTTER shunt(Confirmed) Active Bipolar disorder(Confirmed) Active Cerebral palsy(Confirmed) Active CKD (chronic kidney disease)(Confirmed) Active Depression(Confirmed) Active Diabetic neuropathy(Confirmed) Active Diabetic retinopathy(Confirmed) Active GERD (gastroesophageal reflu x disease)(Confirmed) Active Bariatric surgery status(Confirmed) Active HLD (hyperlipidemia)(Confirmed) Active HTN (hypertension)(Confirmed) Active Hypothyroidism(Confirmed) Active [facility]/DOF-HP-LmqunvkChristi Avery-[phone]/Health fpc, active care coordination(Confirmed) Active Diabetes mellitus type 2 in obese(Confirmed) Active Social History Social History Type Response Smoking Status Never (less than 100 in lifetime); Tobacco user in household: No entered on: 10/28/19 Sex Female
--- OUTSIDE RECORDS SUMMARY | 2023-04-21 08:13 | XMS_ITS | Continuity of Care Document ---
Author Name Unknown Organization [facility] Address [address] [place] [address]- Care Team Providers Care Field Rep Name Role Phone Valarie CHÁVEZ, Levar Farris Primary Care Physician Encounter [facility] Date(s): 10/26/19 - 11/25/19 [facility] [address] [place] [address]- [facility] Allergies, Adverse Reactions, Alerts No Known Medication Allergies Immunizations Given and Recorded Vaccine Date Status Refusal Reason influenza virus vaccine, inactivated 03/25/19 Give n Medications Admelog SoloStar 100 units/mL injectable solution = 4 units, Subcutaneous Infusion, 3 times a day before meals, to replace Humalog, # 3 mL, 5 Refills, Maintenance, 06/22/19 9:59:00 EDT, [facility]-, 168, cm, 05/19/19 11:05:00EST, Height, 108.9, kg, 01/13/19 14:10:00 EDT, Dry... Start Date: 06/22/19 Status: Ordered albuterol CFC free 90 mcg/inh inhalation aerosol 2, puffs, Inhalation, Every 4 hours, PRN, # 1 each, Refills 2, Tot. Refills 2, Maintenance, 10/28/19 11:06:00 EDT, Route to Pharmacy Electronically, NCPDP_ID- [id number], [facility]-, 168, cm, 10/14/19 9:08:00 EDT, Height, 108.9, k... Start Date: 10/28/19 Status: Ordered amLODIPine 10 mg oral tablet 10 mg, 1, tablet, By Mouth, Daily, for HTN, dose increased, # 90 tablet, Refills 4, Tot. Refills 4,Maintenance, 11/16/19 13:22:00 EDT, Route to Pharmacy Electronically, [facility]-, 168, cm, 11/16/19 13:19:00 EDT, Height, 120,... Start Date: 11/16/19 Status: Ordered atorvastatin 80 mg oral tablet 1 tablet = 80 mg, By Mouth, Daily, # 90 tablet, 3 Refills, Maintenance, 03/25/19 15:39:00 EST, Tablet, [facility][id number], 168, cm, 03/25/19 14:33:00 EST, Height, 108.9, kg, 01/13/19 14:10:00 EDT, Dry Weight Start Date: 03/25/19 Status: Ordered betamethasone topical dipropionate 0.05% cream 1 application, Topically, 2 times a day, to affected area, # 50 Gm, 0 Refills, Maintenance, 10/14/19 9:16:00 EDT, Cream, [facility], 1 application Topically 2 times a day,Instr:to affected area, 168, cm, 10/14/19 9:08:00 EDT,... Start Date: 10/14/19 Status: Ordered dulaglutide 1.5 mg/0.5 mL subcutaneous solution = 1.5 mg, Subcutaneous Injection, Every Friday, # 15 mL, 4 Refills, Maintenance, 10/28/19 11:08:00 EDT, Solution, [facility]-, 168, cm, 10/14/19 9:08:00 EDT, [...] 06/22/19 10:03:00 EDT, Route to Pharmacy Electronically, [facility]-[id number], 168, cm, 05/19/19 11:05:00 EST, Height, 108.9,... Start Date: 06/22/19 Stop Date: 06/16/20 Status: Ordered gabapentin 400 mg oral capsule 400 mg, 1, capsule, By Mouth, Daily, # 90 capsule, Refills 3, Tot. Refills 3, Maintenance, 02/08/1914:35:49 EST, Route to Pharmacy Electronically, [id number], [facility] #[id number] Start Date: 02/08/19 Stop Date: 02/03/20 Status: Ordered lamotrigine 50 mg oral tablet, disintegrating 1 tablet = 50 mg, By Mouth, Daily at bedtime, # 90 tablet, 3 Refills, Maintenance, 06/10/19 16:08:00 EDT, DIS Tablet, [facility]- , 168, cm, 05/19/19 11:05:00 [...] mL, 4 Refills, Maintenance, 10/28/19 11:09:00 EDT, [facility]-[id number], 168, cm, 10/14/19 9:08:00 EDT, Height, 108.9, kg, 01/13/19 14:10:00 EDT, Dry Weight Start Date: 10/28/19 Stop Date: 01/20/21 Status: Ordered levothyroxine 75 mcg (0.075 mg) oral tablet 1 tablet = 75 mcg, By Mouth, Daily, # 90 tablet, 1 Refills, Maintenance, 07/23/19 14:11:00 EDT, Tablet, [facility]-, 168, cm, 05/19/19 11:05:00 EST, Height, 108.9, kg, 01/13/19 14:10:00 EDT, Dry Weight Start Date: 07/23/19 Status: Ordered losartan 100 mg oral tablet 1 tablet = 100 mg, By Mouth, Daily, # 90 tablet, 3 Refills, Maintenance, 03/25/19 16:12:00 EST, Tablet, [facility] #[id number], 168, cm, 03/25/19 14:33:00 EST, Height, 108.9, [...] Weight Start Date: 02/22/19 Status: Ordered Pen [place], 31 G x 5 mm BD Ultra [...] 10/28/19 11:20:00 EDT, Route to Pharmacy Electronically, [facility], 168, cm, 10/14/19 9:08:00 EDT, Height, 108.9, kg, 01/13/19... 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) Active Bipolar disorder(Confirmed) Active Cerebral palsy(Confirmed) Active CKD (chronic kidney disease)(Confirmed) Active Depression(Confirmed) Active Diabetic neuropathy(Confirmed) Active Diabetic retinopathy(Confirmed) Active GERD (gastroesophageal reflu x disease)(Confirmed) Active HLD (hyperlipidemia)(Confirmed) Active HTN (hypertension)(Confirmed) Active Hypothyroidism(Confirmed) Active [facility]/YEC-KA-BgymdjoBea Avery-[phone]/Health long term, active care coordination(Confirmed) Active Diabetes mellitus type 2 in obese(Confirmed) Active Social History Social History Type Response Smoking Status Never (less than 100 in lifetime); Tobacco user in household: No entered on: 10/28/19 Sex Female
--- OUTSIDE RECORDS SUMMARY | 2023-04-21 08:13 | XMS_ITS | Continuity of Care Document ---
Author Name Unknown Organization [facility] Address [address] [place] [address]- Care Team Providers Care Red Lead Burner Name Role Phone Valarie CHÁVEZ, Levar Farris Primary Care Physician [facility]counter [facility] Date(s): 04/27/20 - 05/27/20 [facility] [address] [place] [address]- Attending Physician: Homero Stanton Admitting Physician: AdmtrHomero [...] 5 Refills, Maintenance, 06/22/19 9:59:00 EDT, [facility]-, 168, cm, 05/19/19 11:05:00EST, Height, 108.9, kg, 01/13/19 14:10:00 EDT, Dry... Start Date: 06/22/19 Status: Ordered albuterol CFC free 90 mcg/inh inhalation aerosol 2, puffs, Inhalation, Every 4 hours, PRN, # 1 each, Refills 2, Tot. Refills 2, Maintenance, 04/04/20 17:08:00 EST, Route to Pharmacy Electronically, NCPDP_ID- [id number], [facility]-, 168, cm, 12/21/19 8:36:00 EDT, Height, 120, kg,... Start Date: 04/04/20 Status: Ordered amLODIPine 5 mg oral tablet 5 mg, 1, tablet, By Mouth, Daily, # 90 tablet, Refills 3, Tot. Refills 3, Maintenance, 03/23/20 13:59:00 EST, Route to Pharmacy Electronically, [facility], Partial fill upon patient request if the prescription is for a schedul... Start Date: 03/23/20 Status: Ordered atorvastatin 80 mg oral tablet 1 tablet = 80 mg, By Mouth, Daily, # 90 tablet, 1 Refills, Maintenance, 02/22/20 15:57:00 EST, Tablet, [facility]-, 168, cm, 12/21/19 8:36:00 EDT, Height, 120, kg, 11/03/19 7:16:00 EDT, Dry Weight Start Date: 02/22/20 Status: Ordered betamethasone topical dipropionate 0.05% cream 1 application, Topically, 2 times a day, to affected area, # 50 Gm, 0 Refills, Maintenance, 04/05/20 8:25:00 EST, Cream, [facility], 1 application Topically 2 times [...] EDT, DIS Tablet, [facility]- [id number], 168, cm, 05/19/19 11:05:00 EST, Height, 108.9, [...] mL, 4 Refills, Maintenance, 03/23/20 13:54:00 EST, [facility]-, 168, cm, 12/21/19 8:36:00 EDT, Height, 120, kg, 207:16:00 EDT, Dry Weight Start Date: 03/23/20 Stop Date: 06/16/21 Status: Ordered losartan 100 mg oral tablet 1 tablet = 100 mg, By Mouth, Daily, # 90 tablet, 1 Refills, Maintenance, 05/15/20 15:41:00 EST, Tablet, [facility]-, 168, cm, 12/21/19 8:36:00 EDT, Height, 120, kg, 11/03/19 7:16:00 EDT, Dry Weight Start Date: 05/15/20 Status: Ordered Multiple Vitamins with Iron, Minerals and Docusate oral capsule 1 capsule, By Mouth, Daily, # 30 capsule, 0 Refills, Maintenance, 04/11/20 17:23:00 EST, Capsule, [facility]-, Partial fill upon [...] Weight Start Date: 02/22/19 Status: Ordered Pen [place], 31 G x 5 mm BD [...] Health Status Inform ant Pseudotumor cerebri; s/p PAYROLL CLERK shunt(Confirmed) Active Bipolar disorder(Confirmed) Active Cerebral palsy(Confirmed) Active CKD (chronic kidney disease)(Confirmed) Active Depression(Confirmed) Active Diabetic neuropathy(Confirmed) Active Diabetic retinopathy(Confirmed) Active GERD (gastroesophageal reflu x disease)(Confirmed) Active Bariatric surgery status(Confirmed) Active HLD (hyperlipidemia)(Confirmed) Active HTN (hypertension)(Confirmed) Active Hypothyroidism(Confirmed) Active [facility]/MZA-BU-BlxefzjBea Avery-[phone]/Health chcf, active care coordination(Confirmed) Active Diabetes mellitus type 2 in obese(Confirmed) Active Social History Social History Type Response Smoking Status Never (less than 100 in lifetime); Tobacco user in household: No entered on: 10/28/19 Sex Female
--- OUTSIDE RECORDS SUMMARY | 2023-04-21 08:13 | XMS_ITS | Continuity of Care Document ---
Author Name Unknown Organization [facility] Address [address] [place] [id number]- Care Team Providers Care Pediatric Physician Name Role Phone Bonifacio Pacheco MD Primary Care Physician Encounter [facility] Date(s): 12/07/20 - 01/06/[address] [address] Attending Physician: Homero Stanton Admitting Physician: Homero Stanton Referring Physician: AdmtrHomero Allergies, Adverse Reactions, Alerts No Known Medication [...] 03/23/20 13:59:00 EST, Route to Pharmacy Electronically, [facility]-, Partial fill upon patient request if the prescription is for a schedul... Start Date: 03/23/20 Status: Ordered atorvastatin 80 mg oral tablet 1 tablet = 80 mg, By Mouth, Daily, # 90 tablet, 1 Refills, Maintenance, 08/10/20 16:44:00 EDT, Tablet, [facility]-, 168, cm, 07/25/20 8:40:00 EDT, Height, 120, kg, 11/03/19 7:16:00 EDT, Dry Weight Start Date: 08/10/20 Status: Ordered betamethasone topical dipropionate 0.05% cream 1 application, Topically, 2 times a day, to affected area, # 50 Gm, 0 Refills, Maintenance, 04/05/20 8:25:00 EST, Cream, [facility]-, 1 application Topically 2 times [...] 11 Refills, Maintenance, 10/10/20 10:00:00 EDT, Powder, [facility] #[id number], Partial fill... Start Date: 10/10/20 Stop Date: [...] Use to monitor blood glucose continously, E11.9, 10/13/21 15:53:00 EDT, duplicate script from 05/11/20. Original [...] Refills, Maintenance, 06/10/19 16:08:00 EDT, DIS Tablet, [facility]- , 168, cm, 05/19/19 11:05:00 [...] 15 mL, 3 Refills, Maintenance, 12/19/20 7:29:00EDT, [facility]-[id number], 168, cm, 10/10/20 9:30:00 EDT, Height, 120, kg, 11/03/19 7:16:00 EDT, Dry Weight Start Date: 12/19/20 Status: Ordered levothyroxine 0.088 mg oral tablet 1 tablet = 88 mcg, By Mouth, Daily, dose increased, # 30 tablet, 5 Refills, Maintenance, 12/15/20 15:34:00 EDT, Tablet, [facility], Partial fill upon patient request if the prescription is for a schedule II opioid drug., 168,... Start Date: 12/15/20 Status: Ordered lidocaine 5% topical ointment 1 application, Topically, 3 times a day, prn pain, wash hands thoroughly after application, # 50 Gm, 2 Refills, Maintenance, 06/28/20 12:45:00 EDT, Ointment, [facility], Partial fill upon patient request if the prescription... Start Date: 06/28/20 Status: Ordered losartan 100 mg oral tablet 1 tablet = 100 mg, By Mouth, Daily, # 90 tablet, 0 Refills, Maintenance, 11/03/20 10:42:00 EDT, Tablet, [facility], 168, cm, 10/10/20 9:30:00 EDT, Height, 120, kg, 11/03/19 7:16:00 EDT, Dry Weight Start Date: 11/03/20 Status: Ordered Multiple Vitamins with Iron, Minerals and Docusate oral capsule 1 capsule, By Mouth, Daily, # 30 capsule, 0 Refills, Maintenance, 04/11/20 17:23:00 EST, Capsule, [facility], Partial fill upon patient request if the prescription is for a schedule II opioid drug., 1 capsule By Mouth Daily, 1... Start Date: 04/11/20 Status: Ordered NovoLOG FlexPen 100 units/mL injectable solution See Instructions, INJECT 4 UNITS SUBCUTANEOUSLY THREE TIMES A DAY BEFORE MEALS, # 15 mL, 0 Refills,Maintenance, [facility], 168, cm, 08/29/20 10:15:00 EDT, Height, 120, kg, 11/03/19 7:16:00 EDT, Dry Weight Start Date: 09/07/20 Status: Ordered NuLYTELY with Flavor Packs oral powder for reconstitution 240 mL, By Mouth, Every 10 minutes, Split prep method CAN SUBSTITUTE WITH ANY PEG 3350 SOLUTION AVAILABLE, # 1 each, 0 Refills, Acute 04/18/21 5:30:00 EST, 04/17/21 17:00:00 EST, REC Powder, [facility] #[id number], test date 04/18/21, 240 mL By Mo... Start Date: 04/17/21 Stop Date: 04/18/21 Status: Ordered Pen [place], 31 G x 5 mm BD Ultra [...] Gm, 5 Refills, Maintenance, 10/24/20 5:02:00 EDT, [facility] #[id number], 168, cm, 10/10/20 9:30:00 EDT,Height, 120, kg, 11/03/19 7:16:00 EDT, Dry Weight Start Date: 10/24/20 Status: Ordered Problem List Condition Effective Dates Status Health Status Inform ant Pseudotumor cerebri; s/p MANAGER SCIENTIFIC shunt(Confirmed) Active Bipolar disorder(Confirmed) Active Cerebral palsy(Confirmed) Active CKD (chronic kidney disease)(Confirmed) Active Depression(Confirmed) Active Oxygen desaturation during sleep(Confirmed) 1 Active Diabetic neuropathy(Confirmed) Active Diabetic retinopathy(Confirmed) Active GERD (gastroesophageal reflu x disease)(Confirmed) Active Bariatric surgery status(Confirmed) Active HLD (hyperlipidemia)(Confirmed) Active HTN (hypertension)(Confirmed) Active Hypothyroidism(Confirmed) Active Asthma, mild(Confirmed) Active Obesity(Confirmed) Active Obstructive sleep apnea(Confirmed) Active [facility]/[place]-[place]-TijepyoBea Avery-[phone]/Health chcf, active care coordination(Confirmed) Active Diabetes mellitus type 2 in obese(Confirmed) Active 1to 75% in Social History Social History Type Response Smoking Status Never (less than 100 in lifetime); Tobacco user in household: No entered on: 10/28/19 Sex Female
--- OUTSIDE RECORDS SUMMARY | 2023-04-21 08:13 | XMS_ITS | Continuity of Care Document ---
Author Name Unknown Organization [facility] ter Address [address] [place] [address]- Care Team Providers Care Engineer Second Assistant Name Role Phone Valarie CHÁVEZ, Levar Farris Primary Care Physician Encounter [facility] [place] Date(s): 11/03/19 - 11/03/[address] [address]- [facility] Discharge Disposition: A-D/C Home Attending Physician: Onofre Jung MD Admitting Physician: Onofre Jung MD Referring Physician: Onofre Jung MD Allergies, Adverse Reactions, Alerts No Known Medication Allergies Immunizations Given and Recorded Vaccine Date Status Refusal Reason influenza virus vaccine, inactivated 03/25/19 Give n Medications Admelog SoloStar 100 units/mL injectable solution = 4 units, Subcutaneous Infusion, 3 times a day before meals, to replace Humalog, # 3 mL, 5 Refills, Maintenance, 06/22/19 9:59:00 EDT, [facility]-, 168, cm, 05/19/19 11:05:00EST, Height, 108.9, kg, 01/13/19 14:10:00 EDT, Dry... Start Date: 06/22/19 Status: Ordered albuterol CFC free 90 mcg/inh inhalation aerosol 2, puffs, Inhalation, Every 4 hours, PRN, # 1 each, Refills 2, Tot. Refills 2, Maintenance, 10/28/19 11:06:00 EDT, Route to Pharmacy Electronically, NCPDP_ID- [id number], [facility]-, 168, cm, 10/14/19 9:08:00 EDT, Height, 108.9, k... Start Date: 10/28/19 Status: Ordered amLODIPine 5 mg oral tablet 5 mg, 1, tablet, By Mouth, Daily, take daily for bllod pressure, # 90 tablet, Refills 4, Tot. Refills 4, Maintenance, 10/14/19 9:17:00 EDT, Route to Pharmacy Electronically, [facility]-, 168, cm, 10/14/19 9:08:00 EDT, Height, 1... Start Date: 10/14/19 Stop Date: 01/06/21 Status: Ordered atorvastatin 80 mg oral tablet 1 tablet = 80 mg, By Mouth, Daily, # 90 tablet, 3 Refills, Maintenance, 03/25/19 15:39:00 EST, Tablet, [facility] #[id number], 168, cm, 03/25/19 14:33:00 EST, Height, 108.9, kg, 01/13/19 14:10:00 EDT, Dry Weight Start Date: 03/25/19 Status: Ordered betamethasone topical dipropionate 0.05% cream 1 application, Topically, 2 times a day, to affected area, # 50 Gm, 0 Refills, Maintenance, 10/14/19 9:16:00 EDT, Cream, [facility]-, 1 application Topically 2 times a day,Instr:to affected area, 168, cm, 10/14/19 9:08:00 EDT,... Start Date: 10/14/19 Status: Ordered dulaglutide 1.5 mg/0.5 mL subcutaneous solution = 1.5 mg, Subcutaneous Injection, Every Friday, # 15 mL, 4 Refills, Maintenance, 10/28/19 11:08:00 EDT, Solution, [facility]-, 168, cm, 10/14/19 9:08:00 EDT, Height, 108.9, kg, 01/13/19 14:10:00 EDT, Dry Weight Start Date: 10/28/19 Stop Date: 01/20/21 Status: Ordered freestyle LibreTest Strips freestyle LibreTest Strips, See Instructions, # 30 each, Refills 11, Tot. Refills 11, Maintenance, DX DM, ICD E11.9, On QID insulin and BS monitoring, 06/22/19 10:04:00 EDT, Compound, 168, cm, 03/04/20 11:05:00 EST, Height, 108.9, kg, 01/13/19 14:10:... [...] 10:03:00 EDT, Route to Pharmacy Electronically, [facility], 168, cm, 05/19/19 11:05:00 EST, Height, 108.9,... Start Date: 06/22/19 Stop Date: 06/16/20 Status: Ordered gabapentin 400 mg oral capsule 400 mg, 1, capsule, By Mouth, Daily, # 90 capsule, Refills 3, Tot. Refills 3, Maintenance, 02/08/1914:35:49 EST, Route to Pharmacy Electronically, [id number], [facility] #[id number] Start Date: 02/08/19 Stop Date: 02/03/20 Status: Ordered lamotrigine 50 mg oral tablet, disintegrating 1 tablet = 50 mg, By Mouth, Daily at bedtime, # 90 tablet, 3 Refills, Maintenance, 06/10/19 16:08:00 EDT, DIS Tablet, [facility]- 67620, 168, cm, 05/19/19 11:05:00 EST, Height, 108.9, [...] mL, 4 Refills, Maintenance, 10/28/19 11:09:00 EDT, [facility]-, 168, cm, 10/14/19 9:08:00 EDT, Height, 108.9, kg, 01/13/19 14:10:00 EDT, Dry Weight Start Date: 10/28/19 Stop Date: 01/20/21 Status: Ordered levothyroxine 75 mcg (0.075 mg) oral tablet 1 tablet = 75 mcg, By Mouth, Daily, # 90 tablet, 1 Refills, Maintenance, 07/23/19 14:11:00 EDT, Tablet, [facility], 168, cm, 05/19/19 11:05:00 EST, Height, 108.9, kg, 01/13/19 14:10:00 EDT, Dry Weight Start Date: 07/23/19 Status: Ordered losartan 100 mg oral tablet 1 tablet = 100 mg, By Mouth, Daily, # 90 tablet, 3 Refills, Maintenance, 03/25/19 16:12:00 EST, Tablet, [facility] #[id number], 168, cm, 03/25/19 14:33:00 EST, Height, 108.9, [...] Weight Start Date: 02/22/19 Status: Ordered Pen [place], 31 G x 5 mm BD Ultra [...] 10/28/19 11:20:00 EDT, Route to Pharmacy Electronically, [facility]-[id number], 168, cm, 10/14/19 9:08:00 EDT, Height, 108.9, kg, 01/13/19... 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; s/p MANAGER OF RADIOLOGY shunt(Confirmed) Active Bipolar disorder(Confirmed) Active Cerebral palsy(Confirmed) Active CKD (chronic kidney disease)(Confirmed) Active Depression(Confirmed) Active Diabetic neuropathy(Confirmed) Active Diabetic retinopathy(Confirmed) Active GERD (gastroesophageal reflu x disease)(Confirmed) Active HLD (hyperlipidemia)(Confirmed) Active HTN (hypertension)(Confirmed) Active Hypothyroidism(Confirmed) Active [facility]Fabian Avery-[phone]/[facility], active care coordination(Confirmed) Active Diabetes mellitus type 2 in obese(Confirmed) Active Vital Signs Most recent to oldest [Reference Range]: 1 2 Weight 120 kg (11/03/19 7:16 AM) Oxygen Saturation [94-100 %] 100 % (11/03/19 9:00 AM) 100 % (11/03/19 7:16 AM) Pulse Rate [55-90 bpm] 80 bpm (11/03/19 9:00 AM) 85 bpm (11/03/19 7:16 AM) Blood Pressure [90-138/55-84 mm Hg] 162/ 90mm Hg *H* (11/03/19 9:00 AM) 207/92mm Hg *H* (11/03/19 7:16 AM) Respiratory Rate [16-30 br/min] 18 br/mi n (11/03/19 9:00 AM) 18 br/min (11/03/19 7:16 AM) Temperature [96.8-100.4 DegF] 97.3 DegF (11/03/19 9:00 AM) 97.2 DegF (11/03/19 7:16 AM) Mode of Delivery (Oxygen) Room air (11/03/19 9:00 AM) Room air (11/03/19 7:16 AM) Blood pressure sites Arm, left (11/03/19 7:16 AM) Temperature Route Temporal (11/03/19 9:00 AM) Temporal (11/03/19 7:16 AM) Dry Weight 120 kg (11/03/19 7:16 AM) Weight Obtained Via Standing scale (11/03/19 7:16 AM) Dry Weight Obtained Via Standing scale (11/03/19 7:16 AM) Social History Social History Type Response Smoking Status Never (less than 100 in lifetime); Tobacco user in household: No entered on: 10/28/19 Sex Female
--- OUTSIDE RECORDS SUMMARY | 2023-04-21 08:13 | XMS_ITS | Continuity of Care Document ---
Author Name Unknown Organization [facility] Address [address] [place] [address]- Care Team Providers Care Epic Kaleidoscope Analyst Name Role Phone Bonifacio Pacheco MD Primary Care Physician [phone] [place]counter [facility] [place] Date(s): 05/09/21 - 06/08/21 [facility] [address] [place] [id number]- Allergies, Adverse Reactions, Alerts No Known Medication [...] tablet, 5 Refills, Maintenance, 02/24/21 16:01:00 EST, [facility]-, 168, cm, 01/26/21 7:47:00 EST, Height, 120, kg, 11/03/19 7:16:00 EDT, Dry Weight Start Date: 02/24/21 Status: Ordered atorvastatin 80 mg oral tablet 1 tablet, By Mouth, Daily, # 28 tablet, 5 Refills, Maintenance, 02/02/21 8:31:00 EST, [facility]-, 168, cm, 01/26/21 7:47:00 EST, Height, 120, kg, 11/03/19 7:16:00 EDT, Dry Weight Start Date: 02/02/21 Status: Ordered betamethasone topical dipropionate 0.05% cream 1 application, Topically, 2 times a day, to affected area, # 50 Gm, 0 Refills, Maintenance, 04/05/20 8:25:00 EST, Cream, [facility]-15404, 1 application Topically 2 times a day,Instr:to affected area, 168, cm, 12/21/19 8:36:00 EDT,... Start Date: 04/05/20 Status: Ordered diclofenac 1% topical gel 1 application, Topically, 4 times a day, not to exceed 32 grams/day, # 100 Gm, 1 Refills, Maintenance, 01/26/21 8:25:00 EST, Gel, [facility] #[id number], Partial fill upon patient request if theprescription [...] 11 Refills, Maintenance, 10/10/20 10:00:00 EDT, Powder, [facility] #[id number], Partial fill... Start Date: 10/10/20 Stop Date: [...] duplicate script from 05/11/20. Original sent to [facility]., Compound Start Date: 12/27/20 Status: [...] mL, 3 Refills, Maintenance, 12/19/20 7:29:00EDT, [facility]-05029, 168, cm, 10/10/20 9:30:00 EDT, Height, 120, kg, 11/03/19 7:16:00 EDT, Dry Weight Start Date: 12/19/20 Status: Ordered levothyroxine 0.088 mg oral tablet 1 tablet, By Mouth, Daily, # 28 tablet, 0 Refills, [facility]94[facility], 168, cm, 04/03/21 8:33:00 EST, Height, 120, kg, 11/03/19 7:16:00 EDT, Dry Weight Start Date: 05/21/21 Status: Ordered lidocaine 5% topical ointment 1 application, Topically, 3 times a day, prn pain, wash hands thoroughly after application, # 50 Gm, 2 Refills, Maintenance, 06/28/20 12:45:00 EDT, Ointment, [facility]-, Partial fill upon patient request if the prescription... Start Date: 06/28/20 Status: Ordered lidocaine 5% topical ointment 1 application, Topically, 3 times a day, wash hands thoroughly after application, prn pain, # 50 Gm, 2 Refills, Maintenance, 04/03/21 8:36:00 EST, Ointment, [facility] #[id number], Partial fill upon patient request if the prescription is for a sc... Start Date: 04/03/21 Status: Ordered Lidoderm 5% film 3 patch, Topically, Daily, remove patches after 12 hours, # 30 patch, 5 Refills, Maintenance, 04/12/21 11:04:00 EST, [facility] #[id number], Partial fill upon patient request if the [...] 28 tablet, 5 Refills, 04/23/21 11:41:00 EST, [facility] #[id number], 168, cm, 04/03/21 8:33:00 EST, Height, 120, kg, 11/03/19 7:16:00 EDT, Dry Weight Start Date: 04/23/21 Status: Ordered Multiple Vitamins with Iron, Minerals and Docusate oral capsule 1 capsule, By Mouth, Daily, # 30 capsule, 0 Refills, Maintenance, 04/11/20 17:23:00 EST, Capsule, [facility]-, Partial fill upon patient request if the prescription is for a schedule II opioid drug., 1 capsule By Mouth Daily, 1... Start Date: 04/11/20 Status: Ordered NovoLOG FlexPen 100 units/mL injectable solution See Instructions, Please follow sliding scale TID with meals between 2-8 units. max daily dose: 24 units E11.9, # 15 mL, 11 Refills, 03/06/21 9:51:00 EST, [facility] #[id number], 168, cm, 03/06/21 9:27:00 EST, Height, 120, kg, 11/03/19 7:16:0... Start Date: 03/06/21 Status: Ordered Pen [place], 31 G x 5 mm BD Ultra [...] Gm, 5 Refills, Maintenance, 10/24/20 5:02:00 EDT, [facility] #[id number], 168, cm, 10/10/20 9:30:00 EDT,Height, 120, kg, 11/03/19 7:16:00 EDT, Dry Weight Start Date: 10/24/20 Status: Ordered Problem List Condition Effective Dates Status Health Status Inform ant Pseudotumor cerebri; s/p BANNER PAINTER shunt(Confirmed) Active Bipolar disorder(Confirmed) Active Cerebral palsy(Confirmed) Active CKD (chronic kidney disease)(Confirmed) Active Depression(Confirmed) Active Oxygen desaturation during sleep(Confirmed) 1 Active Diabetic neuropathy(Confirmed) Active Diabetic retinopathy(Confirmed) Active GERD (gastroesophageal reflu x disease)(Confirmed) Active Bariatric surgery status(Confirmed) Active HLD (hyperlipidemia)(Confirmed) Active HTN (hypertension)(Confirmed) Active Hypothyroidism(Confirmed) Active Asthma, mild(Confirmed) Active Obese class I(Confirmed) Active Obesity(Confirmed) Active Obstructive sleep apnea(Confirmed) Active [facility]-GszmmzlBea Avery-[phone]/[facility], active care coordination(Confirmed) Active Diabetes mellitus type 2 in obese(Confirmed) Active 1to 75% in Social History Social History Type Response Smoking Status Never (less than 100 in lifetime); Tobacco user in household: No entered on: 10/28/19 Sex Female
--- OUTSIDE RECORDS SUMMARY | 2023-04-21 08:13 | XMS_ITS | Continuity of Care Document ---
Author Name Unknown Organization [facility] Address [address] [place] [address]- Care Team Providers Care Rn Pacu Name Role Phone Valarie CHÁVEZ, Levar Farris Primary Care Physician Encounter [facility] Date(s): 05/19/19 - 05/29/19 [facility] [address] [place] [address]- [facility] Attending Physician: Homero Stanton Admitting [...] 04/20/19 10:07:00 EST, Route to Pharmacy Electronically, [id number], [facility] #[id number], 168, cm, 04/20/19 9:42:00 EST, [place]... Start Date: 04/20/19 Status: Ordered amLODIPine 5 mg oral tablet 5 mg, 1, tablet, By Mouth, Daily, take daily for bllod pressure, # 30 tablet, Refills 5, Tot. Refills 5, Maintenance, 05/19/19 11:16:00 EST, Route to Pharmacy Electronically, [facility] #[id number], 168, cm, 05/19/19 11:05:00 EST, Height, 108.9,... Start Date: 05/19/19 Status: Ordered atorvastatin 80 mg oral tablet 1 tablet = 80 mg, By Mouth, Daily, # 90 tablet, 3 Refills, Maintenance, 03/25/19 15:39:00 EST, Tablet, [facility] #[id number], 168, cm, 03/25/19 14:33:00 EST, Height, 108.9, kg, 01/13/19 14:10:00 EDT, Dry Weight Start Date: 03/25/19 Status: Ordered betamethasone topical dipropionate 0.05% cream 1 application, Topically, 2 times a day, # 50 Gm, 0 Refills, Maintenance, 03/25/19 16:16:00 EST, Cream, [facility] #[id number], 1 application Topically 2 times a day, 168, cm, 03/25/19 14:33:00 EST, Height, 108.9, kg, 01/13/19 14:10:00 EDT, Dry W... Start Date: 03/25/19 Status: Ordered CeraVe topical cream 1 application, Topically, 2 times a day, PRN for dry skin, # 360 Gm, 0 Refills, Maintenance, 03/25/19 16:14:00 EST, Cream, [facility] #[id number], 1 application Topically 2 times a day,PRN:for [...] each, 1 Refills, Maintenance, 04/20/19 10:06:00 EST, [facility] #[id number], prn dry skin, disp 1 bottle, 168, [...] Maintenance, 02/08/1914:36:39 EST, Route to Pharmacy Electronically, [id number], [facility] #[id number] Start Date: 02/08/19 Stop Date: 02/03/20 Status: Ordered gabapentin 400 mg oral capsule 400 mg, 1, capsule, By Mouth, Daily, # 90 capsule, Refills 3, Tot. Refills 3, Maintenance, 02/08/1914:35:49 EST, Route to Pharmacy Electronically, [id number], [facility] #[id number] Start Date: 02/08/19 Stop Date: 02/03/20 Status: Ordered Humalog Kwik Pen 100 units/mL subcutaneous injection = 4 units, Subcutaneous Infusion, 3 times a day before meals, # 15 mL, 11 Refills, Maintenance, 05/19/19 11:24:00 EST, [facility] #[id number], 168, cm, 05/19/19 11:05:00 EST, Height, 108.9, [...] 1 Refills, Maintenance, 05/19/19 11:10:00 EST, Tablet, [facility] #[id number], 168, cm, 05/19/19 11:05:00 EST, Height, 108.9, kg, 01/13/19 14:10:00 EDT, Dry Weight Start Date: 05/19/19 Status: Ordered losartan 100 mg oral tablet 1 tablet = 100 mg, By Mouth, Daily, # 90 tablet, 3 Refills, Maintenance, 03/25/19 16:12:00 EST, Tablet, [facility] #[id number], 168, cm, 03/25/19 14:33:00 EST, Height, 108.9, [...] Weight Start Date: 02/22/19 Status: Ordered Pen [place], 31 G x 5 mm BD Ultra Fine III See Instructions, # 200 each, Refills 3, Tot. Refills 3, Maintenance, use bid with insulin dx E11.9, 04/09/19 10:52:00 EST, Compound, 168, cm, 03/25/19 16:19:00 EST, Height, 108.9, kg, 01/13/19 14:10:00 EDT, Dry Weight Start Date: 04/09/19 Status: Ordered Problem List Condition Effective Dates Status Health Status Inform ant Pseudotumor cerebri; s/p FOOD CRITIC shunt(Confirmed) Active Bipolar disorder(Confirmed) Active Cerebral palsy(Confirmed) [...]
--- OUTSIDE RECORDS SUMMARY | 2023-04-21 08:13 | XMS_ITS | Continuity of Care Document ---
Author Name Unknown Organization [facility] Address [address] [place] [id number]- Care Team Providers Care Planner/Scheduler Name Role Phone Bonifacio Pacheco MD Primary Care Physician [phone] [place] [facility] [place](s): 12/23/20 - 04/22/21 [facility] [address] [place] [id number] Attending Physician: Brittany Barnes NP Admitting Physician: Brittany Barnes NP Allergies, Adverse Reactions, Alerts No Known [...] tablet, 5 Refills, Maintenance, 02/24/21 16:01:00 EST, [facility]-, 168, cm, 01/26/21 7:47:00 EST, Height, 120, kg, 11/03/19 7:16:00 EDT, Dry Weight Start Date: 02/24/21 Status: Ordered atorvastatin 80 mg oral tablet 1 tablet, By Mouth, Daily, # 28 tablet, 5 Refills, Maintenance, 02/02/21 8:31:00 EST, [facility]-, 168, cm, 01/26/21 7:47:00 EST, Height, 120, kg, 11/03/19 7:16:00 EDT, Dry Weight Start Date: 02/02/21 Status: Ordered betamethasone topical dipropionate 0.05% cream 1 application, Topically, 2 times a day, to affected area, # 50 Gm, 0 Refills, Maintenance, 04/05/20 8:25:00 EST, Cream, [facility]-, 1 application Topically 2 times a day,Instr:to affected area, 168, cm, 12/21/19 8:36:00 EDT,... Start Date: 04/05/20 Status: Ordered diclofenac 1% topical gel 1 application, Topically, 4 times a day, not to exceed 32 grams/day, # 100 Gm, 1 Refills, Maintenance, 01/26/21 8:25:00 EST, [facility] #[id number], Partial fill upon patient request if theprescription [...] 11 Refills, Maintenance, 10/10/20 10:00:00 EDT, Powder, [facility] #[id number], Partial fill... Start Date: 10/10/20 Stop Date: [...] 12/19/20 7:29:00EDT, [facility]46383, 168, cm, 10/10/20 9:30:00 EDT, Height, 120, kg, 11/03/19 7:16:00 EDT, Dry Weight Start Date: 12/19/20 Status: Ordered levothyroxine 0.088 mg oral tablet 1 tablet = 88 mcg, By Mouth, Daily, dose increased, # 30 tablet, 5 Refills, Maintenance, 12/15/20 15:34:00 EDT, Tablet, [facility]-, Partial fill upon patient request if the prescription is for a schedule II opioid drug., 168,... Start Date: 12/15/20 Status: Ordered lidocaine 5% topical ointment 1 application, Topically, 3 times a day, prn pain, wash hands thoroughly after application, # 50 Gm, 2 Refills, Maintenance, 06/28/20 12:45:00 EDT, Ointment, [facility]-, Partial fill upon patient request if the prescription... Start Date: 06/28/20 Status: Ordered lidocaine 5% topical ointment 1 application, Topically, 3 times a day, wash hands thoroughly after application, prn pain, # 50 Gm, 2 Refills, Maintenance, 04/03/21 8:36:00 EST, Ointment, [facility] #[id number], Partial fill upon patient request if the prescription is for a sc... Start Date: 04/03/21 Status: Ordered Lidoderm 5% film 3 patch, Topically, Daily, remove patches after 12 hours, # 30 patch, 5 Refills, Maintenance, 04/12/21 11:04:00 EST, [facility] #[id number], Partial fill upon patient request if the [...] Mouth, Daily, # 28 tablet, 0 Refills, [facility], 168, cm, 03/06/21 9:27:00 EST, Height, 120, kg, 11/03/19 7:16:00 EDT, Dry Weight Start Date: 03/28/21 Status: Ordered Multiple Vitamins with Iron, Minerals and Docusate oral capsule 1 capsule, By Mouth, Daily, # 30 capsule, 0 Refills, Maintenance, 04/11/20 17:23:00 EST, Capsule, [facility]-, Partial fill upon patient request if the prescription is for a schedule II opioid drug., 1 capsule By Mouth Daily, 1... Start Date: 04/11/20 Status: Ordered NovoLOG FlexPen 100 units/mL injectable solution See Instructions, Please follow sliding scale TID with meals between 2-8 units. max daily dose: 24 units E11.9, # 15 mL, 11 Refills, 03/06/21 9:51:00 EST, [facility] #[id number], 168, cm, 03/06/21 9:27:00 EST, Height, 120, kg, 11/03/19 7:16:0... Start Date: 03/06/21 Status: Ordered Pen [place], 31 G x 5 mm BD Ultra [...] Gm, 5 Refills, Maintenance, 10/24/20 5:02:00 EDT, [facility] #[id number], 168, cm, 10/10/20 9:30:00 EDT,Height, 120, kg, 11/03/19 7:16:00 EDT, Dry Weight Start Date: 10/24/20 Status: Ordered Problem List Condition Effective Dates Status Health Status Inform ant Pseudotumor cerebri; s/p CARDIOVASCULAR INVASIVE SPECIALIST shunt(Confirmed) Active Bipolar disorder(Confirmed) Active Cerebral palsy(Confirmed) Active CKD (chronic kidney disease)(Confirmed) Active Depression(Confirmed) Active Oxygen desaturation during sleep(Confirmed) 1 Active Diabetic neuropathy(Confirmed) Active Diabetic retinopathy(Confirmed) Active GERD (gastroesophageal reflu x disease)(Confirmed) Active Bariatric surgery status(Confirmed) Active HLD (hyperlipidemia)(Confirmed) Active HTN (hypertension)(Confirmed) Active Hypothyroidism(Confirmed) Active Asthma, mild(Confirmed) Active Obese class I(Confirmed) Active Obesity(Confirmed) Active Obstructive sleep apnea(Confirmed) Active [facility]-InfzcreBea Avery-[phone]/Health sn[facility], active care coordination(Confirmed) Active Diabetes mellitus type 2 in obese(Confirmed) Active 1to 75% in Social History Social History Type Response Smoking Status Never (less than 100 in lifetime); Tobacco user in household: No entered on: 10/28/19 Sex Female
--- OUTSIDE RECORDS SUMMARY | 2023-04-21 08:13 | XMS_ITS | Continuity of Care Document ---
Author Name Unknown Organization [facility] Address [address] [place] [address]- Care Team Providers Care Change Management Lead Name Role Phone Bonifacio Pacheco MD Primary Care Physician Encounter [facility] Date(s): 04/30/21 - 05/30/21 [facility] [address] [place] [address]- Allergies, Adverse Reactions, Alerts No Known Medication [...] 5 Refills, Maintenance, 02/24/21 16:01:00 EST, [facility]-, 168, cm, 01/26/21 7:47:00 EST, Height, 120, kg, 11/03/19 7:16:00 EDT, Dry Weight Start Date: 02/24/21 Status: Ordered atorvastatin 80 mg oral tablet 1 tablet, By Mouth, Daily, # 28 tablet, 5 Refills, Maintenance, 02/02/21 8:31:00 EST, [facility]-, 168, cm, 01/26/21 7:47:00 EST, Height, 120, kg, 11/03/19 7:16:00 EDT, Dry Weight Start Date: 02/02/21 Status: Ordered betamethasone topical dipropionate 0.05% cream 1 application, Topically, 2 times a day, to affected area, # 50 Gm, 0 Refills, Maintenance, 04/05/20 8:25:00 EST, Cream, [facility]-79723, 1 application Topically 2 times a day,Instr:to affected area, 168, cm, 12/21/19 8:36:00 EDT,... Start Date: 04/05/20 Status: Ordered diclofenac 1% topical gel 1 application, Topically, 4 times a day, not to exceed 32 grams/day, # 100 Gm, 1 Refills, Maintenance, 01/26/21 8:25:00 EST, Gel, [facility] #[id number], Partial fill upon patient request if theprescription [...] 11 Refills, Maintenance, 10/10/20 10:00:00 EDT, Powder, [facility] #[id number], Partial fill... Start Date: 10/10/20 Stop Date: [...] duplicate script from 05/11/20. Original sent to [facility]., Compound Start Date: 12/27/20 Status: [...] mL, 3 Refills, Maintenance, 12/19/20 7:29:00EDT, [facility]-11465, 168, cm, 10/10/20 9:30:00 EDT, Height, 120, kg, 11/03/19 7:16:00 EDT, Dry Weight Start Date: 12/19/20 Status: Ordered levothyroxine 0.088 mg oral tablet 1 tablet, By Mouth, Daily, # 28 tablet, 0 Refills, [facility], 168, cm, 04/03/21 8:33:00 EST, Height, 120, kg, 11/03/19 7:16:00 EDT, Dry Weight Start Date: 05/21/21 Status: Ordered lidocaine 5% topical ointment 1 application, Topically, 3 times a day, prn pain, wash hands thoroughly after application, # 50 Gm, 2 Refills, Maintenance, 06/28/20 12:45:00 EDT, Ointment, [facility]-, Partial fill upon patient request if the prescription... Start Date: 06/28/20 Status: Ordered lidocaine 5% topical ointment 1 application, Topically, 3 times a day, wash hands thoroughly after application, prn pain, # 50 Gm, 2 Refills, Maintenance, 04/03/21 8:36:00 EST, Ointment, [facility] #[id number], Partial fill upon patient request if the prescription is for a sc... Start Date: 04/03/21 Status: Ordered Lidoderm 5% film 3 patch, Topically, Daily, remove patches after 12 hours, # 30 patch, 5 Refills, Maintenance, 04/12/21 11:04:00 EST, [facility] #[id number], Partial fill upon patient request if the [...] 28 tablet, 5 Refills, 04/23/21 11:41:00 EST, [facility] #[id number], 168, cm, 04/03/21 8:33:00 EST, Height, 120, kg, 11/03/19 7:16:00 EDT, Dry Weight Start Date: 04/23/21 Status: Ordered Multiple Vitamins with Iron, Minerals and Docusate oral capsule 1 capsule, By Mouth, Daily, # 30 capsule, 0 Refills, Maintenance, 04/11/20 17:23:00 EST, Capsule, [facility]-, Partial fill upon patient request if the prescription is for a schedule II opioid drug., 1 capsule By Mouth Daily, 1... Start Date: 04/11/20 Status: Ordered NovoLOG FlexPen 100 units/mL injectable solution See Instructions, Please follow sliding scale TID with meals between 2-8 units. max daily dose: 24 units E11.9, # 15 mL, 11 Refills, 03/06/21 9:51:00 EST, [facility] #[id number], 168, cm, 03/06/21 9:27:00 EST, Height, 120, kg, 11/03/19 7:16:0... Start Date: 03/06/21 Status: Ordered Pen [place], 31 G x 5 mm BD Ultra [...] Gm, 5 Refills, Maintenance, 10/24/20 5:02:00 EDT, [facility] #[id number], 168, cm, 10/10/20 9:30:00 EDT,Height, 120, kg, 11/03/19 7:16:00 EDT, Dry Weight Start Date: 10/24/20 Status: Ordered Problem List Condition Effective Dates Status Health Status Inform ant Pseudotumor cerebri; s/p MASTER OCEAN shunt(Confirmed) Active Bipolar disorder(Confirmed) Active Cerebral palsy(Confirmed) Active CKD (chronic kidney disease)(Confirmed) Active Depression(Confirmed) Active Oxygen desaturation during sleep(Confirmed) 1 Active Diabetic neuropathy(Confirmed) Active Diabetic retinopathy(Confirmed) Active GERD (gastroesophageal reflu x disease)(Confirmed) Active Bariatric surgery status(Confirmed) Active HLD (hyperlipidemia)(Confirmed) Active HTN (hypertension)(Confirmed) Active Hypothyroidism(Confirmed) Active Asthma, mild(Confirmed) Active Obese class I(Confirmed) Active Obesity(Confirmed) Active Obstructive sleep apnea(Confirmed) Active [facility]/UAS-WR-SxjzafiBea Avery-[phone]/Health alf, active care coordination(Confirmed) Active Diabetes mellitus type 2 in obese(Confirmed) Active 1to 75% in Social History Social History Type Response Smoking Status Never (less than 100 in lifetime); Tobacco user in household: No entered on: 10/28/19 Sex Female
--- OUTSIDE RECORDS SUMMARY | 2023-04-21 08:13 | XMS_ITS | Continuity of Care Document ---
Author Name Unknown Organization [facility] Address [address] [place] [address]- Care Team Providers Care Diesel Engine Specialist Name Role Phone Valarie CHÁVEZ, Levar Farris Primary Care Physician Encounter [facility] Date(s): 08/18/19 - 09/17/19 [facility] [address] [place] [address]- [facility] Attending Physician: Homero Stanton Admitting Physician: Homero [...] mL, 5 Refills, Maintenance, 06/22/19 9:59:00 EDT, [facility]-19160, 168, cm, 05/19/19 11:05:00EST, Height, 108.9, kg, 01/13/19 14:10:00 EDT, Dry... Start Date: 06/22/19 Status: Ordered albuterol CFC free 90 mcg/inh inhalation aerosol 2, puffs, Inhalation, Every 6 hours, PRN, # 1 each, Refills 2, Tot. Refills 2, Maintenance, 04/20/19 10:07:00 EST, Route to Pharmacy Electronically, [id number], [facility] #[id number], 168, cm, 04/20/19 9:42:00 EST, [place]... Start Date: 04/20/19 Status: Ordered amLODIPine 5 mg oral tablet 5 mg, 1, tablet, By Mouth, Daily, take daily for bllod pressure, # 30 tablet, Refills 5, Tot. Refills 5, Maintenance, 05/19/19 11:16:00 EST, Route to Pharmacy Electronically, [facility] #[id number], 168, cm, 05/19/19 11:05:00 EST, Height, 108.9,... Start Date: 05/19/19 Status: Ordered atorvastatin 80 mg oral tablet 1 tablet = 80 mg, By Mouth, Daily, # 90 tablet, 3 Refills, Maintenance, 03/25/19 15:39:00 EST, Tablet, [facility] #[id number], 168, cm, 03/25/19 14:33:00 EST, Height, 108.9, kg, 01/13/19 14:10:00 EDT, Dry Weight Start Date: 03/25/19 Status: Ordered betamethasone topical dipropionate 0.05% cream 1 application, Topically, 2 times a day, # 50 Gm, 0 Refills, Maintenance, 03/25/19 16:16:00 EST, Cream, [facility] #[id number], 1 application Topically 2 times a day, 168, cm, 03/25/19 14:33:00 EST, Height, 108.9, kg, 01/13/19 14:10:00 EDT, Dry W... Start Date: 03/25/19 Status: Ordered CeraVe topical cream 1 application, Topically, 2 times a day, PRN for dry skin, # 360 Gm, 0 Refills, Maintenance, 03/25/19 16:14:00 EST, Cream, [facility] #[id number], 1 application Topically 2 times a day,PRN:for dry skin, 168, cm, 03/25/19 14:33:00 EST, Height, 108... Start Date: 03/25/19 Status: Ordered dulaglutide 1.5 mg/0.5 mL subcutaneous solution = 1.5 mg, Subcutaneous Injection, Every Friday, # 15 mL, 4 Refills, Maintenance, 07/15/19 10:40:00 EDT, [facility], 168, cm, 05/19/19 11:05:00 EST, Height, 108.9, kg, 01/13/19 14:10:00 EDT, Dry Weight Start Date: 07/15/19 Stop Date: 10/07/20 Status: Ordered Eucerin Unscented topical lotion See Instructions, prn dry skin, disp 1 bottle, # 1 each, 1 Refills, Maintenance, 04/20/19 10:06:00 EST, [facility] #[id number], prn dry skin, disp 1 bottle, 168, [...] 06/22/19 10:03:00 EDT, Route to Pharmacy Electronically, [facility]-, 168, cm, 05/19/19 11:05:00 EST, Height, 108.9,... Start Date: 06/22/19 Stop Date: 06/16/20 Status: Ordered gabapentin 400 mg oral capsule 400 mg, 1, capsule, By Mouth, Daily, # 90 capsule, Refills 3, Tot. Refills 3, Maintenance, 02/08/1914:35:49 EST, Route to Pharmacy Electronically, [id number], [facility] #[id number] Start Date: 02/08/19 Stop Date: 02/03/20 Status: Ordered lamotrigine 50 mg oral tablet, disintegrating 1 tablet = 50 mg, By Mouth, Daily at bedtime, # 90 tablet, 3 Refills, Maintenance, 06/10/19 16:08:00 EDT, DIS Tablet, [facility]- , 168, cm, 05/19/19 11:05:00 EST, [...] mL, 4 Refills, Maintenance, 07/15/19 10:42:00 EDT, [facility]-36347, 168, cm, 05/19/19 11:05:00 EST, Height, 108.9, kg, 01/13/19 14:10:00 EDT, Dry Weight Start Date: 07/15/19 Stop Date: 10/07/20 Status: Ordered levothyroxine 75 mcg (0.075 mg) oral tablet 1 tablet = 75 mcg, By Mouth, Daily, # 90 tablet, 1 Refills, Maintenance, 07/23/19 14:11:00 EDT, Tablet, [facility]-36183, 168, cm, 05/19/19 11:05:00 EST, Height, 108.9, kg, 01/13/19 14:10:00 EDT, Dry Weight Start Date: 07/23/19 Status: Ordered losartan 100 mg oral tablet 1 tablet = 100 mg, By Mouth, Daily, # 90 tablet, 3 Refills, Maintenance, 03/25/19 16:12:00 EST, Tablet, [facility] #[id number], 168, cm, 03/25/19 14:33:00 EST, Height, 108.9, [...] Weight Start Date: 02/22/19 Status: Ordered Pen [place], 31 G x 5 mm BD Ultra Fine III See Instructions, # 200 each, Refills 3, Tot. Refills 3, Maintenance, use bid with insulin dx E11.9, 04/09/19 10:52:00 EST, Compound, 168, cm, 03/25/19 16:19:00 EST, Height, 108.9, kg, 01/13/19 14:10:00 EDT, Dry Weight Start Date: 04/09/19 Status: Ordered Problem List Condition Effective Dates Status Health Status Inform ant Pseudotumor cerebri; s/p SECOND HELPER shunt(Confirmed) Active Bipolar disorder(Confirmed) Active Cerebral palsy(Confirmed) Active CKD (chronic kidney disease)(Confirmed) Active Depression(Confirmed) Active Diabetic neuropathy(Confirmed) Active Diabetic retinopathy(Confirmed) Active GERD (gastroesophageal reflu x disease)(Confirmed) Active HLD (hyperlipidemia)(Confirmed) Active HTN (hypertension)(Confirmed) Active Hypothyroidism(Confirmed) Active [facility]-JN-NpdjwikBea Avery-[phone]/Health assisted, active care coordination(Confirmed) Active Diabetes mellitus type 2 in obese(Confirmed) Active Social History Social History Type Response Smoking Status Never (less than 100 in lifetime) entered on: 02/08/19 Sex Female
--- OUTSIDE RECORDS SUMMARY | 2023-04-21 08:13 | XMS_ITS | Continuity of Care Document ---
Author Name Unknown Organization [facility] Address [address] [place] [address]- Care Team Providers Care Sleeve Baster Name Role Phone Bonifacio Pacheco MD Primary Care Physician Encounter [facility] Date(s): 04/03/21 - 05/03/21 [facility] [address] [place] [id number] Attending Physician: Homero Stanton Admitting Physician: AdmHomero sultana Referring Physician: AdmtrHomero Allergies, Adverse Reactions, Alerts [...] tablet, 5 Refills, Maintenance, 02/24/21 16:01:00 EST, [facility]-81472, 168, cm, 01/26/21 7:47:00 EST, Height, 120, kg, 11/03/19 7:16:00 EDT, Dry Weight Start Date: 02/24/21 Status: Ordered atorvastatin 80 mg oral tablet 1 tablet, By Mouth, Daily, # 28 tablet, 5 Refills, Maintenance, 02/02/21 8:31:00 EST, [facility]-, 168, cm, 01/26/21 7:47:00 EST, Height, 120, kg, 11/03/19 7:16:00 EDT, Dry Weight Start Date: 02/02/21 Status: Ordered betamethasone topical dipropionate 0.05% cream 1 application, Topically, 2 times a day, to affected area, # 50 Gm, 0 Refills, Maintenance, 04/05/20 8:25:00 EST, Cream, [facility]-, 1 application Topically 2 times a day,Instr:to affected area, 168, cm, 12/21/19 8:36:00 EDT,... Start Date: 04/05/20 Status: Ordered diclofenac 1% topical gel 1 application, Topically, 4 times a day, not to exceed 32 grams/day, # 100 Gm, 1 Refills, Maintenance, 01/26/21 8:25:00 EST, [email or web address] #[id number], Partial fill upon patient request if theprescription [...] each, 11 Refills, Maintenance, 10/10/20 10:00:00 EDT, [email or web address] #[id number], Partial fill... Start Date: 10/10/20 Stop Date: [...] 15 mL, 3 Refills, Maintenance, 12/19/20 7:29:00EDT, [facility]-, 168, cm, 10/10/20 9:30:00 EDT, Height, 120, kg, 11/03/19 7:16:00 EDT, Dry Weight Start Date: 12/19/20 Status: Ordered levothyroxine 0.088 mg oral tablet 1 tablet = 88 mcg, By Mouth, Daily, dose increased, # 30 tablet, 5 Refills, Maintenance, 12/15/20 15:34:00 EDT, Tablet, [facility]-, Partial fill upon patient request if the prescription is for a schedule II opioid drug., 168,... Start Date: 12/15/20 Status: Ordered lidocaine 5% topical ointment 1 application, Topically, 3 times a day, prn pain, wash hands thoroughly after application, # 50 Gm, 2 Refills, Maintenance, 06/28/20 12:45:00 EDT, Ointment, [facility]-, Partial fill upon patient request if the prescription... Start Date: 06/28/20 Status: Ordered lidocaine 5% topical ointment 1 application, Topically, 3 times a day, wash hands thoroughly after application, prn pain, # 50 Gm, 2 Refills, Maintenance, 04/03/21 8:36:00 EST, Ointment, [facility] #[id number], Partial fill upon patient request if the prescription is for a sc... Start Date: 04/03/21 Status: Ordered Lidoderm 5% film 3 patch, Topically, Daily, remove patches after 12 hours, # 30 patch, 5 Refills, Maintenance, 04/12/21 11:04:00 EST, [facility] #[id number], Partial fill upon patient request if the [...] 28 tablet, 5 Refills, 04/23/21 11:41:00 EST, [facility] #[id number], 168, cm, 04/03/21 8:33:00 EST, Height, 120, kg, 11/03/19 7:16:00 EDT, Dry Weight Start Date: 04/23/21 Status: Ordered Multiple Vitamins with Iron, Minerals and Docusate oral capsule 1 capsule, By Mouth, Daily, # 30 capsule, 0 Refills, Maintenance, 04/11/20 17:23:00 EST, Capsule, [facility]-, Partial fill upon patient request if the prescription is for a schedule II opioid drug., 1 capsule By Mouth Daily, 1... Start Date: 04/11/20 Status: Ordered NovoLOG FlexPen 100 units/mL injectable solution See Instructions, Please follow sliding scale TID with meals between 2-8 units. max daily dose: 24 units E11.9, # 15 mL, 11 Refills, 03/06/21 9:51:00 EST, [facility] #[id number], 168, cm, 03/06/21 9:27:00 EST, Height, 120, kg, 11/03/19 7:16:0... Start Date: 03/06/21 Status: Ordered Pen [place], 31 G x 5 mm BD Ultra [...] Gm, 5 Refills, Maintenance, 10/24/20 5:02:00 EDT, [facility] #[id number], 168, cm, 10/10/20 9:30:00 EDT,Height, 120, kg, 11/03/19 7:16:00 EDT, Dry Weight Start Date: 10/24/20 Status: Ordered Problem List Condition Effective Dates Status Health Status Inform ant Pseudotumor cerebri; s/p GAS CONTROLLER shunt(Confirmed) Active Bipolar disorder(Confirmed) Active Cerebral palsy(Confirmed) Active CKD (chronic kidney disease)(Confirmed) Active Depression(Confirmed) Active Oxygen desaturation during sleep(Confirmed) 1 Active Diabetic neuropathy(Confirmed) Active Diabetic retinopathy(Confirmed) Active GERD (gastroesophageal reflu x disease)(Confirmed) Active Bariatric surgery status(Confirmed) Active HLD (hyperlipidemia)(Confirmed) Active HTN (hypertension)(Confirmed) Active Hypothyroidism(Confirmed) Active Asthma, mild(Confirmed) Active Obese class I(Confirmed) Active Obesity(Confirmed) Active Obstructive sleep apnea(Confirmed) Active [facility]-AdqzjcfBea Avery-[phone]/Health group home, active care coordination(Confirmed) Active Diabetes mellitus type 2 in obese(Confirmed) Active 1to 75% in Social History Social History Type Response Smoking Status Never (less than 100 in lifetime); Tobacco user in household: No entered on: 10/28/19 Sex Female
--- OUTSIDE RECORDS SUMMARY | 2023-04-21 08:13 | XMS_ITS | Continuity of Care Document ---
Author Name Unknown Organization [facility] Address [address] [place] [address]- Care Team Providers Care Tool Setter Name Role Phone Valarie CHÁVEZ, Levar Farris Primary Care Physician Encounter [facility] Date(s): 03/30/19 - 06/17/19 [facility] [address] [place] [id number]- Attending Physician: Slade Tompkins MD Admitting Physician: [...] 04/20/19 10:07:00 EST, Route to Pharmacy Electronically, [id number], [email or web address] #[id number], 168, cm, 04/20/19 9:42:00 EST, [facility]... Start Date: 04/20/19 Status: Ordered amLODIPine 5 mg oral tablet 5 mg, 1, tablet, By Mouth, Daily, take daily for bllod pressure, # 30 tablet, Refills 5, Tot. Refills 5, Maintenance, 05/19/19 11:16:00 EST, Route to Pharmacy Electronically, [email or web address] #[id number], 168, cm, 05/19/19 11:05:00 EST, Height, 108.9,... Start Date: 05/19/19 Status: Ordered atorvastatin 80 mg oral tablet 1 tablet = 80 mg, By Mouth, Daily, # 90 tablet, 3 Refills, Maintenance, 03/25/19 15:39:00 EST, Tablet, [email or web address] #[id number], 168, cm, 03/25/19 14:33:00 EST, Height, 108.9, kg, 01/13/19 14:10:00 EDT, Dry Weight Start Date: 03/25/19 Status: Ordered betamethasone topical dipropionate 0.05% cream 1 application, Topically, 2 times a day, # 50 Gm, 0 Refills, Maintenance, 03/25/19 16:16:00 EST, Cream, [email or web address] #[id number], 1 application Topically 2 times a day, 168, cm, 03/25/19 14:33:00 EST, Height, 108.9, kg, 01/13/19 14:10:00 EDT, Dry W... Start Date: 03/25/19 Status: Ordered CeraVe topical cream 1 application, Topically, 2 times a day, PRN for dry skin, # 360 Gm, 0 Refills, Maintenance, 03/25/19 16:14:00 EST, Cream, [facility] #[id number], 1 application Topically 2 times a day,PRN:for [...] each, 1 Refills, Maintenance, 04/20/19 10:06:00 EST, [email or web address] #[id number], prn dry skin, disp 1 bottle, 168, [...] Height, 108.9, kg, 01/13/19 14:10:... Start Date: 05/31/19 Status: Ordered Freestyle Ravinder 14 Day Sensor Freestyle Ravinder 14 Day Sensor, See Instructions, # 2 each, Refills 11, Tot. Refills 11, Maintenance, DX DM, ICD E11.9, On QID insulin and BS monitoring, 05/31/19 11:48:00 EDT, Compound, 168, cm, 05/19/19 11:05:00 EST, Height, 108.9, kg, 01/13/19 14:10... Start Date: 05/31/19 Status: Ordered Freestyle Ravinder Monitor Freestyle Ravinder [...] Maintenance, 02/08/1914:36:39 EST, Route to Pharmacy Electronically, [id number], [facility] #[id number] Start Date: 02/08/19 Stop Date: 02/03/20 Status: Ordered gabapentin 400 mg oral capsule 400 mg, 1, capsule, By Mouth, Daily, # 90 capsule, Refills 3, Tot. Refills 3, Maintenance, 02/08/1914:35:49 EST, Route to Pharmacy Electronically, [id number], [email or web address] #[id number] Start Date: 02/08/19 Stop Date: 02/03/20 Status: Ordered Humalog Kwik Pen 100 units/mL subcutaneous injection = 4 units, Subcutaneous Infusion, 3 times a day before meals, # 15 mL, 11 Refills, Maintenance, 05/19/19 11:24:00 EST, [email or web address] #[id number], 168, cm, 05/19/19 11:05:00 EST, Height, 108.9, kg, 01/13/19 14:10:00 EDT, Dry Weight Start Date: 05/19/19 Stop Date: 05/13/20 Status: Ordered lamotrigine 50 mg oral tablet, disintegrating 1 tablet = 50 mg, By Mouth, Daily at bedtime, # 90 tablet, 3 Refills, Maintenance, 06/10/19 16:08:00 EDT, DIS Tablet, [facility] 61411, 168, cm, 05/19/19 11:05:00 EST, Height, 108.9, [...] 1 Refills, Maintenance, 05/19/19 11:10:00 EST, Tablet, [email or web address] #[id number], 168, cm, 05/19/19 11:05:00 EST, Height, 108.9, kg, 01/13/19 14:10:00 EDT, Dry Weight Start Date: 05/19/19 Status: Ordered losartan 100 mg oral tablet 1 tablet = 100 mg, By Mouth, Daily, # 90 tablet, 3 Refills, Maintenance, 03/25/19 16:12:00 EST, Tablet, [email or web address] #[id number], 168, cm, 03/25/19 14:33:00 EST, Height, 108.9, [...] Weight Start Date: 02/22/19 Status: Ordered Pen [place], 31 G x 5 mm BD Ultra Fine III See Instructions, # 200 each, Refills 3, Tot. Refills 3, Maintenance, use bid with insulin dx E11.9, 04/09/19 10:52:00 EST, Compound, 168, cm, 03/25/19 16:19:00 EST, Height, 108.9, kg, 01/13/19 14:10:00 EDT, Dry Weight Start Date: 04/09/19 Status: Ordered Problem List Condition Effective Dates Status Health Status Inform ant Pseudotumor cerebri; s/p SR. MEDIA MANAGER shunt(Confirmed) Active Bipolar disorder(Confirmed) Active Cerebral [...]
--- OUTSIDE RECORDS SUMMARY | 2023-04-21 08:13 | XMS_ITS | Continuity of Care Document ---
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 Start Date: 03/23/20 Status: Ordered atorvastatin 80 mg oral tablet 1 tablet = 80 mg, By Mouth, Daily, # 90 tablet, 1 Refills, Maintenance, 08/10/20 16:44:00 EDT, Tablet, [facility], 168, cm, 07/25/20 8:40:00 EDT, Height, 120, kg, 11/03/19 7:16:00 EDT, Dry Weight Start Date: 08/10/20 Status: Ordered betamethasone topical dipropionate 0.05% cream 1 application, Topically, 2 times a day, to affected area, # 50 Gm, 0 Refills, Maintenance, 04/05/20 8:25:00 EST, Cream, [facility], 1 application Topically 2 times a [...] 11 Refills, Maintenance, 10/10/20 10:00:00 EDT, Powder, [facility] #[id number], Partial fill... Start Date: 10/10/20 Stop Date: [...] Maintenance, 06/10/19 16:08:00 EDT, DIS Tablet, [facility]- , 168, cm, 05/19/19 11:05:00 EST, [...] mL, 3 Refills, Maintenance, 12/19/20 7:29:00EDT, [facility]-, 168, cm, 10/10/20 9:30:00 EDT, Height, 120, kg, 11/03/19 7:16:00 EDT, Dry Weight Start Date: 12/19/20 Status: Ordered levothyroxine 0.088 mg oral tablet 1 tablet = 88 mcg, By Mouth, Daily, dose increased, # 30 tablet, 5 Refills, Maintenance, 12/15/20 15:34:00 EDT, Tablet, [facility], Partial fill upon patient request if the prescription is for a schedule II opioid drug., 168,... Start Date: 12/15/20 Status: Ordered lidocaine 5% topical ointment 1 application, Topically, 3 times a day, prn pain, wash hands thoroughly after application, # 50 Gm, 2 Refills, Maintenance, 06/28/20 12:45:00 EDT, Ointment, [facility], Partial fill upon patient request if the prescription... Start Date: 06/28/20 Status: Ordered losartan 100 mg oral tablet 1 tablet = 100 mg, By Mouth, Daily, # 90 tablet, 0 Refills, Maintenance, 11/03/20 10:42:00 EDT, Tablet, [facility], 168, cm, 10/10/20 9:30:00 EDT, Height, 120, kg, 11/03/19 7:16:00 EDT, Dry Weight Start Date: 11/03/20 Status: Ordered Multiple Vitamins with Iron, Minerals and Docusate oral capsule 1 capsule, By Mouth, Daily, # 30 capsule, 0 Refills, Maintenance, 04/11/20 17:23:00 EST, Capsule, [facility], Partial fill upon patient request if the prescription is for a schedule II opioid drug., 1 capsule By Mouth Daily, 1... Start Date: 04/11/20 Status: Ordered NovoLOG FlexPen 100 units/mL injectable solution See Instructions, INJECT 4 UNITS SUBCUTANEOUSLY THREE TIMES A DAY BEFORE MEALS, # 15 mL, 0 Refills,Maintenance, [facility], 168, cm, 08/29/20 10:15:00 EDT, Height, 120, kg, 11/03/19 7:16:00 EDT, Dry Weight Start Date: 09/07/20 Status: Ordered NuLYTELY with Flavor Packs oral powder for reconstitution 240 mL, By Mouth, Every 10 minutes, Split prep method CAN SUBSTITUTE WITH ANY PEG 3350 SOLUTION AVAILABLE, # 1 each, 0 Refills, Acute 04/18/21 5:30:00 EST, 04/17/21 17:00:00 EST, REC Powder, [facility] #[id number], test date 04/18/21, 240 mL By Mo... Start Date: 04/17/21 Stop Date: 04/18/21 Status: Ordered Pen [place], 31 G x 5 mm BD Ultra [...] Gm, 5 Refills, Maintenance, 10/24/20 5:02:00 EDT, [facility] #[id number], 168, cm, 10/10/20 9:30:00 EDT,Height, 120, kg, 11/03/19 7:16:00 EDT, Dry Weight Start Date: 10/24/20 Status: Ordered Problem List Condition Effective Dates Status Health Status Inform ant Pseudotumor cerebri; s/p CLAIMS REPRESENTATIVE shunt(Confirmed) Active Bipolar disorder(Confirmed) Active Cerebral palsy(Confirmed) Active CKD (chronic kidney disease)(Confirmed) Active Depression(Confirmed) Active Oxygen desaturation during sleep(Confirmed) 1 Active Diabetic neuropathy(Confirmed) Active Diabetic retinopathy(Confirmed) Active GERD (gastroesophageal reflu x disease)(Confirmed) Active Bariatric surgery status(Confirmed) Active HLD (hyperlipidemia)(Confirmed) Active HTN (hypertension)(Confirmed) Active Hypothyroidism(Confirmed) Active Asthma, mild(Confirmed) Active Obesity(Confirmed) Active Obstructive sleep apnea(Confirmed) Active [facility]/GCZ-BZ-TteqnzwBea Avery-[phone]/Health halfway, active care coordination(Confirmed) Active Diabetes mellitus type 2 in obese(Confirmed) Active 1to 75% in Social History Social History Type Response Smoking Status Never (less than 100 in lifetime); Tobacco user in household: No entered on: 10/28/19 Sex Female
--- OUTSIDE RECORDS SUMMARY | 2023-04-21 08:14 | XMS_ITS | Continuity of Care Document ---
Author Name Unknown Organization [facility] Address [address] [place] [id number]- Care Team Providers Care Senior Health Consultant Name Role Phone Valarie CHÁVEZ, Levar Farris Primary Care Physician ( [phone] Encounter [facility] [place] Date(s): 05/11/19 - 05/21/[address] [address]- [facility] Attending Physician: Homero Stanton Admitting Physician: Admtr, [...] 04/20/19 10:07:00 EST, Route to Pharmacy Electronically, [id number], [facility] #[id number], 168, cm, 04/20/19 9:42:00 EST, [place]... Start Date: 04/20/19 Status: Ordered amLODIPine 5 mg oral tablet 5 mg, 1, tablet, By Mouth, Daily, take daily for bllod pressure, # 30 tablet, Refills 5, Tot. Refills 5, Maintenance, 05/19/19 11:16:00 EST, Route to Pharmacy Electronically, [facility] #[id number], 168, cm, 05/19/19 11:05:00 EST, Height, 108.9,... Start Date: 05/19/19 Status: Ordered atorvastatin 80 mg oral tablet 1 tablet = 80 mg, By Mouth, Daily, # 90 tablet, 3 Refills, Maintenance, 03/25/19 15:39:00 EST, Tablet, [facility] #[id number], 168, cm, 03/25/19 14:33:00 EST, Height, 108.9, kg, 01/13/19 14:10:00 EDT, Dry Weight Start Date: 03/25/19 Status: Ordered betamethasone topical dipropionate 0.05% cream 1 application, Topically, 2 times a day, # 50 Gm, 0 Refills, Maintenance, 03/25/19 16:16:00 EST, Cream, [facility] #[id number], 1 application Topically 2 times a day, 168, cm, 03/25/19 14:33:00 EST, Height, 108.9, kg, 01/13/19 14:10:00 EDT, Dry W... Start Date: 03/25/19 Status: Ordered CeraVe topical cream 1 application, Topically, 2 times a day, PRN for dry skin, # 360 Gm, 0 Refills, Maintenance, 03/25/19 16:14:00 EST, Cream, [facility] #[id number], 1 application Topically 2 times a day,PRN:for [...] each, 1 Refills, Maintenance, 04/20/19 10:06:00 EST, [facility] #[id number], prn dry skin, disp 1 bottle, 168, [...] Maintenance, 02/08/1914:36:39 EST, Route to Pharmacy Electronically, [id number], [facility] #[id number] Start Date: 02/08/19 Stop Date: 02/03/20 Status: Ordered gabapentin 400 mg oral capsule 400 mg, 1, capsule, By Mouth, Daily, # 90 capsule, Refills 3, Tot. Refills 3, Maintenance, 02/08/1914:35:49 EST, Route to Pharmacy Electronically, [id number], [facility] #[id number] Start Date: 02/08/19 Stop Date: 02/03/20 Status: Ordered Humalog Kwik Pen 100 units/mL subcutaneous injection = 4 units, Subcutaneous Infusion, 3 times a day before meals, # 15 mL, 11 Refills, Maintenance, 05/19/19 11:24:00 EST, [facility] #[id number], 168, cm, 05/19/19 11:05:00 EST, Height, 108.9, [...] 1 Refills, Maintenance, 05/19/19 11:10:00 EST, Tablet, [facility] #[id number], 168, cm, 05/19/19 11:05:00 EST, Height, 108.9, kg, 01/13/19 14:10:00 EDT, Dry Weight Start Date: 05/19/19 Status: Ordered losartan 100 mg oral tablet 1 tablet = 100 mg, By Mouth, Daily, # 90 tablet, 3 Refills, Maintenance, 03/25/19 16:12:00 EST, Tablet, [facility] #[id number], 168, cm, 03/25/19 14:33:00 EST, Height, 108.9, [...] Weight Start Date: 02/22/19 Status: Ordered Pen [place], 31 G x 5 mm BD Ultra Fine III See Instructions, # 200 each, Refills 3, Tot. Refills 3, Maintenance, use bid with insulin dx E11.9, 04/09/19 10:52:00 EST, Compound, 168, cm, 03/25/19 16:19:00 EST, Height, 108.9, kg, 01/13/19 14:10:00 EDT, Dry Weight Start Date: 04/09/19 Status: Ordered Problem List Condition Effective Dates Status Health Status Inform ant Pseudotumor cerebri; s/p PROVIDER RELATIONS ADVOCATE shunt(Confirmed) Active Bipolar disorder(Confirmed) Active Cerebral palsy(Confirmed) [...]
--- OUTSIDE RECORDS SUMMARY | 2023-04-21 08:14 | XMS_ITS | Continuity of Care Document ---
Author Name Unknown Organization [facility] Address [address] [place] [address]- Care Team Providers Care Plate Cutter Name Role Phone Valarie CHÁVEZ, Levar Farris Primary Care Physician Encounter [facility] [place] Date(s): 05/08/20 - 06/07/[address] [address]- Attending Physician: Homero Stanton Admitting Physician: Homero [...] mL, 5 Refills, Maintenance, 06/22/19 9:59:00 EDT, [facility], 168, cm, 05/19/19 11:05:00EST, Height, 108.9, kg, 01/13/19 14:10:00 EDT, Dry... Start Date: 06/22/19 Status: Ordered albuterol CFC free 90 mcg/inh inhalation aerosol 2, puffs, Inhalation, Every 4 hours, PRN, # 1 each, Refills 2, Tot. Refills 2, Maintenance, 04/04/20 17:08:00 EST, Route to Pharmacy Electronically, NCPDP_ID- [id number], [facility], 168, cm, 12/21/19 8:36:00 EDT, Height, 120, kg,... Start Date: 04/04/20 Status: Ordered amLODIPine 5 mg oral tablet 5 mg, 1, tablet, By Mouth, Daily, # 90 tablet, Refills 3, Tot. Refills 3, Maintenance, 03/23/20 13:59:00 EST, Route to Pharmacy Electronically, [facility]-, Partial fill upon patient request if the prescription is for a schedul... Start Date: 03/23/20 Status: Ordered atorvastatin 80 mg oral tablet 1 tablet = 80 mg, By Mouth, Daily, # 90 tablet, 1 Refills, Maintenance, 02/22/20 15:57:00 EST, Tablet, [facility]-, 168, cm, 12/21/19 8:36:00 EDT, Height, 120, kg, 11/03/19 7:16:00 EDT, Dry Weight Start Date: 02/22/20 Status: Ordered betamethasone topical dipropionate 0.05% cream 1 application, Topically, 2 times a day, to affected area, # 50 Gm, 0 Refills, Maintenance, 04/05/20 8:25:00 EST, Cream, [facility]-, 1 application Topically 2 times a [...] Refills, Maintenance, 06/10/19 16:08:00 EDT, DIS Tablet, [facility]- [id number], 168, cm, 05/19/19 11:05:00 EST, Height, 108.9, [...] mL, 4 Refills, Maintenance, 03/23/20 13:54:00 EST, [facility]-, 168, cm, 12/21/19 8:36:00 EDT, Height, 120, kg, :16:00 EDT, Dry Weight Start Date: 03/23/20 Stop Date: 06/16/21 Status: Ordered losartan 100 mg oral tablet 1 tablet = 100 mg, By Mouth, Daily, # 90 tablet, 1 Refills, Maintenance, 05/15/20 15:41:00 EST, Tablet, [facility]-, 168, cm, 12/21/19 8:36:00 EDT, Height, 120, kg, 11/03/19 7:16:00 EDT, Dry Weight Start Date: 05/15/20 Status: Ordered Multiple Vitamins with Iron, Minerals and Docusate oral capsule 1 capsule, By Mouth, Daily, # 30 capsule, 0 Refills, Maintenance, 04/11/20 17:23:00 EST, Capsule, [facility]-, Partial fill upon patient request if [...] Weight Start Date: 02/22/19 Status: Ordered Pen [place], 31 G x 5 mm BD Ultra [...] Health Status Inform ant Pseudotumor cerebri; s/p CHEF DE CUISINE shunt(Confirmed) Active Bipolar disorder(Confirmed) Active Cerebral palsy(Confirmed) Active CKD (chronic kidney disease)(Confirmed) Active Depression(Confirmed) Active Diabetic neuropathy(Confirmed) Active Diabetic retinopathy(Confirmed) Active GERD (gastroesophageal reflu x disease)(Confirmed) Active Bariatric surgery status(Confirmed) Active HLD (hyperlipidemia)(Confirmed) Active HTN (hypertension)(Confirmed) Active Hypothyroidism(Confirmed) Active [facility]/LQC-SK-VxejtggBea Avery-[phone]/Health [facility], active care coordination(Confirmed) Active Diabetes mellitus type 2 in obese(Confirmed) Active Social History Social History Type Response Smoking Status Never (less than 100 in lifetime); Tobacco user in household: No entered on: 10/28/19 Sex Female
--- OUTSIDE RECORDS SUMMARY | 2023-04-21 08:14 | XMS_ITS | Continuity of Care Document ---
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 Role Phone Valarie CHÁVEZ, Levar Farris Primary Care Physician Encounter [facility] Date(s): 05/16/20 - 06/15/20 [facility] [address] [place] [address]- Allergies, Adverse Reactions, Alerts No Known Medication Allergies Immunizations Given and Recorded Vaccine Date Status Refusal Reason influenza virus vaccine, inactivated 03/25/19 Give n Medications Admelog SoloStar 100 units/mL injectable solution = 4 units, Subcutaneous Infusion, 3 times a day before meals, to replace Humalog, # 3 mL, 5 Refills, Maintenance, 06/22/19 9:59:00 EDT, [facility]-, 168, cm, 05/19/19 11:05:00EST, Height, 108.9, kg, 01/13/19 14:10:00 EDT, Dry... Start Date: 06/22/19 Status: Ordered albuterol CFC free 90 mcg/inh inhalation aerosol 2, puffs, Inhalation, Every 4 hours, PRN, # 1 each, Refills 2, Tot. Refills 2, Maintenance, 04/04/20 17:08:00 EST, Route to Pharmacy Electronically, NCPDP_ID- [id number], [facility]-, 168, cm, 12/21/19 8:36:00 EDT, Height, 120, kg,... Start Date: 04/04/20 Status: Ordered amLODIPine 5 mg oral tablet 5 mg, 1, tablet, By Mouth, Daily, # 90 tablet, Refills 3, Tot. Refills 3, Maintenance, 03/23/20 13:59:00 EST, Route to Pharmacy Electronically, [facility], Partial fill upon patient request if the prescription is for a schedul... Start Date: 03/23/20 Status: Ordered atorvastatin 80 mg oral tablet 1 tablet = 80 mg, By Mouth, Daily, # 90 tablet, 1 Refills, Maintenance, 02/22/20 15:57:00 EST, Tablet, [facility], 168, cm, 12/21/19 8:36:00 EDT, Height, 120, kg, 11/03/19 7:16:00 EDT, Dry Weight Start Date: 02/22/20 Status: Ordered betamethasone topical dipropionate 0.05% cream 1 application, Topically, 2 times a day, to affected area, # 50 Gm, 0 Refills, Maintenance, 04/05/20 8:25:00 EST, Cream, [facility], 1 application Topically 2 times a [...] duplicate script from 05/11/20. [facility]., Compound Start Date: 06/15/20 Status: Ordered [...] Refills, Maintenance, 06/10/19 16:08:00 EDT, DIS Tablet, [facility] [id number], 168, cm, 05/19/19 11:05:00 EST, Height, 108.9, [...] mL, 4 Refills, Maintenance, 03/23/20 13:54:00 EST, [facility], 168, cm, 12/21/19 8:36:00 EDT, Height, 120, kg, 207:16:00 EDT, Dry Weight Start Date: 03/23/20 Stop Date: 06/16/21 Status: Ordered levothyroxine 0.088 mg oral tablet 1 tablet = 88 mcg, By Mouth, Daily, dose increased, # 30 tablet, 5 Refills, Maintenance, 06/15/20 9:09:00 EDT, Tablet, [facility], Partial fill upon patient request if the prescription is for a schedule II opioid drug., 168, c... Start Date: 06/15/20 Status: Ordered losartan 100 mg oral tablet 1 tablet = 100 mg, By Mouth, Daily, # 90 tablet, 1 Refills, Maintenance, 05/15/20 15:41:00 EST, Tablet, [facility], 168, cm, 12/21/19 8:36:00 EDT, Height, 120, kg, 11/03/19 7:16:00 EDT, Dry Weight Start Date: 05/15/20 Status: Ordered Multiple Vitamins with Iron, Minerals and Docusate oral capsule 1 capsule, By Mouth, Daily, # 30 capsule, 0 Refills, Maintenance, 04/11/20 17:23:00 EST, Capsule, [facility], Partial fill upon patient request if [...] Weight Start Date: 02/22/19 Status: Ordered Pen [place], 31 G x 5 mm BD Ultra [...] Health Status Inform ant Pseudotumor cerebri; s/p MEDIATION COMMISSIONER shunt(Confirmed) Active Bipolar disorder(Confirmed) Active Cerebral palsy(Confirmed) Active CKD (chronic kidney disease)(Confirmed) Active Depression(Confirmed) Active Diabetic neuropathy(Confirmed) Active Diabetic retinopathy(Confirmed) Active GERD (gastroesophageal reflu x disease)(Confirmed) Active Bariatric surgery status(Confirmed) Active HLD (hyperlipidemia)(Confirmed) Active HTN (hypertension)(Confirmed) Active Hypothyroidism(Confirmed) Active [facility]/ZPI-EL-YyqbwojBea Avery-[phone]/Health half-way, active care coordination(Confirmed) Active Diabetes mellitus type 2 in obese(Confirmed) Active Social History Social History Type Response Smoking Status Never (less than 100 in lifetime); Tobacco user in household: No entered on: 10/28/19 Sex Female
--- OUTSIDE RECORDS SUMMARY | 2023-04-21 08:14 | XMS_ITS | Continuity of Care Document ---
Author Name Unknown Organization [facility] [place] [facility] Address [address] [place] [address]- Care Team Providers Care Rides Attendant Name Role Phone Bonifacio Pacheco MD Primary Care Physician [phone] [place] [facility]16[place]21 [place] 06/15/21 [facility] [place] [facility] [address] [place] [address]- Allergies, Adverse Reactions, Alerts No Known Medication [...] tablet, 5 Refills, Maintenance, 02/24/21 16:01:00 EST, [facility]-, 168, cm, 01/26/21 7:47:00 EST, Height, 120, kg, 11/03/19 7:16:00 EDT, Dry Weight Start Date: 02/24/21 Status: Ordered atorvastatin 80 mg oral tablet 1 tablet, By Mouth, Daily, # 28 tablet, 5 Refills, Maintenance, 02/02/21 8:31:00 EST, [facility]-, 168, cm, 01/26/21 7:47:00 EST, Height, 120, kg, 11/03/19 7:16:00 EDT, Dry Weight Start Date: 02/02/21 Status: Ordered betamethasone topical dipropionate 0.05% cream 1 application, Topically, 2 times a day, to affected area, # 50 Gm, 0 Refills, Maintenance, 04/05/20 8:25:00 EST, Cream, [id number], 1 application Topically 2 times a day,Instr:to affected area, 168, cm, 12/21/19 8:36:00 EDT,... Start Date: 04/05/20 Status: Ordered diclofenac 1% topical gel 1 application, Topically, 4 times a day, not to exceed 32 grams/day, # 100 Gm, 1 Refills, Maintenance, 01/26/21 8:25:00 EST, [facility] #[id number], Partial fill upon patient request if theprescription [...] 11 Refills, Maintenance, 10/10/20 10:00:00 EDT, Powder, [facility] #[id number], Partial fill... Start Date: 10/10/20 Stop Date: [...] 15 mL, 3 Refills, Maintenance, 12/19/20 7:29:00EDT, [id number], 168, cm, 10/10/20 9:30:00 EDT, Height, 120, kg, 11/03/19 7:16:00 EDT, Dry Weight Start Date: 12/19/20 Status: Ordered levothyroxine 0.088 mg oral tablet 1 tablet, By Mouth, Daily, # 28 tablet, 0 Refills, [id number], 168, cm, 04/03/21 8:33:00 EST, Height, 120, kg, 11/03/19 7:16:00 EDT, Dry Weight Start Date: 05/21/21 Status: Ordered lidocaine 5% topical ointment 1 application, Topically, 3 times a day, prn pain, wash hands thoroughly after application, # 50 Gm, 2 Refills, Maintenance, 06/28/20 12:45:00 EDT, Ointment, [facility]-, Partial fill upon patient request if the prescription... Start Date: 06/28/20 Status: Ordered lidocaine 5% topical ointment 1 application, Topically, 3 times a day, wash hands thoroughly after application, prn pain, # 50 Gm, 2 Refills, Maintenance, 04/03/21 8:36:00 EST, Ointment, [facility] #[id number], Partial fill upon patient request if the prescription is for a sc... Start Date: 04/03/21 Status: Ordered Lidoderm 5% film 3 patch, Topically, Daily, remove patches after 12 hours, # 30 patch, 5 Refills, Maintenance, 04/12/21 11:04:00 EST, [facility] #[id number], Partial fill upon patient request if the [...] 28 tablet, 5 Refills, 04/23/21 11:41:00 EST, [facility] #[id number], 168, cm, 04/03/21 8:33:00 EST, Height, 120, kg, 11/03/19 7:16:00 EDT, Dry Weight Start Date: 04/23/21 Status: Ordered Multiple Vitamins with Iron, Minerals and Docusate oral capsule 1 capsule, By Mouth, Daily, # 30 capsule, 0 Refills, Maintenance, 04/11/20 17:23:00 EST, Capsule, [facility]-, Partial fill upon patient request if the prescription is for a schedule II opioid drug., 1 capsule By Mouth Daily, 1... Start Date: 04/11/20 Status: Ordered NovoLOG FlexPen 100 units/mL injectable solution See Instructions, Please follow sliding scale TID with meals between 2-8 units. max daily dose: 24 units E11.9, # 15 mL, 11 Refills, 03/06/21 9:51:00 EST, [facility] #[id number], 168, cm, 03/06/21 9:27:00 EST, Height, 120, kg, 11/03/19 7:16:0... 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 Bipolar disorder(Confirmed) Active Cerebral palsy(Confirmed) Active CKD (chronic kidney disease)(Confirmed) Active Depression(Confirmed) Active Oxygen desaturation during sleep(Confirmed) 1 Active Diabetic neuropathy(Confirmed) Active Diabetic retinopathy(Confirmed) Active GERD (gastroesophageal reflu x disease)(Confirmed) Active Bariatric surgery status(Confirmed) Active HLD (hyperlipidemia)(Confirmed) Active HTN (hypertension)(Confirmed) Active Hypothyroidism(Confirmed) Active Asthma, mild(Confirmed) Active Obese class I(Confirmed) Active Obesity(Confirmed) Active Obstructive sleep apnea(Confirmed) Active [facility]/IYP-QN-LtshcxuBea Avery-[phone]/Health residential, active care coordination(Confirmed) Active Diabetes mellitus type 2 in obese(Confirmed) Active 1to 75% in Social History Social History Type Response Smoking Status Never (less than 100 in lifetime); Tobacco user in household: No entered on: 10/28/19 Sex Female
--- OUTSIDE RECORDS SUMMARY | 2023-04-21 08:14 | XMS_ITS | Continuity of Care Document ---
Author Name Unknown Organization [facility] Address [address] [place] [address]- Care Team Providers Care Microcomputer Support Specialist Name Role Phone Valarie CHÁVEZ, Levar Farris Primary Care Physician Encounter [facility] [place] [place] Date(s): 08/11/20 - 09/10/20 [facility] [address] [place] [address]- Allergies, Adverse Reactions, Alerts No Known Medication [...] 17:08:00 EST, Route to Pharmacy Electronically, NCPDP_ID- [id number], [facility]-, 168, cm, 12/21/19 8:36:00 EDT, Height, 120, kg,... Start Date: 04/04/20 Status: Ordered amLODIPine 5 mg oral tablet 5 mg, 1, tablet, By Mouth, Daily, # 90 tablet, Refills 3, Tot. Refills 3, Maintenance, 03/23/20 13:59:00 EST, Route to Pharmacy Electronically, [facility]-, Partial fill upon patient request if the prescription is for a schedul... Start Date: 03/23/20 Status: Ordered atorvastatin 80 mg oral tablet 1 tablet = 80 mg, By Mouth, Daily, # 90 tablet, 1 Refills, Maintenance, 08/10/20 16:44:00 EDT, Tablet, [facility]-, 168, cm, 07/25/20 8:40:00 EDT, Height, 120, kg, 11/03/19 7:16:00 EDT, Dry Weight Start Date: 08/10/20 Status: Ordered betamethasone topical dipropionate 0.05% cream 1 application, Topically, 2 times a day, to affected area, # 50 Gm, 0 Refills, Maintenance, 04/05/20 8:25:00 EST, Cream, [facility]-, 1 application Topically 2 times a [...] script from 05/11/20. Original sent to [facility]., Compound, 1... Start Date: 07/17/20 [...] Maintenance, 06/10/19 16:08:00 EDT, DIS Tablet, [facility]- [id number], 168, cm, 05/19/19 11:05:00 EST, Height, 108.9, [...] mL, 4 Refills, Maintenance, 03/23/20 13:54:00 EST, [facility]-[id number], 168, cm, 12/21/19 8:36:00 EDT, Height, 120, kg, 08/19/207:16:00 EDT, Dry Weight Start Date: 03/23/20 Stop Date: 06/16/21 Status: Ordered levothyroxine 0.088 mg oral tablet 1 tablet = 88 mcg, By Mouth, Daily, dose increased, # 30 tablet, 5 Refills, Maintenance, 06/15/20 9:09:00 EDT, Tablet, [facility], Partial fill upon patient request if the prescription is for a schedule II opioid drug., 168, c... Start Date: 06/15/20 Status: Ordered lidocaine 5% topical ointment 1 application, Topically, 3 times a day, prn pain, wash hands thoroughly after application, # 50 Gm, 2 Refills, Maintenance, 06/28/20 12:45:00 EDT, Ointment, [facility], Partial fill upon patient request if the prescription... Start Date: 06/28/20 Status: Ordered losartan 100 mg oral tablet 1 tablet = 100 mg, By Mouth, Daily, # 90 tablet, 1 Refills, Maintenance, 05/15/20 15:41:00 EST, Tablet, [facility], 168, cm, 12/21/19 8:36:00 EDT, Height, 120, kg, 11/03/19 7:16:00 EDT, Dry Weight Start Date: 05/15/20 Status: Ordered Multiple Vitamins with Iron, Minerals and Docusate oral capsule 1 capsule, By Mouth, Daily, # 30 capsule, 0 Refills, Maintenance, 04/11/20 17:23:00 EST, Capsule, [facility], Partial fill upon patient request if the prescription is for a schedule II opioid drug., 1 capsule By Mouth Daily, 1... Start Date: 04/11/20 Status: Ordered NovoLOG FlexPen 100 units/mL injectable solution See Instructions, INJECT 4 UNITS SUBCUTANEOUSLY THREE TIMES A DAY BEFORE MEALS, # 15 mL, 0 Refills,Maintenance, [facility], 168, cm, 08/29/20 10:15:00 EDT, Height, 120, kg, 11/03/19 7:16:00 EDT, Dry Weight Start Date: 09/07/20 Status: Ordered AzureBooker Verio Glucose Meter See Instructions, # 1 [...] Weight Start Date: 02/22/19 Status: Ordered Pen [place], 31 G x 5 mm BD Ultra [...] Health Status Inform ant Pseudotumor cerebri; s/p KEY ACCOUNT EXECUTIVE shunt(Confirmed) Active Bipolar disorder(Confirmed) Active Cerebral palsy(Confirmed) Active CKD (chronic kidney disease)(Confirmed) Active Depression(Confirmed) Active Diabetic neuropathy(Confirmed) Active Diabetic retinopathy(Confirmed) Active GERD (gastroesophageal reflu x disease)(Confirmed) Active Bariatric surgery status(Confirmed) Active HLD (hyperlipidemia)(Confirmed) Active HTN (hypertension)(Confirmed) Active Hypothyroidism(Confirmed) Active [facility]/GJN-YD-MqqchuxBea [id number]-[id number]/Health half-way, active care coordination(Confirmed) Active Diabetes mellitus type 2 in obese(Confirmed) Active Social History Social History Type Response Smoking Status Never (less than 100 in lifetime); Tobacco user in household: No entered on: 10/28/19 Sex Female
--- OUTSIDE RECORDS SUMMARY | 2023-04-21 08:14 | XMS_ITS | Continuity of Care Document ---
Author Name Unknown Organization [facility] ter Address [address] [place] [phone]- Care Team Providers Care Criminal Researcher Name Role Phone Valarie CHÁVEZ, Levar Farris Primary Care Physician ( [phone] Encounter [facility] [place] Date(s): 03/14/20 - 04/19/[address] [address] Attending Physician: Pop Juan MD Admitting Physician: Pop Juan MD Referring Physician: Pop Juan MD Allergies, Adverse Reactions, Alerts No Known Medication Allergies Immunizations Given and Recorded Vaccine Date Status Refusal Reason influenza virus vaccine, inactivated 03/25/19 Give n Medications Admelog SoloStar 100 units/mL injectable solution = 4 units, Subcutaneous Infusion, 3 times a day before meals, to replace Humalog, # 3 mL, 5 Refills, Maintenance, 06/22/19 9:59:00 EDT, [facility]-, 168, cm, 05/19/19 11:05:00EST, Height, 108.9, kg, 01/13/19 14:10:00 EDT, Dry... Start Date: 06/22/19 Status: Ordered albuterol CFC free 90 mcg/inh inhalation aerosol 2, puffs, Inhalation, Every 4 hours, PRN, # 1 each, Refills 2, Tot. Refills 2, Maintenance, 04/04/20 17:08:00 EST, Route to Pharmacy Electronically, NCPDP_ID- [id number], [facility]-, 168, cm, 12/21/19 8:36:00 EDT, Height, 120, kg,... Start Date: 04/04/20 Status: Ordered amLODIPine 5 mg oral tablet 5 mg, 1, tablet, By Mouth, Daily, # 90 tablet, Refills 3, Tot. Refills 3, Maintenance, 03/23/20 13:59:00 EST, Route to Pharmacy Electronically, [facility], Partial fill upon patient request if the prescription is for a schedul... Start Date: 03/23/20 Status: Ordered atorvastatin 80 mg oral tablet 1 tablet = 80 mg, By Mouth, Daily, # 90 tablet, 1 Refills, Maintenance, 02/22/20 15:57:00 EST, Tablet, [facility]-, 168, cm, 12/21/19 8:36:00 EDT, Height, 120, kg, 11/03/19 7:16:00 EDT, Dry Weight Start Date: 02/22/20 Status: Ordered betamethasone topical dipropionate 0.05% cream 1 application, Topically, 2 times a day, to affected area, # 50 Gm, 0 Refills, Maintenance, 04/05/20 8:25:00 EST, Cream, [facility], 1 application Topically 2 times a [...] 06/22/19 10:03:00 EDT, Route to Pharmacy Electronically, [facility]- , 168, cm, 03/0... Start Date: 06/22/19 [...] Refills, Maintenance, 06/10/19 16:08:00 EDT, DIS Tablet, [facility]- [id number], 168, cm, 05/19/19 11:05:00 EST, Height, 108.9, [...] mL, 4 Refills, Maintenance, 03/23/20 13:54:00 EST, [facility]-, 168, cm, 12/21/19 8:36:00 EDT, Height, 120, kg, :16:00 EDT, Dry Weight Start Date: 03/23/20 Stop Date: 06/16/21 Status: Ordered losartan 100 mg oral tablet 1 tablet = 100 mg, By Mouth, Daily, # 90 tablet, 0 Refills, Maintenance, 02/22/20 15:57:00 EST, Tablet, [facility]-, 168, cm, 12/21/19 8:36:00 EDT, Height, 120, kg, 11/03/19 7:16:00 EDT, Dry Weight Start Date: 02/22/20 Status: Ordered Multiple Vitamins with Iron, Minerals and Docusate oral capsule 1 capsule, By Mouth, Daily, # 30 capsule, 0 Refills, Maintenance, 04/11/20 17:23:00 EST, Capsule, [facility]-, Partial fill upon patient request if [...] Weight Start Date: 02/22/19 Status: Ordered Pen [place], 31 G x 5 mm BD Ultra [...] 11/29/19 14:06:00 EDT, Route to Pharmacy Electronically, [facility]28[facility], 168, cm, 11/16/19 13:19:00 EDT, Height, 120, kg, 11/03/19... 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; s/p RN NEW GRADUATE shunt(Confirmed) Active Bipolar disorder(Confirmed) Active Cerebral palsy(Confirmed) Active CKD (chronic kidney disease)(Confirmed) Active Depression(Confirmed) Active Diabetic neuropathy(Confirmed) Active Diabetic retinopathy(Confirmed) Active GERD (gastroesophageal reflu x disease)(Confirmed) Active Bariatric surgery status(Confirmed) Active HLD (hyperlipidemia)(Confirmed) Active HTN (hypertension)(Confirmed) Active Hypothyroidism(Confirmed) Active [facility]/MYS-LN-CnagarqChristi Avery-[phone]/Health [facility], active care coordination(Confirmed) Active Diabetes mellitus type 2 in obese(Confirmed) Active Social History Social History Type Response Smoking Status Never (less than 100 in lifetime); Tobacco user in household: No entered on: 10/28/19 Sex Female
--- OUTSIDE RECORDS SUMMARY | 2023-04-21 08:14 | XMS_ITS | Continuity of Care Document ---
Author Name Unknown Organization [facility] Address [address] [place] [address]- Care Team Providers Care Hydrologist Name Role Phone Bonifacio Pacheco MD Primary Care Physician Encounter [facility] Date(s): 05/09/21 - 06/08/21 [facility] [address] [place] [phone]- Allergies, Adverse Reactions, Alerts No Known Medication [...] tablet, 5 Refills, Maintenance, 02/24/21 16:01:00 EST, [facility]-, 168, cm, 01/26/21 7:47:00 EST, Height, 120, kg, 11/03/19 7:16:00 EDT, Dry Weight Start Date: 02/24/21 Status: Ordered atorvastatin 80 mg oral tablet 1 tablet, By Mouth, Daily, # 28 tablet, 5 Refills, Maintenance, 02/02/21 8:31:00 EST, [facility]-, 168, cm, 01/26/21 7:47:00 EST, Height, 120, kg, 11/03/19 7:16:00 EDT, Dry Weight Start Date: 02/02/21 Status: Ordered betamethasone topical dipropionate 0.05% cream 1 application, Topically, 2 times a day, to affected area, # 50 Gm, 0 Refills, Maintenance, 04/05/20 8:25:00 EST, Cream, [facility]-[id number], 1 application Topically 2 times a day,Instr:to affected area, 168, cm, 12/21/19 8:36:00 EDT,... Start Date: 04/05/20 Status: Ordered diclofenac 1% topical gel 1 application, Topically, 4 times a day, not to exceed 32 grams/day, # 100 Gm, 1 Refills, Maintenance, 01/26/21 8:25:00 EST, [facility][id number], Partial fill upon patient request if theprescription [...] 11 Refills, Maintenance, 10/10/20 10:00:00 EDT, Powder, [facility] #[id number], Partial fill... Start Date: 10/10/20 Stop Date: [...] 15 mL, 3 Refills, Maintenance, 12/19/20 7:29:00EDT, [facility]-10625, 168, cm, 10/10/20 9:30:00 EDT, Height, 120, kg, 11/03/19 7:16:00 EDT, Dry Weight Start Date: 12/19/20 Status: Ordered levothyroxine 0.088 mg oral tablet 1 tablet, By Mouth, Daily, # 28 tablet, 0 Refills, [facility]387[facility], 168, cm, 04/03/21 8:33:00 EST, Height, 120, kg, 11/03/19 7:16:00 EDT, Dry Weight Start Date: 05/21/21 Status: Ordered lidocaine 5% topical ointment 1 application, Topically, 3 times a day, prn pain, wash hands thoroughly after application, # 50 Gm, 2 Refills, Maintenance, 06/28/20 12:45:00 EDT, Ointment, [facility]-, Partial fill upon patient request if the prescription... Start Date: 06/28/20 Status: Ordered lidocaine 5% topical ointment 1 application, Topically, 3 times a day, wash hands thoroughly after application, prn pain, # 50 Gm, 2 Refills, Maintenance, 04/03/21 8:36:00 EST, Ointment, [facility] #[id number], Partial fill upon patient request if the prescription is for a sc... Start Date: 04/03/21 Status: Ordered Lidoderm 5% film 3 patch, Topically, Daily, remove patches after 12 hours, # 30 patch, 5 Refills, Maintenance, 04/12/21 11:04:00 EST, [facility] #[id number], Partial fill upon patient request if the [...] 28 tablet, 5 Refills, 04/23/21 11:41:00 EST, [facility] #[id number], 168, cm, 04/03/21 8:33:00 EST, Height, 120, kg, 11/03/19 7:16:00 EDT, Dry Weight Start Date: 04/23/21 Status: Ordered Multiple Vitamins with Iron, Minerals and Docusate oral capsule 1 capsule, By Mouth, Daily, # 30 capsule, 0 Refills, Maintenance, 04/11/20 17:23:00 EST, Capsule, [facility]-, Partial fill upon patient request if the prescription is for a schedule II opioid drug., 1 capsule By Mouth Daily, 1... Start Date: 04/11/20 Status: Ordered NovoLOG FlexPen 100 units/mL injectable solution See Instructions, Please follow sliding scale TID with meals between 2-8 units. max daily dose: 24 units E11.9, # 15 mL, 11 Refills, 03/06/21 9:51:00 EST, [facility] #[id number], 168, cm, 03/06/21 9:27:00 EST, Height, 120, kg, 11/03/19 7:16:0... Start Date: 03/06/21 Status: Ordered Pen [place], 31 G x [...] Gm, 5 Refills, Maintenance, 10/24/20 5:02:00 EDT, [facility] #[id number], 168, cm, 10/10/20 9:30:00 EDT,Height, 120, kg, 11/03/19 7:16:00 EDT, Dry Weight Start Date: 10/24/20 Status: Ordered Problem List Condition Effective Dates Status Health Status Inform ant Pseudotumor cerebri; s/p ADVANCED RESEARCH PROGRAMS DIRECTOR shunt(Confirmed) Active Bipolar disorder(Confirmed) Active Cerebral palsy(Confirmed) Active CKD (chronic kidney disease)(Confirmed) Active Depression(Confirmed) Active Oxygen desaturation during sleep(Confirmed) 1 Active Diabetic neuropathy(Confirmed) Active Diabetic retinopathy(Confirmed) Active GERD (gastroesophageal reflu x disease)(Confirmed) Active Bariatric surgery status(Confirmed) Active HLD (hyperlipidemia)(Confirmed) Active HTN (hypertension)(Confirmed) Active Hypothyroidism(Confirmed) Active Asthma, mild(Confirmed) Active Obese class I(Confirmed) Active Obesity(Confirmed) Active Obstructive sleep apnea(Confirmed) Active [facility]-ET-TrarvtwBea Avery-[phone]/Health fdc, active care coordination(Confirmed) Active Diabetes mellitus type 2 in obese(Confirmed) Active 1to 75% in Social History Social History Type Response Smoking Status Never (less than 100 in lifetime); Tobacco user in household: No entered on: 10/28/19 Sex Female
--- OUTSIDE RECORDS SUMMARY | 2023-04-21 08:14 | XMS_ITS | Continuity of Care Document ---
Author Name Unknown Organization [facility] Address [address] [place] [address]- Care Team Providers Care Cashier Office Name Role Phone Valarie CHÁVEZ, Levar Farris Primary Care Physician Encounter [facility] Date(s): 04/04/20 - 05/04/20 [facility] [address] [place] [phone]- Allergies, Adverse Reactions, Alerts No Known Medication Allergies Immunizations Given and Recorded Vaccine Date Status Refusal Reason influenza virus vaccine, inactivated 03/25/19 Give n Medications Admelog SoloStar 100 units/mL injectable solution = 4 units, Subcutaneous Infusion, 3 times a day before meals, to replace Humalog, # 3 mL, 5 Refills, Maintenance, 06/22/19 9:59:00 EDT, [facility]-, 168, cm, 05/19/19 11:05:00EST, Height, 108.9, kg, 01/13/19 14:10:00 EDT, Dry... Start Date: 06/22/19 Status: Ordered albuterol CFC free 90 mcg/inh inhalation aerosol 2, puffs, Inhalation, Every 4 hours, PRN, # 1 each, Refills 2, Tot. Refills 2, Maintenance, 04/04/20 17:08:00 EST, Route to Pharmacy Electronically, NCPDP_ID- [id number], [facility]-, 168, cm, 12/21/19 8:36:00 EDT, Height, 120, kg,... Start Date: 04/04/20 Status: Ordered amLODIPine 5 mg oral tablet 5 mg, 1, tablet, By Mouth, Daily, # 90 tablet, Refills 3, Tot. Refills 3, Maintenance, 03/23/20 13:59:00 EST, Route to Pharmacy Electronically, [facility], Partial fill upon patient request if the prescription is for a schedul... Start Date: 03/23/20 Status: Ordered atorvastatin 80 mg oral tablet 1 tablet = 80 mg, By Mouth, Daily, # 90 tablet, 1 Refills, Maintenance, 02/22/20 15:57:00 EST, Tablet, [facility], 168, cm, 12/21/19 8:36:00 EDT, Height, 120, kg, 11/03/19 7:16:00 EDT, Dry Weight Start Date: 02/22/20 Status: Ordered betamethasone topical dipropionate 0.05% cream 1 application, Topically, 2 times a day, to affected area, # 50 Gm, 0 Refills, Maintenance, 04/05/20 8:25:00 EST, Cream, [facility], 1 application Topically 2 times a day,Instr:to [...] Refills, Maintenance, 06/10/19 16:08:00 EDT, DIS Tablet, [facility] [address]8315, 168, cm, 05/19/19 11:05:00 EST, Height, 108.9, [...] 4 Refills, Maintenance, 03/23/20 13:54:00 EST, [facility]-, 168, cm, 12/21/19 8:36:00 EDT, Height, 120, kg, 207:16:00 EDT, Dry Weight Start Date: 03/23/20 Stop Date: 06/16/21 Status: Ordered losartan 100 mg oral tablet 1 tablet = 100 mg, By Mouth, Daily, # 90 tablet, 0 Refills, Maintenance, 02/22/20 15:57:00 EST, Tablet, [facility], 168, cm, 12/21/19 8:36:00 EDT, Height, 120, kg, 11/03/19 7:16:00 EDT, Dry Weight Start Date: 02/22/20 Status: Ordered Multiple Vitamins with Iron, Minerals and Docusate oral capsule 1 capsule, By Mouth, Daily, # 30 capsule, 0 Refills, Maintenance, 04/11/20 17:23:00 EST, Capsule, [facility]-, Partial fill upon patient request if [...] Weight Start Date: 02/22/19 Status: Ordered Pen [place], 31 G x 5 mm BD Ultra [...] 11/29/19 14:06:00 EDT, Route to Pharmacy Electronically, [facility]52270, 168, cm, 11/16/19 13:19:00 EDT, Height, 120, kg, 11/03/19... 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; s/p CHIEF MERCHANDISING OFFICER shunt(Confirmed) Active Bipolar disorder(Confirmed) Active Cerebral palsy(Confirmed) Active CKD (chronic kidney disease)(Confirmed) Active Depression(Confirmed) Active Diabetic neuropathy(Confirmed) Active Diabetic retinopathy(Confirmed) Active GERD (gastroesophageal reflu x disease)(Confirmed) Active Bariatric surgery status(Confirmed) Active HLD (hyperlipidemia)(Confirmed) Active HTN (hypertension)(Confirmed) Active Hypothyroidism(Confirmed) Active [facility]/YOG-NI-OwqlkliBea Avery-[phone]/Health longterm, active care coordination(Confirmed) Active Diabetes mellitus type 2 in obese(Confirmed) Active Social History Social History Type Response Smoking Status Never (less than 100 in lifetime); Tobacco user in household: No entered on: 10/28/19 Sex Female
--- OUTSIDE RECORDS SUMMARY | 2023-04-21 08:14 | XMS_ITS | Continuity of Care Document ---
Author Name Unknown Organization [facility] Address [address] [place] [address]- Care Team Providers Care Dandy Operator Name Role Phone Valarie CHÁVEZ, Levar Farris Primary Care Physician Encounter [facility] Date(s): 03/30/20 - 04/29/20 [facility] [address] [place] [phone]- Allergies, Adverse Reactions, Alerts No Known Medication [...] 17:08:00 EST, Route to Pharmacy Electronically, NCPDP_ID- [id number], [facility]-, 168, cm, 12/21/19 8:36:00 EDT, Height, 120, kg,... Start Date: 04/04/20 Status: Ordered amLODIPine 5 mg oral tablet 5 mg, 1, tablet, By Mouth, Daily, # 90 tablet, Refills 3, Tot. Refills 3, Maintenance, 03/23/20 13:59:00 EST, Route to Pharmacy Electronically, [facility], Partial fill upon patient request if the prescription is for a schedul... Start Date: 03/23/20 Status: Ordered atorvastatin 80 mg oral tablet 1 tablet = 80 mg, By Mouth, Daily, # 90 tablet, 1 Refills, Maintenance, 02/22/20 15:57:00 EST, Tablet, [facility]-, 168, cm, 12/21/19 8:36:00 EDT, Height, 120, kg, 11/03/19 7:16:00 EDT, Dry Weight Start Date: 02/22/20 Status: Ordered betamethasone topical dipropionate 0.05% cream 1 application, Topically, 2 times a day, to affected area, # 50 Gm, 0 Refills, Maintenance, 04/05/20 8:25:00 EST, Cream, [facility], 1 application [...] Refills, Maintenance, 06/10/19 16:08:00 EDT, DIS Tablet, [facility] [id number], 168, cm, 05/19/19 11:05:00 EST, Height, 108.9, [...] mL, 4 Refills, Maintenance, 03/23/20 13:54:00 EST, [facility]-, 168, cm, 12/21/19 8:36:00 EDT, Height, 120, kg, 207:16:00 EDT, Dry Weight Start Date: 03/23/20 Stop Date: 06/16/21 Status: Ordered losartan 100 mg oral tablet 1 tablet = 100 mg, By Mouth, Daily, # 90 tablet, 0 Refills, Maintenance, 02/22/20 15:57:00 EST, Tablet, [facility], 168, cm, 12/21/19 8:36:00 EDT, Height, 120, kg, 11/03/19 7:16:00 EDT, Dry Weight Start Date: 02/22/20 Status: Ordered Multiple Vitamins with Iron, Minerals and Docusate oral capsule 1 capsule, By Mouth, Daily, # 30 capsule, 0 Refills, Maintenance, 04/11/20 17:23:00 EST, Capsule, [facility], Partial fill upon patient request [...] Weight Start Date: 02/22/19 Status: Ordered Pen [place], 31 G x 5 mm BD Ultra [...] 11/29/19 14:06:00 EDT, Route to Pharmacy Electronically, [id number], 168, cm, 11/16/19 13:19:00 EDT, Height, 120, kg, 11/03/19... 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; s/p CHEMICAL LAB SUPERVISOR shunt(Confirmed) Active Bipolar disorder(Confirmed) Active Cerebral palsy(Confirmed) Active CKD (chronic kidney disease)(Confirmed) Active Depression(Confirmed) Active Diabetic neuropathy(Confirmed) Active Diabetic retinopathy(Confirmed) Active GERD (gastroesophageal reflu x disease)(Confirmed) Active Bariatric surgery status(Confirmed) Active HLD (hyperlipidemia)(Confirmed) Active HTN (hypertension)(Confirmed) Active Hypothyroidism(Confirmed) Active [facility]-EV-QfqqboiBea Avery-[phone]/Health long-term, active care coordination(Confirmed) Active Diabetes mellitus type 2 in obese(Confirmed) Active Social History Social History Type Response Smoking Status Never (less than 100 in lifetime); Tobacco user in household: No entered on: 10/28/19 Sex Female
--- OUTSIDE RECORDS SUMMARY | 2023-04-21 08:14 | XMS_ITS | Continuity of Care Document ---
Author Name Unknown Organization [facility] Address [address] [place] [address]- Care Team Providers Care Cracking Unit Operator Name Role Phone Valarie CHÁVEZ, Levar Farris Primary Care Physician Encounter [facility] Date(s): 06/22/19 - 07/02/19 [facility] [address] [place] [address]- [facility] Attending Physician: Homero Stanton Admitting Physician: Homero [...] mL, 5 Refills, Maintenance, 06/22/19 9:59:00 EDT, [facility]-[id number], 168, cm, 05/19/19 11:05:00EST, Height, 108.9, kg, 01/13/19 14:10:00 EDT, Dry... Start Date: 06/22/19 Status: Ordered albuterol CFC free 90 mcg/inh inhalation aerosol 2, puffs, Inhalation, Every 6 hours, PRN, # 1 each, Refills 2, Tot. Refills 2, Maintenance, 04/20/19 10:07:00 EST, Route to Pharmacy Electronically, [id number], [facility] #[id number], 168, cm, 04/20/19 9:42:00 EST, [place]... Start Date: 04/20/19 Status: Ordered amLODIPine 5 mg oral tablet 5 mg, 1, tablet, By Mouth, Daily, take daily for bllod pressure, # 30 tablet, Refills 5, Tot. Refills 5, Maintenance, 05/19/19 11:16:00 EST, Route to Pharmacy Electronically, [facility] #[id number], 168, cm, 05/19/19 11:05:00 EST, Height, 108.9,... Start Date: 05/19/19 Status: Ordered atorvastatin 80 mg oral tablet 1 tablet = 80 mg, By Mouth, Daily, # 90 tablet, 3 Refills, Maintenance, 03/25/19 15:39:00 EST, Tablet, [facility] #[id number], 168, cm, 03/25/19 14:33:00 EST, Height, 108.9, kg, 01/13/19 14:10:00 EDT, Dry Weight Start Date: 03/25/19 Status: Ordered betamethasone topical dipropionate 0.05% cream 1 application, Topically, 2 times a day, # 50 Gm, 0 Refills, Maintenance, 03/25/19 16:16:00 EST, Cream, [facility] #[id number], 1 application Topically 2 times a day, 168, cm, 03/25/19 14:33:00 EST, Height, 108.9, kg, 01/13/19 14:10:00 EDT, Dry W... Start Date: 03/25/19 Status: Ordered CeraVe topical cream 1 application, Topically, 2 times a day, PRN for dry skin, # 360 Gm, 0 Refills, Maintenance, 03/25/19 16:14:00 EST, Cream, [facility] #[id number], 1 application Topically 2 times a day,PRN:for [...] each, 1 Refills, Maintenance, 04/20/19 10:06:00 EST, [facility] #[id number], prn dry skin, disp 1 bottle, 168, [...] 06/22/19 10:03:00 EDT, Route to Pharmacy Electronically, [facility]-75409, 168, cm, 05/19/19 11:05:00 EST, Height, 108.9,... Start Date: 06/22/19 Stop Date: 06/16/20 Status: Ordered gabapentin 400 mg oral capsule 400 mg, 1, capsule, By Mouth, Daily, # 90 capsule, Refills 3, Tot. Refills 3, Maintenance, 02/08/1914:35:49 EST, Route to Pharmacy Electronically, [id number], [facility] #[id number] Start Date: 02/08/19 Stop Date: 02/03/20 Status: Ordered lamotrigine 50 mg oral tablet, disintegrating 1 tablet = 50 mg, By Mouth, Daily at bedtime, # 90 tablet, 3 Refills, Maintenance, 06/10/19 16:08:00 EDT, DIS Tablet, [facility]- , 168, cm, 05/19/19 11:05:00 [...] 1 Refills, Maintenance, 05/19/19 11:10:00 EST, Tablet, [facility] #[id number], 168, cm, 05/19/19 11:05:00 EST, Height, 108.9, kg, 01/13/19 14:10:00 EDT, Dry Weight Start Date: 05/19/19 Status: Ordered losartan 100 mg oral tablet 1 tablet = 100 mg, By Mouth, Daily, # 90 tablet, 3 Refills, Maintenance, 03/25/19 16:12:00 EST, Tablet, [facility] #[id number], 168, cm, 03/25/19 14:33:00 EST, Height, 108.9, [...] Weight Start Date: 02/22/19 Status: Ordered Pen [place], 31 G x 5 mm BD Ultra Fine III See Instructions, # 200 each, Refills 3, Tot. Refills 3, Maintenance, use bid with insulin dx E11.9, 04/09/19 10:52:00 EST, Compound, 168, cm, 03/25/19 16:19:00 EST, Height, 108.9, kg, 01/13/19 14:10:00 EDT, Dry Weight Start Date: 04/09/19 Status: Ordered Problem List Condition Effective Dates Status Health Status Inform ant Pseudotumor cerebri; s/p PLANT BREEDER SCIENTIST shunt(Confirmed) Active Bipolar disorder(Confirmed) Active Cerebral palsy(Confirmed) Active CKD (chronic kidney disease)(Confirmed) Active Depression(Confirmed) Active Diabetic neuropathy(Confirmed) Active Diabetic retinopathy(Confirmed) Active GERD (gastroesophageal reflu x disease)(Confirmed) Active HLD (hyperlipidemia)(Confirmed) Active HTN (hypertension)(Confirmed) Active Hypothyroidism(Confirmed) Active [facility]/UIK-ZT-IdphkzyBea Avery-[phone]/Health detention, active care coordination(Confirmed) Active Diabetes mellitus type 2 in obese(Confirmed) Active Social History Social History Type Response Smoking Status Never (less than 100 in lifetime) entered on: 02/08/19 Sex Female
--- OUTSIDE RECORDS SUMMARY | 2023-04-21 08:14 | XMS_ITS | Continuity of Care Document ---
Author Name Unknown Organization [facility] Address [address] [place] [address]- Care Team Providers Care Seam Stayer Name Role Phone Valarie CHÁVEZ, Levar Farris Primary Care Physician [place] [facility] [place] [facility] [address] [place] [address]- Allergies, Adverse Reactions, Alerts No Known Medication Allergies Immunizations Given and Recorded Vaccine Date Status Refusal Reason influenza virus vaccine, inactivated 03/25/19 Give n Medications albuterol CFC free 90 mcg/inh inhalation aerosol 2, puffs, Inhalation, Every 4 hours, PRN, # 1 each, Refills 2, Tot. Refills 2, Maintenance, 04/04/20 17:08:00 EST, Route to Pharmacy Electronically, NCPDP_ID- [id number], [facility]-, 168, cm, 12/21/19 8:36:00 EDT, Height, 120, kg,... Start Date: 04/04/20 Status: Ordered amLODIPine 5 mg oral tablet 5 mg, 1, tablet, By Mouth, Daily, # 90 tablet, Refills 3, Tot. Refills 3, Maintenance, 03/23/20 13:59:00 EST, Route to Pharmacy Electronically, [facility]-, Partial fill upon patient request if the prescription is for a schedul... Start Date: 03/23/20 Status: Ordered atorvastatin 80 mg oral tablet 1 tablet = 80 mg, By Mouth, Daily, # 90 tablet, 1 Refills, Maintenance, 08/10/20 16:44:00 EDT, Tablet, [facility]-, 168, cm, 07/25/20 8:40:00 EDT, Height, 120, kg, 11/03/19 7:16:00 EDT, Dry Weight Start Date: 08/10/20 Status: Ordered betamethasone topical dipropionate 0.05% cream 1 application, Topically, 2 times a day, to affected area, # 50 Gm, 0 Refills, Maintenance, 04/05/20 8:25:00 EST, Cream, [facility]-06831, 1 application Topically 2 times a day,Instr:to [...] 06/10/19 16:08:00 EDT, DIS Tablet, [facility]- 52011, 168, cm, 05/19/19 11:05:00 EST, Height, 108.9, [...] Refills, Maintenance, 03/23/20 13:54:00 EST, [facility]-85320, 168, cm, 12/21/19 8:36:00 EDT, Height, 120, kg, :16:00 EDT, Dry Weight Start Date: 03/23/20 Stop Date: 06/16/21 Status: Ordered levothyroxine 0.088 mg oral tablet 1 tablet = 88 mcg, By Mouth, Daily, dose increased, # 30 tablet, 5 Refills, Maintenance, 06/15/20 9:09:00 EDT, Tablet, [facility]-, Partial fill upon patient request if the prescription is for a schedule II opioid drug., 168, c... Start Date: 06/15/20 Status: Ordered lidocaine 5% topical ointment 1 application, Topically, 3 times a day, prn pain, wash hands thoroughly after application, # 50 Gm, 2 Refills, Maintenance, 06/28/20 12:45:00 EDT, Ointment, [facility]-, Partial fill upon patient request if the prescription... Start Date: 06/28/20 Status: Ordered losartan 100 mg oral tablet 1 tablet = 100 mg, By Mouth, Daily, # 90 tablet, 1 Refills, Maintenance, 05/15/20 15:41:00 EST, Tablet, [facility], 168, cm, 12/21/19 8:36:00 EDT, Height, 120, kg, 11/03/19 7:16:00 EDT, Dry Weight Start Date: 05/15/20 Status: Ordered Multiple Vitamins with Iron, Minerals and Docusate oral capsule 1 capsule, By Mouth, Daily, # 30 capsule, 0 Refills, Maintenance, 04/11/20 17:23:00 EST, Capsule, [facility], Partial fill upon patient request if the prescription is for a schedule II opioid drug., 1 capsule By Mouth Daily, 1... Start Date: 04/11/20 Status: Ordered NovoLOG FlexPen 100 units/mL subcutaneous solution See Instructions, Max daily dose 30 units. E11.65., # 15 mL, 3 Refills, Maintenance, 08/11/20 20:40:00 EDT, Solution, [facility] #[id number], Partial fill upon patient request if the [...] Weight Start Date: 02/22/19 Status: Ordered Pen [place], 31 G x 5 mm BD Ultra [...] Health Status Inform ant Pseudotumor cerebri; s/p CAMERA OPERATOR shunt(Confirmed) Active Bipolar disorder(Confirmed) Active Cerebral palsy(Confirmed) Active CKD (chronic kidney disease)(Confirmed) Active Depression(Confirmed) Active Diabetic neuropathy(Confirmed) Active Diabetic retinopathy(Confirmed) Active GERD (gastroesophageal reflu x disease)(Confirmed) Active Bariatric surgery status(Confirmed) Active HLD (hyperlipidemia)(Confirmed) Active HTN (hypertension)(Confirmed) Active Hypothyroidism(Confirmed) Active [facility]-FjphdkbBea Avery-[phone]/Health detention, active care coordination(Confirmed) Active Diabetes mellitus type 2 in obese(Confirmed) Active Social History Social History Type Response Smoking Status Never (less than 100 in lifetime); Tobacco user in household: No entered on: 10/28/19 Sex Female
--- OUTSIDE RECORDS SUMMARY | 2023-04-21 08:14 | XMS_ITS | Continuity of Care Document ---
Author Name Unknown Organization [facility] Address [address] [place] [address]- Care Team Providers Care Bell Attendant Name Role Phone Valarie CHÁVEZ, Levar Farris Primary Care Physician ( [phone] [place] [facility] [place] Date(s): 05/11/20 - 06/10/20 [facility] [address] [place] [address] Attending Physician: Homero Stanton Admitting Physician: AdmtrHomero [...] 9:59:00 EDT, [facility]-, 168, cm, 05/19/19 11:05:00EST, Height, 108.9, kg, 01/13/19 14:10:00 EDT, Dry... Start Date: 06/22/19 Status: Ordered albuterol CFC free 90 mcg/inh inhalation aerosol 2, puffs, Inhalation, Every 4 hours, PRN, # 1 each, Refills 2, Tot. Refills 2, Maintenance, 04/04/20 17:08:00 EST, Route to Pharmacy Electronically, NCPDP_ID- [id number], [facility]-, 168, cm, 12/21/19 8:36:00 EDT, Height, 120, kg,... Start Date: 04/04/20 Status: Ordered amLODIPine 5 mg oral tablet 5 mg, 1, tablet, By Mouth, Daily, # 90 tablet, Refills 3, Tot. Refills 3, Maintenance, 03/23/20 13:59:00 EST, Route to Pharmacy Electronically, [facility], Partial fill upon patient request if the prescription is for a schedul... Start Date: 03/23/20 Status: Ordered atorvastatin 80 mg oral tablet 1 tablet = 80 mg, By Mouth, Daily, # 90 tablet, 1 Refills, Maintenance, 02/22/20 15:57:00 EST, Tablet, [facility]-, 168, cm, 12/21/19 8:36:00 EDT, Height, 120, kg, 11/03/19 7:16:00 EDT, Dry Weight Start Date: 02/22/20 Status: Ordered betamethasone topical dipropionate 0.05% cream 1 application, Topically, 2 times a day, to affected area, # 50 Gm, 0 Refills, Maintenance, 04/05/20 8:25:00 EST, Cream, [facility], 1 application Topically 2 times a day,Instr:to [...] DIS Tablet, [facility]- [id number], 168, cm, 05/19/19 11:05:00 EST, Height, 108.9, [...] 13:54:00 EST, [facility]-, 168, cm, 12/21/19 8:36:00 EDT, Height, 120, kg, 207:16:00 EDT, Dry Weight Start Date: 03/23/20 Stop Date: 06/16/21 Status: Ordered losartan 100 mg oral tablet 1 tablet = 100 mg, By Mouth, Daily, # 90 tablet, 1 Refills, Maintenance, 05/15/20 15:41:00 EST, Tablet, [facility]-, 168, cm, 12/21/19 8:36:00 EDT, Height, 120, kg, 11/03/19 7:16:00 EDT, Dry Weight Start Date: 05/15/20 Status: Ordered Multiple Vitamins with Iron, Minerals and Docusate oral capsule 1 capsule, By Mouth, Daily, # 30 capsule, 0 Refills, Maintenance, 04/11/20 17:23:00 EST, Capsule, [facility]-, Partial fill upon patient request if the [...] Weight Start Date: 02/22/19 Status: Ordered Pen [place], 31 G x 5 mm BD Ultra [...] Health Status Inform ant Pseudotumor cerebri; s/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 RATE 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 shunt(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) Active Bipolar disorder(Confirmed) Active Cerebral palsy(Confirmed) Active CKD (chronic kidney disease)(Confirmed) Active Depression(Confirmed) Active Diabetic neuropathy(Confirmed) Active Diabetic retinopathy(Confirmed) Active GERD (gastroesophageal reflu x disease)(Confirmed) Active Bariatric surgery status(Confirmed) Active HLD (hyperlipidemia)(Confirmed) Active HTN (hypertension)(Confirmed) Active Hypothyroidism(Confirmed) Active [facility]-KR-YdkarxjBea Avery-[phone]/Health senior care, active care coordination(Confirmed) Active Diabetes mellitus type 2 in obese(Confirmed) Active Social History Social History Type Response Smoking Status Never (less than 100 in lifetime); Tobacco user in household: No entered on: 10/28/19 Sex Female
--- OUTSIDE RECORDS SUMMARY | 2023-04-21 08:14 | XMS_ITS | Continuity of Care Document ---
Author Name Unknown Organization [facility] Address [address] [place] [address]- Care Team Providers Care Business Systems Advisor Name Role Phone Valarie CHÁVEZ, Levar Farris Primary Care Physician ( [phone] [place] [facility] [place] 07/19[place]20 - 08/18/20 [facility] [address] [place] [address]- Allergies, Adverse Reactions, Alerts No Known Medication [...] 17:08:00 EST, Route to Pharmacy Electronically, NCPDP_ID- [id number], [facility]-, 168, cm, 12/21/19 8:36:00 EDT, Height, 120, kg,... Start Date: 04/04/20 Status: Ordered amLODIPine 5 mg oral tablet 5 mg, 1, tablet, By Mouth, Daily, # 90 tablet, Refills 3, Tot. Refills 3, Maintenance, 03/23/20 13:59:00 EST, Route to Pharmacy Electronically, [facility]-, Partial fill upon patient request if the prescription is for a schedul... Start Date: 03/23/20 Status: Ordered atorvastatin 80 mg oral tablet 1 tablet = 80 mg, By Mouth, Daily, # 90 tablet, 1 Refills, Maintenance, 08/10/20 16:44:00 EDT, Tablet, [facility]-, 168, cm, 07/25/20 8:40:00 EDT, Height, 120, kg, 11/03/19 7:16:00 EDT, Dry Weight Start Date: 08/10/20 Status: Ordered betamethasone topical dipropionate 0.05% cream 1 application, Topically, 2 times a day, to affected area, # 50 Gm, 0 Refills, Maintenance, 04/05/20 8:25:00 EST, Cream, [facility]-, 1 application Topically 2 times [...] Refills, Maintenance, 06/10/19 16:08:00 EDT, DIS Tablet, [facility]- 11223, 168, cm, 05/19/19 11:05:00 EST, Height, 108.9, [...] mL, 4 Refills, Maintenance, 03/23/20 13:54:00 EST, [facility]-[id number], 168, cm, 12/21/19 8:36:00 EDT, Height, 120, kg, 207:16:00 EDT, Dry Weight Start Date: 03/23/20 Stop Date: 06/16/21 Status: Ordered levothyroxine 0.088 mg oral tablet 1 tablet = 88 mcg, By Mouth, Daily, dose increased, # 30 tablet, 5 Refills, Maintenance, 06/15/20 9:09:00 EDT, Tablet, [facility]-, Partial fill upon patient request if the prescription is for a schedule II opioid drug., 168, c... Start Date: 06/15/20 Status: Ordered lidocaine 5% topical ointment 1 application, Topically, 3 times a day, prn pain, wash hands thoroughly after application, # 50 Gm, 2 Refills, Maintenance, 06/28/20 12:45:00 EDT, Ointment, [facility], Partial fill upon patient request if the prescription... Start Date: 06/28/20 Status: Ordered losartan 100 mg oral tablet 1 tablet = 100 mg, By Mouth, Daily, # 90 tablet, 1 Refills, Maintenance, 05/15/20 15:41:00 EST, Tablet, [facility], 168, cm, 12/21/19 8:36:00 EDT, Height, 120, kg, 11/03/19 7:16:00 EDT, Dry Weight Start Date: 05/15/20 Status: Ordered Multiple Vitamins with Iron, Minerals and Docusate oral capsule 1 capsule, By Mouth, Daily, # 30 capsule, 0 Refills, Maintenance, 04/11/20 17:23:00 EST, Capsule, [facility], Partial fill upon patient request if the prescription is for a schedule II opioid drug., 1 capsule By Mouth Daily, 1... Start Date: 04/11/20 Status: Ordered NovoLOG FlexPen 100 units/mL subcutaneous solution See Instructions, Max daily dose 30 units. E11.65., # 15 mL, 3 Refills, Maintenance, 08/11/20 20:40:00 EDT, Solution, [facility] #[id number], Partial fill upon patient request if the [...] to check blood sugar 4 times daily. E11.. 90-day supply., 02/22/19 17:59:13 EST, Compound, 168, cm, 02/08/19 22:06:30 EST, Height, 108.9, kg, 01/13/19 14:10:14 EDT, Dry Weight Start Date: 02/22/19 Status: Ordered Pen [place], 31 G x 5 mm BD Ultra [...] Health Status Inform ant Pseudotumor cerebri; s/p FLOAT REMOVER shunt(Confirmed) Active Bipolar disorder(Confirmed) Active Cerebral palsy(Confirmed) Active CKD (chronic kidney disease)(Confirmed) Active Depression(Confirmed) Active Diabetic neuropathy(Confirmed) Active Diabetic retinopathy(Confirmed) Active GERD (gastroesophageal reflu x disease)(Confirmed) Active Bariatric surgery status(Confirmed) Active HLD (hyperlipidemia)(Confirmed) Active HTN (hypertension)(Confirmed) Active Hypothyroidism(Confirmed) Active [facility]-LF-HvdkcyeBea Avery-[phone]/Health fci, active care coordination(Confirmed) Active Diabetes mellitus type 2 in obese(Confirmed) Active Social History Social History Type Response Smoking Status Never (less than 100 in lifetime); Tobacco user in household: No entered on: 10/28/19 Sex Female
--- OUTSIDE RECORDS SUMMARY | 2023-04-21 08:14 | XMS_ITS | Continuity of Care Document ---
Author Name Unknown Organization [facility] Address [address] [place] [address]- Care Team Providers Care Reed Man Name Role Phone Valarie CHÁVEZ, Levar Farris Primary Care Physician En[place] [facility] [place] Date(s): 02/02/20 - 03/03/[address] [address] Attending Physician: Admtr, [id number] Admitting Physician: Admtr, Ar8 Referring Physician: Admtr, Ar8 Allergies, Adverse Reactions, Alerts No Known Medication Allergies Immunizations Given and Recorded Vaccine Date Status Refusal Reason influenza virus vaccine, inactivated 03/25/19 Give n Medications Admelog SoloStar 100 units/mL injectable solution = 4 units, Subcutaneous Infusion, 3 times a day before meals, to replace Humalog, # 3 mL, 5 Refills, Maintenance, 06/22/19 9:59:00 EDT, [facility]-, 168, cm, 05/19/19 11:05:00EST, Height, 108.9, kg, 01/13/19 14:10:00 EDT, Dry... Start Date: 06/22/19 Status: Ordered albuterol CFC free 90 mcg/inh inhalation aerosol 2, puffs, Inhalation, Every 4 hours, PRN, # 1 each, Refills 2, Tot. Refills 2, Maintenance, 10/28/19 11:06:00 EDT, Route to Pharmacy Electronically, NCPDP_ID- [id number], [facility], 168, cm, 10/14/19 9:08:00 EDT, Height, 108.9, k... Start Date: 10/28/19 Status: Ordered amLODIPine 10 mg oral tablet 10 mg, 1, tablet, By Mouth, Daily, for HTN, dose increased, # 90 tablet, Refills 4, Tot. Refills 4,Maintenance, 11/16/19 13:22:00 EDT, Route to Pharmacy Electronically, [facility], 168, cm, 11/16/19 13:19:00 EDT, Height, 120,... Start Date: 11/16/19 Status: Ordered atorvastatin 80 mg oral tablet 1 tablet = 80 mg, By Mouth, Daily, # 90 tablet, 1 Refills, Maintenance, 02/22/20 15:57:00 EST, Tablet, [facility], 168, cm, 12/21/19 8:36:00 EDT, Height, 120, kg, 11/03/19 7:16:00 EDT, Dry Weight Start Date: 02/22/20 Status: Ordered betamethasone topical dipropionate 0.05% cream 1 application, Topically, 2 times a day, to affected area, # 50 Gm, 0 Refills, Maintenance, 10/14/19 9:16:00 EDT, Cream, [facility], 1 application Topically 2 times a day,Instr:to affected area, 168, cm, 10/14/19 9:08:00 EDT,... Start Date: 10/14/19 Status: Ordered dulaglutide 1.5 mg/0.5 mL subcutaneous solution = 1.5 mg, Subcutaneous Injection, Every Friday, # 15 mL, 4 Refills, Maintenance, 10/28/19 11:08:00 EDT, Solution, [facility], 168, cm, 10/14/19 9:08:00 EDT, [...] 10:03:00 EDT, Route to Pharmacy Electronically, [facility]- , 168, cm, 030... Start Date: 06/22/19 Stop Date: 06/16/20 Status: Ordered lamotrigine 50 mg oral tablet, disintegrating 1 tablet = 50 mg, By Mouth, Daily at bedtime, # 90 tablet, 3 Refills, Maintenance, 06/10/19 16:08:00 EDT, DIS Tablet, [facility]- , 168, cm, 05/19/19 11:05:00 [...] 4 Refills, Maintenance, 10/28/19 11:09:00 EDT, [facility]-[id number], 168, cm, 10/14/19 9:08:00 EDT, Height, 108.9, kg, 01/13/19 14:10:00 EDT, Dry Weight Start Date: 10/28/19 Stop Date: 01/20/21 Status: Ordered losartan 100 mg oral tablet 1 tablet = 100 mg, By Mouth, Daily, # 90 tablet, 0 Refills, Maintenance, 02/22/20 15:57:00 EST, Tablet, [facility]-, 168, cm, 12/21/19 8:36:00 EDT, [...] Weight Start Date: 02/22/19 Status: Ordered Pen [place], 31 G x 5 mm BD Ultra [...] 11/29/19 14:06:00 EDT, Route to Pharmacy Electronically, [facility]04712, 168, cm, 11/16/19 13:19:00 EDT, Height, 120, kg, 11/03/19... 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; s/p HYDROPRESS OPERATOR shunt(Confirmed) Active Bipolar disorder(Confirmed) Active Cerebral palsy(Confirmed) Active CKD (chronic kidney disease)(Confirmed) Active Depression(Confirmed) Active Diabetic neuropathy(Confirmed) Active Diabetic retinopathy(Confirmed) Active GERD (gastroesophageal reflu x disease)(Confirmed) Active HLD (hyperlipidemia)(Confirmed) Active HTN (hypertension)(Confirmed) Active Hypothyroidism(Confirmed) Active [facility]-UZ-CtcqbdbBea Avery-[phone]/Health half-way, active care coordination(Confirmed) Active Diabetes mellitus type 2 in obese(Confirmed) Active Social History Social History Type Response Smoking Status Never (less than 100 in lifetime); Tobacco user in household: No entered on: 10/28/19 Sex Female
--- OUTSIDE RECORDS SUMMARY | 2023-04-21 08:14 | XMS_ITS | Continuity of Care Document ---
Author Name Unknown Organization [facility] ter Address [address] [place] [id number]- Care Team Providers Care Associate Professor Of Medicine Name Role Phone Valarie CHÁVEZ, Levar Farris Primary Care Physician Encounter [facility] Date(s): 02/10/19 - 07/07/19 [facility] [address] [place] [address] [facility] Attending Physician: Bob Samuel MD Admitting Physician: Bob Samuel MD Allergies, Adverse Reactions, Alerts No Known Medication Allergies Immunizations Given and Recorded Vaccine Date Status Refusal Reason influenza virus vaccine, inactivated 03/25/19 Give n Medications Admelog SoloStar 100 units/mL injectable solution = 4 units, Subcutaneous Infusion, 3 times a day before meals, to replace Humalog, # 3 mL, 5 Refills, Maintenance, 06/22/19 9:59:00 EDT, [facility]-[id number], 168, cm, 05/19/19 11:05:00EST, Height, 108.9, kg, 01/13/19 14:10:00 EDT, Dry... Start Date: 06/22/19 Status: Ordered albuterol CFC free 90 mcg/inh inhalation aerosol 2, puffs, Inhalation, Every 6 hours, PRN, # 1 each, Refills 2, Tot. Refills 2, Maintenance, 04/20/19 10:07:00 EST, Route to Pharmacy Electronically, [id number], [facility] #[id number], 168, cm, 04/20/19 9:42:00 EST, [place]... Start Date: 04/20/19 Status: Ordered amLODIPine 5 mg oral tablet 5 mg, 1, tablet, By Mouth, Daily, take daily for bllod pressure, # 30 tablet, Refills 5, Tot. Refills 5, Maintenance, 05/19/19 11:16:00 EST, Route to Pharmacy Electronically, [facility] #[id number], 168, cm, 05/19/19 11:05:00 EST, Height, 108.9,... Start Date: 05/19/19 Status: Ordered atorvastatin 80 mg oral tablet 1 tablet = 80 mg, By Mouth, Daily, # 90 tablet, 3 Refills, Maintenance, 03/25/19 15:39:00 EST, Tablet, [facility] #[id number], 168, cm, 03/25/19 14:33:00 EST, Height, 108.9, kg, 01/13/19 14:10:00 EDT, Dry Weight Start Date: 03/25/19 Status: Ordered betamethasone topical dipropionate 0.05% cream 1 application, Topically, 2 times a day, # 50 Gm, 0 Refills, Maintenance, 03/25/19 16:16:00 EST, Cream, [facility] #[id number], 1 application Topically 2 times a day, 168, cm, 03/25/19 14:33:00 EST, Height, 108.9, kg, 01/13/19 14:10:00 EDT, Dry W... Start Date: 03/25/19 Status: Ordered CeraVe topical cream 1 application, Topically, 2 times a day, PRN for dry skin, # 360 Gm, 0 Refills, Maintenance, 03/25/19 16:14:00 EST, Cream, [facility] #[id number], 1 application Topically 2 times a day,PRN:for [...] each, 1 Refills, Maintenance, 04/20/19 10:06:00 EST, [facility] #[id number], prn dry skin, disp 1 bottle, 168, [...] 06/22/19 10:03:00 EDT, Route to Pharmacy Electronically, [facility]-, 168, cm, 05/19/19 11:05:00 EST, Height, 108.9,... Start Date: 06/22/19 Stop Date: 06/16/20 Status: Ordered gabapentin 400 mg oral capsule 400 mg, 1, capsule, By Mouth, Daily, # 90 capsule, Refills 3, Tot. Refills 3, Maintenance, 02/08/1914:35:49 EST, Route to Pharmacy Electronically, [id number], [facility] #[id number] Start Date: 02/08/19 Stop Date: 02/03/20 Status: Ordered lamotrigine 50 mg oral tablet, disintegrating 1 tablet = 50 mg, By Mouth, Daily at bedtime, # 90 tablet, 3 Refills, Maintenance, 06/10/19 16:08:00 EDT, DIS Tablet, [facility]- , 168, cm, 05/19/19 11:05:00 EST, [...] 1 Refills, Maintenance, 05/19/19 11:10:00 EST, Tablet, [facility] #[id number], 168, cm, 05/19/19 11:05:00 EST, Height, 108.9, kg, 01/13/19 14:10:00 EDT, Dry Weight Start Date: 05/19/19 Status: Ordered losartan 100 mg oral tablet 1 tablet = 100 mg, By Mouth, Daily, # 90 tablet, 3 Refills, Maintenance, 03/25/19 16:12:00 EST, Tablet, [facility] #[id number], 168, cm, 03/25/19 14:33:00 EST, Height, 108.9, [...] Weight Start Date: 02/22/19 Status: Ordered Pen [place], 31 G x 5 mm BD Ultra Fine III See Instructions, # 200 each, Refills 3, Tot. Refills 3, Maintenance, use bid with insulin dx E11.9, 04/09/19 10:52:00 EST, Compound, 168, cm, 03/25/19 16:19:00 EST, Height, 108.9, kg, 01/13/19 14:10:00 EDT, Dry Weight Start Date: 04/09/19 Status: Ordered Problem List Condition Effective Dates Status Health Status Inform ant Pseudotumor cerebri; s/p RETORT ENGINEER shunt(Confirmed) Active Bipolar disorder(Confirmed) Active Cerebral palsy(Confirmed) Active CKD (chronic kidney disease)(Confirmed) Active Depression(Confirmed) Active Diabetic neuropathy(Confirmed) Active Diabetic retinopathy(Confirmed) Active GERD (gastroesophageal reflu x disease)(Confirmed) Active HLD (hyperlipidemia)(Confirmed) Active HTN (hypertension)(Confirmed) Active Hypothyroidism(Confirmed) Active [facility]/SUQ-EH-GvaxdyuBea Avery-[phone]/Health assisted, active care coordination(Confirmed) Active Diabetes mellitus type 2 in obese(Confirmed) Active Social History Social History Type Response Smoking Status Never (less than 100 in lifetime) entered on: 02/08/19 Sex Female
--- OUTSIDE RECORDS SUMMARY | 2023-04-21 08:14 | XMS_ITS | Continuity of Care Document ---
Author Name Unknown Organization [facility] Address [address] [place] [id number]- Care Team Providers Care Manager Multimedia Name Role Phone Bonifacio Pacheco MD Primary Care Physician Encounter [facility] Date(s): 10/12/20 - 01/07/[address] [address] Attending Physician: Pop Juan MD Admitting Physician: [...] Pharmacy Electronically, [facility], Partial fill upon patient request if the prescription is for a schedul... Start Date: 03/23/20 Status: Ordered atorvastatin 80 mg oral tablet 1 tablet = 80 mg, By Mouth, Daily, # 90 tablet, 1 Refills, Maintenance, 08/10/20 16:44:00 EDT, Tablet, [facility]-, 168, cm, 07/25/20 8:40:00 EDT, Height, 120, [...] 11 Refills, Maintenance, 10/10/20 10:00:00 EDT, Powder, [facility] #[id number], Partial fill... Start Date: 10/10/20 Stop Date: [...] DIS Tablet, [facility]- , 168, cm, 05/19/19 11:05:00 EST, Height, [...] 12/19/20 7:29:00EDT, [facility]-, 168, cm, 10/10/20 9:30:00 EDT, Height, 120, kg, 11/03/19 7:16:00 EDT, Dry Weight Start Date: 12/19/20 Status: Ordered levothyroxine 0.088 mg oral tablet 1 tablet = 88 mcg, By Mouth, Daily, dose increased, # 30 tablet, 5 Refills, Maintenance, 12/15/20 15:34:00 EDT, Tablet, [facility], Partial fill upon patient request if the prescription is for a schedule II opioid drug., 168,... Start Date: 12/15/20 Status: Ordered lidocaine 5% topical ointment 1 application, Topically, 3 times a day, prn pain, wash hands thoroughly after application, # 50 Gm, 2 Refills, Maintenance, 06/28/20 12:45:00 EDT, Ointment, [facility], Partial fill upon patient request if the prescription... Start Date: 06/28/20 Status: Ordered losartan 100 mg oral tablet 1 tablet = 100 mg, By Mouth, Daily, # 90 tablet, 0 Refills, Maintenance, 11/03/20 10:42:00 EDT, Tablet, [facility], 168, cm, 10/10/20 9:30:00 EDT, Height, 120, kg, 11/03/19 7:16:00 EDT, Dry Weight Start Date: 11/03/20 Status: Ordered Multiple Vitamins with Iron, Minerals and Docusate oral capsule 1 capsule, By Mouth, Daily, # 30 capsule, 0 Refills, Maintenance, 04/11/20 17:23:00 EST, Capsule, [facility], Partial fill upon patient request if the prescription is for a schedule II opioid drug., 1 capsule By Mouth Daily, 1... Start Date: 04/11/20 Status: Ordered NovoLOG FlexPen 100 units/mL injectable solution See Instructions, INJECT 4 UNITS SUBCUTANEOUSLY THREE TIMES A DAY BEFORE MEALS, # 15 mL, 0 Refills,Maintenance, [facility], 168, cm, 08/29/20 10:15:00 EDT, Height, 120, kg, 11/03/19 7:16:00 EDT, Dry Weight Start Date: 09/07/20 Status: Ordered NuLYTELY with Flavor Packs oral powder for reconstitution 240 mL, By Mouth, Every 10 minutes, Split prep method CAN SUBSTITUTE WITH ANY PEG 3350 SOLUTION AVAILABLE, # 1 each, 0 Refills, Acute 04/18/21 5:30:00 EST, 04/17/21 17:00:00 EST, REC Powder, [facility] #[id number], test date 04/18/21, 240 mL By Mo... Start Date: 04/17/21 Stop Date: 04/18/21 Status: Ordered Pen [place], 31 G x 5 mm BD Ultra [...] Gm, 5 Refills, Maintenance, 10/24/20 5:02:00 EDT, [facility] #[id number], 168, cm, 10/10/20 9:30:00 EDT,Height, 120, kg, 11/03/19 7:16:00 EDT, Dry Weight Start Date: 10/24/20 Status: Ordered Problem List Condition Effective Dates Status Health Status Inform ant Pseudotumor cerebri; s/p SKEINS YARN EXAMINER shunt(Confirmed) Active Bipolar disorder(Confirmed) Active Cerebral palsy(Confirmed) Active CKD (chronic kidney disease)(Confirmed) Active Depression(Confirmed) Active Oxygen desaturation during sleep(Confirmed) 1 Active Diabetic neuropathy(Confirmed) Active Diabetic retinopathy(Confirmed) Active GERD (gastroesophageal reflu x disease)(Confirmed) Active Bariatric surgery status(Confirmed) Active HLD (hyperlipidemia)(Confirmed) Active HTN (hypertension)(Confirmed) Active Hypothyroidism(Confirmed) Active Asthma, mild(Confirmed) Active Obesity(Confirmed) Active Obstructive sleep apnea(Confirmed) Active [facility]/XAS-EK-HajaufoChristi Avery-[phone]/Health fpc, active care coordination(Confirmed) Active Diabetes mellitus type 2 in obese(Confirmed) Active 1to 75% in Social History Social History Type Response Smoking Status Never (less than 100 in lifetime); Tobacco user in household: No entered on: 10/28/19 Sex Female
--- OUTSIDE RECORDS SUMMARY | 2023-04-21 08:14 | XMS_ITS | Continuity of Care Document ---
Author Name Unknown Organization [facility] Address [address] [place] [address]- Care Team Providers Care Fiber Glass Worker Name Role Phone Valarie CHÁVEZ, Levar Farris Primary Care Physician Encounter [facility] Date(s): 06/10/20 - 07/10/20 [facility] [address] [place] [address]- Allergies, Adverse Reactions, Alerts No Known Medication Allergies Immunizations Given and Recorded Vaccine Date Status Refusal Reason influenza virus vaccine, inactivated 03/25/19 Give n Medications Admelog SoloStar 100 units/mL injectable solution = 4 units, Subcutaneous Infusion, 3 times a day before meals, to replace Humalog, # 3 mL, 5 Refills, Maintenance, 06/22/19 9:59:00 EDT, [facility]-, 168, cm, 05/19/19 11:05:00EST, Height, 108.9, kg, 01/13/19 14:10:00 EDT, Dry... Start Date: 06/22/19 Status: Ordered albuterol CFC free 90 mcg/inh inhalation aerosol 2, puffs, Inhalation, Every 4 hours, PRN, # 1 each, Refills 2, Tot. Refills 2, Maintenance, 04/04/20 17:08:00 EST, Route to Pharmacy Electronically, NCPDP_ID- [id number], [facility]-, 168, cm, 12/21/19 8:36:00 EDT, Height, 120, kg,... Start Date: 04/04/20 Status: Ordered amLODIPine 5 mg oral tablet 5 mg, 1, tablet, By Mouth, Daily, # 90 tablet, Refills 3, Tot. Refills 3, Maintenance, 03/23/20 13:59:00 EST, Route to Pharmacy Electronically, [facility], Partial fill upon patient request if the prescription is for a schedul... Start Date: 03/23/20 Status: Ordered atorvastatin 80 mg oral tablet 1 tablet = 80 mg, By Mouth, Daily, # 90 tablet, 1 Refills, Maintenance, 02/22/20 15:57:00 EST, Tablet, [facility]-, 168, cm, 12/21/19 8:36:00 EDT, Height, 120, kg, 11/03/19 7:16:00 EDT, Dry Weight Start Date: 02/22/20 Status: Ordered betamethasone topical dipropionate 0.05% cream 1 application, Topically, 2 times a day, to affected area, # 50 Gm, 0 Refills, Maintenance, 04/05/20 8:25:00 EST, Cream, [facility], 1 application Topically 2 times a [...] duplicate script from 05/11/20. Original sent to [facility]., Compound Start Date: 06/15/20 Status: [...] Refills, Maintenance, 06/10/19 16:08:00 EDT, DIS Tablet, [facility] [address], 168, cm, 05/19/19 11:05:00 EST, Height, 108.9, [...] mL, 4 Refills, Maintenance, 03/23/20 13:54:00 EST, [facility], 168, cm, 12/21/19 8:36:00 EDT, Height, 120, kg, 207:16:00 EDT, Dry Weight Start Date: 03/23/20 Stop Date: 06/16/21 Status: Ordered levothyroxine 0.088 mg oral tablet 1 tablet = 88 mcg, By Mouth, Daily, dose increased, # 30 tablet, 5 Refills, Maintenance, 06/15/20 9:09:00 EDT, Tablet, [facility], Partial fill upon patient request if the prescription is for a schedule II opioid drug., 168, c... Start Date: 06/15/20 Status: Ordered lidocaine 5% topical ointment 1 application, Topically, 3 times a day, prn pain, wash hands thoroughly after application, # 50 Gm, 2 Refills, Maintenance, 06/28/20 12:45:00 EDT, Ointment, [facility], Partial fill upon patient request if the prescription... Start Date: 06/28/20 Status: Ordered losartan 100 mg oral tablet 1 tablet = 100 mg, By Mouth, Daily, # 90 tablet, 1 Refills, Maintenance, 05/15/20 15:41:00 EST, Tablet, [facility], 168, cm, 12/21/19 8:36:00 EDT, Height, 120, kg, 11/03/19 7:16:00 EDT, Dry Weight Start Date: 05/15/20 Status: Ordered Multiple Vitamins with Iron, Minerals and Docusate oral capsule 1 capsule, By Mouth, Daily, # 30 capsule, 0 Refills, Maintenance, 04/11/20 17:23:00 EST, Capsule, [facility], Partial fill upon patient request if [...] Weight Start Date: 02/22/19 Status: Ordered Pen [place], 31 G x 5 mm BD Ultra [...] Health Status Inform ant Pseudotumor cerebri; s/p BREAST BUFFER shunt(Confirmed) Active Bipolar disorder(Confirmed) Active Cerebral palsy(Confirmed) Active CKD (chronic kidney disease)(Confirmed) Active Depression(Confirmed) Active Diabetic neuropathy(Confirmed) Active Diabetic retinopathy(Confirmed) Active GERD (gastroesophageal reflu x disease)(Confirmed) Active Bariatric surgery status(Confirmed) Active HLD (hyperlipidemia)(Confirmed) Active HTN (hypertension)(Confirmed) Active Hypothyroidism(Confirmed) Active [facility]/UBQ-MW-AppxqluBea Avery-[phone]/Health jail, active care coordination(Confirmed) Active Diabetes mellitus type 2 in obese(Confirmed) Active Social History Social History Type Response Smoking Status Never (less than 100 in lifetime); Tobacco user in household: No entered on: 10/28/19 Sex Female
--- OUTSIDE RECORDS SUMMARY | 2023-04-21 08:14 | XMS_ITS | Continuity of Care Document ---
Author Name Unknown Organization [facility] Address [address] [place] [id number]- Care Team Providers Care Cad Developer Name Role Phone Valarie CHÁVEZ, Levar Farris Primary Care Physician Encounter [facility] Date(s): 07/13/20 - 08/12/[address] [address] Attending Physician: Homero Stanton Admitting Physician: Admtr, [...] 17:08:00 EST, Route to Pharmacy Electronically, NCPDP_ID- [id number], [facility]-, 168, cm, 12/21/19 8:36:00 EDT, Height, 120, kg,... Start Date: 04/04/20 Status: Ordered amLODIPine 5 mg oral tablet 5 mg, 1, tablet, By Mouth, Daily, # 90 tablet, Refills 3, Tot. Refills 3, Maintenance, 03/23/20 13:59:00 EST, Route to Pharmacy Electronically, [facility]-, Partial fill upon patient request if the prescription is for a schedul... Start Date: 03/23/20 Status: Ordered atorvastatin 80 mg oral tablet 1 tablet = 80 mg, By Mouth, Daily, # 90 tablet, 1 Refills, Maintenance, 08/10/20 16:44:00 EDT, Tablet, [facility]-, 168, cm, 07/25/20 8:40:00 EDT, Height, 120, kg, 11/03/19 7:16:00 EDT, Dry Weight Start Date: 08/10/20 Status: Ordered betamethasone topical dipropionate 0.05% cream 1 application, Topically, 2 times a day, to affected area, # 50 Gm, 0 Refills, Maintenance, 04/05/20 8:25:00 EST, Cream, [facility]-, 1 application Topically 2 times a day,Instr:to [...] DIS Tablet, [facility]- [address], 168, cm, 05/19/19 11:05:00 EST, Height, 108.9, [...] 13:54:00 EST, [facility]-[id number], 168, cm, 12/21/19 8:36:00 EDT, Height, 120, kg, :16:00 EDT, Dry Weight Start Date: 03/23/20 Stop Date: 06/16/21 Status: Ordered levothyroxine 0.088 mg oral tablet 1 tablet = 88 mcg, By Mouth, Daily, dose increased, # 30 tablet, 5 Refills, Maintenance, 06/15/20 9:09:00 EDT, Tablet, [facility], Partial fill upon patient request if the prescription is for a schedule II opioid drug., 168, c... Start Date: 06/15/20 Status: Ordered lidocaine 5% topical ointment 1 application, Topically, 3 times a day, prn pain, wash hands thoroughly after application, # 50 Gm, 2 Refills, Maintenance, 06/28/20 12:45:00 EDT, Ointment, [facility], Partial fill upon patient request if the prescription... Start Date: 06/28/20 Status: Ordered losartan 100 mg oral tablet 1 tablet = 100 mg, By Mouth, Daily, # 90 tablet, 1 Refills, Maintenance, 05/15/20 15:41:00 EST, Tablet, [facility], 168, cm, 12/21/19 8:36:00 EDT, Height, 120, kg, 11/03/19 7:16:00 EDT, Dry Weight Start Date: 05/15/20 Status: Ordered Multiple Vitamins with Iron, Minerals and Docusate oral capsule 1 capsule, By Mouth, Daily, # 30 capsule, 0 Refills, Maintenance, 04/11/20 17:23:00 EST, Capsule, [facility], Partial fill upon patient request if the prescription is for a schedule II opioid drug., 1 capsule By Mouth Daily, 1... Start Date: 04/11/20 Status: Ordered NovoLOG FlexPen 100 units/mL subcutaneous solution See Instructions, Max daily dose 30 units. E11.65., # 15 mL, 3 Refills, Maintenance, 08/11/20 20:40:00 EDT, Solution, [facility] #[id number], Partial fill upon patient request if the [...] Weight Start Date: 02/22/19 Status: Ordered Pen [place], 31 G x 5 mm BD Ultra [...] Health Status Inform ant Pseudotumor cerebri; s/p SHOESHINER shunt(Confirmed) Active Bipolar disorder(Confirmed) Active Cerebral palsy(Confirmed) Active CKD (chronic kidney disease)(Confirmed) Active Depression(Confirmed) Active Diabetic neuropathy(Confirmed) Active Diabetic retinopathy(Confirmed) Active GERD (gastroesophageal reflu x disease)(Confirmed) Active Bariatric surgery status(Confirmed) Active HLD (hyperlipidemia)(Confirmed) Active HTN (hypertension)(Confirmed) Active Hypothyroidism(Confirmed) Active [facility]/EWY-JI-QmrnqxyChristi Avery-[phone]/Health senior living, active care coordination(Confirmed) Active Diabetes mellitus type 2 in obese(Confirmed) Active Social History Social History Type Response Smoking Status Never (less than 100 in lifetime); Tobacco user in household: No entered on: 10/28/19 Sex Female
--- OUTSIDE RECORDS SUMMARY | 2023-04-21 08:14 | XMS_ITS | Continuity of Care Document ---
Author Name Unknown Organization [facility] Address [address] [place] [address]- Care Team Providers Care Creel Clerk Name Role Phone Bonifacio Pacheco MD Primary Care Physician Encounter [facility] Date(s): 12/25/20 - 01/24/21 [facility] [address] [place] [id number]- Allergies, Adverse Reactions, Alerts No Known Medication Allergies Immunizations Given and Recorded Vaccine Date Status Refusal Reason SARS-CoV-2 (COVID-19) mRNA BNT-162b2 vac 01/16/21 Given SARS-CoV-2 (COVID-19) mRNA BNT-162b2 vac 07/12/20 Recorded SARS-CoV-2 (COVID-19) mRNA BNT-162b2 vac 06/20/20 Recorded tetanus/diphtheria/pertussis, acel(Tdap) 10/10/20 Given pneumococcal 23-valent vaccine 10/10/20 Given influenza virus vaccine, inactivated 03/25/19 Give n Medications amLODIPine 5 mg oral tablet 5 mg, 1, tablet, By Mouth, Daily, # 90 tablet, Refills 3, Tot. Refills 3, Maintenance, 03/23/20 13:59:00 EST, Route to Pharmacy Electronically, [facility]-, Partial fill upon patient request if the prescription is for a schedul... Start Date: 03/23/20 Status: Ordered atorvastatin 80 mg oral tablet 1 tablet = 80 mg, By Mouth, Daily, # 90 tablet, 1 Refills, Maintenance, 08/10/20 16:44:00 EDT, Tablet, [facility]-, 168, cm, 07/25/20 8:40:00 EDT, Height, 120, kg, 11/03/19 7:16:00 EDT, Dry Weight Start Date: 08/10/20 Status: Ordered betamethasone topical dipropionate 0.05% cream 1 application, Topically, 2 times a day, to affected area, # 50 Gm, 0 Refills, Maintenance, 04/05/20 8:25:00 EST, Cream, [facility]-[id number], 1 application Topically 2 times a day,Instr:to [...] 11 Refills, Maintenance, 10/10/20 10:00:00 EDT, Powder, [facility] #[id number], Partial fill... Start Date: 10/10/20 Stop Date: [...] duplicate script from 05/11/20. Original sent to [facility]., Compound Start Date: 12/27/20 Status: [...] 06/10/19 16:08:00 EDT, DIS Tablet, [facility]- [id number], 168, cm, 05/19/19 11:05:00 EST, Height, 108.9, [...] 3 Refills, Maintenance, 12/19/20 7:29:00EDT, [facility]-[id number], 168, cm, 10/10/20 9:30:00 EDT, Height, 120, kg, 11/03/19 7:16:00 EDT, Dry Weight Start Date: 12/19/20 Status: Ordered levothyroxine 0.088 mg oral tablet 1 tablet = 88 mcg, By Mouth, Daily, dose increased, # 30 tablet, 5 Refills, Maintenance, 12/15/20 15:34:00 EDT, Tablet, [facility], Partial fill upon patient request if the prescription is for a schedule II opioid drug., 168,... Start Date: 12/15/20 Status: Ordered lidocaine 5% topical ointment 1 application, Topically, 3 times a day, prn pain, wash hands thoroughly after application, # 50 Gm, 2 Refills, Maintenance, 06/28/20 12:45:00 EDT, Ointment, [facility], Partial fill upon patient request if the prescription... Start Date: 06/28/20 Status: Ordered losartan 100 mg oral tablet 1 tablet = 100 mg, By Mouth, Daily, # 90 tablet, 0 Refills, Maintenance, 11/03/20 10:42:00 EDT, Tablet, [facility], 168, cm, 10/10/20 9:30:00 EDT, Height, 120, kg, 11/03/19 7:16:00 EDT, Dry Weight Start Date: 11/03/20 Status: Ordered Multiple Vitamins with Iron, Minerals and Docusate oral capsule 1 capsule, By Mouth, Daily, # 30 capsule, 0 Refills, Maintenance, 04/11/20 17:23:00 EST, Capsule, [facility], Partial fill upon patient request if the prescription is for a schedule II opioid drug., 1 capsule By Mouth Daily, 1... Start Date: 04/11/20 Status: Ordered NovoLOG FlexPen 100 units/mL injectable solution See Instructions, INJECT 4 UNITS SUBCUTANEOUSLY THREE TIMES A DAY BEFORE MEALS, # 15 mL, 0 Refills,Maintenance, [facility], 168, cm, 08/29/20 10:15:00 EDT, Height, 120, kg, 11/03/19 7:16:00 EDT, Dry Weight Start Date: 09/07/20 Status: Ordered NuLYTELY with Flavor Packs oral powder for reconstitution 240 mL, By Mouth, Every 10 minutes, Split prep method CAN SUBSTITUTE WITH ANY PEG 3350 SOLUTION AVAILABLE, # 1 each, 0 Refills, Acute 04/18/21 5:30:00 EST, 04/17/21 17:00:00 EST, REC Powder, [facility] #[id number], test date 04/18/21, 240 mL By Mo... Start Date: 04/17/21 Stop Date: 04/18/21 Status: Ordered Pen [place], 31 G x 5 mm BD Ultra [...] Gm, 5 Refills, Maintenance, 10/24/20 5:02:00 EDT, [facility] #[id number], 168, cm, 10/10/20 9:30:00 EDT,Height, 120, kg, 11/03/19 7:16:00 EDT, Dry Weight Start Date: 10/24/20 Status: Ordered Problem List Condition Effective Dates Status Health Status Inform ant Pseudotumor cerebri; s/p STATOR CONNECTOR shunt(Confirmed) Active Bipolar disorder(Confirmed) Active Cerebral palsy(Confirmed) Active CKD (chronic kidney disease)(Confirmed) Active Depression(Confirmed) Active Oxygen desaturation during sleep(Confirmed) 1 Active Diabetic neuropathy(Confirmed) Active Diabetic retinopathy(Confirmed) Active GERD (gastroesophageal reflu x disease)(Confirmed) Active Bariatric surgery status(Confirmed) Active HLD (hyperlipidemia)(Confirmed) Active HTN (hypertension)(Confirmed) Active Hypothyroidism(Confirmed) Active Asthma, mild(Confirmed) Active Obesity(Confirmed) Active Obstructive sleep apnea(Confirmed) Active [id number]-[phone]/Health senior living, active care coordination(Confirmed) Active Diabetes mellitus type 2 in obese(Confirmed) Active 1to 75% in Social History Social History Type Response Smoking Status Never (less than 100 in lifetime); Tobacco user in household: No entered on: 10/28/19 Sex Female
--- NOTE | 2023-04-21 10:57 | MHC.OFFVISWM ---
Intake VS Expanded 04/21/23 11:37 Height 5 ft 6 in Weight 202 lb 4 oz BMI 32.6 Body Fat % 43.2 Body Fat Mass 87.4 Fat Free Mass 114.9 Intake Visit Reasons: TV Revision Consult/Transfer Aakash Allergies No Known Allergies Allergy (Verified 04/21/23 10:58) Medication List - Last Reconciled 04/21/23 by Joe Pack MD amlodipine 5 mg PO DAILY blood-glucose transmitter (Dexcom G6 Transmitter device) As directed levothyroxine 88 mcg PO DAILY [propanolol 20 mg PO BID] HPI TV Revision Consult/Transfer Aakash HPI Details Start time: 10.36am, End time: 11.45am ?I spent 60 minutes speaking with the patient on the phone plus an additional 9 minutes reviewing and updating records for a total of 69 minutes HPI Comments History of Present Illness Details Overall weight loss: 21.8lbs, or 9.72% TBWL Is doing one Orgain protein shakes (1 scoop in almond milk), one Orgain protein shake (2 scoops in almond milk), one Fit Crunch protein bar and one meal (8 forkfuls of protein and 8 forkfuls of vegetables) Exercise: Gym x 3/week doing treadmill (300-400 calories, auto from machine) , bike x2/week (300 calories), elliptical x1/wk (50 calories) [facility] Medical History (Updated 04/21/23 @ 11:10 by Joe Pack MD) Pseudotumor cerebri Hypothyroidism Headaches due to old head injury Migraine Surgical History (Updated 04/21/23 @ 11:13 by Joe Pack MD) History of delivery Status post ventriculo-peritoneal shunt placement S/P cholecystectomy S/P laparoscopic sleeve gastrectomy Assessment & Plan Assessment & Plan (1) Obesity (BMI 30-39.9): Code(s): E66.9 - Obesity, unspecified Plan: 1. Plan for lap sleeve gastrectomy of the existing sleeve and recurrent hiatal hernia repair including upper GI endoscopy. All tests has been completed and reviewed and the patient is cleared for the surgery. ?If ventral hernias are present at time of surgery, these will be repaired laparoscopically as well. Risks and complications were discussed in detail including possible conversion to an open procedure, anastomotic leak, bleeding requiring transfusion, small bowel obstruction, , DVT and pulmonary embolism, cardiac, or pulmonary complications, as long-term complications such as anastomotic ulcer, insufficient weight loss and vitamin deficiencies. I emphasized the importance of close follow-up, adherence to instructions and good communication. So far she has proven to be an excellent communicator and very compliant with all our directions accomplishing a great weight loss. I believe that she is an excellent candidate and she is ready. 2. Continue same nutritional plan of one Orgain protein shakes (1 scoop in almond milk), one Orgain protein shake (2 scoops in almond milk), one Fit Crunch protein bar and one meal (8 forkfuls of protein and 8 forkfuls of vegetables). 3. Change treadmill with an incline of 4.0 and speed of 3.0. Increase incline by 1 every 3 min to a max incline of 10.0, stay 3min at 10.0 and then return to 4.0 and repeat same steps until 200 calories are burned 5 days per week 4. Change stationary bike at a resistance level of 4.0 Increase level by 1.0 every 3 min to a max level of 10.0. Stay at this level for 3 min and then return to level 4.0 and repeat same steps until 200 calories are burned, 5 days per week. Velocity target is 12mph. Goal is to burn 2000 calories per week on aerobic exercise collectively. 5. Send me weight measurements weekly on Mondays. Telehealth Telehealth Location of provider rendering services: practice address Location of patient: address on file Patient Identification confirmed using: Name, : Yes Telehealth method: voice only Patient verbally consented to treatment: Yes Patient verbally consented to billing insurance company: Yes Patient informed of any privacy concerns related to visit: Yes Minutes spent on Phone/Video with Pt.: 69 Coding Level of Care Code Tele Est Pt Level 5 (02981) Diagnoses Obesity (BMI 30-39.9) E66.9 Time Spent (min) 69
[2023-04-21 11:37] VITALS: BMI 32.6
== END 2023-04-21 11:46 | disposition home or self-care (01) ==
LOC: HO.HBS 08:09
PROVIDERS: Visit Provider Surgery
DX: E66.9 Obesity, unspecified (principal); Z68.32 Body mass index [BMI] 32.0-32.9, adult
CPT/HCPCS: 99443

== ENCOUNTER → 2023-04-21 08:09 | Outpatient (BNVA) | payer OTHER, SELFPAY | PROVIDERS: Visit Provider Surgery ==

== ENCOUNTER 2023-04-30 07:53 | Day surgery (SDC) | payer OTHER, SELFPAY ==
[2023-04-28 07:46] VITALS: BMI 32.6
--- NOTE | 2023-04-29 09:55 | HO.ANESPROP2 ---
Documented by User: Анна Galeano NP 04/29/23 09:56 HPI - Anesthesia Eval Consult details Narrative: 58yo F for Upper Endoscopy SEWING MACHINE BOBBIN WINDER shunt in situ (pseudotumor ceribri) PMF Active Problems Active Problems: All Active Problems (Updated 04/21/23 @ 11:10 by Joe Pack MD) Pseudotumor cerebri (Acute) Hypothyroidism (Acute) Headaches due to old head injury (Acute) Blind (Acute) HTN (hypertension) (Acute) Diabetes (Acute) ERNIE (obstructive sleep apnea) (Acute) Obesity (BMI 30-39.9) (Acute) Past Medical History Medical History Pseudotumor cerebri Hypothyroidism Headaches due to old head injury Migraine Surgical History Surgical History History of delivery Status post ventriculo-peritoneal shunt placement S/P cholecystectomy S/P laparoscopic sleeve gastrectomy Social History Social History Patient Tobacco Use Status: Never used Tobacco Meds Allergies Allergy/AdvReac Type Severity Reaction Status Date / Time No Known Allergies Allergy Verified 04/21/23 10:58 Home Medications Medication Instructions Recorded Confirmed Last Taken Type amlodipine 5 mg tablet 5 mg PO DAILY 11/15/22 04/30/23 04/30/23 History levothyroxine 88 mcg tablet 88 mcg PO DAILY 11/15/22 04/30/23 04/30/23 History propanolol 20 mg PO BID CASTILLO 11/15/22 04/30/23 04/30/23 History blood-glucose transmitter (Dexcom 12/12/22 04/21/23 Unknown History G6 Transmitter device) insulin aspart U-100 100 unit/mL subcut 04/29/23 04/29/23 Unknown History (3 mL) subcutaneous pen (Novolog FlexPen U-100 Insulin aspart) insulin detemir U-100 100 unit/mL unit subcut 04/29/23 Unknown History (3 mL) subcutaneous pen (Levemir FlexPen) Exam Height,Weight and Vital Signs: Height 5 ft 6 in Weight 91.626 kg Pertinent Lab Results Pertinent Lab Results: Laboratory Tests 11/20/22 09:41 WBC 7.9 Hgb 12.1 Hct 36.9 L Plt Count 245 Sodium 141 Potassium 3.7 Chloride 108 Carbon Dioxide 23 BUN 35 H Creatinine 2.23 H Narrative Narrative: EKG 11/2022 Vent. Rate : 068 BPM Atrial Rate : 068 BPM P-R Int : 144 ms QRS Dur : 082 ms QT Int : 404 ms P-R-T Axes : 016 004 000 degrees QTc Int : 429 ms Normal sinus rhythm Normal ECG No previous ECGs available Assessment and Plan Assessment Anesthesia Assessment: Chart Reviewed Documented by User: Thania Bar MD 04/30/23 09:21 [facility] Past Medical History Medical History Pseudotumor cerebri Hypothyroidism Headaches due to old head injury Migraine Surgical History Surgical History History of delivery Status post ventriculo-peritoneal shunt placement S/P cholecystectomy S/P laparoscopic sleeve gastrectomy History of Problems with Anesthesia: No Social History Social History Patient Tobacco Use Status: Never used Tobacco Meds Allergies Allergy/AdvReac Type Severity Reaction Status Date / Time No Known Allergies Allergy Verified 04/21/23 10:58 Home Medications Medication Instructions Recorded Confirmed Last Taken Type amlodipine 5 mg tablet 5 mg PO DAILY 11/15/22 04/30/23 04/30/23 History levothyroxine 88 mcg tablet 88 mcg PO DAILY 11/15/22 04/30/23 04/30/23 History propanolol 20 mg PO BID CASTILLO 11/15/22 04/30/23 04/30/23 History blood-glucose transmitter (Dexcom 12/12/22 04/21/23 Unknown History G6 Transmitter device) insulin aspart U-100 100 unit/mL subcut 04/29/23 04/29/23 Unknown History (3 mL) subcutaneous pen (Novolog FlexPen U-100 Insulin aspart) insulin detemir U-100 100 unit/mL unit subcut 04/29/23 Unknown History (3 mL) subcutaneous pen (Levemir FlexPen) Exam Airway Mallampati Class: II TM Dist: >3cm Neck ROM: Full Denture: Upper and Lower Loose/Missing/Broken Teeth: Yes, Upper and Lower Heart: RRR Lungs: CTA Assessment and Plan Assessment Anesthesia Assessment: Anesthesia Plan Discussed Final Anesthetic Review History of Problems with Anesthesia: No NPO: Yes ASA Class: III Final Preanesthetic Review: Meds/Allgs Chart Reviewed, Consent Obtained/Reviewed and Anes Risks/Benef Reviewed Patient Risk: Intermediate Procedure Risk: Intermediate Anesthetic Plan Anesthetic Plan: MAC: Disposition: Standard PACU
[2023-04-30 08:27] VITALS: BMI 34.3
[2023-04-30 08:45] VITALS: BP 106/61; PULSE 61; RESP 16; TEMP 36; O2SAT 100
[2023-04-30 08:54] LABS: Glucose, Whole Blood 203 mg/dL (60-115)
[2023-04-30] MEDS: Lactated Ringers 1,000 ML 80 ML IVCONT (09:03)
--- NOTE | 2023-04-30 10:14 | MHC.SHP ---
Pre-Procedural Eval Section A - 24 Hr Update-Section A only Date of Service: 04/30/23 The patient is an INPATIENT: No The patient has been examined within 24 hours of the surgical procedure. The History & Physical has been completed within 30 days and I have reviewed it.: No Section B - Complete if H&P > 30 days Chief Complaint: obesity Details of Present Illness: s/p sleeve gastrectomy Relevant Family History (Specify if Yes): No Relevant Social History: None Present Medications: None Medical History: No relevant PMH History of Previous Operations: Relevant previous surgery/procedure and date(s) (Laparoscopic sleeve gastrectomy) Allergies: Allergies Allergy/AdvReac Type Severity Reaction Status Date / Time No Known Allergies Allergy Verified 04/21/23 10:58 Review of Systems Sugical H&P ROS: Negative: Constitution, Cardiovascular, Respiratory, Neurological, Psychiatric, Hem-Onc, Allergic/Immunologic, Gastrointestinal, Genitourinary, Musculoskeletal, Integumentary, Endocrine and Eyes/Ears/Nose/Throat Exam Surgical H&P Exam: Normal: HEENT, Normal: Heart, Normal: Lungs, Normal: Extremities, Normal: Abdomen, Normal: Skin and Normal: Neurological Plan Diagnosis/Plan: Unchanged (EGD to assess the anatomy of the sleeve. Risks and complications were discussed with the patient in advance including bleeding and perforation.) I have reviewed the history and physical and performed a pertinent physical examination on my patient. No changes have occurred unless specified. Time Spent With Patient Time: Total time managing care of this patient today ____ minutes.
--- NOTE | 2023-04-30 10:18 | P.BOP_ITS ---
Brief Operative Note Date of Service: 04/30/23 Pre-op diagnosis: Obesity, s/p sleeve gastrectomy Post-op diagnosis: same Procedure: PROCEDURE DATE: 04/30/2023 PREOPERATIVE DIAGNOSIS: s/p sleeve gastrectomy, obesity POSTOPERATIVE DIAGNOSIS: ?Same as above. 1) small hiatal hernia, 2) distal gastritis PROCEDURE: Gnuftipx-vkqbmn-ikudxnodwloy with biopsies Surgeon: ?Rakesh Pack M.D.. Ph.D. Bowling Or Skating Front Desk Clerk: None ? Anesthesia: IV sedation Estimated blood loss: ?Minimal FINDINGS AND PROCEDURE: ? OPERATIVE INDICATIONS: ?The patient is a 58 year old female known to me who underwent a laparoscopic sleeve gastrectomy elsewhere. The patient had inadequate weight loss so far and is interested in a surgical revision of the previous bariatric peocedure. Based on this information I recommended an upper endoscopy to evaluate the patient's symptoms. Risks and complications of the surgery were discussed with the patient in advance particularly the possibility of perforation or bleeding that may require surgical intervention. The patient understood the risks and was in agreement with the plan. ? PROCEDURE: After informed consent was obtained by the patient, the patient was ?transferred to the Operating Room and was placed in the supine position.? After successful induction of IV sedation, a mouth block was inserted and the patient was placed in the left lateral decubitus position. An upper endoscopy was performed next, the oropharynx and esophagus appeared within the normal limits. There was no hiatal hernia. The z-line was smooth. Two biopsies were obtained from the distal esophagus 2-3 cm proximal to the GE junction and two additional biopsies from the GE junction. The sleeve was entered and it appeared to be of normal size. The caliber of the proximal sleeve was appropriate. There was no gastritis at distal antrum. There was no stricture or ulcer. Biopsies were obtained from the proximal sleeve as well as the distal antrum. The sleeve appeared to be short with a significant amount of unresected distal stomach. No significant bleeding was noted from any of the biopsy sites. The scope was then advanced into the duodenum which appeared to be normal as well. At that point the duodenum ?and the sleeve were decompressed and the scope was withdrawn from the patient's mouth. The patient extubated and was transferred in stable condition to the Recovery Room for further care. I was present and performed all steps of the procedure. There were no residents to assist with this case. Rakesh Pack M.D., Ph.D. Surgeon: Joe Pack MD Anesthesia: MAC Was an Bowling Or Skating Front Desk Clerk used for this Procedure?: No Estimated blood loss (mL): 0 IV fluids (mL): 400 Urine output (mL): 0 (No Mckeon to record output) Pathology: other (Path: 1) antrum x1, 2) proximal sleeve/gastric fundus x1, 3) EGJ x2, 4) distal esophagus x2) Condition: stable Disposition: PACU
[2023-04-30 11:02] VITALS: BP 90/40; PULSE 62; RESP 12; TEMP 36.3; O2SAT 100
[2023-04-30 11:17] VITALS: BP 94/57; PULSE 64; RESP 18; O2SAT 99
[2023-04-30 11:32] VITALS: BP 99/56; PULSE 62; RESP 18; TEMP 36.3; O2SAT 99
== END 2023-04-30 12:17 | disposition home or self-care (01) ==
PROVIDERS: Visit Provider Surgery
PROC: 0DJ08ZZ Inspection of Upper Intestinal Tract, Via Natural or Artificial Opening Endoscopic (ICD-10-PCS; CPT 43235; principal; 2023-04-30 10:10)
DX: K95.89 Other complications of other bariatric procedure (principal); K29.70 Gastritis, unspecified, without bleeding; E66.9 Obesity, unspecified; Z68.32 Body mass index [BMI] 32.0-32.9, adult; Z98.84 Bariatric surgery status; Z90.3 Acquired absence of stomach [part of]; K44.9 Diaphragmatic hernia without obstruction or gangrene; I10 Essential (primary) hypertension; E11.9 Type 2 diabetes mellitus without complications; E03.9 Hypothyroidism, unspecified; G43.909 Migraine, unspecified, not intractable, without status migrainosus; G47.33 Obstructive sleep apnea (adult) (pediatric); G93.2 Benign intracranial hypertension; Z98.2 Presence of cerebrospinal fluid drainage device; Z79.899 Other long term (current) drug therapy; Z90.49 Acquired absence of other specified parts of digestive tract; Z79.4 Long term (current) use of insulin
CPT/HCPCS: 43239; 82947; 88305; 88313; 88342; J1596; J2250; J2704

== ENCOUNTER → 2023-04-30 07:53 | Outpatient (BNV) | payer OTHER, SELFPAY | PROVIDERS: Visit Provider Surgery | DX: K29.70 Gastritis, unspecified, without bleeding (principal); K44.9 Diaphragmatic hernia without obstruction or gangrene; Z90.3 Acquired absence of stomach [part of] | CPT/HCPCS: 43239 ==

== ENCOUNTER 2023-05-12 08:26 | Outpatient (AMB) | payer OTHER, SELFPAY ==
--- NOTE | 2023-05-12 14:10 | A.OFFVIS_ITS ---
Intake VS Expanded 05/12/23 14:20 Height 5 ft 6 in Weight 204 lb 8 oz BMI 33.0 Body Fat % 43.2 Body Fat Mass 88.4 Fat Free Mass 116.4 Visceral Fat Rating 15 Body Water % 39 Body Water Mass 79.8 Intake Visit Reasons: TV Pre Op LSG 05/20/23 Allergies No Known Allergies Allergy (Verified 05/12/23 14:12) Medication List - Last Reconciled 05/12/23 by Joe Pack MD amlodipine 5 mg PO DAILY blood-glucose transmitter (DexFibrenetix G6 Transmitter device) As directed levothyroxine 88 mcg PO DAILY ondansetron 4 mg PO Q12H pantoprazole 40 mg PO DAILY polyethylene glycol 3350 (Miralax) 17 grams PO DAILY [propanolol 20 mg PO BID] sucralfate 10 mL PO BID HPI TV Pre Op LSG 05/20/23 HPI Details Start time: 2.10pm, End time: 2.30pm ?I spent 15 minutes speaking with the patient on the phone plus an additional 5 minutes reviewing and updating records for a total of 20 minutes HPI Comments History of Present Illness Details Overall weight loss: 19.4lbs, or 8.65% TBWL Is doing 2 Orgain protein shakes (1 scoop in almond milk), one Fit Crunch protein bar and one meal (8 forks of protein and 8 forks of salad or vegetables) Exercise: is doing treadmill for 200 calories and the stationary bike for 200 calories, 5 days per week [facility] Medical History Pseudotumor cerebri Hypothyroidism Headaches due to old head injury Migraine Surgical History History of delivery Status post ventriculo-peritoneal shunt placement S/P cholecystectomy S/P laparoscopic sleeve gastrectomy Social History Patient Tobacco Use Status: Never used Tobacco Assessment & Plan Assessment & Plan (1) Obesity (BMI 30-39.9): Code(s): E66.9 - Obesity, unspecified Plan: 1. Plan for lap sleeve gastrectomy revision including upper GI endoscopy. All tests has been completed and reviewed and the patient is cleared for the surgery. ?If diaphragmatic or ventral hernias are present at time of surgery, these will be repaired laparoscopically as well. Risks and complications were discussed in detail including possible conversion to an open procedure, anastomotic leak, bleeding requiring transfusion, small bowel obstruction, , DVT and pulmonary embolism, cardiac, or pulmonary complications, as custodial complications such as anastomotic ulcer, insufficient weight loss and vitamin deficiencies. I emphasized the importance of close follow-up, adherence to instructions and good communication. So far she has proven to be an excellent communicator and very compliant with all our directions accomplishing a great weight loss. I believe that she is an excellent candidate and she is ready. 2. Preop prescriptions were provided and explained the purpose of each one. Need to be purchased preop. Start Pantoprazole now as you get it from the pharmacy, 1 pill per day. Sucralfate and Zofran are for after surgery as needed. 3. Bowel prep: please do 7 packets ?of Miralax mixing each one with a an 8oz glass of water, crystal light, gatorade zero, or propel ?on 05/18/23 and the same amount on 05/19/23. The Miralax you begin with one packet at a time in 8oz water or crystal light, gatorade zero, or propel ?as early in the day as you can and you do them back to back until you finish them. Continue the protein shakes during? the bowel prep. 4. Needs to purchase 1oz medicine cups . 5. Needs to purchase Children's liquid Tylenol for postop pain control. 6. Avoid aspirin, motrin, Advil, Aleve, Ibuprofen, Naproxyn. Tylenol is OK. 7. She needs to purchase the Celebrate 4:1 protein shakes from the hospital's gift shop. 8. Will do basic preop blood work-up any day between Friday05/13/23 and Friday05/16/23 fasting for 12 hours and is scheduled to see the Anesthesiologist prior to the day of surgery. 9. Check your blood sugars daily and let me know if they are over 150 or below 100 10. Importance of adherence to postop folllow-up and recommendations was underscored and she understands that. 11. Stop food and bars as of tomorrow 05/13/23 and continue with 3 Orgain protein shakes (ONE scoop EACH in 8oz almond milk) at 7am-9am, 10am-12pm and 1pm-3pm and two more Orgain protein shakes with TWO scoops EACH in 8oz of almond milk at 4pm-6pm and 7pm-9pm 12. No soups, broths or V8 13. The patient's?medical?history has been reviewed and they are considered low risk for post op DVT and therefore DVT prophylaxis is not considered necessary. Travel after surgery was reviewed. The patient has not disclosed any travel plans during the first 30 days after surgery and they have been advised that within the first 30 days after surgery any bus, plane, train or car travel over 2 hours in duration is contraindicated due to the possibility of developing blo od clots from immobility. Any travel, needs to include periods of ambulation of 10 minutes in duration every 2 hours.? Patient was instructed to discuss any plans for travel during this period with their bariatric surgeon.? 14. Please take at the day of surgery the following medications: The thyroid medication only 15. Stop any control pills and don't use them for one month after surgery 16. Absolutely no smoking or vaping, or marijuana until the surgery and for at least the first 4 weeks. Only nicotine patches are allowed. 17. Send me weight measurements on Friday05/20/23, the day of surgery before you go to the hospital. 18. Avoid any steroids by mouth for any reason. Let me know if someone prescribes them to you 19. These instructions supersede anything else you read in the handbook, anything you watched in videos or classes or you were told by any other provider. If there is any conflict, you follow the above instructions and nothing else. Orders: Orders Type and Screen Today E66.9 - Obesity, unspecified Hemoglobin A1c Today E66.9 - Obesity, unspecified Comprehensive Met. Panel Today E66.9 - Obesity, unspecified TSH reflex Free T4 Today E66.9 - Obesity, unspecified Prothrombin Time INR Today E66.9 - Obesity, unspecified Lipid Panel Today E66.9 - Obesity, unspecified C Reactive Protein Today E66.9 - Obesity, unspecified Partial Thromboplastin Time Today E66.9 - Obesity, unspecified Complete Blood Count Auto Diff Today E66.9 - Obesity, unspecified Insulin Today E66.9 - Obesity, unspecified Medications: New pantoprazole 40 mg PO DAILY 90 tabs 0RF K21.9 - Gastro-esophageal reflux disease without esophagitis sucralfate 10 mL PO BID 600 mL 2RF K21.9 - Gastro-esophageal reflux disease without esophagitis polyethylene glycol 3350 (Miralax) Mix each packet with 8oz of water, Crystal light, or Gatorade zero, or Propel and do 7 packets on 05/18/23 and another 7 packets on 05/19/23 17 grams PO DAILY 14 ea 0RF Z01.818 - Encounter for other preprocedural examination ondansetron Only take one every 12 hours as needed if you have nausea 4 mg PO Q12H 20 tabs 0RF nausea and vomiting R11.0 - Nausea Telehealth Telehealth Location of provider rendering services: practice address Location of patient: address on file Patient Identification confirmed using: Name, : Yes Telehealth method: voice only Patient verbally consented to treatment: Yes Patient verbally consented to billing insurance company: Yes Patient informed of any privacy concerns related to visit: Yes Minutes spent on Phone/Video with Pt.: 20 Coding Level of Care Code Tele Est Pt Level 3 (09211) Diagnoses Obesity (BMI 30-39.9) E66.9 Time Spent (min) 20
[2023-05-12 14:20] VITALS: BMI 33.0
== END 2023-05-12 14:30 | disposition home or self-care (01) ==
LOC: HO.HBS 08:27
PROVIDERS: Visit Provider Surgery
DX: E66.9 Obesity, unspecified (principal)
CPT/HCPCS: 99499

== ENCOUNTER → 2023-05-12 08:26 | Outpatient (BNVA) | payer OTHER, SELFPAY | PROVIDERS: Visit Provider Surgery ==

== ENCOUNTER 2023-05-16 08:27 | Outpatient (REF) | payer OTHER, SELFPAY ==
[2023-05-16 08:55] LABS: MANUAL DIFF FLAG NO
[2023-05-16 09:27] LABS: Basophils Absolute Auto 0.1 X10*3/uL (0.0-0.2); Basophils Percent Auto 0.6 % (0-2); Eosinophils Absolute Auto 0.1 X10*3/uL (0.0-0.4); Eosinophils Percent Auto 1.4 % (0-4); Hematocrit 37.6 % (37.0-47.0); Hemoglobin 12.1 g/dl (12.0-16.0); Imm Gran Abs Auto 0.01 X10*3/uL (0.00-0.03); Imm Gran Pct Auto 0.1 % (0.0-0.4); Lymphocytes Absolute Auto 2.1 X10*3/uL (1.2-4.9); Lymphocytes Percent Auto 27.5 % (20-40); Mean Corpuscular HGB Conc 32.2 g/dl (31.0-35.0); Mean Corpuscular Hemoglobin 27.6 pg (27.0-33.0); Mean Corpuscular Volume 85.8 fL (80.0-98.0); Mean Platelet Volume 11.8 fL (9.4-12.3); Monocytes Absolute Auto 0.5 X10*3/uL (0.1-1.2); Monocytes Percent Auto 5.8 % (2-11); Neutrophils Percent Auto 64.6 % (45-73); Platelet Count 241 X10*3/uL (160-400); Red Blood Count 4.38 X10*6/uL (4.20-5.50); Red Cell Distribution Width 14.6 % (11.0-16.0); White Blood Count 7.8 X10*3/uL (4.8-10.8)
[2023-05-16 09:36] LABS: Estimated Average Glucose 137 mg/dL; Hemoglobin A1c % 6.4 % (<6.0)
[2023-05-16 09:37] LABS: INTERNATIONAL NORM RATIO 0.9 (0.9-1.1); Prothrombin Time 11.3 SEC (11.1-13.3)
[2023-05-16 09:39] LABS: Partial Thromboplastin Time 31.7 SEC (26.0-36.8)
[2023-05-16 09:56] LABS: Alanine Aminotransferase 26 U/L (0-31); Albumin Level 4.4 g/dL (3.5-5.0); Alkaline Phosphatase 97 U/L (39-117); Anion Gap 14 (12-20); Aspartate Amino Transferase 26 U/L (5-31); Bilirubin Total 0.5 mg/dL (0.0-1.0); Blood Urea Nitrogen 30 mg/dL (9-16); C Reactive Protein 0.79 mg/dL (< or = 0.50); Calcium 9.7 mg/dL (8.4-10.2); Carbon Dioxide 22 mmol/L (22-29); Chloride 109 mmol/L (96-108); Cholesterol 177 mg/dL (<200); Estimated Glomerular Filt Rate 22; Glucose Random 137 mg/dL (60-115); HDL Cholesterol 52 mg/dL (>40); LDL Cholesterol Calculated 109 mg/dL (<100); Potassium 4.2 mmol/L (3.3-5.1); Sodium 141 mmol/L (135-145); Total Protein 8.2 g/dL (6.5-8.0); Triglycerides 80 mg/dL (<150)
[2023-05-16 10:10] LABS: Insulin 4 uU/mL (2-29); TSH reflex Free T4 4.31 uIU/mL (0.32-4.0)
[2023-05-16 11:04] LABS: Free T4 (Free Thyroxine) 1.23 ng/dL (0.71-1.85)
== END 2023-05-16 08:28 | disposition home or self-care (01) ==
LOC: HO.LAB 08:27
PROVIDERS: Visit Provider Surgery
DX: E66.9 Obesity, unspecified (principal); E03.9 Hypothyroidism, unspecified
CPT/HCPCS: 36415; 80053; 80061; 83036; 83525; 84439; 84443; 85025; 85610; 85730; 86140

== ENCOUNTER 2023-05-20 06:11 | Inpatient (IN) | payer OTHER, SELFPAY ==
[2023-05-14 11:46] VITALS: BMI 32.9
--- NOTE | 2023-05-16 15:01 | P.CONAN_ITS ---
Documented by User: Анна Galeano NP 05/16/23 15:49 HPI - Anesthesia Eval Consult details Narrative: 58yo F for Revision Sleeve Gastrectomy to a Gastrectomy Sleeve,EGD,Possible Diaphragmatic Hernia,Possible Ventral Hernia,possible Open Follows renal for CKD St 3[facility]. Last office visit 02/2023. Baseline creat 1.9-2.1. Provider rec'd SGLT2 inhib, but none noted on external med rec. [employer] shunt for pseudotumor cerbri PMFSH Active Problems Active Problems: All Active Problems (Updated 05/14/23 @ 11:53 by Loreta Stone, ROSALIA) Blind (Acute) HTN (hypertension) (Acute) Diabetes (Acute) ERNIE (obstructive sleep apnea) (Acute) Obesity (BMI 30-39.9) (Acute) Pseudotumor cerebri (Acute) Hypothyroidism (Acute) Headaches due to old head injury (Acute) Past Medical History Medical History CKD (chronic kidney disease) ERNIE (obstructive sleep apnea) Wears dentures Legally blind Pseudotumor cerebri Hypothyroidism Headaches due to old head injury Migraine Surgical History Surgical History Hx of non-cataract eye surgery (~2021) History of delivery Status post ventriculo-peritoneal shunt placement S/P cholecystectomy S/P laparoscopic sleeve gastrectomy History of Problems with Anesthesia: No Social History Social History Household Members: Other Household Members Other:: son Housing: House Are you a primary long term care social worker to a significant other at home: No Do you presently have visiting nurse or other home services: Yes (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 If so, by whom?: No Are you DNR?: No Advance Directives: No Advance Directives Information Provided: Yes Advance Directives on File: No Recently lost weight without trying: No Meds Allergies Allergy/AdvReac Type Severity Reaction Status Date / Time No Known Allergies Allergy Verified 05/16/23 10:07 Home Medications Medication Instructions Recorded Confirmed Last Taken Type amlodipine 5 mg tablet 5 mg PO DAILY 11/15/22 05/14/23 05/20/23 04:30 History levothyroxine 88 mcg tablet 88 mcg PO DAILY 11/15/22 05/14/23 05/20/23 04:30 History blood-glucose transmitter (Dexcom 12/12/22 05/12/23 Unknown History G6 Transmitter device) propranolol 40 mg tablet 40 mg PO BID 05/14/23 05/14/23 05/20/23 04:30 History Exam Height,Weight and Vital Signs: Height 5 ft 6 in Weight 92.533 kg Pertinent Lab Results Pertinent Lab Results: Laboratory Tests 05/16/23 08:42 Blood Type B Positive Antibody Screen NEGATIVE Laboratory Tests 05/16/23 08:54 WBC 7.8 Hgb 12.1 Hct 37.6 Plt Count 241 Sodium 141 Potassium 4.2 Chloride 109 H Carbon Dioxide 22 BUN 30 H Creatinine 2.33 H Narrative Narrative: EKG 11/2022 Vent. Rate : 068 BPM Atrial Rate : 068 BPM P-R Int : 144 ms QRS Dur : 082 ms QT Int : 404 ms P-R-T Axes : 016 004 000 degrees QTc Int : 429 ms Normal sinus rhythm Normal ECG No previous ECGs available Assessment and Plan Final Anesthetic Review History of Problems with Anesthesia: No Documented by User: Sonia Olivas MD 05/20/23 09:49 HPI - Anesthesia Eval Consult details Narrative: 58yo F for EGD, Revision of Sleeve Gastrectomy, Possible Diaphragmatic Hernia repair, Possible Ventral Herniarepair, possible Open Follows renal for CKD St 3b. Last office visit 02/2023. Baseline creat 1.9-2.1. Provider rec'd SGLT2 inhib, but none noted on external med rec. [employer] shunt for pseudotumor cerbri PMF Active Problems Active Problems: All Active Problems (Updated 05/20/23 @ 07:21 by Polly Owens) Legally Blind (Acute) HTN (hypertension) (Acute) Diabetes (Acute) ERNIE (obstructive sleep apnea) (Acute). Not using CPAP. Does not believe she has ERNIE Obesity (BMI 32.9) Pseudotumor cerebri (Acute)- shunt in place. No issues. Sees neurosurgeon every few years but has yearly follow up with neurologist CKD Hypothyroidism (Acute) Headaches due to old head injury (Acute) Past Medical History Medical History CKD (chronic kidney disease) ERNIE (obstructive sleep apnea) Wears dentures Legally blind Pseudotumor cerebri Hypothyroidism Headaches due to old head injury Migraine Family History Family history of problems with anesthesia: No Surgical History Surgical History Hx of non-cataract eye surgery (~2021) History of delivery Status post ventriculo-peritoneal shunt placement S/P cholecystectomy S/P laparoscopic sleeve gastrectomy History of Problems with Anesthesia: No Social History Social History Household Members: Other Household Members Other:: son Housing: House Are you a primary long term care social worker to a significant other at home: No Do you presently have visiting nurse or other home services: Yes ([employer]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 If so, by whom?: No Are you DNR?: No Advance Directives: No Advance Directives Information Provided: Yes Advance Directives on File: No Recently lost weight without trying: No Meds Allergies Allergy/AdvReac Type Severity Reaction Status Date / Time No Known Allergies Allergy Verified 05/16/23 10:07 Home Medications Medication Instructions Recorded Confirmed Last Taken Type amlodipine 5 mg tablet 5 mg PO DAILY 11/15/22 05/14/23 05/20/23 04:30 History levothyroxine 88 mcg tablet 88 mcg PO DAILY 11/15/22 05/14/23 05/20/23 04:30 History blood-glucose transmitter (Dexcom 09/28/23 02/26/24 Unknown History G6 Transmitter device) propranolol 40 mg tablet 40 mg PO BID 05/14/23 05/14/23 05/20/23 04:30 History Exam Height,Weight and Vital Signs: Height 5 ft 6 in Weight 92.533 kg Vital Signs Temp Pulse Resp BP Pulse Ox O2 Del Method 05/20/23 06:54 97.2 F 62 16 124/71 100 Room Air Airway Mallampati Class: II TM Dist: >3cm Neck ROM: Full Loose/Missing/Broken Teeth: Yes (Edentulous. Dentures at home) Heart: RRR Lungs: CTAB Assessment and Plan Assessment Anesthesia Assessment: Anesthesia Plan Discussed and Chart Reviewed Final Anesthetic Review Family History of Problems with Anesthesia: No History of Problems with Anesthesia: No NPO: Yes ASA Class: III Final Preanesthetic Review: No Changes in Pt Med Stat, Meds/Allgs Chart R chloe, Consent Obtained/Reviewed and Anes Risks/Benef Reviewed Patient Risk: Intermediate Procedure Risk: Intermediate Assessment/Block/Sedation in SS: Assess/Block/Sedation- Anesthetic Plan Anesthetic Plan: GA Disposition: Standard PACU and Inp. Admit - Standard Bed
[2023-05-20] VITALS (17 sets, daily range): BP systolic 114–143; BP diastolic 55–77; PULSE 62–85; RESP 16–20; TEMP 36–36.9; O2SAT 95–100; BMI 37.8
--- NOTE | 2023-05-20 07:31 | PC.NURSE ---
difficult stick. anesthesia and myself attempted three times. awaiting for anesthesia to use the ultrasound machine for her iv insertion.
--- NOTE | 2023-05-20 07:31 | MHC.SHP ---
Pre-Procedural Eval Section A - 24 Hr Update-Section A only Date of Service: 05/20/23 The patient is an INPATIENT: Yes The patient has been examined within 24 hours of the surgical procedure. The History & Physical has been completed within 30 days and I have reviewed it.: Yes Section B - Complete if H&P > 30 days Chief Complaint: obesity Relevant Family History (Specify if Yes): No Present Medications: None Medical History: No relevant PMH History of Previous Operations: Relevant previous surgery/procedure and date(s) (Laparoscopic sleeve gastrectomy and hiatal hernia repair) Allergies: Allergies Allergy/AdvReac Type Severity Reaction Status Date / Time No Known Allergies Allergy Verified 05/16/23 10:07 Review of Systems Sugical H&P ROS: Negative: Constitution, Cardiovascular, Respiratory, Neurological, Psychiatric, Hem-Onc, Allergic/Immunologic, Gastrointestinal, Genitourinary, Musculoskeletal, Integumentary, Endocrine and Eyes/Ears/Nose/Throat Exam Surgical H&P Exam: Normal: HEENT, Normal: Heart, Normal: Lungs, Normal: Extremities, Normal: Abdomen, Normal: Skin and Normal: Neurological Plan Diagnosis/Plan: Unchanged I have reviewed the history and physical and performed a pertinent physical examination on my patient. No changes have occurred unless specified. Time Spent With Patient Time: Total time managing care of this patient today ____ minutes.
--- NOTE | 2023-05-20 07:32 | PM.OP ---
Brief Operative Note Date of Service: 05/20/23 Pre-op diagnosis: Severe obesity with comorbidities (see below) Post-op diagnosis: same Procedure: INITIAL PATIENT BMI ON PRESENTATION AT OUR OFFICE: 36.2 kg/m2 LAST BMI BEFORE SURGERY: 33.3 kg/m2 COMORBIDITIES: sleep apnea, GERD, renal insufficiency, hypertension, hypothyroidism, legally blind, pseudotumor cerebri, insulin dependent diabetes ?The patient presented to the Weight Management Program with significant obesity that was negatively impacting the patient's comorbidities as listed above.? The program is a phased program with a special focus on preoperative medical weight management to promote substantial weight loss and prepare the patients for the second phase of the program: bariatric surgery. The patient participated in an intensive weekly lifestyle ?intervention and exercise program during which the patient ?has lost between the initial office visit and the last preoperative visit 19.4lbs, or 8.65% of initial actual body weight. It was deemed appropriate for the patient to now have bariatric surgery. In light of the current Covid-19 pandemic and the well documented strong association of obesity and increased risk of worse outcomes if infected with Covid-19 (REFERENCES:https://pubmed.ncbi.nlm.nih.gov/34902349/,?https://pubmed.ncbi.nlm.nih.gov/30231822/), any delay in undergoing bariatric surgery may lead to the patient's worsening health condition and increased?risk of more severe Covid-19 disease if infected. In addition a recent?study from [facility] published in [facility] on 03/12/2021 ([email or web address]) found that, among patients with obesity, substantial weight loss achieved with surgery was associated with improved outcomes of COVID-19 infection. The findings suggest that obesity can be a modifiable risk factor for the severity of COVID-19 infection. In addition, the patient met the BMI-criteria for bariatric surgery based on the BMI on initial presentation. The patient should not be penalized for achieving such weight loss because ?it is not sustainable long-term without surgical intervention and it was achieved in preparation for bariatric surgery ?under my direction and based on my published research ([email or web address]).[email or web address] and?[email or web address].soard.org/article/[email or web address])34057-X/pdf) ?that a 10% preoperative weight loss improves long-term weight loss after surgery and reduces perioperative complications.? Insurance carriers such as [facility] have endorsed my recommendations ?and have included in their policies criteria to include a 10% preoperative weight loss requirement. PROCEDURE: Esophago-gastroscopy, extensive laparoscopic lysis of adhesions, laparoscopic sleeve gastrectomy and laparoscopic gastropexy. Two additional trocars were required to lyse the adhesions. INDICATIONS: This is a 58 year-old female who was electively scheduled for laparoscopic, possibly open sleeve gastrectomy revision. The patient has a previous sleeve gastrectomy at [facility] with Dr. Cintron. Preoperative work-up including an UGI and EGD is suggestive of redundancy at the proximal gastric fundus. The objective of this operation is to redo the sleeve. The risks and complications of the procedure were discussed with the patient in advance, particularly the possibility of ; pulmonary embolism; staple line leak; bleeding; GERD; cardiac, pulmonary, or renal complications; as well as long-term problems such as insufficient weight loss, vitamin deficiency, strictures, or ulcers. The patient understood all the risks, and was in agreement to proceed with surgery. DESCRIPTION OF PROCEDURE: After informed consent was obtained from the patient, the patient was given preoperative antibiotics, and was transferred to the operating room. After successful induction of general anesthesia, pneumatic compression devices were placed on both lower extremities. An upper endoscopy was performed next. The oropharynx and esophagus appeared to be within normal limits. There was a diaphragmatic hernia present of moderate size consistent with the findings of the preoperative upper GI. The stomach was entered. Then after all fluid and air were suctioned and the stomach was fully decompressed, the scope was withdrawn and secured in the mid esophagus. The patient was then prepped and draped in the usual sterile manner, and abdominal access was established at the right upper quadrant with the Holly technique. A 12 mm blunt port was inserted, and the abdomen was insufflated with CO2 to a pressure of 15 mmHg. There were adhesions around the port from previous open cholecystectomy. Under direct visualization, three additional 5 mm Versi step ports were placed at the left upper abdomen, left mid abdomen at the middle axillary line and one to the left of the umbilicus. There were adhesions in the abdomen from previous open cholecystectomy involving the transverse colon, the omentum and the anterior abdominal wall. Those were lysed completely with the ultrasonic device (Bluechilliunderbeat, Olympus). Adhesions towards the umbilicus were left intact as they did not interfere with our procedure. Once the adhesions, specifically one 5 mm Versi-step port to the left upper quadrant, and a 5 mm Versi-Step port to the right upper quadrant. 1% lidocaine plain was used to infiltrate all port sites as well as all fascia defects. Following that, the patient was placed in a steep reverse Trendelenburg position. An additional 5 mm port was placed to the right flank for the Mediflex retractor that was used to retract the left lobe of the liver. The gastro-esophageal fat pad was opened with the ultrasonic device (Bluechilliunderbeat, Olympus) and the anterior esophagus and hiatus were exposed. The angle of His was opened with the ultrasonic device the fundus of the stomach from any diaphragmatic and splenic attachments. I then opened the gastrocolic ligament between the transverse colon and the greater curvature of the stomach with the ultrasonic device to enter the lesser sac. There was no significant redundancy at the proximal sleeve. In addition, an endoscopy was performed and there was no evidence of a significant diaphragmatic hernia. However there sleeve was short with a significant amount of antrum and mid-stomach left unresected at the original sleeve operation. Adhesions and any remaining stomach attachments distally were lysed using the Thunderbeat to a distance of 3 cm from the pylorus. Once the distal somach had been adequately mobilized, it was resected with 3 Endo-EVA 45 purple loads and one EVA-60 purple load using the SIGNIA stapler and loads. Every effort was made that the gastric sleeve had a tubular shape and an even caliber throughout. An endoscopy was performed before the first fire to ensure that I did not narrow the incisura angularis. Once the sleeve resection was completed, the staple line of the gastric sleeve was reinforced with Hemoclips. The resected stomach was retrieved without difficulty from the Holly port. A gastropexy was then performed in order to prevent postoperative GERD and partial gastric volvulus. Several interrupted 2.0 Surgidac sutures were placed between the sleeve's staple line and the previously divided greater omentum and gastro-colic ligament using the Endo-Stitch device. ?An upper endoscopy was performed. There was no narrowing at the GE junction. The scope was easily advanced all the way to the pylorus which was clearly visualized. There was no narrowing anywhere and the sleeve's caliber was even throughout. The sleeve's staple line was inspected and there was no evidence of ischemia, bleeding or dehiscence. At that point the gastroscope was withdrawn from the patient?s mouth while we were decompressing the bowel and the stomach from any remaining air. I looked into the lesser sac to see how the sleeve was situating and it was situating well. There was no bleeding from the staple line, spleen, or short gastric vessels. The Mediflex retractor was removed, and the undersurface of the liver was inspected and there was no bleeding. The patient was placed in supine position. I closed the fascial defect of the 12 mm port site with a figure of eight #1 Polysorb suture. Then 30cc Ropivacaine plain with 10 mg of Dexamethasone were used to infiltrate the fascial closure as well as all skin incisions. At this point, the abdomen was deflated, all ports were removed under direct vision, and no bleeding was noted from any of the port sites. The skin incisions were irrigated with saline and were closed with 4-0 absorbable monofilament sutures. Steri-Strips and OpSites were used to cover all incisions. The patient was extubated and was transferred in stable condition to the recovery room for further care. I was present and performed all musa parts of the procedure. Ms Schillingson was the or first assist registered nurse. There were no residents to assist with this case. Rakesh Pack MD, PhD, FACS Surgeon: Joe Pack MD Anesthesia: GETA, local and other (TAP block) Was an Smoking Pipe Liner used for this Procedure?: No Smoking Pipe Liner: Natacha Arciniega Estimated blood loss (mL): 10 IV fluids (mL): 2,500 Urine output (mL): 500 Pathology: other (Stomach) Condition: stable Disposition: PACU
--- NOTE | 2023-05-20 07:39 | P.PNGS_ITS ---
Subjective Subjective Date of Service: 05/21/23 Interval history: Feels well. Mild incisional pain. She is tolerating phase 1 bariatric diet Physical Exam 2 Vital Signs: Vital Signs: Last Vital Signs Temp 97.2 F 05/20/23 06:54 Pulse 62 05/20/23 06:54 Resp 16 05/20/23 06:54 BP 124/71 05/20/23 06:54 Pulse Ox 100 05/20/23 06:54 O2 Del Method Room Air 05/20/23 06:54 BMI result Body Mass Index 32.9 GI: Inspection: Yes normal to inspection, Yes incision (clean, dry and intact) and Yes obesity Palpation (GI): Soft to palpation Extrem: Right lower extremity: normal to inspection (no calf tenderness) L eft lower extremity: normal to inspection (no calf tenderness) Objective Data Labs 05/21/23 05:29 05/21/23 05:29 Procedures Date of Service Date of Service: 05/21/23 Progress Note: A&P Assessment and plan (1) Obesity (BMI 30-39.9): Status: Acute Assessment and Plan: s/p laparoscopic redo sleeve gastrectomy, lysis of adhesions and gastropexy Doing well Will check am labs and if OK the patient will be discharged home (2) ERNIE (obstructive sleep apnea): Status: Acute (3) Diabetes: Status: Acute (4) HTN (hypertension): Status: Acute (5) Blind: Status: Acute (6) Pseudotumor cerebri: Status: Acute (7) Hypothyroidism: Status: Acute (8) Liver fibrosis: Status: Acute (9) GERD (gastroesophageal reflux disease): Status: Acute (10) S/P laparoscopic sleeve gastrectomy: Status: Acute Time Spent With Patient Time: Total time managing care of this patient today ____ minutes. Quality Stroke Does the patient have a stroke diagnosis?: No VTE Prior VTE?: No VTE Risk Level:: Surgical - moderate VTE Device Contraindication: N/A - Device Ordered VTE Drug Contraindication: Treatment Not Indicated
--- NOTE | 2023-05-20 07:42 | PC.NURSE ---
iv to be inserted in the or per anesthesia. aponvie to be given in or by anesthesia
[2023-05-20] MEDS: Aprepitant 32 MG/4.4 ML VIAL IVPUSH (07:43)
--- NOTE | 2023-05-20 11:13 | P.DS_ITS ---
DS: Providers Provider Date of Service: 05/21/23 Date of admission: 05/20/23 06:11 Primary care physician: Unknown Physician DS: Diagnosis Discharge Diagnosis (1) Obesity (BMI 30-39.9): Status: Acute (2) ERNIE (obstructive sleep apnea): Status: Acute (3) Diabetes: Status: Acute (4) HTN (hypertension): Status: Acute (5) Blind: Status: Acute (6) Pseudotumor cerebri: Status: Acute (7) Hypothyroidism: Status: Acute (8) Liver fibrosis: Status: Acute (9) GERD (gastroesophageal reflux disease): Status: Acute (10) S/P laparoscopic sleeve gastrectomy: Status: Acute DS: Summary Hospital Course Hospital Course: ADMITTING DIAGNOSIS: obesity, HTN, hypothyroid, ERNIE, pseudotumor cerenbri, DM, legally blind DISCHARGE DIAGNOSIS: same, s/p laparoscopic reviison sleeve gastrectomy PAST SURGICAL HISTORY: sleeve gastrectomy with HH repair 2020, [employer] shunt, cholecystectomy, section and cataract surgery PROCEDURE: upper endoscopy, laparoscopic sleeve gastrectomy DISCHARGE SUMMARY: History of Present Illness: The patient is a 58 year-old woman with a BMI of 36.1 kg/m2 and associated co- morbidities as described above. The patient had extensive work-up, lost 19 lbs pre operatively and was electively scheduled for laparoscopic, possible open sleeve gastrectomy and gastropexy. Risks and complications of the surgery were discussed with the patient in advance, particularly the possibility of , pulmonary embolism, anastomotic leak, bleeding, bowel injury, GERD, cardiac, renal or pulmonary complications. The patient understood all the risks and was in agreement with the surgical plan. Hospital Course: The patient underwent an uneventful laparoscopic sleeve gastrectomy with gastropexy on the day of admission. Postoperatively, the patient was transferred to the surgical floor. The patient received IV Acetaminophen and IV dilaudid for pain control. Patient was started on bariatric phase 1 diet POD #0. On postoperative day one, the patient was feeling well without nausea, vomiting, fevers, or tachycardia. The patient had some mild incisional pain and the abdome n was soft. On the morning of postoperative day one, the patient was continued on 1 ounce of water or ice every half hour. During the day, the patient did fairly well, having some incisional pain, but able to ambulate adequately and to tolerate liquids well. Since the patient is doing well, we decided that the patient was ready to be discharged. The patient was given instructions to follow-up with me next week and to call my office for any fever over 101, persistent abdominal pain, nausea, vomiting, GERD, symptoms of DVT such as calf tenderness, or leg swelling, or pulmonary embolism such as chest pain or shortness of breath. The patient was also instructed to drink 40-60 ounces of liquids per day using the 1-ounce cups. The patient had been given prescriptions for Tylenol for pain, Zofran prn for nausea, and pantoprazole and carafate previously. The patient was encouraged to ambulate and use the incentive spirometer. The patient was allowed to shower, but no baths, and encouraged to stay active at home. All of these instructions were given to the patient personally. All questions were answered and the patient understood all instructions, the instructions were also given to the patient in print. Time Attestation Discharge Coordination Time: discharge time of ____ minutes Quality: Safe Use of Opioids Does Pt have an Active Cancer Diagnosis on the Problem List?: No Quality: Stroke Does the patient have a stroke diagnosis?: No Physical Exam Vital Signs: Vital Signs: Last Vital Signs Temp 97.2 F 05/20/23 06:54 Pulse 62 05/20/23 06:54 Resp 16 05/20/23 06:54 BP 124/71 05/20/23 06:54 Pulse Ox 100 05/20/23 06:54 O2 Del Method Room Air 05/20/23 06:54 BMI result Body Mass Index 32.9 DS: Data Data Completed and Pending Pending studies at discharge: Pending at discharge 05/20/23 10:37 Surgical [PTH] Routine Discharge Plan Discharge Anticipated Discharge Date/Time: 05/21/23 10:00 Patient Disposition: Home, Self-Care Discharge Diagnosis: s/p revision of previous sleeve gastrectomy Referrals: Physician,Unknown J [Primary Care Provider] - 1 Week Discharge Medications: Continued atorvastatin 80 mg tablet 80 mg PO BEDTIME lamotrigine 200 mg tablet 200 mg PO BEDTIME cetirizine 10 mg tablet 10 mg PO DAILY olanzapine 2.5 mg tablet 2.5 mg PO BEDTIME lorazepam 1 mg tablet 1 mg PO DAILY PRN (Reason: Anxiety) topiramate 100 mg tablet 100 mg PO BID fluticasone propionate 110 mcg/actuation HFA aerosol inhaler 2 inh inhalation DAILY PRN (Reason: Shortness Of Breath) buspirone 15 mg tablet 15 mg PO DAILY@1300 bupropion HCl 300 mg tablet extended release 24 hr 300 mg PO DAILY pantoprazole 40 mg tablet,delayed release (DR/EC) 40 mg PO DAILY Qty: 90 0RF sucralfate 100 mg/mL suspension 10 ml PO BID Qty: 600 2RF ondansetron 4 mg tablet,disintegrating 4 mg PO Q12H Qty: 20 0RF Rx Instructions: Only take one every 12 hours as needed if you have nausea levothyroxine 88 mcg tablet 88 mcg PO DAILY Held propranolol 40 mg tablet 40 mg PO BID Hold Instructions: Resume on 05/22/23. Check your blood pressure every morning as soon as you wake up and send it to Dr. Pack. Do no take the blood pressure medication if the blood pressure is below 120/70. Wait every day to hear back from Dr. Pack before you take the medication. Patient Comments: for headaches losartan 100 mg tablet 100 mg PO DAILY Hold Instructions: Resume on 05/22/23. Check your blood pressure every morning as soon as you wake up and send it to Dr. Pack. Do no take the blood pressure medication if the blood pressure is below 120/70. Wait every day to hear back from Dr. Pack before you take the medication. insulin aspart U-100 [Novolog FlexPen U-100 Insulin] 100 unit/mL (3 mL) insulin pen See Protocol subcut TIDAC Hold Instructions: Discuss dosing with Dr Pack Protocol: Insulin Correction Scale Less than or equal to 110 ---- Give (units): 0 111 to 150 Give (units): 0 151 to 200 Give (units): 2 201 to 250 Give (units): 4 251 to 300 Give (units): 6 301 to 350 Give (units): 8 Greater than 350 Give (units): 10 Call MD if Blood Glucose > : 350 Levemir FlexPen 100 unit/mL (3 mL) insulin pen 12 unit subcut BID Hold Instructions: Discuss dosing with Dr Pack amlodipine 5 mg tablet 10 mg PO DAILY Hold Instructions: Resume on 05/22/23. Check your blood pressure every morning as soon as you wake up and send it to Dr. Pack. Do no take the blood pressure medication if the blood pressure is below 120/70. Wait every day to hear back from Dr. Pack before you take the medication. Discontinued melatonin 3 mg tablet 3 mg PO BEDTIME PRN (Reason: Sleep) polyethylene glycol 3350 [Miralax] 17 gram powder in packet 17 g PO DAILY Qty: 14 0RF Rx Instructions: Mix each packet with 8oz of water, Crystal light, or Gatorade zero, or Propel and do 7 packets on 05/18/23 and another 7 packets on 05/19/23 No Action (DME) Dexcom G6 Transmitter Device See Rx Instructions .Route Rx Instructions: As directed Discharge Orders: Discharge Order (Routine); Ordered 05/21/23 Ordered By: Joe Pack Activity on Discharge: No heavy lifting Stand Alone Forms: Patient Portal Discharge page Care Plan Goals: weight loss Health Concerns: obesity Plan of Treatment: No tub baths, sex or returning to work until discussed at first post op appointment. No exercise, alcohol, tobacco or illegal drug use. Continue to use incentive spirometer hourly while awake. Walk in home for 5- 10 minutes every 2 hours during the first week. Continue phase 1 diet today and start phase 2 diet tomorrow morning. Follow all instructions in the bariatric handbook and call with any questions. 1. Please call your doctor or come back to the emergency room should any new symptoms arise. 2. You will receive a courtesy call from [facility] 24-48 hours after discharge. 3. Activity: abstain from alcohol, practice limited stair climbing, no bending, no driving, no exercise, no illicit substances, no lifting, no sex, no tub bath, no work. 4. Diet: continue as discussed with bariatric team.. 5. Dressing Change/Wound Care: Do not change or remove surgical dressings unless they are wet or soiled. 6. Call your doctor if: - Your temperature exceeds 101.5 F - You experience excessive pain or swelling - You have an unexpected reaction to medication - You have excessive bleeding - You experience continued vomiting/nausea - Your incision begins to separate - Your incision shows signs of infection such as increased redness, swelling, excessive pain, heat, or drainage (light blood or clear fluid is normal) 7. General instructions: No lifting greater than 5 lbs for 1 week and not more than 20lbs the next 3?weeks. No driving until seen at the office in 5-7 days a fter surgery. If you do not move your bowels in the next 2 days, please tell?Dr. Pack. Please walk around your home every hour or two to prevent blood clots from forming in your legs. You do not need to wake from sleeping to walk. Please sleep in a bed or couch to prevent kinking at the hips and knees. Please take your incentive spirometer (your lung configuration consultant) home with you and use it for the next few days to prevent pneumonia. You may shower, no hot tubs, baths or swimming pools.?Please follow the post op diet instructions you are?given by Dr Mary duran? and text me daily at 5-6pm for an update.?If you have any issues or concerns or questions please communicate this to him via text.? The Celebrate shakes have all of the bariatric vitamins you need if you consume these shakes. If you are drinking other protein shakes, you will need to purchase the Celebrate multivitamins and calcium that are available in the hospital gift shop on the first floor of the [facility].??Do not take anything without first discussing with Dr Pack. Please make sure you are consuming at least 40 ounces of fluids per day starting the?day AFTER your discharge from the hospital. Always drink 1-2 ml per minute using the 5ml?syringe. If you drink faster you may experience?bloating,?gas pain, burping, nausea or heartburn. In that case please slow down your pace and use the syringe to?understand better the?proper?pace and volume of drinking. Do not hesitate to contact the office with any questions at . The patient's medical history has been reviewed and they are considered low risk for post op DVT and therefore DVT prophylaxis is not considered necessary. Travel after surgery was reviewed. The patient has not disclosed any travel plans during the first 30 days after surgery and they have been advised that within the first 30 days after surgery any bus, plane, train or car travel over 2 hours in duration is contraindicated due to the possibility of developing blood clots from immobility. Any travel, needs to include periods of ambulation of 10 minutes in duration every 2 hours. The patient was instructed to discuss any plans for travel during this period with their bariatric surgeon. Assessment: stable, post op revision sleeve gastrectomy Discharge Date/Time: 05/21/23 10:43
[2023-05-20 11:58] LABS: Hematocrit 34.1 % (37.0-47.0)
[2023-05-20 12:09] LABS: Anion Gap 11 (12-20); Blood Urea Nitrogen 36 mg/dL (9-16); Calcium 8.8 mg/dL (8.4-10.2); Carbon Dioxide 22 mmol/L (22-29); Chloride 111 mmol/L (96-108); Creatinine Clr Calc Pharmacy 28.4; Estimated Glomerular Filt Rate 20; Glucose Random 204 mg/dL (60-115); Potassium 5.1 mmol/L (3.3-5.1); Sodium 139 mmol/L (135-145)
[2023-05-20] MEDS: HYDROmorphone HCl 0.5 MG/0.5 ML SYRINGE 0.25 MG IVPUSH (13:43)
[2023-05-20] MEDS: ceFAZolin Sodium/Dextrose,Iso 2 GM/50 ML PIGGYBACK IV (13:48)
[2023-05-20] MEDS: Famotidine/PF 20 MG/2 ML VIAL IVPUSH ×2 (14:42→20:48)
[2023-05-20] MEDS: Lactated Ringers 1,000 ML 100 ML IVCONT (14:42)
--- NOTE | 2023-05-20 14:51 | PHA.MEDREC ---
Pharmacy Consult ? Medication Reconciliation Pharmacy has completed the medication reconciliation. Spoke to patient at bedside, able to name most medications unprompted.
[2023-05-20] MEDS: Acetaminophen 1,000 MG/100 ML PIGGYBACK 16.7 MG IV ×2 (15:03→20:47)
[2023-05-20 18:19] LABS: Glucose, Whole Blood 255 mg/dL (60-115)
[2023-05-20] MEDS: Insulin Lispro 100 UNIT/ML 3 ML VIAL SUBCUT (18:19)
[2023-05-20 20:24] LABS: Glucose, Whole Blood 236 mg/dL (60-115)
[2023-05-20] MEDS: lamoTRIgine 100 MG TABLET 200 MG PO (20:48)
[2023-05-20] MEDS: Propranolol HCL 40 MG TABLET PO (20:48)
[2023-05-20] MEDS: OLANZapine 2.5 MG TABLET PO (20:48)
[2023-05-20] MEDS: Topiramate 100 MG TABLET PO (20:48)
[2023-05-20] MEDS: Insulin Glargine,Hum.rec.anlog 100 UNIT/ML 10 ML VIAL SUBCUT (20:58)
[2023-05-20] MEDS: 0.9 % Sodium Chloride 1,000 ML 100 ML IVCONT (22:40)
[2023-05-21] MEDS: Acetaminophen 1,000 MG/100 ML PIGGYBACK 16.7 MG IV (02:53)
[2023-05-21 03:35] VITALS: BP 128/72; PULSE 66; RESP 18; TEMP 36.7; O2SAT 98
[2023-05-21] MEDS: Levothyroxine Sodium 88 MCG TABLET PO (05:20)
[2023-05-21 05:54] LABS: MANUAL DIFF FLAG NO
[2023-05-21 06:21] LABS: Basophils Percent Auto 0.1 % (0-2); Hematocrit 34.4 % (37.0-47.0); Hemoglobin 11.2 g/dl (12.0-16.0); Imm Gran Abs Auto 0.03 X10*3/uL (0.00-0.03); Imm Gran Pct Auto 0.3 % (0.0-0.4); Lymphocytes Absolute Auto 1.3 X10*3/uL (1.2-4.9); Lymphocytes Percent Auto 13.3 % (20-40); Mean Corpuscular HGB Conc 32.6 g/dl (31.0-35.0); Mean Corpuscular Hemoglobin 27.7 pg (27.0-33.0); Mean Corpuscular Volume 84.9 fL (80.0-98.0); Mean Platelet Volume 12.1 fL (9.4-12.3); Monocytes Absolute Auto 0.4 X10*3/uL (0.1-1.2); Monocytes Percent Auto 3.9 % (2-11); Neutrophils Absolute Auto 8.1 x10*3/uL (2.0-8.3); Neutrophils Percent Auto 82.4 % (45-73); Platelet Count 196 X10*3/uL (160-400); Red Blood Count 4.05 X10*6/uL (4.20-5.50); Red Cell Distribution Width 14.6 % (11.0-16.0); White Blood Count 9.9 X10*3/uL (4.8-10.8)
[2023-05-21 06:25] LABS: Anion Gap 14 (12-20); Blood Urea Nitrogen 27 mg/dL (9-16); Calcium 9.1 mg/dL (8.4-10.2); Carbon Dioxide 20 mmol/L (22-29); Chloride 110 mmol/L (96-108); Creatinine Clr Calc Pharmacy 35.3; Estimated Glomerular Filt Rate 23; Glucose Random 170 mg/dL (60-115); Potassium 4.9 mmol/L (3.3-5.1); Sodium 139 mmol/L (135-145)
[2023-05-21 06:40] LABS: Thyroid Stimulating Hormone 0.91 uIU/mL (0.32-4.0)
[2023-05-21 07:18] VITALS: BP 124/84; PULSE 66; RESP 17; TEMP 36.1; O2SAT 99
[2023-05-21 08:59] LABS: Glucose, Whole Blood 137 mg/dL (60-115)
--- NOTE | 2023-05-21 09:00 | MHC.CM.PN ---
IMM DELIVERED PT LIVES WITH SON AND IS LEGALLY BLIND. USES A BLIND STICK WITH AMBULATION. DECLINES COMPLETING A HCP AT THIS TIME BUT WILL REAPPROACH BEFORE DC. PCP MAURO WHITEHEAD AT [facility]. DP: PT HAS BEEN MEDICALLY CLEARED FOR DC HOME, NO SERVCES. PT HAS OWN RIDE HOME.
--- NOTE | 2023-05-22 08:39 | HO.POSTANES ---
Post Anesthesia Evaluation Post Anesthesia Evaluation Date of Service: 05/21/23 Vital Signs: Patient seen on 05/21/23 at 730am 124/84, 66, 17, 97F, 99%RA Anesthesia: General Endotracheal-GETA Mental Status: Awake Pain Control: Satisfactory Nausea/Vomiting: None Hydration: Adequate Anesthesia-Related Issues: No Anes. Related Issues
== END 2023-05-21 10:43 | disposition home or self-care (01) | DRG 621 ==
LOC: HO.SSSA 11:12 → HO.S3 13:28
PROVIDERS: Physician Assistant; Admitting Provider Surgery; PCP Nurse Practitioner Family; Visit Provider Surgery
PROC: 0DB64Z3 Excision of Stomach, Percutaneous Endoscopic Approach, Vertical (ICD-10-PCS; principal; 2023-05-20 07:30)
DX: E66.01 Morbid (severe) obesity due to excess calories (principal); E03.9 Hypothyroidism, unspecified; I10 Essential (primary) hypertension; G47.33 Obstructive sleep apnea (adult) (pediatric); N28.9 Disorder of kidney and ureter, unspecified; K66.0 Peritoneal adhesions (postprocedural) (postinfection); H54.8 Legal blindness, as defined in USA; G93.2 Benign intracranial hypertension; Z68.33 Body mass index [BMI] 33.0-33.9, adult; Z98.2 Presence of cerebrospinal fluid drainage device; Z79.4 Long term (current) use of insulin; Z79.899 Other long term (current) drug therapy
CPT/HCPCS: 36415; 80048; 82947; 84443; 85014; 85018; 85025; 86850; 86900; 86901; 88307; 88313; 88342; A4649; C9088; C9145; J0131; J0690; J1100; J1170; J2250; J2371; J2405; J2704; J2795; J3010; J7120

== ENCOUNTER → 2023-05-20 06:11 | Outpatient (BNV) | payer OTHER, SELFPAY | PROVIDERS: Admitting Provider Surgery; Visit Provider Surgery | DX: E66.9 Obesity, unspecified (principal); Z68.33 Body mass index [BMI] 33.0-33.9, adult; K66.0 Peritoneal adhesions (postprocedural) (postinfection); Z90.3 Acquired absence of stomach [part of] | CPT/HCPCS: 43659; 43775; 99024 ==

== ENCOUNTER 2023-05-27 09:48 | Outpatient (AMB) | payer OTHER, SELFPAY ==
--- NOTE | 2023-05-27 09:56 | A.OFFVIS_ITS ---
Intake VS Expanded 05/27/23 10:07 Blood Pressure Location Rt brachial Blood Pressure Position Sitting Pulse 104 H Pulse Source Pulse Oximeter Temp 97.1 F Temperature Source Tympanic Pulse Oximetry 99 Oxygen Delivery Method Room Air Height 5 ft 6 in Weight 195 lb BMI 31.5 Body Fat % 40.2 Body Fat Mass 78.2 Fat Free Mass 116.6 Visceral Fat Rating 10.0 Body Water % 42.5 Body Water Mass 82.8 Muscle Mass/Score 110.6 Basal Metabolic Rate/Score 1,601 Intake Visit Reasons: (OV) PO LSG 05/20/23 Allergies No Known Allergies Allergy (Verified 05/16/23 10:07) HPI HPI Comments History of Present Illness Details The patient is a pleasant 58-year-old female who returns to the office today in follow-up. She has a history of LSG by Dr Montoya at [facility] in 2019. She subsequently had significant weight regain and underwent revision on 05/20/[address] Pack. She is tolerating 3 celebrate 4 in 1 shakes with 1 scoop each an approximately 40 oz of fluid per day. She is moved her bowels and denies any significant pain. She reports blood pressure has been in the 120s to 160s over 70s. Typically she has required only her propranolol 40 mg b.i.d. although if she has higher readings she will take the propranolol and amlodipine as discussed with Dr. Pack. She is off all diabetic medications and blood sugars have been 90s to 100s. [facility] Medical History (Updated 05/24/23 @ 00:02 by Shon Kim) CKD (chronic kidney disease) ERNIE (obstructive sleep apnea) Wears dentures Legally blind Pseudotumor cerebri Hypothyroidism Headaches due to old head injury Migraine Surgical History S/P laparoscopic sleeve gastrectomy Hx of non-cataract eye surgery (~2021) History of delivery Status post ventriculo-peritoneal shunt placement S/P cholecystectomy Social History Household Members: Children Household Members Other:: son Housing: House Are you a primary campground caretaker to a significant other at home: No Do you presently have visiting nurse or other home services: No 75 years or older and lives alone: No Comment: legally blind Patient Tobacco Use Status: Never used Tobacco Second Hand Smoke Exposure: No service: No Physical Exam Vital Signs: Last Vital Signs Temp 97.1 F 05/27/23 10:07 Pulse 104 H 05/27/23 10:07 Pulse Ox 99 05/27/23 10:07 Oxygen Delivery Method Room Air 05/27/23 10:07 BMI result Body Mass Index 31.5 GI Inspection: Yes incision (Clean, dry, intact.) Assessment & Plan Assessment & Plan (1) S/P laparoscopic sleeve gastrectomy: Comment: revision of LSG on 05/20/23 Code(s): Z98.84 - Bariatric surgery status Plan: POD 7 s/p LSG on 05/20/2023, (this is a revision from previous sleeve gastrectomy performed in [address] Espinoza at [facility]) by Dr Pack Weight loss prior to surgery was 29.9 pounds or 12.8 % TBWL. Original weight on 11/15/2022 was 233.4 pounds and op weight was 203.5 pounds. Be sure to text Dr Pack exactly 1 week after surgery your weight from your home scale so he can adjust your meal plan. Continue meal plan until f/u w Esposito in 2 weeks May shower, no submersion in bath for another week Continue abdominal binder with activity and exercise for the next 2 weeks. Exercise prior to surgery was treadmill and bike, may resume No abdominal exercises for 6 weeks post operatively Will be emailed link to post op video for review Reminded of the pace of drinking, 2 mL per minute, 1 oz/15 min. Coding Level of Care Code Global (19350) Diagnoses S/P laparoscopic sleeve gastrectomy Z98.84
[2023-05-27 10:07] VITALS: PULSE 104; TEMP 36.2; O2SAT 99; BMI 31.5
== END 2023-05-27 10:42 | disposition home or self-care (01) ==
PROVIDERS: Visit Provider Physician Assistant Surgical
DX: E66.9 Obesity, unspecified (principal); Z68.31 Body mass index [BMI] 31.0-31.9, adult; Z90.3 Acquired absence of stomach [part of]; Z98.84 Bariatric surgery status
CPT/HCPCS: 99024

== ENCOUNTER → 2023-05-27 09:48 | Outpatient (BNVA) | payer OTHER, SELFPAY | PROVIDERS: Visit Provider Physician Assistant Surgical | DX: Z48.815 Encounter for surgical aftercare following surgery on the digestive system (principal); Z98.84 Bariatric surgery status | CPT/HCPCS: 99212 ==

== ENCOUNTER → 2023-07-09 12:42 | Outpatient (BNVA) | payer OTHER, SELFPAY | PROVIDERS: Visit Provider Physician Assistant Surgical ==